=== PATIENT | male | born 1940 | race Caucasian/White ===

== ENCOUNTER 2023-06-29 17:00 | Inpatient (IN) | payer MEDICARE, OTHER, SELFPAY ==
--- NOTE | ~2023-06-29 | XR_ITS ---
EXAMINATION: XR FOOT, RIGHT CLINICAL INFORMATION: Necrotic toe COMPARISON: None available. TECHNIQUE: AP, lateral, and oblique views of the right foot. FINDINGS: Air density seen in the distal aspect of the first digit. On the lateral image I cannot exclude some ill-definition of bone involving the distal tuft. Therefore focus of osteomyelitis cannot be excluded. Probable dystrophic calcification in the region of the MTP joint. Correlation recommended here. Osteomyelitis cannot be completely excluded at the level the MTP joint of the first digit. There is no acute fracture or dislocation. XR/XR foot RT min 3V IMPRESSION: Described air density in the soft tissues about the distal first digit and I cannot exclude some mild ill-definition of bone involving the distal tuft. Osteomyelitis cannot be excluded. Recommend pre and postcontrast MRI is time. As described some dystrophic calcification could be associated with old injury at the MTP joint. Osteomyelitis cannot be completely excluded here. Again consider MRI
--- NOTE | ~2023-06-29 | XR_ITS ---
EXAMINATION: XR SHOULDER, LEFT CLINICAL INFORMATION: Pain COMPARISON: None available. TECHNIQUE: AP external rotation, Grashey, scapular Y, and axillary views of the left shoulder. FINDINGS: Bone alignment is normal. No fracture or dislocation. Arthritis at the acromioclavicular and glenohumeral joints. Periarticular soft tissue calcifications adjacent to the acromioclavicular and glenohumeral joints. XR/XR shoulder LT min 2V IMPRESSION: Severe arthritis.
--- NOTE | ~2023-06-29 | US_ITS ---
EXAMINATION: NONINVASIVE ASSESSMENT OF THE ARTERIES OF THE RIGHT LOWER EXTREMITY Dillon Lovelace MD CLINICAL INFORMATION: Wet gangrene of toe. TECHNIQUE: Right lower extremity duplex ultrasound was performed with velocity measurements and waveform analysis in the common femoral artery, profunda femoris artery, proximal mid and distal superficial femoral artery, popliteal artery and tibial vessels. This study was performed only at rest. COMPARISON: None available. FINDINGS: Velocities in cm/sec and phasicity as well as the presence of plaque are reported below. RIGHT LEG: Diffuse plaque is present throughout. Triphasic flow is present in the common femoral artery with biphasic flow noted throughout the remainder of the lower extremity with the exception of the dorsalis pedis and anterior tibial artery, which have monophasic flow. There is velocity acceleration in the mid SFA, indicative of some element of stenosis. Common Femoral: 82 Profunda Femoris: 110 Proximal SFA: 104 Mid SFA: 213 Distal SFA: 80 Popliteal: 96 Posterior tibial artery: 48 Peroneal: 99 Anterior tibial artery: 60 Dorsalis pedis: 41 US/US arterial duplex LE RT IMPRESSION: There is peripheral vascular disease present with plaque throughout, but there is multiphasic flow present with the exception of the distal tibial vessels, which demonstrate monophasic flow. CT angiography would be useful for further evaluation.
[2023-06-29 17:27] VITALS: BP 157/76; PULSE 82; RESP 18; TEMP 37.2; O2SAT 98; BMI 31.3
--- NOTE | 2023-06-29 17:57 | ED.GENADULT ---
HPI - General Adult General Chief complaint: General Medical Stated complaint: cant walk, black foot? toe? Time Seen by Provider: 06/29/23 17:47 Source: patient and family Mode of arrival: ambulatory Limitations: no limitations History of Present Illness HPI narrative: 83 yo male with PMH of DM, HTN not a smoker who was finally coerced to come in by family and friends for 1+ month of R great toe infection and necrosis. He states he cannot feel it. it is black and has some drainage. He has not sought care for this. he now has swelling and redness up the eyal VALENTINO complaint: R great toe necrosis Onset (ago): month(s) (1+) Location: right and lower extremity Radiation: non-radiation Severity: moderate Relieving factors: none Associated symptoms: other (open wound black toe) Treatments prior to arrival: none Related Data Allergies Allergy/AdvReac Type Severity Reaction Status Date / Time No Known Allergies Allergy Unverified 05/08/20 17:57 Review of Systems Review of Systems: Constitutional : No Fever, No Chills ENT/Mouth : No sore throat, No Rhinorrhea Eyes: No Eye Pain, No Swelling, No Redness Cardiovascular : No Chest Pain, No SOB, pos leg swelling Respiratory : No Cough, No Sputum Gastrointestinal : No Nausea, No Vomiting, No Diarrhea, No abdominal Pain Genitourinary : No Dysuria, No Hematuria Musculoskeletal : No joint pain, No Myalgias, No Joint Swelling Skin : pos Skin Lesions, positive skin rash Neuro : No Weakness, No Numbness, No Headache Psych : No Anxiety, No Depression Heme/Lymph: No Bruising, No Bleeding,No Lymphadenopathy Endocrine : No Polyuria, No Polydipsia All other systems reviewed and are negative [facility] Past Medical History Attestation statement: The following information was validated with the patient. Medical History HTN (hypertension) Diabetes Social History Social History Patient Tobacco Use Status: Never used Tobacco Use of substances other than those prescribed or required for medical reasons: No Advance Directives: No Advance Directives Information Provided: No Physical Exam ED Vital Signs: Vital Signs - 24 hr 06/29/23 17:27 06/29/23 18:13 Temperature 99 F 99.7 F Pulse Rate 82 79 Respiratory Rate 18 20 Blood Pressure 157/76 H 173/74 H Pulse Oximetry 98 99 Oxygen Delivery Method Room Air Room Air BMI result Body Mass Index 31.3 Appearance: Alert. Oriented X3. No acute distress. Eyes: Pupils equal, round and reactive to light. ENT: Pharynx normal. Neck: Normal inspection. Neck supple. CVS: Normal heart rate and rhythm. Pulses normal. Respiratory: No respiratory distress. Breath sounds normal. Abdomen: Soft and nontender. Skin: Skin warm and dry. Normal skin color. R great toe necrotic, sloughed skin with erythema up to proximal calf, warm to touch, odor noted. boggy feeling at the toe - foot is warm to touch can feel a PT pulse Extremities: No lower extremity edema. No calf ttp Neuro: Oriented X 3. No motor deficit. No sensory deficit. Medications Administered Discontinued Medications Generic Name Dose Route Start Last Admin Trade Name Freq PRN Reason Stop Dose Admin Piperacillin Sod/Tazobactam 50 mls @ 100 mls/hr 06/29/23 18:05 06/29/23 18:29 Sod 3.375 gm/ Sodium Chloride IV 06/29/23 18:34 100 mls/hr ONCE ONE Administration Medical Decision Making Medical Decision Making [facility] Narrative: 83 yo male with HTN, DM here with c/o R great toe wound and necrosis now with extending cellulitis it is warm to touch can feel PT pulse at this time will obtain labs, xray and start on vanco and zosyn update surgery and admit for further workup did discuss with him and family he may require surgery. Differential Diagnosis Differential Diagnoses: The differential diagnosis associated with the presentation includes necrosis, cellulitis, gangrene Admission/Observation Consideration of admission/observation: Escalation of care including admission/observation considered admit for further workup Consult Healthcare Provider Management of the patient was discussed with: Hospitalist (will admit) and Fagoter (Dr. Benson aware and notified) Lab Data [facility] Lab Attestation statement: I reviewed the patient's lab results. 06/29/23 18:21 06/29/23 18:21 Labs: Lab Results 06/29/23 Range/Units 18:21 WBC 13.1 H (4.8-10.8) X10*3/uL RBC 4.61 (4.60-5.80) X10*6/uL Hgb 14.0 (14.0-18.0) g/dl Hct 41.0 L (42.0-52.0) % MCV 88.9 (80.0-98.0) fL MCH 30.4 (27.0-33.0) pg MCHC 34.1 (31.0-36.0) g/dl RDW 12.2 (11.0-16.0) % Plt Count 291 (160-400) X10*3/uL MPV 10.1 (9.4-12.4) fL Immature Gran % (Auto) 0.6 H (0.0-0.4) % Neut % (Auto) 81.7 H (45-73) % Lymph % (Auto) 8.6 L (20-40) % [place] % (Auto) 6.8 (2-11) % Eos % (Auto) 2.0 (0-4) % Baso % (Auto) 0.3 (0-2) % Lymph # (Auto) 1.1 L (1.2-4.9) X10*3/uL [place] # (Auto) 0.9 (0.1-1.2) X10*3/uL Eos # (Auto) 0.3 (0.0-0.4) X10*3/uL Baso # (Auto) 0.0 (0.0-0.2) X10*3/uL Abs Immat Gran (auto) 0.08 H (0.00-0.03) X10*3/uL Absolute Neuts (auto) 10.7 H (2.0-8.3) x10*3/uL Absolute Nucleated RBC 0.000 (0.0-0.012) X10*3/uL Nucleated RBC % (auto) 0.0 (0.0-0.2) /100WBC Sodium 134 L (135-145) mmol/L Potassium 4.6 (3.3-5.1) mmol/L Chloride 101 (96-108) mmol/L Carbon Dioxide 26 (22-29) mmol/L Anion Gap 12 (12-20) BUN 10 (9-16) mg/dL Creatinine 1.01 (0.5-1.4) mg/dL Estim Creat Clear Calc 57.4 Estimated GFR > 60 Random Glucose 248 H (60-115) mg/dL Lactic Acid 1.0 (0.5-2.0) mmol/L Calcium 9.7 (8.4-10.2) mg/dL Total Bilirubin 0.7 (0.0-1.0) mg/dL Direct Bilirubin 0.4 (0.0-0.5) mg/dL AST 26 (5-37) U/L ALT 26 (0-40) U/L Alkaline Phosphatase 171 H (39-117) U/L Total Protein 8.1 H (6.5-8.0) g/dL Albumin 3.4 L (3.5-5.0) g/dL Independent Interpretation I performed an independent interpretation of an: Plain X-Ray (?osteo) Radiology Impression Discussion of test interpretation with radiology: I have reviewed the radiologist's reading. Independent Historian Clinical information obtained from an independent historian. History obtained from or confirmed by: Spouse and Friend Discharge Plan Discharge Clinical Impression: Necrosis of toe Cellulitis of leg Qualifiers: Laterality: right Qualified Code(s): L03.115 - Cellulitis of right lower limb Patient Disposition: Admitted As Inpatient
[2023-06-29 18:13] VITALS: BP 173/74; PULSE 79; RESP 20; TEMP 37.6; O2SAT 99
[2023-06-29 18:25] LABS: MANUAL DIFF FLAG NO
[2023-06-29 18:28] LABS: Basophils Percent Auto 0.3 % (0-2); Eosinophils Absolute Auto 0.3 X10*3/uL (0.0-0.4); Imm Gran Abs Auto 0.08 X10*3/uL (0.00-0.03); Imm Gran Pct Auto 0.6 % (0.0-0.4); Lymphocytes Absolute Auto 1.1 X10*3/uL (1.2-4.9); Lymphocytes Percent Auto 8.6 % (20-40); Mean Corpuscular HGB Conc 34.1 g/dl (31.0-36.0); Mean Corpuscular Hemoglobin 30.4 pg (27.0-33.0); Mean Corpuscular Volume 88.9 fL (80.0-98.0); Mean Platelet Volume 10.1 fL (9.4-12.4); Monocytes Absolute Auto 0.9 X10*3/uL (0.1-1.2); Monocytes Percent Auto 6.8 % (2-11); Neutrophils Absolute Auto 10.7 x10*3/uL (2.0-8.3); Neutrophils Percent Auto 81.7 % (45-73); Platelet Count 291 X10*3/uL (160-400); Red Blood Count 4.61 X10*6/uL (4.60-5.80); Red Cell Distribution Width 12.2 % (11.0-16.0); White Blood Count 13.1 X10*3/uL (4.8-10.8)
[2023-06-29] MEDS: Piperacillin Sodium/Tazobactam 3.375 GM in 0.9 % Sodium Chloride 50 ML IV (18:29)
[2023-06-29 18:46] LABS: Alanine Aminotransferase 26 U/L (0-40); Albumin Level 3.4 g/dL (3.5-5.0); Alkaline Phosphatase 171 U/L (39-117); Anion Gap 12 (12-20); Aspartate Amino Transferase 26 U/L (5-37); Bilirubin Direct 0.4 mg/dL (0.0-0.5); Bilirubin Total 0.7 mg/dL (0.0-1.0); Blood Urea Nitrogen 10 mg/dL (9-16); Calcium 9.7 mg/dL (8.4-10.2); Carbon Dioxide 26 mmol/L (22-29); Chloride 101 mmol/L (96-108); Creatinine Clr Calc Pharmacy 57.4; Estimated Glomerular Filt Rate > 60; Glucose Random 248 mg/dL (60-115); Potassium 4.6 mmol/L (3.3-5.1); Sodium 134 mmol/L (135-145); Total Protein 8.1 g/dL (6.5-8.0)
--- NOTE | 2023-06-29 18:49 | P.CONGS_ITS ---
History of Present Illness Consult details Consult date: 06/29/23 Narrative: 83-year-old male with a past history of diabetes mellitus, hypertension, found by family and friend to have a black and infected right great toe for at least 1 month. He reports cleaning the toe with alcohol for reports having difficulty walking due to the pain. He denies fever or chills. He denies any recent injury to the toe. Workup in the emergency department revealed cellulitis extending up the leg as well as the necrotic changes of the great toe. WBC is elevated at 13.1. X-ray of the foot revealed air density in the soft tissue about the distal 1st digit; osteomyelitis cannot be excluded. Patient is being admitted to the hospitalist service. Surgical consultation was requested for management of the necrotic toe. Review of Systems 2 Review of Systems: Yes all other systems are reviewed and are negative PMFSH Past Medical History Medical History HTN (hypertension) Diabetes Social History Social History Patient Tobacco Use Status: Never used Tobacco Use of substances other than those prescribed or required for medical reasons: No Advance Directives: No Advance Directives Information Provided: No Meds Allergies Allergy/AdvReac Type Severity Reaction Status Date / Time No Known Allergies Allergy Unverified 05/08/20 17:57 Active Medications: Current Medications Vancomycin HCl (Vancomycin/Ns) 2,000 mg in 500 mls @ 250 mls/hr IV ONCE ONE Stop: 06/29/23 20:04 Physical Exam 2 Vital Signs: Vital Signs: Last Vital Signs Temp 99.7 F 06/29/23 18:13 Pulse 79 06/29/23 18:13 Resp 20 06/29/23 18:13 BP 173/74 H 06/29/23 18:13 Pulse Ox 99 06/29/23 18:13 O2 Del Method Room Air 06/29/23 18:13 BMI result Body Mass Index 31.3 Const: General: comfortable and no acute distress Nutritional Appearance: w ell nourished Orientation/consciousness: patient oriented x3 HEENT: Other: [place] Head: Yes normocephalic and Yes atraumatic Resp: Effort & Inspection: normal respiratory effort, no audible wheezes, no cough and no respiratory distress GI: Inspection: Yes normal to inspection Skin: Other: Warm, dry, no rash, see extremity below Neuro: General: patient oriented x3 Extrem: Other: Right leg with cellulitis extending up to mid carlos level and 1+ edema. Right great toe necrotic up to the MP joint. Ankle/foot/toe images: 1. Necrotic right great toe 2. Level of cellulitis right leg Results Labs 06/29/23 18:21 06/29/23 18:21 Labs: Abnormal lab results 06/29/23 Range/Units 18:21 WBC 13.1 H (4.8-10.8) X10*3/uL Hct 41.0 L (42.0-52.0) % Immature Gran % (Auto) 0.6 H (0.0-0.4) % Neut % (Auto) 81.7 H (45-73) % Lymph % (Auto) 8.6 L (20-40) % Lymph # (Auto) 1.1 L (1.2-4.9) X10*3/uL Abs Immat Gran (auto) 0.08 H (0.00-0.03) X10*3/uL Absolute Neuts (auto) 10.7 H (2.0-8.3) x10*3/uL Sodium 134 L (135-145) mmol/L Random Glucose 248 H (60-115) mg/dL Alkaline Phosphatase 171 H (39-117) U/L Total Protein 8.1 H (6.5-8.0) g/dL Albumin 3.4 L (3.5-5.0) g/dL Short CBC 06/29/23 Range/Units 18:21 WBC 13.1 H (4.8-10.8) X10*3/uL Hgb 14.0 (14.0-18.0) g/dl Hct 41.0 L (42.0-52.0) % Plt Count 291 (160-400) X10*3/uL BMP 06/29/23 18:21 Sodium 134 L Potassium 4.6 Chloride 101 Carbon Dioxide 26 BUN 10 Creatinine 1.01 Calcium 9.7 Liver Function 06/29/23 Range/Units 18:21 Total Bilirubin 0.7 (0.0-1.0) mg/dL Direct Bilirubin 0.4 (0.0-0.5) mg/dL AST 26 (5-37) U/L ALT 26 (0-40) U/L Alkaline Phosphatase 171 H (39-117) U/L Albumin 3.4 L (3.5-5.0) g/dL All other labs normal. Assessment and Plan (1) Cellulitis of leg: Qualifiers: Laterality: right Qualified Code(s): L03.115 - Cellulitis of right lower limb Status: Acute (2) Necrosis of toe: Status: Acute Plan 83-year-old male patient with history of diabetes and hypertension found to have necrotic great toe with subsequent cellulitis extending up to the mid carlos level. Patient is being admitted for IV antibiotics. Discussed the need for amputation of the right great toe over the next several days the patient and his family/friends. He expressed understanding and agrees with the plan. Would anticipate amputation Tuesday to allow cellulitis to improved. Procedures Date of Service Date of Service: 06/29/23
--- NOTE | 2023-06-29 19:12 | PHA.MEDREC ---
Pharmacy Consult ? Medication Reconciliation Pharmacy has completed the medication reconciliation. Patient seems confused about what he takes, family also not too sure. recongize some names. Reported taking all medication at night. Sakshi Baker, SerafinD
--- NOTE | 2023-06-29 19:20 | PM.IMHP ---
History of Present Illness Date of Service: 06/29/23 Chief Complaint: Foot infection This is a 83-year-old male with pertinent history of ies-ybziavh-prncxtsvz diabetes mellitus, essential hypertension who presents to the emergency department for evaluation of right great toe infection. Patient states he did not want to come into the hospital and was forced by his family members. He presents for foul-smelling and blackening of right great toe associated with purulent drainage. It has been ongoing for the last 1 month. Denies fever or chills. States diabetes is uncontrolled. No chest discomfort, palpitations, shortness of breath, abdominal pain, changes in urinary or bowel habits. In the emergency department, imaging was obtained which was concerning for osteomyelitis. General surgery was consulted and patient will likely undergo amputation on 07/01. Review of Systems Constitutional: Constitutional: Reports fatigue and Reports lethargy Cardiovascular: Cardiovascular: Reports no additional cardiovascular complaints Respiratory: Respiratory: Reports no additional respiratory complaints Gastrointestinal: Gastrointestinal: Reports no additional gastrointestinal complaints Genitourinary: Genitourinary: Reports no additional male genitourinary complaints Musculoskeletal: Musculoskeletal: Reports arthralgias and Reports joint swelling Endocrine: Endocrine: Reports fatigue [facility] Medical History HTN (hypertension) Diabetes Pertinent family history: No family history of early CAD Social History Patient Tobacco Use Status: Never used Tobacco Use of substances other than those prescribed or required for medical reasons: No Advance Directives: No Advance Directives Information Provided: No Meds Allergies Allergy/AdvReac Type Severity Reaction Status Date / Time No Known Allergies Allergy Unverified 05/08/20 17:57 Active Medications: Current Medications Vancomycin HCl (Vancomycin/Ns) 2,000 mg in 500 mls @ 250 mls/hr IV ONCE ONE Stop: 06/29/23 20:04 Home Medications Medication Instructions Recorded Confirmed Last Taken Type furosemide 20 mg tablet 20 mg PO BEDTIME 06/29/23 06/29/23 Unknown History glimepiride 2 mg tablet 2 mg PO BEDTIME 06/29/23 06/29/23 Unknown History lisinopril 40 mg tablet 40 mg PO BEDTIME 06/29/23 06/29/23 Unknown History oxybutynin chloride 5 mg 5 mg PO BEDTIME 06/29/23 06/29/23 Unknown History tablet,extended release 24 hr Physical Exam Vital Signs and Narrative: Vital Signs: Last Vital Signs Temp 99.7 F 06/29/23 18:13 Pulse 79 06/29/23 18:13 Resp 20 06/29/23 18:13 BP 173/74 H 06/29/23 18:13 Pulse Ox 99 06/29/23 18:13 O2 Del Method Room Air 06/29/23 18:13 BMI result Body Mass Index 31.3 Elderly male lying in bed in no distress Neck supple, no JVD Regular rate and rhythm, S1-S2 heard Regular breath sounds bilaterally, no wheezing or crackles appreciated Abdomen soft nontender, no guarding, no rigidity Patient is awake, alert and oriented to self, place, time and person ; no focal motor deficit Right great toe with necrosis, foul smelling drainage, erythema upto calf Psych: Normal mood No pedal edema Results Labs 06/29/23 18:21 06/29/23 18:21 Labs: Laboratory Results - last 24 hr 06/29/23 18:21 MCV 88.9 MCH 30.4 MCHC 34.1 RDW 12.2 Plt Count 291 MPV 10.1 Immature Gran % (Auto) 0.6 H Neut % (Auto) 81.7 H Lymph % (Auto) 8.6 L [place] % (Auto) 6.8 Eos % (Auto) 2.0 Baso % (Auto) 0.3 Lymph # (Auto) 1.1 L [place] # (Auto) 0.9 Eos # (Auto) 0.3 Baso # (Auto) 0.0 Abs Immat Gran (auto) 0.08 H Absolute Neuts (auto) 10.7 H Absolute Nucleated RBC 0.000 Nucleated RBC % (auto) 0.0 Anion Gap 12 Estim Creat Clear Calc 57.4 Estimated GFR > 60 Random Glucose 248 H Lactic Acid 1.0 Calcium 9.7 Total Bilirubin 0.7 Direct Bilirubin 0.4 AST 26 ALT 26 Alkaline Phosphatase 171 H Total Protein 8.1 H Albumin 3.4 L Imaging Radiologist's Impressions: Impressions Foot X-Ray 06/29/23 17:54 IMPRESSION: Described air density in the soft tissues about the distal first digit and I cannot exclude some mild ill-definition of bone involving the distal tuft. Osteomyelitis cannot be excluded. Recommend pre and postcontrast MRI is time. As described some dystrophic calcification could be associated with old injury at the MTP joint. Osteomyelitis cannot be completely excluded here. Again consider MRI Assessment and Plan (1) Necrosis of toe: Status: Acute (2) Cellulitis of leg: Qualifiers: Laterality: right Qualified Code(s): L03.115 - Cellulitis of right lower limb Status: Acute Plan This is a 83-year-old male with pertinent history of hgu-swrvsjm-wdydpyfbf diabetes mellitus, essential hypertension who presents to the emergency department for evaluation of right great toe infection. #. Sepsis due to wet gangrene of right toe and purulent cellulitis of right foot: Resuscitated with IV crystalloids. Initiating empiric IV antibiotics. General surgery was consulted, noted plans for amputation on 07/01. Lactic acid and blood culture obtained. Ordered arterial duplex #. Jth-wdknenm-coopseytj diabetes mellitus with hyperglycemia: Initiating basal plus insulin regimen. #. Essential hypertenion: On lisinopril Med rec pending DVT prophylaxis: Lovenox (hold prior to surgery) Admit as inpatient and will require two night minimum hospital stay for IV antibiotics (as above), which cannot be done in a lesser acute setting Quality Stroke Does the patient have a stroke diagnosis?: No VTE Prior VTE?: No VTE Risk Level:: Medical - moderate - high VTE Device Contraindication: Treatment Not Indicated VTE Drug Contraindication: N/A - Med Ordered
[2023-06-29] MEDS: vancomycin/NS 2,000 MG/500 ML PLAST..BAG 250 MG IV (19:38)
--- NOTE | 2023-06-29 19:38 | MHC.EDTECH ---
This tech took over care at 1900,hourly rounds and vitals completed. Patient urinated 200ML in urinal,bed linen was changed and kassy-care giving. Belonging list completed and copy placed in chart. Call wylie within reach and family at bedside
[2023-06-29 19:41] VITALS: BP 188/76; PULSE 77; RESP 18; TEMP 36.8; O2SAT 98
--- NOTE | 2023-06-29 19:54 | PHA.PROG ---
Admission Date/Time: June 29, 2023 19:19 Indication: Sepsis due to wet gangrene of right toe and purulent cellulitis of right foot Weight in k.718 kg Adjusted body weight in K.947 kg [place] body weight in K.1 kg Obesity Dosing Indication % IBW: 137% Serum Creatinine - Last 168 Hours 06/29/23 18:21 Creatinine 1.01 Estimated CrCl and GFR - Last 168 Hours 06/29/23 18:21 Estim Creat Clear Calc 57.4 Estimated GFR > 60 Vancomycin Loading Dose: 2000 mg Current Vancomycin Dosing Regimen: 1500 mg Q24H Date and Time for next Vancomycin Level to be drawn: 07/02 @ 1800 Pharmacist Comments on Vancomycin Plan: Patient received an adequate load dose in the ER 06/29 @ 1938 Maintenance dose vancomycin 1500 mg Q24H is scheduled to start 06/30 @ 1999. Expected AUC 512 with a trough of 15.2 Patient is consider obese with %IBW > 130%, therefore careful monitor is required due to vancomycin high volume of distrubtion Level will be drawn prior to 4th dose Pharmacy will monitor renal function daily Sakshi Baker, Erma Vancomycin dosing will take advantage of [employer] as a clinical decision support tool that uses Bayesian modeling to calculate individual patient's pharmacokinetic parameters and forecast the patient's drug concentration time course with the target goal AUC 24 range of 400 - 600 mg/L/hr.
[2023-06-29 21:05] LABS: Glucose, Whole Blood 262 mg/dL (60-115)
--- NOTE | 2023-06-29 21:13 | MHC.EDTECH ---
Blood Sugar was taken per order 262 KADEN Arora made aware
[2023-06-29] MEDS: Enoxaparin Sodium 40 MG/0.4 ML SYRINGE SUBCUT (21:15)
[2023-06-29] MEDS: Insulin Glargine,Hum.rec.anlog 100 UNIT/ML 10 ML VIAL 18 UNIT SUBCUT (21:15)
[2023-06-29] MEDS: Insulin Lispro 100 UNIT/ML 3 ML VIAL SUBCUT (21:15)
[2023-06-29] MEDS: 0.9 % Sodium Chloride 1,000 ML 999 ML IV (21:16)
--- NOTE | 2023-06-29 21:21 | PC.NURSE ---
pt medicated per mar with bedtime meds and insulin. pt resting comfortably on stretcher, vital signs updated, call wylie within reach,pt comfortable and needs met. plan of care ongoing
--- NOTE | 2023-06-29 21:35 | PC.NURSE ---
fe friend/roommate phone # [phone]
--- NOTE | 2023-06-29 21:46 | MHC.EDTECH ---
Hourly rounds completed,recliner was brought in to room for patients . Call wylie within reach.
[2023-06-29] MEDS: lisinopriL 40 MG TABLET PO (22:19)
[2023-06-29 23:48] VITALS: RESP 18
--- NOTE | 2023-06-29 23:50 | MHC.EDTECH ---
Hourly rounds completed,patient is sleeping at this time and is at bedside.
[2023-06-30] VITALS: BP 170/80; PULSE 75; RESP 14; TEMP 36.6; O2SAT 99
[2023-06-30] MEDS: 0.9 % Sodium Chloride Flush 3 ML SYRINGE IVFLUSH ×3 (01:43→17:35)
[2023-06-30] MEDS: Piperacillin Sodium/Tazobactam 4.5 GM in 0.9 % Sodium Chloride 100 ML IV ×4 (01:43→18:23)
--- NOTE | 2023-06-30 02:56 | PC.NURSE ---
Patient arrived from ED accompanied by his .Plan for her to stay overnight, recliner,blanket,pillow provided, drinks/ food offered. After admission was completed and meds given both patient and were informed that they can rest now and were oriented to use a call wylie when help is needed. Despite that patients spouse kept coming out to the [address] and asking why her is not getting assisted to get ready to go home. corporate development analyst was called to make sure situation is explained clearly , appeared that both were able to communicate in German quite sufficiently. Patient stated that his has a dementia and he is taking care of her at home. No one is able to pick her up or stay with her at home. Third floor neighbour drove them to the hospital. Nursing fermenting cellars supervisor made aware.
[2023-06-30 03:44] VITALS: BP 171/77; PULSE 55; RESP 14; TEMP 36.4; O2SAT 98
[2023-06-30 05:46] LABS: MANUAL DIFF FLAG NO
[2023-06-30 06:06] LABS: Anion Gap 11 (12-20); Blood Urea Nitrogen 9 mg/dL (9-16); Calcium 8.8 mg/dL (8.4-10.2); Carbon Dioxide 22 mmol/L (22-29); Chloride 104 mmol/L (96-108); Creatinine Clr Calc Pharmacy 68.2; Estimated Glomerular Filt Rate > 60; Glucose Random 169 mg/dL (60-115); Potassium 3.7 mmol/L (3.3-5.1); Sodium 133 mmol/L (135-145)
[2023-06-30 06:12] LABS: Basophils Absolute Auto 0.1 X10*3/uL (0.0-0.2); Basophils Percent Auto 0.4 % (0-2); Eosinophils Absolute Auto 0.4 X10*3/uL (0.0-0.4); Eosinophils Percent Auto 3.6 % (0-4); Hematocrit 36.4 % (42.0-52.0); Hemoglobin 12.9 g/dl (14.0-18.0); Imm Gran Abs Auto 0.08 X10*3/uL (0.00-0.03); Imm Gran Pct Auto 0.7 % (0.0-0.4); Lymphocytes Absolute Auto 1.7 X10*3/uL (1.2-4.9); Lymphocytes Percent Auto 15.1 % (20-40); Mean Corpuscular HGB Conc 35.4 g/dl (31.0-36.0); Mean Corpuscular Volume 87.5 fL (80.0-98.0); Mean Platelet Volume 10.7 fL (9.4-12.4); Monocytes Absolute Auto 0.9 X10*3/uL (0.1-1.2); Monocytes Percent Auto 7.5 % (2-11); Neutrophils Absolute Auto 8.2 x10*3/uL (2.0-8.3); Neutrophils Percent Auto 72.7 % (45-73); Platelet Count 251 X10*3/uL (160-400); Red Blood Count 4.16 X10*6/uL (4.60-5.80); Red Cell Distribution Width 12.2 % (11.0-16.0); White Blood Count 11.3 X10*3/uL (4.8-10.8)
[2023-06-30 07:05] VITALS: BP 168/75; PULSE 61; RESP 18; TEMP 36.4; O2SAT 96
[2023-06-30 07:31] LABS: Glucose, Whole Blood 128 mg/dL (60-115)
--- NOTE | 2023-06-30 08:23 | PC.NURSE ---
Report received from previous RN that who has dementia is in the room with patient. Patient went into the bathroom and when she came out needed to be redirected back into patient room. Patient reports that can not be left home alone due to her dementia and they have no family to take care of her while he is here or to come and pick her up. Florina charge nurse made aware. Mario campbell tele program development manager made aware. Shanel briefcase sewer made aware and said she would reach out to her program development manager.
--- NOTE | 2023-06-30 08:44 | HE.PHANOTE ---
VANCO DOSE ADJUSTMENT BASED ON SCR DOSE CONTINUED. NEXT TROUGH 07/02 @ 1800
--- NOTE | 2023-06-30 09:47 | MHC.CM.PN ---
CM MET WITH PT AND WHO BOTH DECLINED TALENT ACQUISITION ASSISTANT SERVICES CM REQUESTED TALENT ACQUISITION ASSISTANT REMAIN IN CASE CLARIFICATION WAS NEEDED PT REPORTS IT IS JUST HE AND HIS AT HOME AND HE PROVIDES HER CARE HE REPORTS HIS IS FUNCTIONALLY INDEPENDENT, BUT HAS DEMENTIA HE SAYS THEY HAVE NO HOME SERVICES THEY DO NOT QUALIFY FOR ANY ASSISTANCE HE REPORTS HE ONLY USES A CANE FOR DME PT DOES NOT HAVE A HCP, INFORMATION WAS PROVIDED WELL THE BENEFITS TO HAVING ONE PT AND HIS BOTH DECLINED ASSISTANCE IN COMPLETING A HCP OR ACCEPTING THE INFO/DOCUMENT PCP: ROLANDA SELF IMM DELIVERED CM AND CM DIRECTOR MET WITH PT AND TO EXPLAIN WHY STAFF IS UNABLE TO ASSIST IN THE 'S CARE ALSO REMINDED HE WILL BE UNABLE TO PROVIDE HER CARE UNTIL HE COMPLETES HIS MEDICAL TREATMENT PER DISCUSSION, PT AND AGREEABLE TO HER GOING TO THE ED SO THAT SHE CAN RECEIVE NECESSARY CARE WHILE HE IS INPT DCP: PT AND WILL DC HOME TOGETHER? [facility] TRANSPORT TBD
[2023-06-30 11:24] LABS: Glucose, Whole Blood 323 mg/dL (60-115)
[2023-06-30] MEDS: polyethylene glycoL 3350 17 GM POWD.PACK PO (11:43)
[2023-06-30] MEDS: Docusate Sodium 100 MG CAPSULE PO (11:43)
[2023-06-30] MEDS: Insulin Lispro 100 UNIT/ML 3 ML VIAL SUBCUT ×3 (11:47→21:38)
--- NOTE | 2023-06-30 15:00 | HO.WOUND ---
Wound Consult: Initial 83yr old male admitted to [facility] on? No06/29/23 19:19- See progress notes and H&P for detailed history. Per chart review Pt scheduled for Right Great Toe amputation tomorrow 06/30/23. Will defer to Surgery Team for orders post surgery. Right Great Toe Etiology: Necrotic Toe Present on admission Wound Bed: Moist necrotic tissue and dry necrotic tissue - flap of dry lifting thick epidermal layer adherent to tip of toe and base of toe Drainage / Odor: No drainage observed but significant odor noted Edges: ?defined Zehra wound: ?Induration and Erythema noted Pain: Pt reports discomfort Goals of Treatment: ? Betadine for antimicrobial properties and to aid in drying and cover wound Recommendations: 1. Turn and Reposition every 2 hours and as needed for patient comfort. 2. Off Load all bony prominences with use of pillows. 3. Monitor for incontinence and moisture control. 4. Provide adequate and supplemental nutrition. 5. Maintain blood glucose levels per Providers orders. 6. Right Great Toe - [place] with Betadine - allow to dry. cover with dry gauze, wrap and secure with tape. Change daily. Re-consult wound care Nurse for wound deterioration or wound changes.
[2023-06-30 16:00] VITALS: BP 134/63; PULSE 69; RESP 18; TEMP 36.6; O2SAT 100
[2023-06-30 16:32] LABS: Glucose, Whole Blood 223 mg/dL (60-115)
--- NOTE | 2023-06-30 16:54 | P.PNIM_ITS ---
Subjective Subjective Date of Service: 06/30/23 Interval History: seen and examined this morning follow up for cellulitis and gangrene of the right great toe denies pain, fever or chills Review of Systems Review of Systems: Yes all other systems are reviewed and are negative Constitutional Constitutional: Denies chills and Denies fever(s) Cardiovascular Cardiovascular: Denies chest pain, Denies palpitations and Denies dyspnea Respiratory Respiratory: Denies cough and Denies dyspnea Endocrine Endocrine: Denies palpitations Physical Exam 2 Vital Signs: Vital Signs: Last Vital Signs Temp 97.8 F 06/30/23 16:00 Pulse 69 06/30/23 16:00 Resp 18 06/30/23 16:00 BP 134/63 06/30/23 16:00 Pulse Ox 100 06/30/23 16:00 O2 Del Method Room Air 06/30/23 16:00 BMI result Body Mass Index 31.3 Const: General: cooperative, comfortable, no acute distress, alert and awake Nutritional Appearance: average body habitus Orientation/consciousness: p atient oriented x3 Resp: Effort & Inspection: normal respiratory effort, able to speak in complete sentences, no respiratory distress and no use of accessory muscles Cardio: Rate: regular rate GI: Inspection: No distended Palpation (GI): Soft to palpation and nontender Skin: Other: Neuro: General: patient oriented x3, moves all extremities and CN's II-XI intact bilaterally Objective Data Active Medications Acetaminophen (Acetaminophen 325 Mg Tablet) 650 mg PO Q6H PRN PRN Reason: Pain, Mild (Pain Scale 1-3) Dextrose (Dextrose 50 % 25 Gm/50 Ml Syringe) 25 gm IVPUSH Q15M PRN; Protocol PRN Reason: per Hypoglycemia Standing Ord. Docusate Sodium (Docusate Sodium 100 Mg Capsule) 100 mg PO DAILY [facility] Last Admin: 06/30/23 11:43 Dose: 100 mg Documented By: COTEMA Enoxaparin Sodium (Enoxaparin Sodium 40 Mg/0.4 Ml Syringe) 40 mg SUBCUT Q24H [facility] Last Admin: 06/29/23 21:15 Dose: 40 mg Documented By: BANDAR Furosemide (Furosemide 20 Mg Tablet) 20 mg PO BEDTIME [facility]; Protocol Glucose (Glucose Gel 15 Gm Gel..Gram.) 15 gm PO Q15M PRN; Protocol PRN Reason: per Hypoglycemia Standing Ord. Piperacillin Sod/Tazobactam (Sod 4.5 gm/ Sodium Chloride) 100 mls @ 200 mls/hr IV Q6H [facility] Last Infusion: 06/30/23 13:55 Dose: Infused Documented By: WALEEMA Vancomycin HCl 1,500 mg/ (Sodium Chloride) 500 mls @ 333.333 mls/hr IV Q24H [facility] Insulin Glargine (Insulin Glargine,Hum.Rec.Anlog 100 Unit/Ml 10 Ml Vial) 18 unit SUBCUT BEDTIME [facility] Last Admin: 06/29/23 21:15 Dose: 18 unit Documented By: N-LEI Insulin Human Lispro (Insulin Lispro 100 Unit/Ml 3 Ml Vial) 0 unit SUBCUT QIDACHS [facility]; Protocol Last Admin: 06/30/23 11:47 Dose: 8 unit Documented By: OLINDA Lisinopril (Lisinopril 40 Mg Tablet) 40 mg PO BEDTIME [facility]; Protocol Melatonin (Melatonin 3 Mg Tablet) 6 mg PO BEDTIME PRN PRN Reason: Insomnia Ondansetron HCl (Ondansetron Hcl 4 Mg/2 Ml Vial) 4 mg IVPUSH Q8H PRN PRN Reason: Nausea and Vomiting Oxybutynin Chloride (Oxybutynin Chloride Er 5 Mg Tab.Er.24) 5 mg PO BEDTIME [facility] Pharmacy Consult (Consult Rx Vancomycin Dosing) 1 each MISCELLANE DAILY PRN PRN Reason: Consult order Polyethylene Glycol (Polyethylene Glycol 3350 17 Gm Powd.Pack) 17 gm PO DAILY PRN PRN Reason: Constipation Last Admin: 06/30/23 11:43 Dose: 17 gm Documented By: OLINDA Sodium Chloride (0.9 % Sodium Chloride Flush 3 Ml Syringe) 3 ml IVFLUSH QSHIFT [facility] Last Admin: 06/30/23 08:01 Dose: 3 ml Documented By: OLINDA Labs 06/30/23 05:08 06/30/23 05:08 Labs: Laboratory Results - last 24 hr 06/29/23 06/29/23 06/30/23 18:21 21:00 05:08 MCV 88.9 87.5 MCH 30.4 31.0 MCHC 34.1 35.4 RDW 12.2 12.2 Plt Count 291 251 MPV 10.1 10.7 Immature Gran % (Auto) 0.6 H 0.7 H Neut % (Auto) 81.7 H 72.7 Lymph % (Auto) 8.6 L 15.1 L [place] % (Auto) 6.8 7.5 Eos % (Auto) 2.0 3.6 Baso % (Auto) 0.3 0.4 Lymph # (Auto) 1.1 L 1.7 [place] # (Auto) 0.9 0.9 Eos # (Auto) 0.3 0.4 Baso # (Auto) 0.0 0.1 Abs Immat Gran (auto) 0.08 H 0.08 H Absolute Neuts (auto) 10.7 H 8.2 Absolute Nucleated RBC 0.000 0.000 Nucleated RBC % (auto) 0.0 0.0 Anion Gap 12 11 L Estim Creat Clear Calc 57.4 68.2 Estimated GFR > 60 > 60 POC Glucose 262 H Random Glucose 248 H 169 H Lactic Acid 1.0 Calcium 9.7 8.8 D Total Bilirubin 0.7 Direct Bilirubin 0.4 AST 26 ALT 26 Alkaline Phosphatase 171 H Total Protein 8.1 H Albumin 3.4 L 06/30/23 06/30/23 06/30/23 07:08 11:13 16:26 MCV MCH MCHC RDW Plt Count MPV Immature Gran % (Auto) Neut % (Auto) Lymph % (Auto) [place] % (Auto) Eos % (Auto) Baso % (Auto) Lymph # (Auto) [place] # (Auto) Eos # (Auto) Baso # (Auto) Abs Immat Gran (auto) Absolute Neuts (auto) Absolute Nucleated RBC Nucleated RBC % (auto) Anion Gap Estim Creat Clear Calc Estimated GFR POC Glucose 128 H 323 H 223 H Random Glucose Lactic Acid Calcium Total Bilirubin Direct Bilirubin AST ALT Alkaline Phosphatase Total Protein Albumin Assessment and Plan (1) Necrosis of toe: Status: Acute (2) Cellulitis of leg: Status: Acute Plan This is a 83-year-old male with pertinent history of jpj-ejzvbzg-[id number] diabetes mellitus, essential hypertension who presents to the emergency department for evaluation of right great toe infection. Sepsis due to wet gangrene of right toe and cellulitis of right foot: continue IV vancomycina and zosyn seen by General surgery plans for amputation on 07/01 blood cultures pending arterial duplex with PVD present but multiphasic flow present Vvo-fpyxlbg-eiraksbgy diabetes mellitus with hyperglycemia on glimepride at baseline was started on Lantus 18U on admission, received 06/29 - will hold as pt will be NPO at midnight follow SSI Essential hypertenion: continue lisinopril, lasix DVT prophylaxis: Lovenox attending - Dr. Stanley Patient requires ongoing inpatient stay for management including IV antibiotics and surgical intervention in a diabetic with high risk for worsening infection Quality Stroke Does the patient have a stroke diagnosis?: No VTE Prior VTE?: No VTE Risk Level:: Medical - moderate - high VTE Device Contraindication: Treatment Not Indicated VTE Drug Contraindication: N/A - Med Ordered
[2023-06-30 17:03] LABS: Glucose, Whole Blood 211 mg/dL (60-115)
[2023-06-30 20:27] LABS: Glucose, Whole Blood 251 mg/dL (60-115)
[2023-06-30 21:34] VITALS: BP 138/65; PULSE 61; RESP 18; TEMP 37.1; O2SAT 97
[2023-06-30] MEDS: vancomycin HCL 1,500 MG in 0.9 % Sodium Chloride 500 ML 333.33 MG IV (21:36)
[2023-06-30] MEDS: oxyBUTYnin chloride ER 5 MG TAB.ER.24 PO (21:37)
[2023-06-30] MEDS: Furosemide 20 MG TABLET PO (21:37)
[2023-06-30] MEDS: lisinopriL 40 MG TABLET PO (21:38)
--- NOTE | 2023-06-30 21:39 | PC.NURSE ---
Adebayo held per DR Ricardo, surgery tomorrow.
[2023-07-01] VITALS (13 sets, daily range): BP systolic 95–151; BP diastolic 45–68; PULSE 47–72; RESP 16–21; TEMP 36.1–37; O2SAT 95–100
[2023-07-01] MEDS: Piperacillin Sodium/Tazobactam 4.5 GM in 0.9 % Sodium Chloride 100 ML IV ×4 (01:23→18:36)
[2023-07-01] MEDS: 0.9 % Sodium Chloride Flush 3 ML SYRINGE IVFLUSH ×3 (01:23→21:15)
[2023-07-01 06:37] LABS: Estimated Glomerular Filt Rate > 60
[2023-07-01 07:22] LABS: Glucose, Whole Blood 155 mg/dL (60-115)
--- NOTE | 2023-07-01 08:44 | P.PNGS_ITS ---
Subjective Subjective Date of Service: 07/01/23 Interval history: No new complaints. Wants to proceed with amputation. Physical Exam 2 Vital Signs: Vital Signs: Last Vital Signs Temp 97.3 F 07/01/23 07:15 Pulse 53 07/01/23 07:15 Resp 18 07/01/23 07:15 BP 151/68 H 07/01/23 07:15 Pulse Ox 95 07/01/23 07:15 O2 Del Method Room Air 07/01/23 07:15 BMI result Body Mass Index 31.3 Const: General: comfortable, no acute distress and alert O rientation/consciousness: patient oriented x3 Resp: Effort & Inspection: normal respiratory effort Neuro: General: patient oriented x3 Extrem: Other: right first toe necrotic up to the MP joint; erythema improved but edema extending proximally persists Objective Data Active Medications Acetaminophen (Acetaminophen 325 Mg Tablet) 650 mg PO Q6H PRN PRN Reason: Pain, Mild (Pain Scale 1-3) Dextrose (Dextrose 50 % 25 Gm/50 Ml Syringe) 25 gm IVPUSH Q15M PRN; Protocol PRN Reason: per Hypoglycemia Standing Ord. Docusate Sodium (Docusate Sodium 100 Mg Capsule) 100 mg PO DAILY [facility] Last Admin: 07/01/23 08:29 Dose: Not Given Documented By: OLINDA Non-Admin Reason: NPO Enoxaparin Sodium (Enoxaparin Sodium 40 Mg/0.4 Ml Syringe) 40 mg SUBCUT Q24H [facility] Last Admin: 06/30/23 21:37 Dose: Not Given Documented By: ANN MARIE Non-Admin Reason: held per MD, surgery tomorrow Furosemide (Furosemide 20 Mg Tablet) 20 mg PO BEDTIME [facility]; Protocol Last Admin: 06/30/23 21:37 Dose: 20 mg Documented By: ANN MARIE Glucose (Glucose Gel 15 Gm Gel..Gram.) 15 gm PO Q15M PRN; Protocol PRN Reason: per Hypoglycemia Standing Ord. Piperacillin Sod/Tazobactam (Sod 4.5 gm/ Sodium Chloride) 100 mls @ 200 mls/hr IV Q6H [facility] Last Infusion: 07/01/23 07:18 Dose: Infused Documented By: OLINDA Vancomycin HCl 1,500 mg/ (Sodium Chloride) 500 mls @ 333.333 mls/hr IV Q24H [facility] Last Infusion: 06/30/23 23:12 Dose: Infused Documented By: ANN MARIE Insulin Glargine (Insulin Glargine,Hum.Rec.Anlog 100 Unit/Ml 10 Ml Vial) 18 unit SUBCUT BEDTIME [facility] Last Admin: 06/29/23 21:15 Dose: 18 unit Documented By: TROY-ELI Insulin Human Lispro (Insulin Lispro 100 Unit/Ml 3 Ml Vial) 0 unit SUBCUT QIDACHS [facility]; Protocol Last Admin: 07/01/23 07:18 Dose: Not Given Documented By: OLINDA Non-Admin Reason: NPO Lisinopril (Lisinopril 40 Mg Tablet) 40 mg PO BEDTIME [facility]; Protocol Last Admin: 06/30/23 21:38 Dose: 40 mg Documented By: ANN MARIE Melatonin (Melatonin 3 Mg Tablet) 6 mg PO BEDTIME PRN PRN Reason: Insomnia Ondansetron HCl (Ondansetron Hcl 4 Mg/2 Ml Vial) 4 mg IVPUSH Q8H PRN PRN Reason: Nausea and Vomiting Oxybutynin Chloride (Oxybutynin Chloride Er 5 Mg Tab.Er.24) 5 mg PO BEDTIME [facility] Last Admin: 06/30/23 21:37 Dose: 5 mg Documented By: ANN MARIE Pharmacy Consult (Consult Rx Vancomycin Dosing) 1 each MISCELLANE DAILY PRN PRN Reason: Consult order Polyethylene Glycol (Polyethylene Glycol 3350 17 Gm Powd.Pack) 17 gm PO DAILY PRN PRN Reason: Constipation Last Admin: 06/30/23 11:43 Dose: 17 gm Documented By: OLINDA Sodium Chloride (0.9 % Sodium Chloride Flush 3 Ml Syringe) 3 ml IVFLUSH QSHIFT [facility] Last Admin: 07/01/23 07:18 Dose: Not Given Documented By: OLINDA Non-Admin Reason: Previously Administered Labs 06/30/23 05:08 07/01/23 05:40 Labs: Laboratory Results - last 24 hr 06/30/23 06/30/23 06/30/23 11:13 16:26 16:59 Hold Purple Top Estim Creat Clear Calc Estimated GFR POC Glucose 323 H 223 H 211 H 06/30/23 07/01/23 07/01/23 19:59 05:40 07:14 Hold Purple Top SEE NOTE Estim Creat Clear Calc 58.0 Estimated GFR > 60 POC Glucose 251 H 155 H Microbiology Microbiology Results: Microbiology 06/29/23 18:28 Blood Culture - Preliminary Blood - Venous No growth after 24 hours. 06/29/23 18:21 Blood Culture - Preliminary Blood - Venous No growth after 24 hours. Procedures Date of Service Date of Service: 07/01/23 Progress Note: A&P Assessment and plan (1) Necrosis of toe: Status: Acute Plan Plan for amputation of right first toe today. Patient comfortable with plan. Time Spent With Patient Time: Total time managing care of this patient today ____ minutes. Quality Stroke Does the patient have a stroke diagnosis?: No VTE Prior VTE?: No VTE Risk Level:: Medical - moderate - high VTE Device Contraindication: Treatment Not Indicated VTE Drug Contraindication: N/A - Med Ordered
[2023-07-01 10:38] LABS: Glucose, Whole Blood 162 mg/dL (60-115)
--- NOTE | 2023-07-01 10:45 | HO.ANESPROP2 ---
[facility] Active Problems Active Problems: All Active Problems (Updated 06/29/23 @ 18:33 by Janae Hooks DO) Cellulitis of leg (Acute) Necrosis of toe (Acute) Past Medical History Medical History HTN (hypertension) Diabetes Functional capacity: independent ambulation Family History Family history of problems with anesthesia: No Surgical History History of Problems with Anesthesia: No Social History Social History Household Members: Spouse Housing: House Do you presently have visiting nurse or other home services: No Patient Tobacco Use Status: Never used Tobacco service: No Meds Allergies Allergy/AdvReac Type Severity Reaction Status Date / Time No Known Allergies Allergy Unverified 05/08/20 17:57 Active Medications: Current Medications Acetaminophen (Acetaminophen 325 Mg Tablet) 650 mg PO Q6H PRN PRN Reason: Pain, Mild (Pain Scale 1-3) Dextrose (Dextrose 50 % 25 Gm/50 Ml Syringe) 25 gm IVPUSH Q15M PRN; Protocol PRN Reason: per Hypoglycemia Standing Ord. Docusate Sodium (Docusate Sodium 100 Mg Capsule) 100 mg PO DAILY [facility] Last Admin: 07/01/23 08:29 Dose: Not Given Enoxaparin Sodium (Enoxaparin Sodium 40 Mg/0.4 Ml Syringe) 40 mg SUBCUT Q24H [facility] Last Admin: 06/30/23 21:37 Dose: Not Given Furosemide (Furosemide 20 Mg Tablet) 20 mg PO BEDTIME [facility]; Protocol Last Admin: 06/30/23 21:37 Dose: 20 mg Glucose (Glucose Gel 15 Gm Gel..Gram.) 15 gm PO Q15M PRN; Protocol PRN Reason: per Hypoglycemia Standing Ord. Piperacillin Sod/Tazobactam (Sod 4.5 gm/ Sodium Chloride) 100 mls @ 200 mls/hr IV Q6H [facility] Last Infusion: 07/01/23 07:18 Dose: Infused Vancomycin HCl 1,500 mg/ (Sodium Chloride) 500 mls @ 333.333 mls/hr IV Q24H [facility] Last Infusion: 06/30/23 23:12 Dose: Infused Insulin Glargine (Insulin Glargine,Hum.Rec.Anlog 100 Unit/Ml 10 Ml Vial) 18 unit SUBCUT BEDTIME [facility] Last Admin: 06/29/23 21:15 Dose: 18 unit Insulin Human Lispro (Insulin Lispro 100 Unit/Ml 3 Ml Vial) 0 unit SUBCUT QIDACHS [facility]; Protocol Last Admin: 07/01/23 07:18 Dose: Not Given Lisinopril (Lisinopril 40 Mg Tablet) 40 mg PO BEDTIME [facility]; Protocol Last Admin: 06/30/23 21:38 Dose: 40 mg Melatonin (Melatonin 3 Mg Tablet) 6 mg PO BEDTIME PRN PRN Reason: Insomnia Ondansetron HCl (Ondansetron Hcl 4 Mg/2 Ml Vial) 4 mg IVPUSH Q8H PRN PRN Reason: Nausea and Vomiting Oxybutynin Chloride (Oxybutynin Chloride Er 5 Mg Tab.Er.24) 5 mg PO BEDTIME [facility] Last Admin: 06/30/23 21:37 Dose: 5 mg Pharmacy Consult (Consult Rx Vancomycin Dosing) 1 each MISCELLANE DAILY PRN PRN Reason: Consult order Polyethylene Glycol (Polyethylene Glycol 3350 17 Gm Powd.Pack) 17 gm PO DAILY PRN PRN Reason: Constipation Last Admin: 06/30/23 11:43 Dose: 17 gm Sodium Chloride (0.9 % Sodium Chloride Flush 3 Ml Syringe) 3 ml IVFLUSH [facility] Last Admin: 07/01/23 07:18 Dose: Not Given Home Medications Medication Instructions Recorded Confirmed Last Taken Type furosemide 20 mg tablet 20 mg PO BEDTIME 06/29/23 06/29/23 Unknown History glimepiride 2 mg tablet 2 mg PO BEDTIME 06/29/23 06/29/23 Unknown History lisinopril 40 mg tablet 40 mg PO BEDTIME 06/29/23 06/29/23 Unknown History oxybutynin chloride 5 mg 5 mg PO BEDTIME 06/29/23 06/29/23 Unknown History tablet,extended release 24 hr Exam Exam Date and Time: July 01, 2023 1045 Height,Weight and Vital Signs: Height 5 ft 7 in Weight 90.718 kg Last Vital Signs Temp 97.3 F 07/01/23 07:15 Pulse 53 07/01/23 07:15 Resp 18 07/01/23 07:15 BP 151/68 H 07/01/23 07:15 Pulse Ox 95 07/01/23 07:15 O2 Del Method Room Air 07/01/23 07:15 Pertinent Lab Results Pertinent Lab Results: Laboratory Tests 06/29/23 06/29/23 06/30/23 18:21 21:00 05:08 WBC 13.1 H 11.3 H RBC 4.61 4.16 L Hgb 14.0 12.9 L Hct 41.0 L 36.4 L MCV 88.9 87.5 MCH 30.4 31.0 MCHC 34.1 35.4 RDW 12.2 12.2 Plt Count 291 251 MPV 10.1 10.7 Immature Gran % (Auto) 0.6 H 0.7 H Neut % (Auto) 81.7 H 72.7 Lymph % (Auto) 8.6 L 15.1 L [place] % (Auto) 6.8 7.5 Eos % (Auto) 2.0 3.6 Baso % (Auto) 0.3 0.4 Lymph # (Auto) 1.1 L 1.7 [place] # (Auto) 0.9 0.9 Eos # (Auto) 0.3 0.4 Baso # (Auto) 0.0 0.1 Abs Immat Gran (auto) 0.08 H 0.08 H Absolute Neuts (auto) 10.7 H 8.2 Absolute Nucleated RBC 0.000 0.000 Nucleated RBC % (auto) 0.0 0.0 Hold Purple Top Sodium 134 L 133 L Potassium 4.6 3.7 Chloride 101 104 Carbon Dioxide 26 22 Anion Gap 12 11 L BUN 10 9 Creatinine 1.01 0.85 Estim Creat Clear Calc 57.4 68.2 Estimated GFR > 60 > 60 POC Glucose 262 H Random Glucose 248 H 169 H Lactic Acid 1.0 Calcium 9.7 8.8 D Total Bilirubin 0.7 Direct Bilirubin 0.4 AST 26 ALT 26 Alkaline Phosphatase 171 H Total Protein 8.1 H Albumin 3.4 L 06/30/23 06/30/23 06/30/23 07:08 11:13 16:26 WBC RBC Hgb Hct MCV MCH MCHC RDW Plt Count MPV Immature Gran % (Auto) Neut % (Auto) Lymph % (Auto) [place] % (Auto) Eos % (Auto) Baso % (Auto) Lymph # (Auto) [place] # (Auto) Eos # (Auto) Baso # (Auto) Abs Immat Gran (auto) Absolute Neuts (auto) Absolute Nucleated RBC Nucleated RBC % (auto) Hold Purple Top Sodium Potassium Chloride Carbon Dioxide Anion Gap BUN Creatinine Estim Creat Clear Calc Estimated GFR POC Glucose 128 H 323 H 223 H Random Glucose Lactic Acid Calcium Total Bilirubin Direct Bilirubin AST ALT Alkaline Phosphatase Total Protein Albumin 06/30/23 06/30/23 07/01/23 16:59 19:59 05:40 WBC RBC Hgb Hct MCV MCH MCHC RDW Plt Count MPV Immature Gran % (Auto) Neut % (Auto) Lymph % (Auto) [place] % (Auto) Eos % (Auto) Baso % (Auto) Lymph # (Auto) [place] # (Auto) Eos # (Auto) Baso # (Auto) Abs Immat Gran (auto) Absolute Neuts (auto) Absolute Nucleated RBC Nucleated RBC % (auto) Hold Purple Top SEE NOTE Sodium Potassium Chloride Carbon Dioxide Anion Gap BUN Creatinine 1.00 Estim Creat Clear Calc 58.0 Estimated GFR > 60 POC Glucose 211 H 251 H Random Glucose Lactic Acid Calcium Total Bilirubin Direct Bilirubin AST ALT Alkaline Phosphatase Total Protein Albumin 07/01/23 07/01/23 07:14 10:22 WBC RBC Hgb Hct MCV MCH MCHC RDW Plt Count MPV Immature Gran % (Auto) Neut % (Auto) Lymph % (Auto) [place] % (Auto) Eos % (Auto) Baso % (Auto) Lymph # (Auto) [place] # (Auto) Eos # (Auto) Baso # (Auto) Abs Immat Gran (auto) Absolute Neuts (auto) Absolute Nucleated RBC Nucleated RBC % (auto) Hold Purple Top Sodium Potassium Chloride Carbon Dioxide Anion Gap BUN Creatinine Estim Creat Clear Calc Estimated GFR POC Glucose 155 H 162 H Random Glucose Lactic Acid Calcium Total Bilirubin Direct Bilirubin AST ALT Alkaline Phosphatase Total Protein Albumin Airway Mallampati Class: III TM Dist: >3cm Neck ROM: Full Denture: Upper and Lower Heart: RRR Lungs: CTA Assessment and Plan Assessment Anesthesia Assessment: Anesthesia Plan Discussed Final Anesthetic Review Family History of Problems with Anesthesia: No History of Problems with Anesthesia: No NPO: Yes ASA Class: III Final Preanesthetic Review: Meds/Allgs Chart Reviewed, Consent Obtained/Reviewed and Anes Risks/Benef Reviewed Patient Risk: Intermediate Procedure Risk: Low Anesthetic Plan Anesthetic Plan: GA Disposition: Standard PACU
--- NOTE | 2023-07-01 11:35 | MHC.CM.PN ---
PER MD ROUNDS, PT SCHEDULED FOR TOE AMP TODAY DCP REMAINS HOME WITH [facility] ALONG WITH WHO IS IN THE ED THEY WILL NEED ASSISTANCE WITH TRANSPORTATION
--- NOTE | 2023-07-01 11:46 | W.PM.OPN ---
Operative Note Operative Note Date of Service: 07/01/23 Narrative: Preoperative diagnosis: [] gangrene right great toe Postop diagnosis: [] same Procedure [] ray amputation right great toe Surgeon: [] Rajendra Analytic Programmer: [] Godwin Type of Anesthesia: [] general Indication for surgery: [] patient has extensive gangrene involving the right great toe extending down to the metacarpal /pharyngeal junction. Very modest bleeding from skin margins. Findings: [] Patient brought to the operating room, placed on operative table in supine position, after adequate level of general anesthesia was induced, the right foot and lower leg were prepped and draped in usual sterile fashion. Using a by elliptical incision for ray amputation extending down to the proximal 1st metacarpal, this carried down through skin, subcutaneous tissue, and all the way down to the metacarpal head Circumferentially. First metatarsal was amputated at the neck using electric saw. Specimen sent to pathology. Wound was irrigated, secured hemostasis. it was closed in the following manner; interrupted inverted dermal widely spaced 2-0 Vicryl sutures were placed. A Gary Browning drain traversed the incision on either and that was secured using 2-0 nylon. Fluffs followed by Kerlix were placed. Sponge, needle, and instrument counts reported correct. Patient tolerated procedure well and emerged from anesthesia in stable condition. EBL minimal
[2023-07-01 13:17] LABS: Glucose, Whole Blood 179 mg/dL (60-115)
[2023-07-01] MEDS: Insulin Lispro 100 UNIT/ML 3 ML VIAL SUBCUT ×3 (13:22→21:11)
--- NOTE | 2023-07-01 13:27 | PC.NURSE ---
Pt returned from OR . Right foot dressing CDI pt w/o complaints of pain. Routine post op care
--- NOTE | 2023-07-01 14:50 | P.PNIM_ITS ---
Subjective Subjective Date of Service: 07/01/23 Interval History: Patient underwent right toe amputation at this morning, sitting comfortably denies pain, no nausea,no vomiting, no fever, no chills, place on diabetic diet post surgery. Review of Systems All other system reviewed and negative. Physical Exam 2 Vital Signs: Vital Signs: Last Vital Signs Temp 96.9 F 07/01/23 13:00 Pulse 55 07/01/23 13:00 Resp 16 07/01/23 13:00 BP 143/63 H 07/01/23 13:00 Pulse Ox 96 07/01/23 13:00 O2 Del Method Room Air 07/01/23 13:00 O2 Flow Rate 2 07/01/23 12:10 BMI result Body Mass Index 31.3 Const: Other: General alert oriented x3, sitting comfortably in no acute distress. Neck supple no JVD. CVS regular rate rhythm, Respiratory lungs clear to auscultation, no respiratory distress, no wheeze, no rhonchi. Gastrointestinal abdomen soft, non tender, bowel sounds audible, no guarding , no rigidity. Extremities right lower extremity dressing in place right foot Neuro nonfocal Psych appropriate affect Objective Data Active Medications Acetaminophen (Acetaminophen 325 Mg Tablet) 650 mg PO Q6H PRN PRN Reason: Pain, Mild (Pain Scale 1-3) Dextrose (Dextrose 50 % 25 Gm/50 Ml Syringe) 25 gm IVPUSH Q15M PRN; Protocol PRN Reason: per Hypoglycemia Standing Ord. Docusate Sodium (Docusate Sodium 100 Mg Capsule) 100 mg PO DAILY [facility] Last Admin: 07/01/23 08:29 Dose: Not Given Documented By: COTEMA Non-Admin Reason: NPO Enoxaparin Sodium (Enoxaparin Sodium 40 Mg/0.4 Ml Syringe) 40 mg SUBCUT Q24H [facility] Last Admin: 06/30/23 21:37 Dose: Not Given Documented By: ANN MARIE Non-Admin Reason: held per MD, surgery tomorrow Furosemide (Furosemide 20 Mg Tablet) 20 mg PO BEDTIME [facility]; Protocol Last Admin: 06/30/23 21:37 Dose: 20 mg Documented By: ANN MARIE Glucose (Glucose Gel 15 Gm Gel..Gram.) 15 gm PO Q15M PRN; Protocol PRN Reason: per Hypoglycemia Standing Ord. Piperacillin Sod/Tazobactam (Sod 4.5 gm/ Sodium Chloride) 100 mls @ 200 mls/hr IV Q6H [facility] Last Infusion: 07/01/23 14:08 Dose: Infused Documented By: COTEMA Vancomycin HCl 1,500 mg/ (Sodium Chloride) 500 mls @ 333.333 mls/hr IV Q24H [facility] Last Infusion: 06/30/23 23:12 Dose: Infused Documented By: ANN MARIE Insulin Glargine (Insulin Glargine,Hum.Rec.Anlog 100 Unit/Ml 10 Ml Vial) 18 unit SUBCUT BEDTIME [facility] Last Admin: 06/29/23 21:15 Dose: 18 unit Documented By: TROY-LEI Insulin Human Lispro (Insulin Lispro 100 Unit/Ml 3 Ml Vial) 0 unit SUBCUT QIDACHS [facility]; Protocol Last Admin: 07/01/23 13:22 Dose: 2 unit Documented By: MICHEL Lisinopril (Lisinopril 40 Mg Tablet) 40 mg PO BEDTIME [facility]; Protocol Last Admin: 06/30/23 21:38 Dose: 40 mg Documented By: ANN MARIE Melatonin (Melatonin 3 Mg Tablet) 6 mg PO BEDTIME PRN PRN Reason: Insomnia Morphine Sulfate (Morphine Sulfate 4 Mg/Ml Cartridge) 3 mg IVPUSH Q4H PRN; Protocol PRN Reason: Pain, Severe (Pain Scale 7-10) Ondansetron HCl (Ondansetron Hcl 4 Mg/2 Ml Vial) 4 mg IVPUSH Q8H PRN PRN Reason: Nausea and Vomiting Oxybutynin Chloride (Oxybutynin Chloride Er 5 Mg Tab.Er.24) 5 mg PO BEDTIME [facility] Last Admin: 06/30/23 21:37 Dose: 5 mg Documented By: ANN MARIE Oxycodone HCl (Oxycodone Hcl Immed Release 5 Mg Tablet) 5 mg PO Q4H PRN PRN Reason: Pain, Moderate(Pain Scale 4-6) Oxycodone HCl (Oxycodone Hcl Immed Release 5 Mg Tablet) 10 mg PO Q4H PRN PRN Reason: Pain, Severe (Pain Scale 7-10) Pharmacy Consult (Consult Rx Vancomycin Dosing) 1 each MISCELLANE DAILY PRN PRN Reason: Consult order Polyethylene Glycol (Polyethylene Glycol 3350 17 Gm Powd.Pack) 17 gm PO DAILY PRN PRN Reason: Constipation Last Admin: 06/30/23 11:43 Dose: 17 gm Documented By: COTEMA Sodium Chloride (0.9 % Sodium Chloride Flush 3 Ml Syringe) 3 ml IVFLUSH QSHIFT [facility] Last Admin: 07/01/23 07:18 Dose: Not Given Documented By: COTEMA Non-Admin Reason: Previously Administered Labs 06/30/23 05:08 07/01/23 05:40 Labs: Laboratory Results - last 24 hr 06/30/23 06/30/23 06/30/23 16:26 16:59 19:59 Hold Purple Top Estim Creat Clear Calc Estimated GFR POC Glucose 223 H 211 H 251 H 07/01/23 07/01/23 07/01/23 05:40 07:14 10:22 Hold Purple Top SEE NOTE Estim Creat Clear Calc 58.0 Estimated GFR > 60 POC Glucose 155 H 162 H 07/01/23 13:14 Hold Purple Top Estim Creat Clear Calc Estimated GFR POC Glucose 179 H Microbiology Microbiology Results: Microbiology 06/29/23 18:28 Blood Culture - Preliminary Blood - Venous No growth after 24 hours. 06/29/23 18:21 Blood Culture - Preliminary Blood - Venous No growth after 24 hours. Assessment and Plan (1) Necrosis of toe: Status: Acute (2) Cellulitis of leg: Status: Acute Plan 83-year-old male with pertinent history of bgs-byypvye-vkvlkfbxo diabetes mellitus, essential hypertension who presents to the emergency department for evaluation of right great toe infection. Sepsis due to wet gangrene of right toe and cellulitis of right foot: continue IV vancomycina and zosyn started 06/30 Underwent right toe amputation today post procedure doing well good pain control blood cultures negative so far arterial duplex with PVD present but multiphasic flow present Continue IV morphine and as needed oxycodone for pain control Ulx-gsdgrbc-notpmahmv diabetes mellitus with hyperglycemia on glimepride at baseline, currently on hold Resume Lantus 18U started on admission, follow SSI Essential hypertenion: continue lisinopril, lasix, follow BP DVT prophylaxis: Lovenox Patient requires ongoing inpatient stay for management including IV antibiotics and status post surgical intervention today requiring inpatient postoperative care. Quality Stroke Does the patient have a stroke diagnosis?: No VTE Prior VTE?: No VTE Risk Level:: Medical - moderate - high VTE Device Contraindication: Treatment Not Indicated VTE Drug Contraindication: N/A - Med Ordered
--- NOTE | 2023-07-01 15:07 | MHC.CM.PN ---
per rounds pt to have a toe amp today no dc date at this time
[2023-07-01 16:27] LABS: Glucose, Whole Blood 255 mg/dL (60-115)
[2023-07-01] MEDS: Enoxaparin Sodium 40 MG/0.4 ML SYRINGE SUBCUT (19:32)
[2023-07-01] MEDS: vancomycin HCL 1,500 MG in 0.9 % Sodium Chloride 500 ML 333.3 MG IV (19:32)
[2023-07-01 20:57] LABS: Glucose, Whole Blood 218 mg/dL (60-115)
[2023-07-01] MEDS: Furosemide 20 MG TABLET PO (21:09)
[2023-07-01] MEDS: lisinopriL 40 MG TABLET PO (21:10)
[2023-07-01] MEDS: oxyBUTYnin chloride ER 5 MG TAB.ER.24 PO (21:10)
[2023-07-01] MEDS: Insulin Glargine,Hum.rec.anlog 100 UNIT/ML 10 ML VIAL 18 UNIT SUBCUT (21:11)
[2023-07-02] MEDS: Piperacillin Sodium/Tazobactam 4.5 GM in 0.9 % Sodium Chloride 100 ML IV ×4 (02:35→18:14)
[2023-07-02 03:57] VITALS: BP 139/83; PULSE 69; RESP 19; TEMP 36.3; O2SAT 96
[2023-07-02 06:18] LABS: Creatinine Clr Calc Pharmacy 64.4; Estimated Glomerular Filt Rate > 60
[2023-07-02 07:15] VITALS: BP 130/72; PULSE 68; RESP 20; TEMP 36.8; O2SAT 94
[2023-07-02 07:36] LABS: Glucose, Whole Blood 178 mg/dL (60-115)
--- NOTE | 2023-07-02 07:41 | PC.NURSE ---
Pt is non weight bearing right foot, however is non complaints and will ambulate on right foot.
[2023-07-02] MEDS: Insulin Lispro 100 UNIT/ML 3 ML VIAL SUBCUT ×4 (08:02→20:30)
[2023-07-02] MEDS: Docusate Sodium 100 MG CAPSULE PO (08:02)
[2023-07-02] MEDS: 0.9 % Sodium Chloride Flush 3 ML SYRINGE IVFLUSH ×3 (08:02→19:23)
[2023-07-02] MEDS: oxyCODONE HCl Immed Release 5 MG TABLET 10 MG PO (09:26)
--- NOTE | 2023-07-02 10:37 | HO.POSTANES ---
Post Anesthesia Evaluation Post Anesthesia Evaluation Date of Service: 07/01/23 Vital Signs: Vital Signs Temp Pulse Resp BP Pulse Ox O2 Del Method 07/02/23 07:15 98.3 F 68 20 130/72 94 Room Air 07/02/23 03:57 97.4 F 69 19 139/83 96 Room Air Anesthesia: General LMA Mental Status: Awake Pain Control: Satisfactory Nausea/Vomiting: None Hydration: Adequate Anesthesia-Related Issues: No Anes. Related Issues
[2023-07-02 11:32] LABS: Glucose, Whole Blood 294 mg/dL (60-115)
--- NOTE | 2023-07-02 12:43 | HO.PM.IMPN ---
Subjective Subjective Date of Service: 07/02/23 Interval History: Good pain control , offers no acute complaints, no nausea, no vomiting, no abdominal pain, no fevers, no chills, no headache lightheadedness or dizziness, tolerating diet. Review of Systems All other system reviewed and negative Physical Exam Vital Signs: Vital Signs: Last Vital Signs Temp 98.3 F 07/02/23 07:15 Pulse 68 07/02/23 07:15 Resp 20 07/02/23 07:15 BP 130/72 07/02/23 07:15 Pulse Ox 94 07/02/23 07:15 O2 Del Method Room Air 07/02/23 07:15 O2 Flow Rate 2 07/01/23 12:10 BMI result Body Mass Index 31.3 Const: Other: General alert oriented x3, sitting comfortably in no acute distress. Neck supple no JVD. CVS regular rate rhythm, Respiratory lungs clear to auscultation, no respiratory distress, no wheeze, no rhonchi. Gastrointestinal abdomen soft, non tender, bowel sounds audible, no guarding , no rigidity. Extremities right foot dressing in place , right lower extremity edema and redness Neuro non focal Psych appropriate affect Objective Data Active Medications Acetaminophen (Acetaminophen 325 Mg Tablet) 650 mg PO Q6H PRN PRN Reason: Pain, Mild (Pain Scale 1-3) Dextrose (Dextrose 50 % 25 Gm/50 Ml Syringe) 25 gm IVPUSH Q15M PRN; Protocol PRN Reason: per Hypoglycemia Standing Ord. Docusate Sodium (Docusate Sodium 100 Mg Capsule) 100 mg PO DAILY [facility] Last Admin: 07/02/23 08:02 Dose: 100 mg Documented By: WANG Enoxaparin Sodium (Enoxaparin Sodium 40 Mg/0.4 Ml Syringe) 40 mg SUBCUT Q24H [facility] Last Admin: 07/01/23 19:32 Dose: 40 mg Documented By: MARTIN Furosemide (Furosemide 20 Mg Tablet) 20 mg PO BEDTIME [facility]; Protocol Last Admin: 07/01/23 21:09 Dose: 20 mg Documented By: MARTIN Glucose (Glucose Gel 15 Gm Gel..Gram.) 15 gm PO Q15M PRN; Protocol PRN Reason: per Hypoglycemia Standing Ord. Piperacillin Sod/Tazobactam (Sod 4.5 gm/ Sodium Chloride) 100 mls @ 200 mls/hr IV Q6H [facility] Last Infusion: 07/02/23 12:42 Dose: Infused Documented By: MEGAN Vancomycin HCl 1,500 mg/ (Sodium Chloride) 500 mls @ 333.333 mls/hr IV Q24H [facility] Last Infusion: 07/01/23 21:18 Dose: Infused Documented By: MARTIN Insulin Glargine (Insulin Glargine,Hum.Rec.Anlog 100 Unit/Ml 10 Ml Vial) 18 unit SUBCUT BEDTIME [facility] Last Admin: 07/01/23 21:11 Dose: 18 unit Documented By: MARTIN Insulin Human Lispro (Insulin Lispro 100 Unit/Ml 3 Ml Vial) 0 unit SUBCUT QIDACHS [facility]; Protocol Last Admin: 07/02/23 12:08 Dose: 6 unit Documented By: MEGAN Lisinopril (Lisinopril 40 Mg Tablet) 40 mg PO BEDTIME [facility]; Protocol Last Admin: 07/01/23 21:10 Dose: 40 mg Documented By: MARTIN Melatonin (Melatonin 3 Mg Tablet) 6 mg PO BEDTIME PRN PRN Reason: Insomnia Morphine Sulfate (Morphine Sulfate 4 Mg/Ml Cartridge) 3 mg IVPUSH Q4H PRN; Protocol PRN Reason: Pain, Severe (Pain Scale 7-10) Ondansetron HCl (Ondansetron Hcl 4 Mg/2 Ml Vial) 4 mg IVPUSH Q8H PRN PRN Reason: Nausea and Vomiting Oxybutynin Chloride (Oxybutynin Chloride Er 5 Mg Tab.Er.24) 5 mg PO BEDTIME [facility] Last Admin: 07/01/23 21:10 Dose: 5 mg Documented By: MARTIN Oxycodone HCl (Oxycodone Hcl Immed Release 5 Mg Tablet) 5 mg PO Q4H PRN PRN Reason: Pain, Moderate(Pain Scale 4-6) Oxycodone HCl (Oxycodone Hcl Immed Release 5 Mg Tablet) 10 mg PO Q4H PRN PRN Reason: Pain, Severe (Pain Scale 7-10) Last Admin: 07/02/23 09:26 Dose: 10 mg Documented By: MEGAN Pharmacy Consult (Consult Rx Vancomycin Dosing) 1 each MISCELLANE DAILY PRN PRN Reason: Consult order Polyethylene Glycol (Polyethylene Glycol 3350 17 Gm Powd.Pack) 17 gm PO DAILY PRN PRN Reason: Constipation Last Admin: 06/30/23 11:43 Dose: 17 gm Documented By: COTEMA Sodium Chloride (0.9 % Sodium Chloride Flush 3 Ml Syringe) 3 ml IVFLUSH QSHIFT [facility] Last Admin: 07/02/23 08:02 Dose: 3 ml Documented By: TYLER-SCOTJ Labs 06/30/23 05:08 07/02/23 05:02 Labs: Laboratory Results - last 24 hr 07/01/23 07/01/23 07/01/23 13:14 16:16 20:47 Hold Purple Top Estim Creat Clear Calc Estimated GFR POC Glucose 179 H 255 H 218 H 07/02/23 07/02/23 07/02/23 05:02 07:12 11:26 Hold Purple Top SEE NOTE Estim Creat Clear Calc 64.4 Estimated GFR > 60 POC Glucose 178 H 294 H Microbiology Microbiology Results: Microbiology 06/29/23 18:28 Blood Culture - Preliminary Blood - Venous No growth after 48 hours. 06/29/23 18:21 Blood Culture - Preliminary Blood - Venous No growth after 48 hours. Assessment and Plan (1) Necrosis of toe: Status: Acute (2) Cellulitis of leg: Status: Acute Plan 83-year-old male with pertinent history of ixh-axxvaur-addpllxak diabetes mellitus, essential hypertension who presents to the emergency department for evaluation of right great toe infection. Sepsis due to wet gangrene of right toe and cellulitis of right foot: Status post right toe amputation on 07/01 postoperative day 1 on IV vancomycina and zosyn started 06/30 good pain control, no fevers, stable WBC blood cultures negative so far Continue IV morphine and as needed oxycodone for pain control Continue daily dressing as per surgery Nyv-vlqnact-nauyzcxqj diabetes mellitus with hyperglycemia on glimepride at baseline, currently on hold Resume Lantus 18U started on admission, blood sugars elevated will adjust dosage of insulin sliding scale Essential hypertenion: continue lisinopril, lasix, follow BP DVT prophylaxis: Lovenox Patient requires ongoing inpatient stay for management including IV antibiotics and for post surgical care . Quality Stroke Does the patient have a stroke diagnosis?: No VTE Prior VTE?: No VTE Risk Level:: Medical - moderate - high VTE Device Contraindication: Treatment Not Indicated VTE Drug Contraindication: N/A - Med Ordered
[2023-07-02 15:10] VITALS: BP 143/72; PULSE 54; RESP 20; TEMP 36.4; O2SAT 98
[2023-07-02 16:23] LABS: Glucose, Whole Blood 297 mg/dL (60-115)
[2023-07-02 18:43] LABS: Vancomycin Trough 9.4 mcg/mL (10.0-20.0)
[2023-07-02] MEDS: oxyBUTYnin chloride ER 5 MG TAB.ER.24 PO (19:22)
[2023-07-02] MEDS: Furosemide 20 MG TABLET PO (19:22)
[2023-07-02] MEDS: lisinopriL 40 MG TABLET PO (19:23)
[2023-07-02] MEDS: Enoxaparin Sodium 40 MG/0.4 ML SYRINGE SUBCUT (19:23)
[2023-07-02] MEDS: vancomycin HCL 1,000 MG in 0.9 % Sodium Chloride 250 ML 270 MG IV (19:32)
[2023-07-02 19:36] VITALS: BP 132/67; PULSE 70; RESP 17; TEMP 36.3; O2SAT 96
[2023-07-02 20:09] LABS: Glucose, Whole Blood 259 mg/dL (60-115)
[2023-07-02] MEDS: Insulin Glargine,Hum.rec.anlog 100 UNIT/ML 10 ML VIAL 18 UNIT SUBCUT (20:32)
[2023-07-03 00:05] VITALS: BP 130/61; PULSE 65; RESP 17; TEMP 36.4; O2SAT 96
[2023-07-03] MEDS: Piperacillin Sodium/Tazobactam 4.5 GM in 0.9 % Sodium Chloride 100 ML IV ×4 (01:08→18:01)
[2023-07-03] MEDS: oxyCODONE HCl Immed Release 5 MG TABLET 10 MG PO ×2 (01:14→06:26)
[2023-07-03 05:45] LABS: Hematocrit 36.2 % (42.0-52.0); Hemoglobin 12.9 g/dl (14.0-18.0); Mean Corpuscular HGB Conc 35.6 g/dl (31.0-36.0); Mean Corpuscular Hemoglobin 30.5 pg (27.0-33.0); Mean Corpuscular Volume 85.6 fL (80.0-98.0); Mean Platelet Volume 10.4 fL (9.4-12.4); Platelet Count 303 X10*3/uL (160-400); Red Blood Count 4.23 X10*6/uL (4.60-5.80); Red Cell Distribution Width 12.2 % (11.0-16.0); White Blood Count 11.3 X10*3/uL (4.8-10.8)
[2023-07-03 06:10] LABS: Anion Gap 13 (12-20); Blood Urea Nitrogen 14 mg/dL (9-16); Calcium 8.9 mg/dL (8.4-10.2); Carbon Dioxide 24 mmol/L (22-29); Chloride 98 mmol/L (96-108); Estimated Glomerular Filt Rate > 60; Glucose Random 108 mg/dL (60-115); Potassium 3.6 mmol/L (3.3-5.1); Sodium 131 mmol/L (135-145)
[2023-07-03] MEDS: 0.9 % Sodium Chloride Flush 3 ML SYRINGE IVFLUSH ×3 (06:55→19:11)
[2023-07-03] MEDS: vancomycin HCL 1,000 MG in 0.9 % Sodium Chloride 250 ML 270 MG IV ×2 (07:00→19:10)
[2023-07-03 07:34] VITALS: BP 133/60; PULSE 63; RESP 14; TEMP 37.1; O2SAT 96
[2023-07-03 07:44] LABS: Glucose, Whole Blood 116 mg/dL (60-115)
[2023-07-03] MEDS: Docusate Sodium 100 MG CAPSULE PO (07:53)
[2023-07-03] MEDS: oxyCODONE HCl Immed Release 5 MG TABLET PO (07:53)
--- NOTE | 2023-07-03 09:24 | P.PNIM_ITS ---
Subjective Subjective Date of Service: 07/03/23 Interval History: Sitting comfortably offers no acute complaints, good pain control right foot, tolerating diet nausea, no vomiting, no abdominal pain, no diarrhea no other acute issues overnight. Review of Systems All other system reviewed and negative. Physical Exam 2 Vital Signs: Vital Signs: Last Vital Signs Temp 98.7 F 07/03/23 07:34 Pulse 63 07/03/23 07:34 Resp 14 07/03/23 07:34 BP 133/60 07/03/23 07:34 Pulse Ox 96 07/03/23 07:34 O2 Del Method Room Air 07/03/23 07:34 O2 Flow Rate 2 07/01/23 12:10 BMI result Body Mass Index 31.3 Const: Other: General alert oriented x3, sitting comfortably in no acute distress. Neck supple no JVD. CVS regular rate rhythm, Respiratory lungs clear to auscultation, no respiratory distress, no wheeze, no rhonchi. Gastrointestinal abdomen soft, non tender, bowel sounds audible, no guarding , no rigidity. Extremities right foot dressing in place , persistent right lower extremity edema and redness Neuro non focal Psych appropriate affect Objective Data Active Medications Acetaminophen (Acetaminophen 325 Mg Tablet) 650 mg PO Q6H PRN PRN Reason: Pain, Mild (Pain Scale 1-3) Dextrose (Dextrose 50 % 25 Gm/50 Ml Syringe) 25 gm IVPUSH Q15M PRN; Protocol PRN Reason: per Hypoglycemia Standing Ord. Docusate Sodium (Docusate Sodium 100 Mg Capsule) 100 mg PO DAILY [facility] Last Admin: 07/03/23 07:53 Dose: 100 mg Documented By: MEGAN Enoxaparin Sodium (Enoxaparin Sodium 40 Mg/0.4 Ml Syringe) 40 mg SUBCUT Q24H [facility] Last Admin: 07/02/23 19:23 Dose: 40 mg Documented By: MARTIN Furosemide (Furosemide 20 Mg Tablet) 20 mg PO BEDTIME [facility]; Protocol Last Admin: 07/02/23 19:22 Dose: 20 mg Documented By: MARTIN Glucose (Glucose Gel 15 Gm Gel..Gram.) 15 gm PO Q15M PRN; Protocol PRN Reason: per Hypoglycemia Standing Ord. Piperacillin Sod/Tazobactam (Sod 4.5 gm/ Sodium Chloride) 100 mls @ 200 mls/hr IV Q6H [facility] Last Infusion: 07/03/23 07:01 Dose: Infused Documented By: MEGAN Vancomycin HCl 1,000 mg/ (Sodium Chloride) 270 mls @ 270 mls/hr IV Q12H [facility] Last Infusion: 07/03/23 08:06 Dose: Infused Documented By: MEGAN Insulin Glargine (Insulin Glargine,Hum.Rec.Anlog 100 Unit/Ml 10 Ml Vial) 18 unit SUBCUT BEDTIME [facility] Last Admin: 07/02/23 20:32 Dose: 18 unit Documented By: MARTIN Insulin Human Lispro (Insulin Lispro 100 Unit/Ml 3 Ml Vial) 0 unit SUBCUT QIDACHS [facility]; Protocol Last Admin: 07/03/23 07:36 Dose: Not Given Documented By: MEGAN Non-Admin Reason: No Insulin Coverage Lisinopril (Lisinopril 40 Mg Tablet) 40 mg PO BEDTIME [facility]; Protocol Last Admin: 07/02/23 19:23 Dose: 40 mg Documented By: MARTIN Melatonin (Melatonin 3 Mg Tablet) 6 mg PO BEDTIME PRN PRN Reason: Insomnia Morphine Sulfate (Morphine Sulfate 4 Mg/Ml Cartridge) 3 mg IVPUSH Q4H PRN; Protocol PRN Reason: Pain, Severe (Pain Scale 7-10) Ondansetron HCl (Ondansetron Hcl 4 Mg/2 Ml Vial) 4 mg IVPUSH Q8H PRN PRN Reason: Nausea and Vomiting Oxybutynin Chloride (Oxybutynin Chloride Er 5 Mg Tab.Er.24) 5 mg PO BEDTIME [facility] Last Admin: 07/02/23 19:22 Dose: 5 mg Documented By: MARTIN Oxycodone HCl (Oxycodone Hcl Immed Release 5 Mg Tablet) 5 mg PO Q4H PRN PRN Reason: Pain, Moderate(Pain Scale 4-6) Last Admin: 07/03/23 07:53 Dose: 5 mg Documented By: MEGAN Oxycodone HCl (Oxycodone Hcl Immed Release 5 Mg Tablet) 10 mg PO Q4H PRN PRN Reason: Pain, Severe (Pain Scale 7-10) Last Admin: 07/03/23 06:26 Dose: 10 mg Documented By: MARTIN Pharmacy Consult (Consult Rx Vancomycin Dosing) 1 each MISCELLANE DAILY PRN PRN Reason: Consult order Polyethylene Glycol (Polyethylene Glycol 3350 17 Gm Powd.Pack) 17 gm PO DAILY PRN PRN Reason: Constipation Last Admin: 06/30/23 11:43 Dose: 17 gm Documented By: COTEMA Sodium Chloride (0.9 % Sodium Chloride Flush 3 Ml Syringe) 3 ml IVFLUSH QSHIFT [facility] Last Admin: 07/03/23 06:55 Dose: 3 ml Documented By: COUGHLM Labs 07/03/23 05:02 07/03/23 05:02 Labs: Laboratory Results - last 24 hr 07/02/23 07/02/23 07/02/23 11:26 16:20 18:11 MCV MCH MCHC RDW Plt Count MPV Absolute Nucleated RBC Nucleated RBC % (auto) Anion Gap Estim Creat Clear Calc Estimated GFR POC Glucose 294 H 297 H Random Glucose Calcium Vancomycin Trough 9.4 L 07/02/23 07/03/23 07/03/23 20:04 05:02 07:30 MCV 85.6 MCH 30.5 MCHC 35.6 RDW 12.2 Plt Count 303 MPV 10.4 Absolute Nucleated RBC 0.000 Nucleated RBC % (auto) 0.0 Anion Gap 13 Estim Creat Clear Calc 69.0 Estimated GFR > 60 POC Glucose 259 H 116 H Random Glucose 108 Calcium 8.9 Vancomycin Trough Assessment and Plan (1) Necrosis of toe: Status: Acute (2) Cellulitis of leg: Status: Acute Plan 83-year-old male with pertinent history of nsv-hjbxoes-pudwmfcsg diabetes mellitus, essential hypertension who presents to the emergency department for evaluation of right great toe infection. Sepsis due to wet gangrene of right toe and cellulitis of right foot: Status post right toe amputation on 07/01 postoperative day 2 on IV vancomycina and zosyn started 06/30 good pain control, no fevers, stable WBC blood cultures negative so far Continue IV morphine and as needed oxycodone for pain control Continue daily dressing as per surgery Yks-avxzkcp-uweytqend diabetes mellitus with hyperglycemia Lantus 18U started on admission, blood sugars improved continue insulin sliding scale, home dose of glimepiride on hold Essential hypertenion: continue lisinopril, lasix, stable BP DVT prophylaxis: Lovenox Patient requires ongoing inpatient stay for management including IV antibiotics and for post surgical care . Will discuss discharge plan with surgery. Quality Stroke Does the patient have a stroke diagnosis?: No VTE Prior VTE?: No VTE Risk Level:: Medical - moderate - high VTE Device Contraindication: Treatment Not Indicated VTE Drug Contraindication: N/A - Med Ordered
[2023-07-03 11:06] LABS: Glucose, Whole Blood 242 mg/dL (60-115)
[2023-07-03] MEDS: Insulin Lispro 100 UNIT/ML 3 ML VIAL SUBCUT ×3 (11:51→20:35)
[2023-07-03 15:32] VITALS: BP 148/62; PULSE 74; RESP 16; TEMP 36.4; O2SAT 98
[2023-07-03 16:30] LABS: Glucose, Whole Blood 252 mg/dL (60-115)
[2023-07-03] MEDS: polyethylene glycoL 3350 17 GM POWD.PACK PO (18:13)
[2023-07-03] MEDS: Enoxaparin Sodium 40 MG/0.4 ML SYRINGE SUBCUT (19:11)
[2023-07-03 19:19] VITALS: BP 152/48; PULSE 84; RESP 20; TEMP 37.2; O2SAT 97
[2023-07-03 19:36] LABS: Glucose, Whole Blood 279 mg/dL (60-115)
[2023-07-03] MEDS: oxyBUTYnin chloride ER 5 MG TAB.ER.24 PO (20:34)
[2023-07-03] MEDS: Furosemide 20 MG TABLET PO (20:34)
[2023-07-03] MEDS: Melatonin 3 MG TABLET 6 MG PO (20:34)
[2023-07-03] MEDS: lisinopriL 40 MG TABLET PO (20:35)
[2023-07-03] MEDS: Insulin Glargine,Hum.rec.anlog 100 UNIT/ML 10 ML VIAL 18 UNIT SUBCUT (20:35)
[2023-07-04] MEDS: Piperacillin Sodium/Tazobactam 4.5 GM in 0.9 % Sodium Chloride 100 ML IV ×5 (00:01→23:57)
[2023-07-04] MEDS: oxyCODONE HCl Immed Release 5 MG TABLET PO ×2 (00:28→11:25)
[2023-07-04 03:09] VITALS: BP 140/63; PULSE 63; RESP 18; TEMP 36.6; O2SAT 94
[2023-07-04 06:37] LABS: Creatinine Clr Calc Pharmacy 55.7; Estimated Glomerular Filt Rate > 60; Vancomycin Trough 15.2 mcg/mL (10.0-20.0)
[2023-07-04 07:30] VITALS: BP 112/66; PULSE 66; RESP 16; TEMP 36.5; O2SAT 95
[2023-07-04 07:36] LABS: Glucose, Whole Blood 143 mg/dL (60-115)
[2023-07-04] MEDS: Docusate Sodium 100 MG CAPSULE PO (07:43)
[2023-07-04] MEDS: 0.9 % Sodium Chloride Flush 3 ML SYRINGE IVFLUSH ×3 (07:44→23:58)
[2023-07-04] MEDS: vancomycin HCL 1,000 MG in 0.9 % Sodium Chloride 250 ML 270 MG IV ×2 (07:44→20:01)
--- NOTE | 2023-07-04 10:09 | PM.PNGS ---
Subjective Subjective Date of Service: 07/04/23 Interval history: Feels so, so . Denies much pain at amp site. Physical Exam Vital Signs: Vital Signs: Last Vital Signs Temp 97.7 F 07/04/23 07:30 Pulse 66 07/04/23 07:30 Resp 16 07/04/23 07:30 BP 112/66 07/04/23 07:30 Pulse Ox 95 07/04/23 07:30 O2 Del Method Room Air 07/04/23 07:30 O2 Flow Rate 2 07/01/23 12:10 BMI result Body Mass Index 31.3 Const: Orientation/consciousness: patient oriented x3 Resp: Effort & Inspection: normal respiratory effort Skin: General skin exam: no rashes or lesions noted Neuro: General: patient oriented x3 and moves all extremities Extrem: Other: some edema and erythema persist on dorsum of foot extending proximally, amp site remains well approximated, no significant drainage and obey drain removed, ?necrosis of skin edges Objective Data Active Medications Acetaminophen (Acetaminophen 325 Mg Tablet) 650 mg PO Q6H PRN PRN Reason: Pain, Mild (Pain Scale 1-3) Dextrose (Dextrose 50 % 25 Gm/50 Ml Syringe) 25 gm IVPUSH Q15M PRN; Protocol PRN Reason: per Hypoglycemia Standing Ord. Docusate Sodium (Docusate Sodium 100 Mg Capsule) 100 mg PO DAILY [facility] Last Admin: 07/04/23 07:43 Dose: 100 mg Documented By: ASIF Enoxaparin Sodium (Enoxaparin Sodium 40 Mg/0.4 Ml Syringe) 40 mg SUBCUT Q24H [facility] Last Admin: 07/03/23 19:11 Dose: 40 mg Documented By: KIM Furosemide (Furosemide 20 Mg Tablet) 20 mg PO BEDTIME [facility]; Protocol Last Admin: 07/03/23 20:34 Dose: 20 mg Documented By: KIM Glucose (Glucose Gel 15 Gm Gel..Gram.) 15 gm PO Q15M PRN; Protocol PRN Reason: per Hypoglycemia Standing Ord. Piperacillin Sod/Tazobactam (Sod 4.5 gm/ Sodium Chloride) 100 mls @ 200 mls/hr IV Q6H [facility] Last Infusion: 07/04/23 06:45 Dose: Infused Documented By: KIM Vancomycin HCl 1,000 mg/ (Sodium Chloride) 270 mls @ 270 mls/hr IV Q12H [facility] Last Infusion: 07/04/23 09:04 Dose: Infused Documented By: ASIF Insulin Glargine (Insulin Glargine,Hum.Rec.Anlog 100 Unit/Ml 10 Ml Vial) 18 unit SUBCUT BEDTIME [facility] Last Admin: 07/03/23 20:35 Dose: 18 unit Documented By: KIM Insulin Human Lispro (Insulin Lispro 100 Unit/Ml 3 Ml Vial) 0 unit SUBCUT QIDACHS [facility]; Protocol Last Admin: 07/04/23 07:38 Dose: Not Given Documented By: ASIF Non-Admin Reason: No Insulin Coverage Lisinopril (Lisinopril 40 Mg Tablet) 40 mg PO BEDTIME [facility]; Protocol Last Admin: 07/03/23 20:35 Dose: 40 mg Documented By: KIM Melatonin (Melatonin 3 Mg Tablet) 6 mg PO BEDTIME PRN PRN Reason: Insomnia Last Admin: 07/03/23 20:34 Dose: 6 mg Documented By: KIM Morphine Sulfate (Morphine Sulfate 4 Mg/Ml Cartridge) 3 mg IVPUSH Q4H PRN; Protocol PRN Reason: Pain, Severe (Pain Scale 7-10) Ondansetron HCl (Ondansetron Hcl 4 Mg/2 Ml Vial) 4 mg IVPUSH Q8H PRN PRN Reason: Nausea and Vomiting Oxybutynin Chloride (Oxybutynin Chloride Er 5 Mg Tab.Er.24) 5 mg PO BEDTIME [facility] Last Admin: 07/03/23 20:34 Dose: 5 mg Documented By: KIM Oxycodone HCl (Oxycodone Hcl Immed Release 5 Mg Tablet) 5 mg PO Q4H PRN PRN Reason: Pain, Moderate(Pain Scale 4-6) Last Admin: 07/04/23 00:28 Dose: 5 mg Documented By: KIM Oxycodone HCl (Oxycodone Hcl Immed Release 5 Mg Tablet) 10 mg PO Q4H PRN PRN Reason: Pain, Severe (Pain Scale 7-10) Last Admin: 07/03/23 06:26 Dose: 10 mg Documented By: MARTIN Pharmacy Consult (Consult Rx Vancomycin Dosing) 1 each MISCELLANE DAILY PRN PRN Reason: Consult order Polyethylene Glycol (Polyethylene Glycol 3350 17 Gm Powd.Pack) 17 gm PO DAILY PRN PRN Reason: Constipation Last Admin: 07/03/23 18:13 Dose: 17 gm Documented By: MEGAN Sodium Chloride (0.9 % Sodium Chloride Flush 3 Ml Syringe) [facility] Last Admin: 07/04/23 07:44 Dose: 3 ml Documented By: ASIF Labs 07/03/23 05:02 07/04/23 06:14 Labs: Laboratory Results - last 24 hr 07/03/23 07/03/23 07/03/23 10:57 16:22 19:32 Hold Purple Top Estim Creat Clear Calc Estimated GFR POC Glucose 242 H 252 H 279 H Vancomycin Trough 07/04/23 07/04/23 07/04/23 06:14 06:19 07:07 Hold Purple Top SEE NOTE Estim Creat Clear Calc 55.7 Estimated GFR > 60 POC Glucose 143 H Vancomycin Trough 15.2 Procedures Date of Service Date of Service: 07/04/23 Progress Note: A&P Assessment and plan (1) Necrosis of toe: Status: Acute (2) Cellulitis of leg: Status: Acute Plan POD #3 s/p ray amputation of right first toe. Amp site remains intact, drain removed, erythema and edema improving. Cont daily dressing changes, right foot elevation. Time Spent With Patient Time: Total time managing care of this patient today ____ minutes. Quality Stroke Does the patient have a stroke diagnosis?: No VTE Prior VTE?: No VTE Risk Level:: Medical - moderate - high VTE Device Contraindication: Treatment Not Indicated VTE Drug Contraindication: N/A - Med Ordered
--- NOTE | 2023-07-04 10:32 | P.PNIM_ITS ---
Subjective Subjective Date of Service: 07/04/23 Interval History: Offers no acute complaints good pain control right foot, denies fever, no chills, no nausea, no vomiting ,tolerating diet, dressing changed by surgery today drain removed, no other acute issues overnight Review of Systems All other system reviewed and negative Physical Exam 2 Vital Signs: Vital Signs: Last Vital Signs Temp 97.7 F 07/04/23 07:30 Pulse 66 07/04/23 07:30 Resp 16 07/04/23 07:30 BP 112/66 07/04/23 07:30 Pulse Ox 95 07/04/23 07:30 O2 Del Method Room Air 07/04/23 07:30 O2 Flow Rate 2 07/01/23 12:10 BMI result Body Mass Index 31.3 Const: Other: General alert oriented x3, sitting comfortably in no acute distress. Neck supple no JVD. CVS regular rate rhythm, Respiratory lungs clear to auscultation, no respiratory distress, no wheeze, no rhonchi. Gastrointestinal abdomen soft, non tender, bowel sounds audible, no guarding , no rigidity. Extremities right foot dressing in place no drainage , persistent right lower extremity edema and redness See picture of wound in surgical note 07/04 Neuro non focal Psych appropriate affect Objective Data Active Medications Acetaminophen (Acetaminophen 325 Mg Tablet) 650 mg PO Q6H PRN PRN Reason: Pain, Mild (Pain Scale 1-3) Dextrose (Dextrose 50 % 25 Gm/50 Ml Syringe) 25 gm IVPUSH Q15M PRN; Protocol PRN Reason: per Hypoglycemia Standing Ord. Docusate Sodium (Docusate Sodium 100 Mg Capsule) 100 mg PO DAILY [facility] Last Admin: 07/04/23 07:43 Dose: 100 mg Documented By: ASIF Enoxaparin Sodium (Enoxaparin Sodium 40 Mg/0.4 Ml Syringe) 40 mg SUBCUT Q24H [facility] Last Admin: 07/03/23 19:11 Dose: 40 mg Documented By: KIM Furosemide (Furosemide 20 Mg Tablet) 20 mg PO BEDTIME [facility]; Protocol Last Admin: 07/03/23 20:34 Dose: 20 mg Documented By: KIM Glucose (Glucose Gel 15 Gm Gel..Gram.) 15 gm PO Q15M PRN; Protocol PRN Reason: per Hypoglycemia Standing Ord. Piperacillin Sod/Tazobactam (Sod 4.5 gm/ Sodium Chloride) 100 mls @ 200 mls/hr IV Q6H [facility] Last Infusion: 07/04/23 06:45 Dose: Infused Documented By: KIM Vancomycin HCl 1,000 mg/ (Sodium Chloride) 270 mls @ 270 mls/hr IV Q12H [facility] Last Infusion: 07/04/23 09:04 Dose: Infused Documented By: ASIF Insulin Glargine (Insulin Glargine,Hum.Rec.Anlog 100 Unit/Ml 10 Ml Vial) 18 unit SUBCUT BEDTIME [facility] Last Admin: 07/03/23 20:35 Dose: 18 unit Documented By: KIM Insulin Human Lispro (Insulin Lispro 100 Unit/Ml 3 Ml Vial) 0 unit SUBCUT QIDACHS [facility]; Protocol Last Admin: 07/04/23 07:38 Dose: Not Given Documented By: ASIF Non-Admin Reason: No Insulin Coverage Lisinopril (Lisinopril 40 Mg Tablet) 40 mg PO BEDTIME [facility]; Protocol Last Admin: 07/03/23 20:35 Dose: 40 mg Documented By: KIM Melatonin (Melatonin 3 Mg Tablet) 6 mg PO BEDTIME PRN PRN Reason: Insomnia Last Admin: 07/03/23 20:34 Dose: 6 mg Documented By: KIM Morphine Sulfate (Morphine Sulfate 4 Mg/Ml Cartridge) 3 mg IVPUSH Q4H PRN; Protocol PRN Reason: Pain, Severe (Pain Scale 7-10) Ondansetron HCl (Ondansetron Hcl 4 Mg/2 Ml Vial) 4 mg IVPUSH Q8H PRN PRN Reason: Nausea and Vomiting Oxybutynin Chloride (Oxybutynin Chloride Er 5 Mg Tab.Er.24) 5 mg PO BEDTIME [facility] Last Admin: 07/03/23 20:34 Dose: 5 mg Documented By: KIM Oxycodone HCl (Oxycodone Hcl Immed Release 5 Mg Tablet) 5 mg PO Q4H PRN PRN Reason: Pain, Moderate(Pain Scale 4-6) Last Admin: 07/04/23 00:28 Dose: 5 mg Documented By: KIM Oxycodone HCl (Oxycodone Hcl Immed Release 5 Mg Tablet) 10 mg PO Q4H PRN PRN Reason: Pain, Severe (Pain Scale 7-10) Last Admin: 07/03/23 06:26 Dose: 10 mg Documented By: MARTIN Pharmacy Consult (Consult Rx Vancomycin Dosing) 1 each MISCELLANE DAILY PRN PRN Reason: Consult order Polyethylene Glycol (Polyethylene Glycol 3350 17 Gm Powd.Pack) 17 gm PO DAILY PRN PRN Reason: Constipation Last Admin: 07/03/23 18:13 Dose: 17 gm Documented By: MEGAN Sodium Chloride (0.9 % Sodium Chloride Flush 3 Ml Syringe) 3 ml IVFLUSH [facility] Last Admin: 07/04/23 07:44 Dose: 3 ml Documented By: ASIF Labs 07/03/23 05:02 07/04/23 06:14 Labs: Laboratory Results - last 24 hr 07/03/23 07/03/23 07/03/23 10:57 16:22 19:32 Hold Purple Top Estim Creat Clear Calc Estimated GFR POC Glucose 242 H 252 H 279 H Vancomycin Trough 07/04/23 07/04/23 07/04/23 06:14 06:19 07:07 Hold Purple Top SEE NOTE Estim Creat Clear Calc 55.7 Estimated GFR > 60 POC Glucose 143 H Vancomycin Trough 15.2 Assessment and Plan (1) Necrosis of toe: Status: Acute (2) Cellulitis of leg: Status: Acute Plan 83-year-old male with pertinent history of [id number] diabetes mellitus, essential hypertension who presents to the emergency department for evaluation of right great toe infection. Sepsis due to wet. 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 on 07/01 postoperative day 3 Dressing done by General surgery drain removed today on IV vancomycina and zosyn started 06/30 will continue IV antibiotic for now due to persistent redness dorsum of foot /leg good pain control, no fevers, WBC improved to 11.3 blood cultures negative so far Continue IV morphine and as needed oxycodone for pain control Continue daily dressing as per surgery Zho-tejfjle-gxepvivzi diabetes mellitus with hyperglycemia Lantus 18U started on admission, blood sugars improved continue insulin sliding scale, will resume home medication clamp right upon discharge Essential hypertenion: continue lisinopril, lasix, stable BP DVT prophylaxis: Lovenox Patient requires ongoing inpatient stay for management including IV antibiotics for right foot and leg cellulitis is and for post surgical care . Will discuss discharge plan with surgery. Quality Stroke Does the patient have a stroke diagnosis?: No VTE Prior VTE?: No VTE Risk Level:: Medical - moderate - high VTE Device Contraindication: Treatment Not Indicated VTE Drug Contraindication: N/A - Med Ordered
[2023-07-04 11:17] LABS: Glucose, Whole Blood 142 mg/dL (60-115)
--- NOTE | 2023-07-04 13:18 | MHC.CM.PN ---
per rounds pt going back to [facility] home?vna
[2023-07-04] MEDS: oxyCODONE HCl Immed Release 5 MG TABLET 10 MG PO ×3 (14:58→22:46)
[2023-07-04 16:00] VITALS: BP 132/80; PULSE 72; RESP 18; TEMP 36.4; O2SAT 98
[2023-07-04 16:40] LABS: Glucose, Whole Blood 288 mg/dL (60-115)
[2023-07-04] MEDS: Insulin Lispro 100 UNIT/ML 3 ML VIAL SUBCUT ×2 (16:45→20:31)
[2023-07-04] MEDS: Enoxaparin Sodium 40 MG/0.4 ML SYRINGE SUBCUT (18:43)
[2023-07-04 19:26] VITALS: BP 132/63; PULSE 75; RESP 18; TEMP 37.1; O2SAT 98
[2023-07-04] MEDS: oxyBUTYnin chloride ER 5 MG TAB.ER.24 PO (20:00)
[2023-07-04] MEDS: lisinopriL 40 MG TABLET PO (20:01)
[2023-07-04] MEDS: Furosemide 20 MG TABLET PO (20:01)
[2023-07-04] MEDS: Insulin Glargine,Hum.rec.anlog 100 UNIT/ML 10 ML VIAL 18 UNIT SUBCUT (20:31)
[2023-07-05 01:44] LABS: Glucose, Whole Blood 365 mg/dL (60-115)
[2023-07-05 03:09] VITALS: BP 158/73; PULSE 85; RESP 17; TEMP 37; O2SAT 97
[2023-07-05 05:47] LABS: Estimated Glomerular Filt Rate > 60
[2023-07-05] MEDS: oxyCODONE HCl Immed Release 5 MG TABLET PO ×2 (06:39→12:15)
[2023-07-05] MEDS: Piperacillin Sodium/Tazobactam 4.5 GM in 0.9 % Sodium Chloride 100 ML IV ×3 (06:40→18:32)
[2023-07-05 06:59] VITALS: BP 136/62; PULSE 72; RESP 19; TEMP 36.6; O2SAT 97
[2023-07-05 07:05] LABS: Glucose, Whole Blood 234 mg/dL (60-115)
[2023-07-05] MEDS: Insulin Lispro 100 UNIT/ML 3 ML VIAL SUBCUT ×4 (07:51→21:52)
[2023-07-05] MEDS: Acetaminophen 325 MG TABLET 650 MG PO ×2 (07:52→16:21)
[2023-07-05] MEDS: Docusate Sodium 100 MG CAPSULE PO (07:52)
[2023-07-05] MEDS: 0.9 % Sodium Chloride Flush 3 ML SYRINGE IVFLUSH ×3 (07:52→21:53)
[2023-07-05] MEDS: vancomycin HCL 1,000 MG in 0.9 % Sodium Chloride 250 ML 270 MG IV ×2 (07:53→20:17)
[2023-07-05 08:07] LABS: C Reactive Protein 17.63 mg/dL (< or = 0.50)
--- NOTE | 2023-07-05 08:34 | PM.PNGS ---
Subjective Subjective Date of Service: 07/05/23 <Jenny Connelly PA-C - Last Filed: 07/05/23 08:37> 07/05/23 <Alvarado Drew MD - Last Filed: 07/05/23 09:35> Interval history: No complaints. Pain is minimal. <Jenny Connelly PA-C - Last Filed: 07/05/23 08:37> Physical Exam Vital Signs: Vital Signs: Last Vital Signs Temp 98 F 07/05/23 06:59 Pulse 72 07/05/23 06:59 Resp 19 07/05/23 06:59 BP 136/62 07/05/23 06:59 Pulse Ox 97 07/05/23 06:59 O2 Del Method Room Air 07/05/23 06:59 O2 Flow Rate 2 07/01/23 12:10 BMI result Body Mass Index 31.3 <Jenny Connelly PA-C - Last Filed: 07/05/23 08:37> Const: General: comfortable, no acute distress and alert <Jenny Connelly PA-C - Last Filed: 07/05/23 08:37> Orientation/consciousness: patient oriented x3 <Jenny Connelly PA-C - Last Filed: 07/05/23 08:37> Skin: General skin exam: no rashes or lesions noted <Jenny Connelly PA-C - Last Filed: 07/05/23 08:37> Neuro: General: patient oriented x3 <Jenny Connelly PA-C - Last Filed: 07/05/23 08:37> Extrem: Other: right great toe amp site- small amount of necrosis of skin edge, mild persistent edema and erythema of dorsum of foot, no purulent drainage <Jenny Connelly PA-C - Last Filed: 07/05/23 08:37> Objective Data Active Medications Acetaminophen (Acetaminophen 325 Mg Tablet) 650 mg PO Q6H PRN PRN Reason: Pain, Mild (Pain Scale 1-3) Last Admin: 07/05/23 07:52 Dose: 650 mg Documented By: RASHARD Dextrose (Dextrose 50 % 25 Gm/50 Ml Syringe) 25 gm IVPUSH Q15M PRN; Protocol PRN Reason: per Hypoglycemia Standing Ord. Docusate Sodium (Docusate Sodium 100 Mg Capsule) 100 mg PO DAILY [facility] Last Admin: 07/05/23 07:52 Dose: 100 mg Documented By: RASHARD Enoxaparin Sodium (Enoxaparin Sodium 40 Mg/0.4 Ml Syringe) 40 mg SUBCUT Q24H [facility] Last Admin: 07/04/23 18:43 Dose: 40 mg Documented By: SAMMIE Furosemide (Furosemide 20 Mg Tablet) 20 mg PO BEDTIME [facility]; Protocol Last Admin: 07/04/23 20:01 Dose: 20 mg Documented By: SAMMIE Glucose (Glucose Gel 15 Gm Gel..Gram.) 15 gm PO Q15M PRN; Protocol PRN Reason: per Hypoglycemia Standing Ord. Piperacillin Sod/Tazobactam (Sod 4.5 gm/ Sodium Chloride) 100 mls @ 200 mls/hr IV Q6H [facility] Last Infusion: 07/05/23 07:50 Dose: Infused Documented By: RASHARD Vancomycin HCl 1,000 mg/ (Sodium Chloride) 270 mls @ 270 mls/hr IV Q12H [facility] Last Admin: 07/05/23 07:53 Dose: 270 mls/hr Documented By: RASHARD Insulin Glargine (Insulin Glargine,Hum.Rec.Anlog 100 Unit/Ml 10 Ml Vial) 18 unit SUBCUT BEDTIME [facility] Last Admin: 07/04/23 20:31 Dose: 18 unit Documented By: SAMMIE Insulin Human Lispro (Insulin Lispro 100 Unit/Ml 3 Ml Vial) 0 unit SUBCUT QIDACHS [facility]; Protocol Last Admin: 07/05/23 07:51 Dose: 6 unit Documented By: RASHARD Lisinopril (Lisinopril 40 Mg Tablet) 40 mg PO BEDTIME [facility]; Protocol Last Admin: 07/04/23 20:01 Dose: 40 mg Documented By: SAMMIE Melatonin (Melatonin 3 Mg Tablet) 6 mg PO BEDTIME PRN PRN Reason: Insomnia Last Admin: 07/03/23 20:34 Dose: 6 mg Documented By: KIM Morphine Sulfate (Morphine Sulfate 4 Mg/Ml Cartridge) 3 mg IVPUSH Q4H PRN; Protocol PRN Reason: Pain, Severe (Pain Scale 7-10) Ondansetron HCl (Ondansetron Hcl 4 Mg/2 Ml Vial) 4 mg IVPUSH Q8H PRN PRN Reason: Nausea and Vomiting Oxybutynin Chloride (Oxybutynin Chloride Er 5 Mg Tab.Er.24) 5 mg PO BEDTIME [facility] Last Admin: 07/04/23 20:00 Dose: 5 mg Documented By: SAMMIE Oxycodone HCl (Oxycodone Hcl Immed Release 5 Mg Tablet) 5 mg PO Q4H PRN PRN Reason: Pain, Moderate(Pain Scale 4-6) Last Admin: 07/05/23 06:39 Dose: 5 mg Documented By: ANN MARIE Oxycodone HCl (Oxycodone Hcl Immed Release 5 Mg Tablet) 10 mg PO Q4H PRN PRN Reason: Pain, Severe (Pain Scale 7-10) Last Admin: 07/04/23 22:46 Dose: 10 mg Documented By: SAMMIE Pharmacy Consult (Consult Rx Vancomycin Dosing) 1 each MISCELLANE DAILY PRN PRN Reason: Consult order Polyethylene Glycol (Polyethylene Glycol 3350 17 Gm Powd.Pack) 17 gm PO DAILY PRN PRN Reason: Constipation Last Admin: 07/03/23 18:13 Dose: 17 gm Documented By: MEGAN Sodium Chloride (0.9 % Sodium Chloride Flush 3 Ml Syringe) [facility] Last Admin: 07/05/23 07:52 Dose: 3 ml Documented By: RASHARD <Jenny Connelly PA-C - Last Filed: 07/05/23 08:37> Labs CBC & Chem 7: 07/03/23 05:02 07/05/23 05:19 <Jenny Connelly PA-C - Last Filed: 07/05/23 08:37> Labs: Laboratory Results - last 24 hr 07/04/23 07/04/23 07/04/23 11:12 16:35 20:18 Estim Creat Clear Calc Estimated GFR POC Glucose 142 H 288 H 365 H* C-Reactive Protein 07/05/23 07/05/23 05:19 07:01 Estim Creat Clear Calc 58.0 Estimated GFR > 60 POC Glucose 234 H C-Reactive Protein 17.63 H <Jenny Connelly PA-C - Last Filed: 07/05/23 08:37> Microbiology Microbiology Results: Microbiology 06/29/23 18:28 Blood Culture - Final Blood - Venous No growth after 5 days. 06/29/23 18:21 Blood Culture - Final Blood - Venous No growth after 5 days. <Jenny Connelly PA-C - Last Filed: 07/05/23 08:37> Procedures Date of Service Date of Service: 07/05/23 <Jenny Connelly PA-C - Last Filed: 07/05/23 08:37> 07/05/23 <Alvarado Drew MD - Last Filed: 07/05/23 09:35> Progress Note: A&P Assessment and plan (1) Cellulitis of leg: Status: Acute <Jenny Connelly PA-C - Last Filed: 07/05/23 08:37> (2) Necrosis of toe: Status: Acute <Jenny Connelly PA-C - Last Filed: 07/05/23 08:37> Assessment and Plan: POD #4 s/p ray amputation of right first toe. Amp site remains approximated with small amount of necrosis of skin margins, erythema and edema improving. Cont daily dressing changes, right foot elevation. Likely ready for home tomorrow with PO abx. Can f/u with Dr. Drew in office in 1 week. May need further amputation but will allow to declare itself over time. Patient comfortable with plan. <Jenny Connelly PA-C - Last Filed: 07/05/23 08:37> Time Spent With Patient Time: Total time managing care of this patient today ____ minutes. <Jenny Connelly PA-C - Last Filed: 07/05/23 08:37> Quality Stroke Does the patient have a stroke diagnosis?: No <ZOLTAN Seymour Last Filed: 07/05/23 08:37> VTE Prior VTE?: No <ZOLTAN Seymour Last Filed: 07/05/23 08:37> VTE Risk Level:: Medical - moderate - high <ZOLTAN Seymour Last Filed: 07/05/23 08:37> VTE Device Contraindication: Treatment Not Indicated <Jenny Connelly PA-C - Last Filed: 07/05/23 08:37> VTE Drug Contraindication: N/A - Med Ordered <Jenny Connelly PA-C - Last Filed: 07/05/23 08:37>
[2023-07-05 11:07] LABS: Glucose, Whole Blood 322 mg/dL (60-115)
--- NOTE | 2023-07-05 14:17 | P.PNIM_ITS ---
Subjective Subjective Date of Service: 07/05/23 Interval History: This history was taken in Mongolian from the patient. R foot pain controlled No fever Review of Systems Review of Systems: Yes all other systems are reviewed and are negative Physical Exam 2 Vital Signs: Vital Signs: Last Vital Signs Temp 98 F 07/05/23 06:59 Pulse 72 07/05/23 06:59 Resp 19 07/05/23 06:59 BP 136/62 07/05/23 06:59 Pulse Ox 97 07/05/23 06:59 O2 Del Method Room Air 07/05/23 06:59 O2 Flow Rate 2 07/01/23 12:10 BMI result Body Mass Index 31.3 Gen: in no acute distress HEENT: sclera anicteric, moist mucus membranes Neck: supple Lungs: clear to auscultation bilaterally Heart: regular rate and rhythm, no murmurs Abd: soft, non-tender, non-distended Ext: R great toe amputation site with dressing in place, some erythema + edema on dorsum of R foot Skin: warm/well-perfused Neuro: alert and oriented x3, no focal findings Psych: appropriate affect Objective Data Active Medications Acetaminophen (Acetaminophen 325 Mg Tablet) 650 mg PO Q6H PRN PRN Reason: Pain, Mild (Pain Scale 1-3) Last Admin: 07/05/23 07:52 Dose: 650 mg Documented By: RASHARD Dextrose (Dextrose 50 % 25 Gm/50 Ml Syringe) 25 gm IVPUSH Q15M PRN; Protocol PRN Reason: per Hypoglycemia Standing Ord. Docusate Sodium (Docusate Sodium 100 Mg Capsule) 100 mg PO DAILY [facility] Last Admin: 07/05/23 07:52 Dose: 100 mg Documented By: RASHARD Enoxaparin Sodium (Enoxaparin Sodium 40 Mg/0.4 Ml Syringe) 40 mg SUBCUT Q24H [facility] Last Admin: 07/04/23 18:43 Dose: 40 mg Documented By: SAMMIE Furosemide (Furosemide 20 Mg Tablet) 20 mg PO BEDTIME [facility]; Protocol Last Admin: 07/04/23 20:01 Dose: 20 mg Documented By: SAMMIE Glucose (Glucose Gel 15 Gm Gel..Gram.) 15 gm PO Q15M PRN; Protocol PRN Reason: per Hypoglycemia Standing Ord. Piperacillin Sod/Tazobactam (Sod 4.5 gm/ Sodium Chloride) 100 mls @ 200 mls/hr IV Q6H [facility] Last Admin: 07/05/23 13:41 Dose: 200 mls/hr Documented By: RASHARD Vancomycin HCl 1,000 mg/ (Sodium Chloride) 270 mls @ 270 mls/hr IV Q12H [facility] Last Infusion: 07/05/23 09:51 Dose: Infused Documented By: RASHARD Insulin Glargine (Insulin Glargine,Hum.Rec.Anlog 100 Unit/Ml 10 Ml Vial) 18 unit SUBCUT BEDTIME [facility] Last Admin: 07/04/23 20:31 Dose: 18 unit Documented By: SAMMIE Insulin Human Lispro (Insulin Lispro 100 Unit/Ml 3 Ml Vial) 0 unit SUBCUT QIDACHS [facility]; Protocol Last Admin: 07/05/23 12:11 Dose: 10 unit Documented By: RASHARD Lisinopril (Lisinopril 40 Mg Tablet) 40 mg PO BEDTIME [facility]; Protocol Last Admin: 07/04/23 20:01 Dose: 40 mg Documented By: SAMMIE Melatonin (Melatonin 3 Mg Tablet) 6 mg PO BEDTIME PRN PRN Reason: Insomnia Last Admin: 07/03/23 20:34 Dose: 6 mg Documented By: KIM Morphine Sulfate (Morphine Sulfate 4 Mg/Ml Cartridge) 3 mg IVPUSH Q4H PRN; Protocol PRN Reason: Pain, Severe (Pain Scale 7-10) Ondansetron HCl (Ondansetron Hcl 4 Mg/2 Ml Vial) 4 mg IVPUSH Q8H PRN PRN Reason: Nausea and Vomiting Oxybutynin Chloride (Oxybutynin Chloride Er 5 Mg Tab.Er.24) 5 mg PO BEDTIME [facility] Last Admin: 07/04/23 20:00 Dose: 5 mg Documented By: SAMMIE Oxycodone HCl (Oxycodone Hcl Immed Release 5 Mg Tablet) 5 mg PO Q4H PRN PRN Reason: Pain, Moderate(Pain Scale 4-6) Last Admin: 07/05/23 12:15 Dose: 5 mg Documented By: RASHARD Oxycodone HCl (Oxycodone Hcl Immed Release 5 Mg Tablet) 10 mg PO Q4H PRN PRN Reason: Pain, Severe (Pain Scale 7-10) Last Admin: 07/04/23 22:46 Dose: 10 mg Documented By: SAMMIE Pharmacy Consult (Consult Rx Vancomycin Dosing) 1 each MISCELLANE DAILY PRN PRN Reason: Consult order Polyethylene Glycol (Polyethylene Glycol 3350 17 Gm Powd.Pack) 17 gm PO DAILY PRN PRN Reason: Constipation Last Admin: 07/03/23 18:13 Dose: 17 gm Documented By: MEGAN Sodium Chloride (0.9 % Sodium Chloride Flush 3 Ml Syringe) 3 ml IVFLUSH [facility] Last Admin: 07/05/23 07:52 Dose: 3 ml Documented By: RASHARD Labs 07/03/23 05:02 07/05/23 05:19 Labs: Laboratory Results - last 24 hr 07/04/23 07/04/23 07/05/23 16:35 20:18 05:19 Estim Creat Clear Calc 58.0 Estimated GFR > 60 POC Glucose 288 H 365 H* C-Reactive Protein 17.63 H 07/05/23 07/05/23 07:01 11:03 Estim Creat Clear Calc Estimated GFR POC Glucose 234 H 322 H C-Reactive Protein Microbiology Microbiology Results: Microbiology 06/29/23 18:28 Blood Culture - Final Blood - Venous No growth after 5 days. 06/29/23 18:21 Blood Culture - Final Blood - Venous No growth after 5 days. Assessment and Plan (1) Necrosis of toe: Status: Acute (2) Cellulitis of leg: Status: Acute Plan d7 83yo M with DM2, HTN admitted for DM foot infection sepsis due to wet gangrene of R toe + cellulitis of R foot - s/p ray amputation of R 1st toe 07/01, today is POD4 - daily dressing changes: right first toe amp site- change daily and as needed with fluffs, abdominal dressing followed by kerlix wrap - keep R foot elevated - vanc + pip-landen 06/30-, likely change to PO tomorrow - BCx negative - oxycodone + IV morphine for pain control DM2 with hyperglycemia - basal-bolus insulin HTN - continue lisinopril + furosemide VTE ppx - LMWH dispo - anticipate home with VNA In my clinical judgment, the patient requires continued inpatient hospitalization for the following reasons: postop care, IV ABX Total time managing care of this patient today: 35 minutes. Quality Stroke Does the patient have a stroke diagnosis?: No VTE Prior VTE?: No VTE Risk Level:: Medical - moderate - high VTE Device Contraindication: Treatment Not Indicated VTE Drug Contraindication: N/A - Med Ordered
[2023-07-05 15:28] VITALS: BP 136/86; PULSE 72; RESP 18; TEMP 36.3; O2SAT 97
[2023-07-05 16:12] LABS: Glucose, Whole Blood 308 mg/dL (60-115)
[2023-07-05 18:41] LABS: Vancomycin Trough 15.8 mcg/mL (10.0-20.0)
[2023-07-05 19:46] VITALS: BP 123/76; PULSE 73; RESP 18; TEMP 36.1; O2SAT 98
[2023-07-05] MEDS: Enoxaparin Sodium 40 MG/0.4 ML SYRINGE SUBCUT (20:16)
[2023-07-05] MEDS: lisinopriL 40 MG TABLET PO (20:16)
[2023-07-05] MEDS: oxyBUTYnin chloride ER 5 MG TAB.ER.24 PO (20:16)
[2023-07-05] MEDS: Furosemide 20 MG TABLET PO (20:16)
[2023-07-05 21:50] LABS: Glucose, Whole Blood 282 mg/dL (60-115)
[2023-07-05] MEDS: Insulin Glargine,Hum.rec.anlog 100 UNIT/ML 10 ML VIAL 18 UNIT SUBCUT (21:52)
[2023-07-05 22:12] LABS: Glucose, Whole Blood 286 mg/dL (60-115)
[2023-07-06] MEDS: Piperacillin Sodium/Tazobactam 4.5 GM in 0.9 % Sodium Chloride 100 ML IV ×4 (01:29→18:26)
[2023-07-06 03:37] VITALS: BP 159/72; PULSE 66; RESP 16; TEMP 36.7; O2SAT 97
[2023-07-06 06:57] LABS: Creatinine Clr Calc Pharmacy 60.4; Estimated Glomerular Filt Rate > 60
--- NOTE | 2023-07-06 07:16 | HE.PHANOTE ---
RE: CHIARAO On 07/06/23, SCr came back as 0.96, CrCl 60.4, dose is continued as 1000mg q12h with predicted trough 16.6 and AUC 522. Nex trough is on 07/07/23 @0600.
[2023-07-06] MEDS: oxyCODONE HCl Immed Release 5 MG TABLET PO (07:25)
[2023-07-06] MEDS: Docusate Sodium 100 MG CAPSULE PO (07:25)
[2023-07-06] MEDS: vancomycin HCL 1,000 MG in 0.9 % Sodium Chloride 250 ML 270 MG IV ×2 (07:25→20:38)
[2023-07-06] MEDS: 0.9 % Sodium Chloride Flush 3 ML SYRINGE IVFLUSH ×3 (07:26→19:20)
[2023-07-06 08:00] VITALS: BP 140/70; PULSE 76; RESP 18; TEMP 36.7; O2SAT 96
[2023-07-06 08:02] LABS: Glucose, Whole Blood 169 mg/dL (60-115)
[2023-07-06] MEDS: Insulin Lispro 100 UNIT/ML 3 ML VIAL SUBCUT ×4 (08:44→21:23)
[2023-07-06] MEDS: Lidocaine 4 % Patch ADH..PATCH 1 PATCH TRANSDERMA (10:48)
--- NOTE | 2023-07-06 11:19 | PM.PNGS ---
Subjective Subjective Date of Service: 07/06/23 <Jenny Cnonelly PA-C - Last Filed: 07/06/23 11:22> 07/06/23 <Alvarado Drew MD - Last Filed: 07/06/23 17:50> Interval history: Continues to report minimal pain at amp site. Has been OOB with walker. <Jenny Connelly PA-C - Last Filed: 07/06/23 11:22> Physical Exam Vital Signs: Vital Signs: Last Vital Signs Temp 98.0 F 07/06/23 08:00 Pulse 76 07/06/23 08:00 Resp 18 07/06/23 08:00 BP 140/70 H 07/06/23 08:00 Pulse Ox 96 07/06/23 08:00 O2 Del Method Room Air 07/06/23 08:00 O2 Flow Rate 2 07/01/23 12:10 BMI result Body Mass Index 31.3 <Jenny Connelly PA-C - Last Filed: 07/06/23 11:22> Const: General: comfortable, no acute distress and alert <Jenny Connelly PA-C - Last Filed: 07/06/23 11:22> Orientation/consciousness: patient oriented x3 <Jenny Connelly PA-C - Last Filed: 07/06/23 11:22> Skin: General skin exam: no rashes or lesions noted <Jenny Connelly PA-C - Last Filed: 07/06/23 11:22> Neuro: General: patient oriented x3 <Jenny Connelly PA-C - Last Filed: 07/06/23 11:22> Extrem: Other: right first toe amp site- some necrosis of skin edges persists, distal aspect of dorsum of foot remains a little dusky with small amount of residual erythema and edema <ZOLTAN Seymour Last Filed: 07/06/23 11:22> Objective Data Active Medications Acetaminophen (Acetaminophen 325 Mg Tablet) 650 mg PO Q6H PRN PRN Reason: Pain, Mild (Pain Scale 1-3) Last Admin: 07/05/23 16:21 Dose: 650 mg Documented By: RASHARD Dextrose (Dextrose 50 % 25 Gm/50 Ml Syringe) 25 gm IVPUSH Q15M PRN; Protocol PRN Reason: per Hypoglycemia Standing Ord. Docusate Sodium (Docusate Sodium 100 Mg Capsule) 100 mg PO DAILY [facility] [place] Last Admin: 07/06/23 07:25 Dose: 100 mg Documented By: RASHARD Enoxaparin Sodium (Enoxaparin Sodium 40 Mg/0.4 Ml Syringe) 40 mg SUBCUT Q24H [facility] Last Admin: 07/05/23 20:16 Dose: 40 mg Documented By: DOMINICK Furosemide (Furosemide 20 Mg Tablet) 20 mg PO BEDTIME [facility]; Protocol Last Admin: 07/05/23 20:16 Dose: 20 mg Documented By: DOMINICK Glucose (Glucose Gel 15 Gm Gel..Gram.) 15 gm PO Q15M PRN; Protocol PRN Reason: per Hypoglycemia Standing Ord. Piperacillin Sod/Tazobactam (Sod 4.5 gm/ Sodium Chloride) 100 mls @ 200 mls/hr IV Q6H [facility] Last Infusion: 07/06/23 07:27 Dose: Infused Documented By: RASHARD Vancomycin HCl 1,000 mg/ (Sodium Chloride) 270 mls @ 270 mls/hr IV Q12H [facility] Last Infusion: 07/06/23 08:44 Dose: Infused Documented By: RASHARD Insulin Glargine (Insulin Glargine,Hum.Rec.Anlog 100 Unit/Ml 10 Ml Vial) 18 unit SUBCUT BEDTIME [facility] Last Admin: 07/05/23 21:52 Dose: 18 unit Documented By: DOMINICK Insulin Human Lispro (Insulin Lispro 100 Unit/Ml 3 Ml Vial) 0 unit SUBCUT QIDACHS [facility]; Protocol Last Admin: 07/06/23 08:44 Dose: 4 unit Documented By: RASHARD Lidocaine (Lidocaine 4 % Patch Adh..Patch) 1 patch TRANSDERMA DAILY [facility]; Protocol Last Admin: 07/06/23 10:48 Dose: 1 patch Documented By: RASHARD Lisinopril (Lisinopril 40 Mg Tablet) 40 mg PO BEDTIME [facility]; Protocol Last Admin: 07/05/23 20:16 Dose: 40 mg Documented By: DOMINICK Melatonin (Melatonin 3 Mg Tablet) 6 mg PO BEDTIME PRN PRN Reason: Insomnia Last Admin: 07/03/23 20:34 Dose: 6 mg Documented By: KIM Morphine Sulfate (Morphine Sulfate 4 Mg/Ml Cartridge) 3 mg IVPUSH Q4H PRN; Protocol PRN Reason: Pain, Severe (Pain Scale 7-10) Ondansetron HCl (Ondansetron Hcl 4 Mg/2 Ml Vial) 4 mg IVPUSH Q8H PRN PRN Reason: Nausea and Vomiting Oxybutynin Chloride (Oxybutynin Chloride Er 5 Mg Tab.Er.24) 5 mg PO BEDTIME [facility] Last Admin: 07/05/23 20:16 Dose: 5 mg Documented By: DOMINICK Oxycodone HCl (Oxycodone Hcl Immed Release 5 Mg Tablet) 5 mg PO Q4H PRN PRN Reason: Pain, Moderate(Pain Scale 4-6) Last Admin: 07/06/23 07:25 Dose: 5 mg Documented By: RASHARD Oxycodone HCl (Oxycodone Hcl Immed Release 5 Mg Tablet) 10 mg PO Q4H PRN PRN Reason: Pain, Severe (Pain Scale 7-10) Last Admin: 07/04/23 22:46 Dose: 10 mg Documented By: SAMMIE Pharmacy Consult (Consult Rx Vancomycin Dosing) 1 each MISCELLANE DAILY PRN PRN Reason: Consult order Polyethylene Glycol (Polyethylene Glycol 3350 17 Gm Powd.Pack) 17 gm PO DAILY PRN PRN Reason: Constipation Last Admin: 07/03/23 18:13 Dose: 17 gm Documented By: MEGAN Sodium Chloride (0.9 % Sodium Chloride Flush 3 Ml Syringe) [facility] Last Admin: 07/06/23 07:26 Dose: 3 ml Documented By: RASHARD <Jenny Connelly PA-C - Last Filed: 07/06/23 11:22> Labs CBC & Chem 7: 07/03/23 05:02 07/06/23 06:11 <Jenny Connelly PA-C - Last Filed: 07/06/23 11:22> Labs: Laboratory Results - last 24 hr 07/05/23 07/05/23 07/05/23 16:03 18:04 20:02 Hold Purple Top Estim Creat Clear Calc Estimated GFR POC Glucose 308 H 286 H Vancomycin Trough 15.8 07/05/23 07/06/23 07/06/23 21:46 06:11 06:37 Hold Purple Top SEE NOTE Estim Creat Clear Calc 60.4 Estimated GFR > 60 POC Glucose 282 H Vancomycin Trough 07/06/23 07:47 Hold Purple Top Estim Creat Clear Calc Estimated GFR POC Glucose 169 H Vancomycin Trough <Jenny Connelly PA-C - Last Filed: 07/06/23 11:22> Procedures Date of Service Date of Service: 07/06/23 <Jenny Connelly PA-C - Last Filed: 07/06/23 11:22> 07/06/23 <Alvarado Drew MD - Last Filed: 07/06/23 17:50> Progress Note: A&P Assessment and plan (1) Necrosis of toe: Status: Acute <Jenny Connelly PA-C - Last Filed: 07/06/23 11:22> (2) Cellulitis of leg: Status: Acute <Jenny Connelly PA-C - Last Filed: 07/06/23 11:22> Assessment and Plan: POD #5 s/p ray amputation of right first toe. Amp site remains approximated with small amount of necrosis of skin margins and dorsum of foot appears a little dusky, erythema and edema continue to resolve. Cont daily dressing changes, right foot elevation. ?Pt consult prior to dc. Can f/u with Dr. Drew in office in 1 week. May need further amputation but will allow to declare itself over time. Patient comfortable with plan. <Jenny Connelly PA-C - Last Filed: 07/06/23 11:22> Time Spent With Patient Time: Total time managing care of this patient today ____ minutes. <Jenny Connelly PA-C - Last Filed: 07/06/23 11:22> Quality Stroke Does the patient have a stroke diagnosis?: No <ZOLTAN Seymour Last Filed: 07/06/23 11:22> VTE Prior VTE?: No <ZOLTAN Seymour Last Filed: 07/06/23 11:22> VTE Risk Level:: Medical - moderate - high <ZOLTAN Seymour Last Filed: 07/06/23 11:22> VTE Device Contraindication: Treatment Not Indicated <Jenny Connelly PA-C - Last Filed: 07/06/23 11:22> VTE Drug Contraindication: N/A - Med Ordered <Jenny Connelly PA-C - Last Filed: 07/06/23 11:22>
[2023-07-06 11:41] LABS: Glucose, Whole Blood 309 mg/dL (60-115)
--- NOTE | 2023-07-06 14:41 | HO.PM.IMPN ---
Subjective Subjective Date of Service: 07/06/23 Interval History: This history was taken in Portuguese from the patient. C/o ant L shoulder pain Minimal foot pain No fever Review of Systems Review of Systems: Yes all other systems are reviewed and are negative Physical Exam Vital Signs: Vital Signs: Last Vital Signs Temp 98.0 F 07/06/23 08:00 Pulse 76 07/06/23 08:00 Resp 18 07/06/23 08:00 BP 140/70 H 07/06/23 08:00 Pulse Ox 96 07/06/23 08:00 O2 Del Method Room Air 07/06/23 08:00 O2 Flow Rate 2 07/01/23 12:10 BMI result Body Mass Index 31.3 Gen: in no acute distress HEENT: sclera anicteric, moist mucus membranes Neck: supple Lungs: clear to auscultation bilaterally Heart: regular rate and rhythm, no murmurs Abd: soft, non-tender, non-distended Ext: R great toe amputation site with dressing in place, some erythema + edema on dorsum of R foot Skin: warm/well-perfused Neuro: alert and oriented x3, no focal findings Psych: appropriate affect Objective Data Active Medications Acetaminophen (Acetaminophen 325 Mg Tablet) 650 mg PO Q6H PRN PRN Reason: Pain, Mild (Pain Scale 1-3) Last Admin: 07/05/23 16:21 Dose: 650 mg Documented By: RASHARD Dextrose (Dextrose 50 % 25 Gm/50 Ml Syringe) 25 gm IVPUSH Q15M PRN; Protocol PRN Reason: per Hypoglycemia Standing Ord. Docusate Sodium (Docusate Sodium 100 Mg Capsule) 100 mg PO DAILY [facility] Last Admin: 07/06/23 07:25 Dose: 100 mg Documented By: RASHARD Enoxaparin Sodium (Enoxaparin Sodium 40 Mg/0.4 Ml Syringe) 40 mg SUBCUT Q24H [facility] Last Admin: 07/05/23 20:16 Dose: 40 mg Documented By: DOMINICK Furosemide (Furosemide 20 Mg Tablet) 20 mg PO BEDTIME [facility]; Protocol Last Admin: 07/05/23 20:16 Dose: 20 mg Documented By: DOMINICK Glucose (Glucose Gel 15 Gm Gel..Gram.) 15 gm PO Q15M PRN; Protocol PRN Reason: per Hypoglycemia Standing Ord. Piperacillin Sod/Tazobactam (Sod 4.5 gm/ Sodium Chloride) 100 mls @ 200 mls/hr IV Q6H [facility] Last Infusion: 07/06/23 12:51 Dose: Infused Documented By: RASHARD Vancomycin HCl 1,000 mg/ (Sodium Chloride) 270 mls @ 270 mls/hr IV Q12H [facility] Last Infusion: 07/06/23 08:44 Dose: Infused Documented By: RASHARD Insulin Glargine (Insulin Glargine,Hum.Rec.Anlog 100 Unit/Ml 10 Ml Vial) 18 unit SUBCUT BEDTIME [facility] Last Admin: 07/05/23 21:52 Dose: 18 unit Documented By: DOMINICK Insulin Human Lispro (Insulin Lispro 100 Unit/Ml 3 Ml Vial) 0 unit SUBCUT QIDACHS [facility]; Protocol Last Admin: 07/06/23 12:17 Dose: 10 unit Documented By: RASHARD Lidocaine (Lidocaine 4 % Patch Adh..Patch) 1 patch TRANSDERMA DAILY [facility]; Protocol Last Admin: 07/06/23 10:48 Dose: 1 patch Documented By: RASHARD Lisinopril (Lisinopril 40 Mg Tablet) 40 mg PO BEDTIME [facility]; Protocol Last Admin: 07/05/23 20:16 Dose: 40 mg Documented By: DOMINICK Melatonin (Melatonin 3 Mg Tablet) 6 mg PO BEDTIME PRN PRN Reason: Insomnia Last Admin: 07/03/23 20:34 Dose: 6 mg Documented By: KIM Morphine Sulfate (Morphine Sulfate 4 Mg/Ml Cartridge) 3 mg IVPUSH Q4H PRN; Protocol PRN Reason: Pain, Severe (Pain Scale 7-10) Ondansetron HCl (Ondansetron Hcl 4 Mg/2 Ml Vial) 4 mg IVPUSH Q8H PRN PRN Reason: Nausea and Vomiting Oxybutynin Chloride (Oxybutynin Chloride Er 5 Mg Tab.Er.24) 5 mg PO BEDTIME [facility] Last Admin: 07/05/23 20:16 Dose: 5 mg Documented By: DOMINICK Oxycodone HCl (Oxycodone Hcl Immed Release 5 Mg Tablet) 5 mg PO Q4H PRN PRN Reason: Pain, Moderate(Pain Scale 4-6) Last Admin: 07/06/23 07:25 Dose: 5 mg Documented By: RASHARD Oxycodone HCl (Oxycodone Hcl Immed Release 5 Mg Tablet) 10 mg PO Q4H PRN PRN Reason: Pain, Severe (Pain Scale 7-10) Last Admin: 07/04/23 22:46 Dose: 10 mg Documented By: SAMMIE Pharmacy Consult (Consult Rx Vancomycin Dosing) 1 each MISCELLANE DAILY PRN PRN Reason: Consult order Polyethylene Glycol (Polyethylene Glycol 3350 17 Gm Powd.Pack) 17 gm PO DAILY PRN PRN Reason: Constipation Last Admin: 07/03/23 18:13 Dose: 17 gm Documented By: MEGAN Sodium Chloride (0.9 % Sodium Chloride Flush 3 Ml Syringe) 3 ml IVFLUSH QSHIFT [facility] Last Admin: 07/06/23 07:26 Dose: 3 ml Documented By: RASHARD Labs 07/03/23 05:02 07/06/23 06:11 Labs: Laboratory Results - last 24 hr 07/05/23 07/05/23 07/05/23 16:03 18:04 20:02 Hold Purple Top Estim Creat Clear Calc Estimated GFR POC Glucose 308 H 286 H Vancomycin Trough 15.8 07/05/23 07/06/23 07/06/23 21:46 06:11 06:37 Hold Purple Top SEE NOTE Estim Creat Clear Calc 60.4 Estimated GFR > 60 POC Glucose 282 H Vancomycin Trough 07/06/23 07/06/23 07:47 11:36 Hold Purple Top Estim Creat Clear Calc Estimated GFR POC Glucose 169 H 309 H Vancomycin Trough Assessment and Plan (1) Necrosis of toe: Status: Acute (2) Cellulitis of leg: Status: Acute Plan d8 83yo M with DM2, HTN admitted for DM foot infection sepsis due to wet gangrene of R toe + cellulitis of R foot - s/p ray amputation of R 1st toe 07/01, today is POD5 - daily dressing changes: right first toe amp site- change daily and as needed with fluffs, abdominal dressing followed by kerlix wrap - keep R foot elevated - NWB forefoot - vanc + pip-landen 06/30-, likely change to PO upon discharge home - BCx negative - oxycodone + IV morphine for pain control - needs surgery follow up in 1 week; may require further amputation if fails to heal well shoulder pain - Xray, lidocaine patch DM2 with hyperglycemia - basal-bolus insulin HTN - continue lisinopril + furosemide VTE ppx - LMWH dispo - anticipate home with VNA, PT eval pending In my clinical judgment, the patient requires continued inpatient hospitalization for the following reasons: postop care, IV ABX, PT eval Total time managing care of this patient today: 35 minutes. Quality Stroke Does the patient have a stroke diagnosis?: No VTE Prior VTE?: No VTE Risk Level:: Medical - moderate - high VTE Device Contraindication: Treatment Not Indicated VTE Drug Contraindication: N/A - Med Ordered
[2023-07-06 15:48] VITALS: BP 139/74; PULSE 68; RESP 18; TEMP 36.6; O2SAT 97
[2023-07-06 16:18] LABS: Glucose, Whole Blood 305 mg/dL (60-115)
[2023-07-06] MEDS: oxyCODONE HCl Immed Release 5 MG TABLET 10 MG PO (16:57)
[2023-07-06 20:00] VITALS: BP 137/77; PULSE 73; RESP 18; TEMP 36.2; O2SAT 98
[2023-07-06] MEDS: lisinopriL 40 MG TABLET PO (20:33)
[2023-07-06] MEDS: Furosemide 20 MG TABLET PO (20:33)
[2023-07-06] MEDS: Enoxaparin Sodium 40 MG/0.4 ML SYRINGE SUBCUT (20:34)
[2023-07-06] MEDS: oxyBUTYnin chloride ER 5 MG TAB.ER.24 PO (20:34)
[2023-07-06 20:40] LABS: Glucose, Whole Blood 231 mg/dL (60-115)
[2023-07-06] MEDS: Insulin Glargine,Hum.rec.anlog 100 UNIT/ML 10 ML VIAL 18 UNIT SUBCUT (21:24)
[2023-07-07] MEDS: Piperacillin Sodium/Tazobactam 4.5 GM in 0.9 % Sodium Chloride 100 ML IV ×2 (01:36→07:48)
[2023-07-07 03:28] VITALS: BP 170/84; PULSE 82; RESP 16; TEMP 36.4; O2SAT 97
[2023-07-07 06:28] LABS: Creatinine Clr Calc Pharmacy 68.2; Estimated Glomerular Filt Rate > 60
[2023-07-07 06:38] LABS: Vancomycin Trough 19.8 mcg/mL (10.0-20.0)
--- NOTE | 2023-07-07 06:45 | HE.PHANOTE ---
RE:VANCO patients +
--- NOTE | 2023-07-07 06:48 | HE.PHANOTE ---
Addendum entered by Keila Benito [facility] 07/07/23 08:47: Also renal function approved to 0.85 from 0.96 SCR. Predicted AUC 478 Original Note: RE: VANCO Patients level came back this morning at 19.8. Patients indication is sepsis. Higher side of the AUC goal of 400-600 is desired. Will continue with the current dose of 1000 mg Q12H as the dose seems to be getting the patient to goal. However level was 19.8 which is right on cusp, chose to push back doses by 4 hours to allow a little more time to clear. Next level is tomorrow 07/08 @1000
[2023-07-07 07:25] LABS: Glucose, Whole Blood 179 mg/dL (60-115)
[2023-07-07 07:47] VITALS: BP 139/82; PULSE 71; RESP 18; TEMP 36.1; O2SAT 97
[2023-07-07] MEDS: Insulin Lispro 100 UNIT/ML 3 ML VIAL SUBCUT ×4 (07:48→20:50)
[2023-07-07] MEDS: 0.9 % Sodium Chloride Flush 3 ML SYRINGE IVFLUSH (08:00)
[2023-07-07 10:06] VITALS: BP 139/82; PULSE 71; O2SAT 97
--- NOTE | 2023-07-07 10:22 | P.PNIM_ITS ---
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 Review of Systems Review of Systems: Yes all other systems are reviewed and are negative Physical Exam 2 Vital Signs: Vital Signs: Last Vital Signs Temp 97 F 07/07/23 07:47 Pulse 71 07/07/23 10:06 Resp 18 07/07/23 07:47 BP 139/82 07/07/23 10:06 Pulse Ox 97 07/07/23 10:06 O2 Del Method Room Air 07/07/23 07:47 O2 Flow Rate 2 07/01/23 12:10 BMI result Body Mass Index 31.3 Gen: in no acute distress HEENT: sclera anicteric, moist mucus membranes Neck: supple Lungs: clear to auscultation bilaterally Heart: regular rate and rhythm, no murmurs Abd: soft, non-tender, non-distended Ext: R great toe amputation site with dressing in place, some erythema + edema on dorsum of R foot Skin: warm/well-perfused Neuro: alert and oriented x3, no focal findings Psych: appropriate affect Objective Data Active Medications Acetaminophen (Acetaminophen 325 Mg Tablet) 650 mg PO Q6H PRN PRN Reason: Pain, Mild (Pain Scale 1-3) Last Admin: 07/05/23 16:21 Dose: 650 mg Documented By: RASHARD Dextrose (Dextrose 50 % 25 Gm/50 Ml Syringe) 25 gm IVPUSH Q15M PRN; Protocol PRN Reason: per Hypoglycemia Standing Ord. Docusate Sodium (Docusate Sodium 100 Mg Capsule) 100 mg PO DAILY [facility] Last Admin: 07/06/23 07:25 Dose: 100 mg Documented By: RASHARD Enoxaparin Sodium (Enoxaparin Sodium 40 Mg/0.4 Ml Syringe) 40 mg SUBCUT Q24H [facility] Last Admin: 07/06/23 20:34 Dose: 40 mg Documented By: VINH Furosemide (Furosemide 20 Mg Tablet) 20 mg PO BEDTIME [facility]; Protocol Last Admin: 07/06/23 20:33 Dose: 20 mg Documented By: VINH Glucose (Glucose Gel 15 Gm Gel..Gram.) 15 gm PO Q15M PRN; Protocol PRN Reason: per Hypoglycemia Standing Ord. Piperacillin Sod/Tazobactam (Sod 4.5 gm/ Sodium Chloride) 100 mls @ 200 mls/hr IV Q6H [facility] Last Infusion: 07/07/23 08:53 Dose: Infused Documented By: JUAN Vancomycin HCl 1,000 mg/ (Sodium Chloride) 270 mls @ 270 mls/hr IV Q12H [facility] Insulin Glargine (Insulin Glargine,Hum.Rec.Anlog 100 Unit/Ml 10 Ml Vial) 18 unit SUBCUT BEDTIME [facility] Last Admin: 07/06/23 21:24 Dose: 18 unit Documented By: VINH Insulin Human Lispro (Insulin Lispro 100 Unit/Ml 3 Ml Vial) 0 unit SUBCUT QIDACHS [facility]; Protocol Last Admin: 07/07/23 07:48 Dose: 4 unit Documented By: JUAN Lidocaine (Lidocaine 4 % Patch Adh..Patch) 1 patch TRANSDERMA DAILY [facility]; Protocol Last Admin: 07/06/23 10:48 Dose: 1 patch Documented By: RASHARD Lisinopril (Lisinopril 40 Mg Tablet) 40 mg PO BEDTIME [facility]; Protocol Last Admin: 07/06/23 20:33 Dose: 40 mg Documented By: VINH Melatonin (Melatonin 3 Mg Tablet) 6 mg PO BEDTIME PRN PRN Reason: Insomnia Last Admin: 07/03/23 20:34 Dose: 6 mg Documented By: KIM Morphine Sulfate (Morphine Sulfate 4 Mg/Ml Cartridge) 3 mg IVPUSH Q4H PRN; Protocol PRN Reason: Pain, Severe (Pain Scale 7-10) Ondansetron HCl (Ondansetron Hcl 4 Mg/2 Ml Vial) 4 mg IVPUSH Q8H PRN PRN Reason: Nausea and Vomiting Oxybutynin Chloride (Oxybutynin Chloride Er 5 Mg Tab.Er.24) 5 mg PO BEDTIME [facility] Last Admin: 07/06/23 20:34 Dose: 5 mg Documented By: VINH Oxycodone HCl (Oxycodone Hcl Immed Release 5 Mg Tablet) 5 mg PO Q4H PRN PRN Reason: Pain, Moderate(Pain Scale 4-6) Last Admin: 07/06/23 07:25 Dose: 5 mg Documented By: RASHARD Oxycodone HCl (Oxycodone Hcl Immed Release 5 Mg Tablet) 10 mg PO Q4H PRN PRN Reason: Pain, Severe (Pain Scale 7-10) Last Admin: 07/06/23 16:57 Dose: 10 mg Documented By: SAMMIE Pharmacy Consult (Consult Rx Vancomycin Dosing) 1 each MISCELLANE DAILY PRN PRN Reason: Consult order Polyethylene Glycol (Polyethylene Glycol 3350 17 Gm Powd.Pack) 17 gm PO DAILY PRN PRN Reason: Constipation Last Admin: 07/03/23 18:13 Dose: 17 gm Documented By: MEGAN Sodium Chloride (0.9 % Sodium Chloride Flush 3 Ml Syringe) 3 ml IVFLUSH QSHIFT [facility] Last Admin: 07/07/23 08:00 Dose: 3 ml Documented By: JUAN Labs 07/03/23 05:02 07/07/23 05:22 Labs: Laboratory Results - last 24 hr 07/06/23 07/06/23 07/06/23 11:36 16:10 20:23 Estim Creat Clear Calc Estimated GFR POC Glucose 309 H 305 H 231 H Vancomycin Trough 07/07/23 07/07/23 05:22 07:21 Estim Creat Clear Calc 68.2 Estimated GFR > 60 POC Glucose 179 H Vancomycin Trough 19.8 Assessment and Plan (1) Necrosis of toe: Status: Acute (2) Cellulitis of leg: Status: Acute Plan d9 83yo M with DM2, HTN admitted for DM foot infection sepsis due to wet gangrene of R toe + cellulitis of R foot - s/p ray amputation of R 1st toe 07/01, today is POD6 - daily dressing changes: right first toe amp site- change daily and as needed with fluffs, abdominal dressing followed by kerlix wrap - keep R foot elevated - NWB forefoot, PT recommends STR - vanc + pip-landen 06/30-, change to PO doxy + amox-clav 07/07- - BCx negative - oxycodone + IV morphine for pain control - needs surgery follow up in 1 week; may require further amputation if fails to heal well shoulder pain - Xray, lidocaine patch DM2 with hyperglycemia - basal-bolus insulin HTN - continue lisinopril + furosemide VTE ppx - LMWH dispo - STR recommended but cannot go as 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 Quality Stroke Does the patient have a stroke diagnosis?: No VTE Prior VTE?: No VTE Risk Level:: Medical - moderate - high VTE Device Contraindication: Treatment Not Indicated VTE Drug Contraindication: N/A - Med Ordered
[2023-07-07] MEDS: Docusate Sodium 100 MG CAPSULE PO (10:33)
[2023-07-07] MEDS: Lidocaine 4 % Patch ADH..PATCH 1 PATCH TRANSDERMA (10:33)
[2023-07-07] MEDS: Amoxicillin/Potassium Clav 875 MG TABLET PO ×2 (10:50→22:14)
[2023-07-07] MEDS: Doxycycline Monohydrate 100 MG CAPSULE PO ×2 (10:50→22:14)
[2023-07-07 11:35] LABS: Glucose, Whole Blood 320 mg/dL (60-115)
[2023-07-07 12:03] VITALS: BP 139/82; PULSE 71; O2SAT 97
--- NOTE | 2023-07-07 13:51 | MHC.CM.PN ---
PT IS NOW AGREEABLE TO GO TO [facility] FOR 1 WEEK BEFORE GOING HOME. PT HAS NO PREFERENCE TO CENTERS BUT WOULD LIKE TO STAY IN [place]. [facility] HAS OFFERED A BED TO PT AND PT AGREEABLE. MD MADE AWARE. CM WILL CONTINUE TO FOLLOW FOR ANY CHANGE IN DC PLAN/NEEDS.
[2023-07-07 15:10] VITALS: BP 152/79; PULSE 72; RESP 18; TEMP 36.5; O2SAT 98
[2023-07-07 16:19] LABS: Glucose, Whole Blood 352 mg/dL (60-115)
[2023-07-07 18:04] LABS: Glucose, Whole Blood 332 mg/dL (60-115)
[2023-07-07 19:08] VITALS: BP 134/71; PULSE 76; RESP 18; TEMP 36.7; O2SAT 99
--- NOTE | 2023-07-07 19:26 | PC.NURSE ---
Dr. Ricardo notified of elevated POC 332 from 1800. Plan to administer bedtime insulins, no additional coverage ordered. Patient resting comfortably, no signs of distress.
[2023-07-07 20:08] LABS: Glucose, Whole Blood 271 mg/dL (60-115)
[2023-07-07] MEDS: Furosemide 20 MG TABLET PO (20:47)
[2023-07-07] MEDS: lisinopriL 40 MG TABLET PO (20:47)
[2023-07-07] MEDS: oxyBUTYnin chloride ER 5 MG TAB.ER.24 PO (20:47)
[2023-07-07] MEDS: Enoxaparin Sodium 40 MG/0.4 ML SYRINGE SUBCUT (20:49)
[2023-07-07] MEDS: Insulin Glargine,Hum.rec.anlog 100 UNIT/ML 10 ML VIAL 18 UNIT SUBCUT (20:51)
[2023-07-08 04:00] VITALS: BP 145/79; PULSE 72; RESP 18; TEMP 36.9; O2SAT 96
[2023-07-08] MEDS: oxyCODONE HCl Immed Release 5 MG TABLET 10 MG PO (04:27)
[2023-07-08] MEDS: polyethylene glycoL 3350 17 GM POWD.PACK PO (04:28)
[2023-07-08 08:00] VITALS: BP 130/68; PULSE 60; RESP 16; TEMP 36.3; O2SAT 95
[2023-07-08 08:09] LABS: Glucose, Whole Blood 220 mg/dL (60-115)
[2023-07-08] MEDS: Insulin Lispro 100 UNIT/ML 3 ML VIAL SUBCUT ×2 (08:25→12:48)
[2023-07-08] MEDS: Docusate Sodium 100 MG CAPSULE PO (08:26)
[2023-07-08] MEDS: Lidocaine 4 % Patch ADH..PATCH 1 PATCH TRANSDERMA (08:26)
[2023-07-08 09:25] VITALS: BP 130/68; PULSE 60; O2SAT 95
[2023-07-08] MEDS: Amoxicillin/Potassium Clav 875 MG TABLET PO (10:16)
[2023-07-08] MEDS: Doxycycline Monohydrate 100 MG CAPSULE PO (10:16)
[2023-07-08 11:55] LABS: Glucose, Whole Blood 303 mg/dL (60-115)
--- NOTE | 2023-07-08 12:11 | PM.DS ---
DS: Providers Provider Date of Service: 07/08/23 Date of admission: 06/29/23 19:19 Date of discharge: 07/08/23 Primary care physician: Alex Walker Consults: 06/30/23 12:32 Consult to Wound Care Routine Reason for consultation: necrotic right great toe 06/30/23 17:16 Consult to General Surgery Routine Consulting [place] [facility] Reason for consultation: right great toe gangrene Has provider been notified: Yes DS: Diagnosis Discharge Diagnosis (1) Necrosis of toe: Status: Acute (2) Cellulitis of leg: Status: Acute (3) Toe osteomyelitis: Status: Acute (4) Gangrene associated with diabetes mellitus: Status: Acute (5) Type 2 diabetes mellitus: Status: Acute (6) Type 2 diabetes mellitus with hyperglycemia: Status: Acute DS: Summary Hospital Course Hospital Course: From the history and physical by the admitting hospitalist, Aleah Ricardo MD, 06/29/23: This is a 83-year-old male with pertinent history of sda-zvxioxv-lkaasthdl diabetes mellitus, essential hypertension who presents to the emergency department for evaluation of right great toe infection. Patient states he did not want to come into the hospital and was forced by his family members. He presents for foul-smelling and blackening of right great toe associated with purulent drainage. It has been ongoing for the last 1 month. Denies fever or chills. States diabetes is uncontrolled. No chest discomfort, palpitations, shortness of breath, abdominal pain, changes in urinary or bowel habits. In the emergency department, imaging was obtained which was concerning for osteomyelitis. General surgery was consulted and patient will likely undergo amputation on 07/01. 83yo M with uncontrolled DM2 who presented with worsening gangrene of the R great toe with purulent drainage for the past month. He was admitted to the medical-surgical floor with sepsis due to wet gangrene and cellulitis. We gave him IV vancomycin + Zosyn for a week. Dr Alvarado Drew from General Surgery performed a ray amputation of the R 1st toe on 07/01/23. He is to remain nonweightbearing on the forefoot and due to difficulty standing, he was transferred to [facility] for short-trem rehabilitation. Wound care daily and as needed with fluffs, abdominal dressing, followed by Kerlix wrap. We prescribed 1 week of amoxicillin-clavulanate plus doxycycline. He will follow up with Dr Drew in 1 week for wound check; he may require further amputation if he fails to heal well. For diabetic control, we started him on basal-bolus insulin. Status at Discharge Overall status at discharge: patient is not back to baseline Time Attestation Discharge coordination time: Greater than 30 minutes Quality: Safe Use of Opioids Does Pt have an Active Cancer Diagnosis on the Problem List?: No Quality: Stroke Does the patient have a stroke diagnosis?: No Physical Exam Vital Signs: Vital Signs: Last Vital Signs Temp 97.4 F 07/08/23 08:00 Pulse 60 07/08/23 09:25 Resp 16 07/08/23 08:00 BP 130/68 07/08/23 09:25 Pulse Ox 95 07/08/23 09:25 O2 Del Method Room Air 07/08/23 08:00 O2 Flow Rate 2 07/01/23 12:10 BMI result Body Mass Index 31.3 Gen: in no acute distress HEENT: sclera anicteric, moist mucus membranes Neck: supple Lungs: clear to auscultation bilaterally Heart: regular rate and rhythm, no murmurs Abd: soft, non-tender, non-distended Ext: R great toe amputation site with dressing in place, some erythema + edema on dorsum of R foot Skin: warm/well-perfused Neuro: alert and oriented x3, no focal findings Psych: appropriate affect DS: Data Data Completed and Pending Completed studies during hospitalization [Text1]: Laboratory Results WBC 11.3 X10*3/uL (4.8-10.8) H 07/03/23 05:02 RBC 4.23 X10*6/uL (4.60-5.80) L 07/03/23 05:02 Hgb 12.9 g/dl (14.0-18.0) L 07/03/23 05:02 Hct 36.2 % (42.0-52.0) L 07/03/23 05:02 MCV 85.6 fL (80.0-98.0) 07/03/23 05:02 MCH 30.5 pg (27.0-33.0) 07/03/23 05:02 MCHC 35.6 g/dl (31.0-36.0) 07/03/23 05:02 RDW 12.2 % (11.0-16.0) 07/03/23 05:02 Plt Count 303 X10*3/uL (160-400) 07/03/23 05:02 MPV 10.4 fL (9.4-12.4) 07/03/23 05:02 Immature Gran % (Auto) 0.7 % (0.0-0.4) H 06/30/23 05:08 Neut % (Auto) 72.7 % (45-73) 06/30/23 05:08 Lymph % (Auto) 15.1 % (20-40) L 06/30/23 05:08 [place] % (Auto) 7.5 % (2-11) 06/30/23 05:08 Eos % (Auto) 3.6 % (0-4) 06/30/23 05:08 Baso % (Auto) 0.4 % (0-2) 06/30/23 05:08 Lymph # (Auto) 1.7 X10*3/uL (1.2-4.9) 06/30/23 05:08 [place] # (Auto) 0.9 X10*3/uL (0.1-1.2) 06/30/23 05:08 Eos # (Auto) 0.4 X10*3/uL (0.0-0.4) 06/30/23 05:08 Baso # (Auto) 0.1 X10*3/uL (0.0-0.2) 06/30/23 05:08 Abs Immat Gran (auto) 0.08 X10*3/uL (0.00-0.03) H 06/30/23 05:08 Absolute Neuts (auto) 8.2 x10*3/uL (2.0-8.3) 06/30/23 05:08 Absolute Nucleated RBC 0.000 X10*3/uL (0.0-0.012) 07/03/23 05:02 Nucleated RBC % (auto) 0.0 /100WBC (0.0-0.2) 07/03/23 05:02 Hold Purple Top SEE NOTE 07/06/23 06:37 Sodium 131 mmol/L (135-145) L 07/03/23 05:02 Potassium 3.6 mmol/L (3.3-5.1) 07/03/23 05:02 Chloride 98 mmol/L (96-108) 07/03/23 05:02 Carbon Dioxide 24 mmol/L (22-29) 07/03/23 05:02 Anion Gap 13 (12-20) 07/03/23 05:02 BUN 14 mg/dL (9-16) 07/03/23 05:02 Creatinine 0.85 mg/dL (0.5-1.4) 07/07/23 05:22 Estim Creat Clear Calc 68.2 07/07/23 05:22 Estimated GFR > 60 07/07/23 05:22 POC Glucose 303 mg/dL (60-115) H 07/08/23 11:45 Random Glucose 108 mg/dL (60-115) 07/03/23 05:02 Lactic Acid 1.0 mmol/L (0.5-2.0) 06/29/23 18:21 Calcium 8.9 mg/dL (8.4-10.2) 07/03/23 05:02 Total Bilirubin 0.7 mg/dL (0.0-1.0) 06/29/23 18:21 Direct Bilirubin 0.4 mg/dL (0.0-0.5) 06/29/23 18:21 AST 26 U/L (5-37) 06/29/23 18:21 ALT 26 U/L (0-40) 06/29/23 18:21 Alkaline Phosphatase 171 U/L (39-117) H 06/29/23 18:21 C-Reactive Protein 17.63 mg/dL (< or = 0.50) H 07/05/23 05:19 Total Protein 8.1 g/dL (6.5-8.0) H 06/29/23 18:21 Albumin 3.4 g/dL (3.5-5.0) L 06/29/23 18:21 Vancomycin Trough 19.8 mcg/mL (10.0-20.0) 07/07/23 05:22 Impressions Foot X-Ray 06/29/23 17:54 IMPRESSION: Described air density in the soft tissues about the distal first digit and I cannot exclude some mild ill-definition of bone involving the distal tuft. Osteomyelitis cannot be excluded. Recommend pre and postcontrast MRI is time. As described some dystrophic calcification could be associated with old injury at the MTP joint. Osteomyelitis cannot be completely excluded here. Again consider MRI Duplex Scan Lower Extremity Artery 06/29/23 20:11 IMPRESSION: There is peripheral vascular disease present with plaque throughout, but there is multiphasic flow present with the exception of the distal tibial vessels, which demonstrate monophasic flow. CT angiography would be useful for further evaluation. Shoulder X-Ray 07/06/23 10:17 IMPRESSION: Severe arthritis. Pending studies at discharge: Surgical pathology from 07/01/23: Toe, right great, amputation: - Ulcerated and necrotic skin and subcutaneous soft tissue. - Osteonecrosis; extensive Discharge Plan Discharge Anticipated Discharge Date/Time: 07/08/23 12:07 Patient Disposition: [facility] Discharge Diagnosis: sepsis due to wet gangrene of R toe + cellulitis of R foot due to diabetes mellitus Referrals: Alex Walker [Other] - 1 Week Alvarado Drew MD [Physician] - 1 Week Discharge Medications: New insulin glargine [Lantus U-100 Insulin] 100 unit/mL Solution 18 unit subcut BEDTIME Qty: 1 0RF doxycycline monohydrate 100 mg Capsule 100 mg PO Q12H Qty: 14 0RF amoxicillin-pot clavulanate 875-125 mg Tablet 1 tab PO Q12H Qty: 14 0RF oxycodone 5 mg Tablet 5 mg PO Q4H PRN (Reason: Pain, Moderate(Pain Scale 4-6)) Qty: 18 0RF Rx Instructions: Partial Fill upon patient request. insulin lispro [Humalog U-100 Insulin] 100 unit/mL Solution See Protocol subcut QIDACHS Qty: 1 0RF Protocol: Insulin Resistant 1st 24 hours Less than or equal to 110 ---- Give (units): 0 111 to 150 Give (units): 2 151 to 200 Give (units): 4 201 to 250 Give (units): 6 251 to 300 Give (units): 8 301 to 350 Give (units): 10 Greater than 350 Give (units): 12 Call MD if Blood Glucose > : 350 Continued oxybutynin chloride 5 mg tablet extended release 24hr 5 mg PO BEDTIME furosemide 20 mg tablet 20 mg PO BEDTIME lisinopril 40 mg tablet 40 mg PO BEDTIME Discontinued glimepiride 2 mg tablet 2 mg PO BEDTIME Discharge Orders: Discharge Order (Routine); Ordered 07/08/23 Ordered By: Goyo Viramontes Diet: Diabetic diet Activity on Discharge: As tolerated Stand Alone Forms: Patient Portal Discharge page Activity Restrictions/Additional Instructions: Non weight bearing right foot Dry sterile 4x4 to amputation site followed by kerlix wrap, change daily Care Plan Goals: cure of infection Health Concerns: sepsis due to wet gangrene of R toe + cellulitis of R foot due to diabetes mellitus Plan of Treatment: Transfer to SNF [[facility]] for short-term rehabilitation. Non weight bearing right foot Dry sterile 4x4 to amputation site followed by kerlix wrap, change daily take doxycycline monohydrate 100 mg twice daily PLUS amoxicillin-clavulanate 100 mg twice daily for 7 days pain control: Tylenol for mild-moderate pain, oxycodone for severe pain [place] [facility] [place] [Dr Alvarado Drew] in 1 week for re-examination/wound check stop glimepiride; take Lantus and Humalog as prescribed for diabetic sugar control Please follow up with your primary care doctor within 1 week of discharge from SNF. Return to the hospital if you experience recurrent or worsening symptoms. Assessment: See Discharge Summary.
--- NOTE | 2023-07-08 18:17 | P.CDIM_ITS ---
PROVIDER RESPONSE TEXT: To clarify, the appropriate diagnosis supported by the clinical indicators: Sepsis is/was present and is a clinical diagnosis based on QUERY TEXT: PHYSICIAN'S DOCUMENTATION REQUEST Date of Query: 07/06/2023 10:09 AM EST Patient Name: Kavon Live Admit Date: 06/30/2023 Dear Goyo Viramontes, A review of the medical record indicates additional documentation may be needed. Please review below and update the documentation accordingly. The patient's infectious clinical indicators include: Documentation in the H&P 06/29/23 and on progress note dated 07/03/23 included the diagnosis of sepsis . The patient's infectious clinical indicators include: WBC 13.1 LA 1.0 Temperature 99, pulse 82, respiratory rate 18 Recognized standard criteria for this condition and other infectious definitions includes: Bacteremia Abnormal laboratory test - does not indicate a clinically ill patient Sepsis Systemic manifestations of infection, with 2 or more SIRS criteria which include: Fever > 100.4?F or hypothermia < 96.8?F Leukocytosis - WBC > 12,000 or leukopenia, WBC < 4,000, or > 10% bands Tachycardia- > 90 beats/minute Tachypnea- RR > 20 breaths/minute or PaCO2 < 32mmHg Source: Merck Manual 2013 Documentation should include the known or suspected organism, and the underlying infection, such as U TI or pneumonia Severe Sepsis Sepsis with associated acute organ dysfunction, such as renal or respiratory failure Documentation should indicate the association between the sepsis and the organ dysfunction Septic Shock Severe sepsis with associated with circulatory failure, evidenced by hypotension and hypoperfusion Based on the above information and the recognized standard for sepsis, could you please clarify if th is diagnoses is still accurate and reflective of the patient's condition to ensure quality of the medical record. Sepsis is/was present and is a clinical diagnosis based on After study, Sepsis has been ruled out Other (explain) Clinically unable to determine (explain) Thank you, Lesly Chi RN Use of terms such as suspected, likely, concern for, or probable (associated with a specific diagnosi s that is being evaluated, monitored, or treated as if it exists) are acceptable and can be coded in the inpatient se tting, when documented at the time of discharge. Please use your independent medical judgment in providing your response. THIS QUERY IS PART OF THE PERMANENT MEDICAL RECORD
--- NOTE | 2023-07-08 18:17 | P.CDIM_ITS ---
PROVIDER RESPONSE TEXT: To clarify, the appropriate diagnosis supported by the clinical indicators: Yes, Cellulitis right foot is related to / associated with / due to NIDDM QUERY TEXT: PHYSICIAN'S DOCUMENTATION REQUEST Date of Query: 07/06/2023 10:11 AM EST Patient Name: Kavon Live Admit Date: 06/30/2023 Dear Goyo Viramontes, A review of the medical record indicates additional documentation may be needed. Please review below and update the documentation accordingly. Documentation includes the conditions of Cellulitis right foot and NIDDM. Clinical Indicators: Per Hospitalist Progress Note 07/03/23: Status post ray amputation right 1st toe on 07/01 postoperative day 3 Dressing done by General surgery drain removed today on IV Vancomycin and Zosyn started 06/30 will continue IV antibiotic for now due to persistent redness dorsum of foot /leg Please clarify the relationship between these conditions: Yes, Cellulitis right foot is related to / associated with / due to NIDDM No, Cellulitis is not related to / associated with / due to NIDDM Other (explain) Clinically unable to determine (explain) Thank you, Lesly Chi RN Use of terms such as suspected, likely, concern for, or probable (associated with a specific diagnosi s that is being evaluated, monitored, or treated as if it exists) are acceptable and can be coded in the inpatient se tting, when documented at the time of discharge. Please use your independent medical judgment in providing your response. THIS QUERY IS PART OF THE PERMANENT MEDICAL RECORD
== END 2023-07-08 13:44 | disposition skilled nursing facility (03) | DRG 854 ==
LOC: HO.ED 18:56 → HO.EDOVER 19:24 → HO.S3 06-30 00:29
PROVIDERS: Hospitalist; Physician Assistant Medical; Surgery; Admitting Provider Student in an Organized Health Care Education/Training Program; Emergency Provider Emergency Medicine; PCP Internal Medicine; Visit Provider Family Medicine
PROC: 0Y6P0Z0 Detachment at Right 1st Toe, Complete, Open Approach (ICD-10-PCS; principal; 2023-07-01 13:00)
DX: A41.9 Sepsis, unspecified organism (principal); E11.52 Type 2 diabetes mellitus with diabetic peripheral angiopathy with gangrene; L03.115 Cellulitis of right lower limb; M86.9 Osteomyelitis, unspecified; M25.512 Pain in left shoulder; E11.69 Type 2 diabetes mellitus with other specified complication; I10 Essential (primary) hypertension; E11.65 Type 2 diabetes mellitus with hyperglycemia; Z79.4 Long term (current) use of insulin; Z79.899 Other long term (current) drug therapy
CPT/HCPCS: 36415; 73030; 73630; 80048; 80076; 80202; 82565; 82947; 83605; 85025; 85027; 86140; 87040; 88305; 88311; 88312; 93926; 97110; 97162; 97530; 99285; J0665; J1650; J2250; J2543; J2704; J3010; J3370; J3371

== ENCOUNTER → 2023-06-29 18:37 | Outpatient (BNV) | payer MEDICARE, OTHER, SELFPAY | PROVIDERS: Emergency Provider Emergency Medicine; Visit Provider Surgery | DX: L03.115 Cellulitis of right lower limb (principal); I96 Gangrene, not elsewhere classified | CPT/HCPCS: 28810; 99024; 99222; 99232 ==

== ENCOUNTER → 2023-06-29 19:19 | Outpatient (BNV) | payer MEDICARE, OTHER, SELFPAY | PROVIDERS: Admitting Provider Student in an Organized Health Care Education/Training Program; Emergency Provider Emergency Medicine; Visit Provider Student in an Organized Health Care Education/Training Program | DX: E11.52 Type 2 diabetes mellitus with diabetic peripheral angiopathy with gangrene (principal); L03.115 Cellulitis of right lower limb; M86.9 Osteomyelitis, unspecified; E11.65 Type 2 diabetes mellitus with hyperglycemia | CPT/HCPCS: 99222; 99232; 99233; 99239 ==

== ENCOUNTER 2023-07-12 14:14 | Outpatient (AMB) | payer MEDICARE, OTHER, SELFPAY ==
--- NOTE | 2023-07-12 14:23 | A.OFFVIS_ITS ---
Intake Intake Visit Reasons: S/p toe amputation Intake Note: Patient here with EMS today on a stretcher. Unable to obtain vitals. 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 Patient is currently at an [facility]. He has no wound issues or complaints. [facility] Medical History HTN (hypertension) Diabetes Household Members: Spouse Housing: House Do you presently have visiting nurse or other home services: No Patient Tobacco Use Status: Never used Tobacco service: No Physical Exam Extrem Other: Right foot ray amputation dry eschar. No evidence of any infection. 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 Patient will follow-up p.r.n.. 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
== END 2023-07-12 14:33 | disposition home or self-care (01) ==
PROVIDERS: PCP Internal Medicine; Visit Provider Surgery
DX: Z89.411 Acquired absence of right great toe (principal)
CPT/HCPCS: 99024

== ENCOUNTER → 2023-07-12 14:14 | Outpatient (BNVA) | payer MEDICARE, OTHER, SELFPAY | PROVIDERS: PCP Internal Medicine; Visit Provider Surgery ==

== ENCOUNTER 2023-08-04 10:49 | Outpatient (AMB) | payer MEDICARE, OTHER, SELFPAY ==
--- NOTE | 2023-08-04 10:53 | A.OFFVIS_ITS ---
Intake Intake Visit Reasons: [employer]/Gen Sx Ref for non-healing toe amp Intake Note: [employer]/ General surgery referral for non-healing Right Great Toe amp 07/01/2023 by . [facility]. [facility] is currently residing at [facility]. Had arterial US 06/29/23 Accompanied by: OUTDOOR STUDIES PROFESSOR from [facility] Allergies No Known Allergies Allergy (Verified 08/04/23 10:58) HPI [employer]/Gen Sx Ref for non-healing toe amp HPI Details Very pleasant 83-year-old gentleman presents vascular evaluation r egarding nonhealing right great toe amputation site. He had been seen by General surgery and had undergone right great toe amputation on 07/01/[address] Drew. It appeared to be doing fairly well and subsequently the incision line opened up and has been a nonhealing incision line. He reports no overt signs of infection denies any fevers or chills. He denies any significant pain at the amp site or any redness that he is aware of. He now presents to us for vascular evaluation. [facility] Medical History HTN (hypertension) Diabetes Social History Household Members: Spouse Housing: House Do you presently have visiting nurse or other home services: No Patient Tobacco Use Status: Never used Tobacco service: No Review of Systems Const All systems reviewed & are unremarkable except as noted in HPI and below Reports no additional complaints ENT Reports Normal hearing present Card Denies chest pain, Denies chest pain at rest, Denies chest pain with activity and Denies pedal edema Resp Denies cough GI Denies abdominal pain Musc Denies abnormal gait, Denies muscle cramps and Denies radiating pain into limb Skin/Breast Denies skin ulcer and Denies wounds Neuro Reports Normal hearing present and Denies abnormal gait Psych Reports no additional complaints Physical Exam Const General: cooperative, healthy appearing and comfortable Orientation/consciousness: oriented to person, oriented to place and oriented to time HEENT Head: Yes normal to inspection Neck Neck: Yes normal visual inspection Carotids: no bruits Chest Chest palpation & inspection: normal inspection of the chest Resp Effort & Inspection: normal respiratory effort and able to speak in complete sentences Auscultation: clear to auscultation bilaterally, no crackles, no rales, no rhonchi and no wheezes Cardio Rate: regular rate Rhythm: regular rhythm Heart sounds: S1 normal heart sound present and S2 normal heart sound present Bruits: no carotid bruits Peripheral pulses: Peripheral pulses 2+ throughout GI Inspection: Yes normal to inspection Skin Other: Right great toe amputation site open measuring 5.5 x 3 x 0.1 cm it appears dry and desiccated. Wounds: no wounds Hair: normal Neuro General: oriented to person, oriented to place and oriented to time Cranial nerves: Yes CN's II-XII intact bilaterally and Yes Normal hearing present Cognition (Neuro): normal cognition Motor exam (neuro): 5/5 motor strength present throughout Extrem Other: venous exam: No significant superficial varicosities or spider telan giectasias, minimal edema General: No clubbing, No cyanosis and No edema Psych Appearance: grossly normal Mental Status: mental status grossly normal Speech and movement: Normal speech and movement present Results Reviewed Results Reviewed: Noninvasive arterial ultrasound dated 06/29/2023 demonstrates monophasic waveform in the tibial vessels with elevated velocity of 213 in the mid SFA. Concern of plaquing throughout. Written report and images were reviewed. Assessment & Plan Assessment & Plan (1) PAD (peripheral artery disease): Code(s): I73.9 - Peripheral vascular disease, unspecified Plan: Patient notes nonhealing right great toe amputation site. I have discussed the pathophysiology of peripheral vascular disease with the patient. I have also discussed risk factor modification. I have reviewed the patient's arterial testing which reveals right SFA and tibial. the patient would benefit from a right leg endovascular peripheral angiogram with possible angioplasty, stent, and/or atherectomy. This has been discussed in detail with the patient along with risks, benefits, and complications. This includes but is not limited to bleeding, infection, heart attack, need for emergent surgical repair, limb ischemia, blood vessel damage, bleeding, puncture, kidney injury, bruising, allergic reaction, and skin reaction. The patient demonstrates a clear understanding. We will schedule for the next appropriate time. Thank you for allowing us to assist in this patient's care. Coding Level of Care Code New Pt Level 4 (66714) Diagnoses PAD (peripheral artery disease) I73.9
== END 2023-08-04 11:37 | disposition home or self-care (01) ==
PROVIDERS: PCP Internal Medicine; Visit Provider Surgery Vascular Surgery
DX: I73.9 Peripheral vascular disease, unspecified (principal); T87.89 Other complications of amputation stump; Z89.411 Acquired absence of right great toe
CPT/HCPCS: 99204

== ENCOUNTER → 2023-08-04 10:49 | Outpatient (BNVA) | payer MEDICARE, OTHER, SELFPAY | PROVIDERS: PCP Internal Medicine; Visit Provider Surgery Vascular Surgery | DX: T87.89 Other complications of amputation stump (principal); I73.9 Peripheral vascular disease, unspecified; Z89.411 Acquired absence of right great toe | CPT/HCPCS: 99202 ==

== ENCOUNTER 2023-08-05 13:00 | Outpatient (RCR) | payer MEDICARE, OTHER, SELFPAY | END 2024-07-13 14:03 | disposition home or self-care (01) | LOC: HO.WCC 13:00 | PROVIDERS: Visit Provider Physician Assistant | DX: Z09 Encounter for follow-up examination after completed treatment for conditions other than malignant neoplasm (principal); E11.9 Type 2 diabetes mellitus without complications; Z79.2 Long term (current) use of antibiotics; Z86.31 Personal history of diabetic foot ulcer | CPT/HCPCS: 11042; 11043; 11044; 11046; 11047; 87070; 87073; 87076; 87077; 87185; 87186; 87205; 88304; 88305; 88311; 97597; 97605; 99212 ==

== ENCOUNTER 2023-08-10 06:04 | Day surgery (SDC) | payer MEDICARE, OTHER, SELFPAY ==
[2023-08-10] VITALS (9 sets, daily range): BP systolic 118–141; BP diastolic 59–88; PULSE 54–78; RESP 16–18; TEMP 36–36.1; O2SAT 98–100; BMI 27.5
[2023-08-10 06:46] LABS: MANUAL DIFF FLAG NO
[2023-08-10 06:48] LABS: Basophils Absolute Auto 0.1 X10*3/uL (0.0-0.2); Basophils Percent Auto 0.7 % (0-2); Eosinophils Absolute Auto 0.4 X10*3/uL (0.0-0.4); Eosinophils Percent Auto 4.2 % (0-4); Hematocrit 40.2 % (42.0-52.0); Imm Gran Abs Auto 0.07 X10*3/uL (0.00-0.03); Imm Gran Pct Auto 0.8 % (0.0-0.4); Lymphocytes Absolute Auto 2.6 X10*3/uL (1.2-4.9); Lymphocytes Percent Auto 29.8 % (20-40); Mean Corpuscular HGB Conc 34.8 g/dl (31.0-36.0); Mean Corpuscular Hemoglobin 29.8 pg (27.0-33.0); Mean Corpuscular Volume 85.5 fL (80.0-98.0); Mean Platelet Volume 10.9 fL (9.4-12.4); Monocytes Absolute Auto 0.7 X10*3/uL (0.1-1.2); Monocytes Percent Auto 8.2 % (2-11); Neutrophils Absolute Auto 4.9 x10*3/uL (2.0-8.3); Neutrophils Percent Auto 56.3 % (45-73); Platelet Count 223 X10*3/uL (160-400); Red Cell Distribution Width 13.5 % (11.0-16.0); White Blood Count 8.7 X10*3/uL (4.8-10.8)
[2023-08-10 07:05] LABS: Blood Urea Nitrogen 30 mg/dL (9-16); Creatinine Clr Calc Pharmacy 53.5; Estimated Glomerular Filt Rate > 60
[2023-08-10 07:19] LABS: Glucose, Whole Blood 265 mg/dL (60-115)
--- NOTE | 2023-08-10 09:28 | W.PM.OPN ---
Operative Note Operative Note Date of Service: 08/10/23 Narrative: Angiogram report from [facility] Preoperative diagnosis: Atherosclerosis of right lower extremity with nonhealing ulcer Postoperative diagnosis: Same Procedure: 1. Ultrasound-guided left common femoral access 2. Aortogram with right lower extremity runoff 3. right SFA atherectomy and plasty 4. right peroneal plasty Surgeon:Power Gonzales M.D., FACS, RPVI Sulfide Head Operator:None Anesthesia: Local with moderate conscious sedation. Total intraservice moderate sedation time was 55 minutes. I monitored the patient's level of consciousness and physiologic status continuously throughout the procedure. Specimens:none Drains:none Estimated blood loss: Less than 10 ml Implant: [employer] Impact DCB 6 x 60 Indications: very pleasant 83-year-old gentleman presents for endovascular intervention for nonhealing right foot ulcer. On noninvasive testing there was concern of SFA disease and below-knee disease. He now presents for intervention. The patient has signed the informed consent after reviewing risks, complications, benefits, and alternatives previously discussed with the patient. The patient was given the opportunity to ask any additional questions or voice any concerns. All questions were answered to the patient's satisfaction. Procedure in detail: Patient was brought to the angiography suite prior to which a time-out was called for patient identification and site verification. Bilateral groins were prepped and draped in the standard surgical fashion. Under ultrasound guidance Left common femoral was punctured with micro puncture needle and wire. Subsequently a precision 4 Togolese sheath was then placed. Bentson wire was advanced to the level of the aorta. 4 [place]og[place]ese Flush catheter was brought up and parked at the level of the renal arteries. Aortogram was then undertaken. Catheter was brought down to the level of the iliac bifurcation. Iliacs were subsequently imaged. Catheter was then brought in up and over to the right side SFA. Runoff study was then undertaken. there was a moderate stenosis noted at [place]. In addition at the origin of the peroneal artery there was a high-grade stenosis. We then administered 5000 units of systemic heparin. Up and over 6 Togolese sheath was then placed. We advanced a Glidewire Advantage through these lesions very easily. We then placed a Navicross catheter instilled with contrast to confirmed true lumen. We then placed a 6 Togolese spider wire. We used a Hawk 1 atherectomy device at [place] canal with multiple unidirectional passes. there was still some residual stenosis. We then treated this with a 6 x 60 drug coated balloon. We brought this into position in under 3 minutes and insufflated in 3 minutes in duration. once this was accomplished we turned our attention to the area at the origin of the prone ill artery. We were able to traverse this with the Glidewire Advantage as well. We then plasty this with a 3 x 30 regular balloon. Completion angiogram demonstrated good result. Catheter wire sheath was brought back to the ipsilateral side. StarClose closure device was then deployed. Interpretation of films: 1. Ultrasound demonstrates appropriate femoral puncture. Image of which was saved. 2. Aortogram demonstrates appropriate caliber aorta. Minimal disease. Appropriate take-off of the renals. 3. Iliac images demonstrate No significant disease 4. right Leg Common femoral artery: no significant disease Profundus Femoris: No significant disease Superficial femoral artery: moderate to severe stenosis at [place]. Post atherectomy and plasty demonstrated good result. Popliteal artery (p1,p2,p3): No significant disease Anterior tibial artery: occludes Peroneal artery: dominant runoff Posterior tibial artery: occludes in the proximal quarter; reconstitutes at the ankle from the prone ill Dorsalis pedis/plantar arch: incomplete Conclusion: 1. successful atherectomy and plasty of right SFA and successful plasty of right Pro nail artery 2. Anticoagulation status: 6 months of aspirin and Plavix This note is constructed using voice recognition software. While every effort has been made to ensure accuracy, wordpress developer errors may have been included. Thank you for allowing me to participate in the care of your patient. Yours sincerely, Power Gonzales MD, FACS, R.P.V.I.
[2023-08-10] MEDS: Aspirin 325 MG TABLET 650 MG PO (10:16)
[2023-08-10] MEDS: Clopidogrel Bisulfate 300 MG TABLET PO (10:16)
== END 2023-08-10 11:49 | disposition home or self-care (01) ==
PROVIDERS: PCP Internal Medicine; Visit Provider Surgery Vascular Surgery
DX: T81.31XA Disruption of external operation (surgical) wound, not elsewhere classified, initial encounter (principal); E11.51 Type 2 diabetes mellitus with diabetic peripheral angiopathy without gangrene; E11.621 Type 2 diabetes mellitus with foot ulcer; L97.519 Non-pressure chronic ulcer of other part of right foot with unspecified severity; I70.235 Atherosclerosis of native arteries of right leg with ulceration of other part of foot; Z79.4 Long term (current) use of insulin; Z89.411 Acquired absence of right great toe; I10 Essential (primary) hypertension; Z79.899 Other long term (current) drug therapy
CPT/HCPCS: 36415; 37225; 37228; 76937; 82565; 82947; 84520; 85025; 99152; 99153; A4364; C1714; C1725; C1760; C1769; C1884; C1887; C2623; J1644; J2250; J2310; J3010; Q9967

== ENCOUNTER → 2023-08-10 06:04 | Outpatient (BNV) | payer MEDICARE, OTHER, SELFPAY | PROVIDERS: PCP Internal Medicine; Visit Provider Surgery Vascular Surgery | DX: I70.239 Atherosclerosis of native arteries of right leg with ulceration of unspecified site (principal) | CPT/HCPCS: 37225; 37228; 75625; 75710; 76937; 99152 ==

== ENCOUNTER 2023-08-25 08:51 | Outpatient (AMB) | payer MEDICARE, OTHER, SELFPAY ==
[2023-08-25 08:54] VITALS: BP 120/64; PULSE 67; O2SAT 100; BMI 25.8
--- NOTE | 2023-08-25 08:54 | MHC.OFFVIS ---
Intake Vital Signs 08/25/23 08:54 Height 5 ft 7 in Weight 165 lb BMI 25.8 BP 120/64 Blood Pressure Location Lt brachial Position Sitting Pulse 67 Pulse Source Pulse Oximeter Pulse Oximetry (%) 100 Oxygen Delivery Method Room Air Intake Visit Reasons: 2 week follow up right leg angiogram Intake Note: Pt presents to the office today for a 2 week follow up. Pt states he is feeling well and has no concerns at this time. Allergies No Known Allergies Allergy (Verified 08/25/23 08:56) HPI 2 week follow up right leg angiogram HPI Details Very pleasant 83-year-old gentleman presents for routine follow-up he had undergone it ray amputation of the right 1st toe by Dr. Drew. Subsequent to that he has undergone endovascular intervention by us with right SFA atherectomy and plasty along with right peroneal plasty. He reports he has been doing fairly well. The wound appears to be slowly closing. He now presents for routine follow-up. [facility] Medical History HTN (hypertension) Diabetes Social History Household Members: Spouse Housing: House Do you presently have visiting nurse or other home services: No Patient Tobacco Use Status: Never used Tobacco service: No Review of Systems Const All systems reviewed & are unremarkable except as noted in HPI and below Reports no additional complaints ENT Reports Normal hearing present Card Denies chest pain, Denies chest pain at rest, Denies chest pain with activity and Denies pedal edema Resp Denies cough GI Denies abdominal pain Musc Denies abnormal gait, Denies muscle cramps and Denies radiating pain into limb Skin/Breast Denies skin ulcer and Denies wounds Neuro Reports Normal hearing present and Denies abnormal gait Psych Reports no additional complaints Physical Exam Vital Signs: Last Vital Signs Pulse 67 08/25/23 08:54 BP 120/64 08/25/23 08:54 Pulse Ox 100 08/25/23 08:54 Oxygen Delivery Method Room Air 08/25/23 08:54 BMI result Body Mass Index 25.8 Const General: cooperative, healthy appearing and comfortable Orientation/consciousness: oriented to person, oriented to place and oriented to time HEENT Head: Yes normal to inspection Neck Neck: Yes normal visual inspection Carotids: no bruits Chest Chest palpation & inspection: normal inspection of the chest Resp Effort & Inspection: normal respiratory effort and able to speak in complete sentences Auscultation: clear to auscultation bilaterally, no crackles, no rales, no rhonchi and no wheezes Cardio Rate: regular rate Rhythm: regular rhythm Heart sounds: S1 normal heart sound present and S2 normal heart sound present Bruits: no carotid bruits Peripheral pulses: Peripheral pulses 2+ throughout GI Inspection: Yes normal to inspection Skin Other: Opening of amputation site measuring 5 x 2.5 x 1.2 cm. Reasonable granulation base some dry desiccated area Wounds: no wounds Hair: normal Neuro General: oriented to person, oriented to place and oriented to time Cranial nerves: Yes CN's II-XII intact bilaterally and Yes Normal hearing present Cognition (Neuro): normal cognition Motor exam (neuro): 5/5 motor strength present throughout Extrem Other: venous exam: No significant superficial varicosities or spider telangiectasias, minimal edema General: No clubbing, No cyanosis and No edema Psych Appearance: grossly normal Mental Status: mental status grossly normal Speech and movement: Normal speech and movement present Assessment & Plan Assessment & Plan (1) PAD (peripheral artery disease): Comment: 07/01/2023 - right great toe ray amputation by Dr. Drew 08/10/2023 right SFA atherectomy and plasty and right peroneal plasty by Dr. Gonzales Code(s): I73.9 - Peripheral vascular disease, unspecified Plan: In short patient appears to be doing relatively well. Will bring patient back in in approximately 2 weeks to reassess the wound. I have changed the dressing to Silvadene dressings to try to get better healing. We will assess where this is and may be a candidate for artificial skin placement. Patient will follow up with us once again in approximately 2 weeks time. Thank you for allowing us to assist in his care. Coding Level of Care Code Est Pt Level 3 (99972) Diagnoses PAD (peripheral artery disease) I73.9
== END 2023-08-25 09:47 | disposition home or self-care (01) ==
PROVIDERS: PCP Internal Medicine; Visit Provider Surgery Vascular Surgery
DX: I73.9 Peripheral vascular disease, unspecified (principal)
CPT/HCPCS: 99213

== ENCOUNTER → 2023-08-25 08:51 | Outpatient (BNVA) | payer MEDICARE, OTHER, SELFPAY | PROVIDERS: PCP Internal Medicine; Visit Provider Surgery Vascular Surgery | DX: I73.9 Peripheral vascular disease, unspecified (principal) | CPT/HCPCS: 99212 ==

== ENCOUNTER 2023-09-08 08:57 | Outpatient (AMB) | payer MEDICARE, OTHER, SELFPAY ==
[2023-09-08 09:00] VITALS: BMI 25.8
--- NOTE | 2023-09-08 09:00 | A.OFFVIS_ITS ---
Intake Vital Signs 09/08/23 09:00 Height 5 ft 7 in Weight 165 lb BMI 25.8 Intake Visit Reasons: 2 week wound check Intake Note: 2 week wound check Right great toe amp ( done by ) 07/01/23 and Right Angio 08/10/23 (Janet). Pt currently residing at [facility]. Goes to woundcare 1x per week for the past few weeks, had debridement at woundcare yesterday. States nursing /rehab facility changes dressing daily. States he is doing PT and walking more. He is in a wheelchair today Accompanied by: Self / Same As Patient Allergies No Known Allergies Allergy (Verified 09/08/23 09:09) HPI 2 week wound check HPI Details Very pleasant 83-year-old gentleman presents for follow-up regarding peripheral vascular disease. Had undergone right 1st toe ray amputation by Dr. Drew. He had undergone subsequent endovascular intervention with right SFA atherectomy and plasty along with right peroneal plasty. Reports he is doing fairly well. Continues to have dressing changes. In addition he is following up with [facility]. Apparently having wet to dry dressings performed. He now presents to us for vascular follow-up. [facility] Medical History HTN (hypertension) Diabetes Social History Household Members: Spouse Housing: House Do you presently have visiting nurse or other home services: No Patient Tobacco Use Status: Never used Tobacco service: No Review of Systems Const All systems reviewed & are unremarkable except as noted in HPI and below Reports no additional complaints ENT Reports Normal hearing present Card Denies chest pain, Denies chest pain at rest, Denies chest pain with activity and Denies pedal edema Resp Denies cough GI Denies abdominal pain Musc Denies abnormal gait, Denies muscle cramps and Denies radiating pain into limb Skin/Breast Denies skin ulcer and Denies wounds Neuro Reports Normal hearing present and Denies abnormal gait Psych Reports no additional complaints Physical Exam Vital Signs: BMI result Body Mass Index 25.8 Const General: cooperative, healthy appearing and comfortable Orientation/consciousness: oriented to person, oriented to place and oriented to time HEENT Head: Yes normal to inspection Neck Neck: Yes normal visual inspection Carotids: no bruits Chest Chest palpation & inspection: normal inspection of the chest Resp Effort & Inspection: normal respiratory effort and able to speak in complete sentences Auscultation: clear to auscultation bilaterally, no crackles, no rales, no rhonchi and no wheezes Cardio Rate: regular rate Rhythm: regular rhythm Heart sounds: S1 normal heart sound present and S2 normal heart sound present Bruits: no carotid bruits Peripheral pulses: Peripheral pulses 2+ throughout GI Inspection: Yes normal to inspection Skin Other: Open amputation site measuring 5 x 2 x 1.2 cm. It does have some granulation but appears to be a little bit dry and desiccated. No exposed bone noted. Wounds: amputation site Hair: normal Neuro General: oriented to person, oriented to place and oriented to time Cranial nerves: Yes CN's II-XII intact bilaterally and Yes Normal hearing present Cognition (Neuro): normal cognition Motor exam (neuro): 5/5 motor strength present throughout Extrem Other: venous exam: No significant superficial varicosities or spider telangiectasias, minimal edema General: No clubbing, No cyanosis and No edema Psych Appearance: grossly normal Mental Status: mental status grossly normal Speech and movement: Normal speech and movement present Assessment & Plan Assessment & Plan (1) PAD (peripheral artery disease): Comment: 07/01/2023 - right great toe ray amputation by Dr. Drew 08/10/2023 right SFA atherectomy and plasty and right peroneal plasty by Dr. Gonzales Code(s): I73.9 - Peripheral vascular disease, unspecified Plan: In short patient appears to be doing relatively well from a peripheral vascular standpoint. Will schedule for 3 month arterial surveillance for him. Continue wound care per [facility]. Should there be any interval issues happy to assist. Thank you for allowing us to assist in his care. 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
== END 2023-09-08 09:46 | disposition home or self-care (01) ==
PROVIDERS: PCP Internal Medicine; Visit Provider Surgery Vascular Surgery
DX: I73.9 Peripheral vascular disease, unspecified (principal); Z89.411 Acquired absence of right great toe
CPT/HCPCS: 99213

== ENCOUNTER → 2023-09-08 08:57 | Outpatient (BNVA) | payer MEDICARE, OTHER, SELFPAY | PROVIDERS: PCP Internal Medicine; Visit Provider Surgery Vascular Surgery | DX: I73.9 Peripheral vascular disease, unspecified (principal); Z89.411 Acquired absence of right great toe | CPT/HCPCS: 99212 ==

== ENCOUNTER 2023-10-07 11:53 | Inpatient (IN) | payer MEDICARE, OTHER, SELFPAY ==
--- NOTE | ~2023-10-07 | XR_ITS ---
EXAMINATION: XR FOOT, RIGHT CLINICAL INFORMATION: Pain COMPARISON: Right foot x-ray June 2023 TECHNIQUE: AP, lateral, and oblique views of the right foot. FINDINGS: There has been interval transmetatarsal amputation of the first digit. The surgical margin appears lucent and slightly irregular. There is air in the adjacent soft tissues. Findings are suspicious for osteomyelitis of the remaining first metatarsal bone. There is also osteopenia and lytic changes at the second MTP joint. There is soft tissue loss and air in the overlying soft tissues. Appearance is concerning for or osteomyelitis/septic arthritis of the second MTP joint. No fracture or dislocation. Large plantar calcaneal spur. Atherosclerotic disease. XR/XR foot RT 2V IMPRESSION: Osteomyelitis of the remaining first metatarsal bone and osteomyelitis / septic arthritis at the second MTP joint.
--- NOTE | ~2023-10-07 | XR_ITS ---
EXAMINATION: XR CHEST CLINICAL INFORMATION: PICC line placement COMPARISON: None available. TECHNIQUE: Frontal view of the chest was obtained. FINDINGS: Right upper extremity PICC line tip projects over SVC. No significant abnormality is noted involving the heart, lungs, mediastinum, bony thorax or soft tissues. Degenerative changes of the spine and shoulders. XR/XR chest 1V IMPRESSION: Right upper extremity PICC line tip projects over SVC.
[2023-10-07 11:56] VITALS: BP 123/69; PULSE 88; O2SAT 99
--- NOTE | 2023-10-07 12:02 | PC.NURSE ---
Report taken from KADEN Mix at [facility], pt had right toe amputation in June. Facility noticed a strong odor and x-ray is showing osteomylitis. Pt comes here to [facility] Wound clinic, was last here Tuesday. Facility has just been doing a wet to dry dressing. Pt is Covid + day 10. No changes in mental status per facility.
[2023-10-07 12:13] VITALS: BP 130/69; PULSE 77; RESP 16; TEMP 36.5; O2SAT 97; BMI 29.1
[2023-10-07 12:16] VITALS: BP 130/69; PULSE 77; RESP 17; TEMP 36.5; O2SAT 97
--- NOTE | 2023-10-07 12:17 | ECG_ITS ---
Test Reason : PAD Blood Pressure : / mmHG Vent. Rate : 075 BPM Atrial Rate : 000 BPM P-R Int : 000 ms QRS Dur : 088 ms QT Int : 380 ms P-R-T Axes : 000 004 142 degrees QTc Int : 424 ms Atrial fibrillation Inferior infarct , age undetermined T wave abnormality, consider lateral ischemia Abnormal ECG No previous ECGs available Referred By: Brittney Lew Electronically Signed By:Jer Merchant
--- NOTE | 2023-10-07 12:18 | PC.NURSE ---
pt presents to ED via EMS from SNF. pt alert and oriented, breathing even and unlabored, skin warm and dry. facility worried about infection to right foot, x-ray revealed possible osteomylitis. pt reports pain 2/10 pain in right foot, otherwise feels comfortable. right foot dressing unwrapped, moderate amount of serosangious fluid.
[2023-10-07 12:36] LABS: MANUAL DIFF FLAG NO
[2023-10-07 12:37] LABS: Basophils Percent Auto 0.4 % (0-2); Eosinophils Absolute Auto 0.5 X10*3/uL (0.0-0.4); Eosinophils Percent Auto 4.4 % (0-4); Hematocrit 36.3 % (42.0-52.0); Hemoglobin 12.3 g/dl (14.0-18.0); Imm Gran Pct Auto 0.9 % (0.0-0.4); Lymphocytes Absolute Auto 1.5 X10*3/uL (1.2-4.9); Lymphocytes Percent Auto 13.9 % (20-40); Mean Corpuscular HGB Conc 33.9 g/dl (31.0-36.0); Mean Corpuscular Hemoglobin 29.6 pg (27.0-33.0); Mean Corpuscular Volume 87.5 fL (80.0-98.0); Mean Platelet Volume 9.5 fL (9.4-12.4); Monocytes Absolute Auto 1.1 X10*3/uL (0.1-1.2); Monocytes Percent Auto 9.7 % (2-11); Neutrophils Absolute Auto 7.6 x10*3/uL (2.0-8.3); Neutrophils Percent Auto 70.7 % (45-73); Platelet Count 291 X10*3/uL (160-400); Red Blood Count 4.15 X10*6/uL (4.60-5.80); Red Cell Distribution Width 14.7 % (11.0-16.0); White Blood Count 10.8 X10*3/uL (4.8-10.8)
[2023-10-07 12:42] LABS: INTERNATIONAL NORM RATIO 1.1 (0.9-1.1); Prothrombin Time 13.5 SEC (11.1-13.3)
[2023-10-07 12:47] LABS: Lactic Acid 1.8 mmol/L (0.5-2.0)
[2023-10-07 12:51] LABS: Alanine Aminotransferase 24 U/L (0-40); Albumin Level 3.3 g/dL (3.5-5.0); Alkaline Phosphatase 132 U/L (39-117); Anion Gap 12 (12-20); Aspartate Amino Transferase 25 U/L (5-37); Bilirubin Total 0.5 mg/dL (0.0-1.0); Blood Urea Nitrogen 32 mg/dL (9-16); Calcium 9.7 mg/dL (8.4-10.2); Carbon Dioxide 24 mmol/L (22-29); Chloride 104 mmol/L (96-108); Creatinine Clr Calc Pharmacy 62.9; Estimated Glomerular Filt Rate > 60; Glucose Random 197 mg/dL (60-115); Potassium 4.8 mmol/L (3.3-5.1); Sodium 135 mmol/L (135-145); Total Protein 8.4 g/dL (6.5-8.0)
--- NOTE | 2023-10-07 13:31 | ED_ITS ---
HPI - Wound/Laceration General Chief Complaint: Wound/Laceration Stated Complaint: OSTEOMYELITIS Time Seen by Provider: 10/07/23 11:56 Source: patient and per diem interpreter Mode of arrival: EMS History of Present Illness HPI narrative: 83-year-old male with arrival via EMS and states that he was sent in for evaluation of his right foot for possible osteomyelitis, patient denies any fevers but reports chills. Related Data Home Medications Medication Instructions Recorded Confirmed furosemide 20 mg tablet 20 mg PO BEDTIME 06/29/23 08/10/23 lisinopril 40 mg tablet 40 mg PO BEDTIME 06/29/23 08/10/23 oxybutynin chloride 5 mg 5 mg PO BEDTIME 06/29/23 08/10/23 tablet,extended release 24 hr glimepiride 2 mg tablet 2 mg PO DAILY 09/08/23 Previous Rx's Medication Instructions Recorded insulin glargine 100 unit/mL 18 unit (0.18 mL) subcut BEDTIME 07/08/23 subcutaneous solution (Lantus #1 mL U-100 Insulin) insulin lispro 100 unit/mL See Protocol subcut QIDACHS #1 mL 07/08/23 subcutaneous solution (Humalog U-100 Insulin) oxycodone 5 mg tablet 5 mg PO Q4H PRN Pain, 07/08/23 Moderate(Pain Scale 4-6) #18 tabs clopidogrel 75 mg tablet (Plavix) 75 mg PO DAILY #90 tabs 08/10/23 Allergies Allergy/AdvReac Type Severity Reaction Status Date / Time No Known Allergies Allergy Verified 09/08/23 09:09 Review of Systems 2 Review of Systems: Pertinent positives and negatives as stated in HPI [facility] Past Medical History Source: nursing notes reviewed Medical History HTN (hypertension) Diabetes Social History Social History Household Members: Spouse Housing: House Do you presently have visiting nurse or other home services: No Patient Tobacco Use Status: Never used Tobacco Smoked in Last 30 Days: No Use of substances other than those prescribed or required for medical reasons: No Advance Directives: No Advance Directives Information Provided: No service: No Physical Exam 2 Vital Signs: Vital Signs: Last Vital Signs Temp 98.2 F 10/07/23 14:15 Pulse 82 10/07/23 14:15 Resp 16 10/07/23 14:15 BP 132/64 10/07/23 14:15 Pulse Ox 99 10/07/23 14:15 O2 Del Method Room Air 10/07/23 14:15 BMI result Body Mass Index 29.1 VITAL SIGNS: Reviewed. GENERAL: Well developed, well nourished, in no acute distress. HEAD: Normocephalic/atraumatic EYES: PERRLA, EOMI EARS: Ext canals without abnormality NOSE: Nares patent bilateral OROPHARYNX: no oral lesions noted, posterior pharynx clear NECK: Supple, no adenopathy LUNGS: Normal breath sounds. No adventitious sounds or accessory muscle use. SpO2<97> CARDIOVASCULAR: Regular rate and rhythm without noted murmurs ABDOMEN: Soft, non-tender, non-distended with bowel sounds. MUSCULOSKELETAL: No tenderness, deformities, or effusions noted on gross inspection. EXTREMITIES: No cyanosis, clubbing or edema. RLE: SKIN: Inspection of the skin reveals no rashes NEUROLOGIC: Alert and oriented x 3. Strength and sensation to light touch were grossly intact x 4. Medications Administered Discontinued Medications Generic Name Dose Route Start Last Admin Trade Name Freq PRN Reason Stop Dose Admin Piperacillin Sod/Tazobactam 50 mls @ 100 mls/hr 10/07/23 13:20 10/07/23 13:36 Sod 3.375 gm/ Sodium Chloride IV 10/07/23 13:49 100 mls/hr ONCE ONE Administration Medical Decision Making Medical Decision Making [facility] Narrative: 1238: 83-year-old male with history and clinical presentation, DDX: Osteomyelitis, wet gangrene. Patient received antibiotics. I reviewed all investigations and hematologic indices do not demonstrate a leukocytosis or left shift, there is a noted normocytic anemia without clinical or historical evidence of acute bleeding. Coagulation studies are within normal limits. Chemistry indices do not demonstrate an SEVERO there is no electrolyte or liver enzyme derangements. Alkaline phosphatase is chronically elevated, CRP- 8.43 1411: I discussed case with inpatient hospitalist who accepts admission. Foot x-ray is pending Differential Diagnosis Differential Diagnoses: The differential diagnosis associated with the presentation includes Please see the discussion above Admission/Observation Consideration of admission/observation: Escalation of care including admission/observation considered Please see the discussion above Consult Healthcare Provider Management of the patient was discussed with: Hospitalist Please see the discussion above Lab Data MDM Lab Attestation statement: I reviewed the patient's lab results. Please see the discussion above 10/07/23 12:31 10/07/23 12:31 Labs: Lab Results 10/07/23 Range/Units 12:31 WBC 10.8 (4.8-10.8) X10*3/uL RBC 4.15 L (4.60-5.80) X10*6/uL Hgb 12.3 L (14.0-18.0) g/dl Hct 36.3 L (42.0-52.0) % MCV 87.5 (80.0-98.0) fL MCH 29.6 (27.0-33.0) pg MCHC 33.9 (31.0-36.0) g/dl RDW 14.7 (11.0-16.0) % Plt Count 291 D (160-400) X10*3/uL MPV 9.5 (9.4-12.4) fL Immature Gran % (Auto) 0.9 H (0.0-0.4) % Neut % (Auto) 70.7 (45-73) % Lymph % (Auto) 13.9 L (20-40) % Dade % (Auto) 9.7 (2-11) % Eos % (Auto) 4.4 H (0-4) % Baso % (Auto) 0.4 (0-2) % Lymph # (Auto) 1.5 (1.2-4.9) X10*3/uL [place] # (Auto) 1.1 (0.1-1.2) X10*3/uL Eos # (Auto) 0.5 H (0.0-0.4) X10*3/uL Baso # (Auto) 0.0 (0.0-0.2) X10*3/uL Abs Immat Gran (auto) 0.10 H (0.00-0.03) X10*3/uL Absolute Neuts (auto) 7.6 (2.0-8.3) x10*3/uL Absolute Nucleated RBC 0.000 (0.0-0.012) X10*3/uL Nucleated RBC % (auto) 0.0 (0.0-0.2) /100WBC PT 13.5 H (11.1-13.3) SEC INR 1.1 (0.9-1.1) Sodium 135 (135-145) mmol/L Potassium 4.8 (3.3-5.1) mmol/L Chloride 104 (96-108) mmol/L Carbon Dioxide 24 (22-29) mmol/L Anion Gap 12 (12-20) BUN 32 H (9-16) mg/dL Creatinine 0.89 (0.5-1.4) mg/dL Estim Creat Clear Calc 62.9 Estimated GFR > 60 Random Glucose 197 H (60-115) mg/dL Lactic Acid 1.8 (0.5-2.0) mmol/L Calcium 9.7 D (8.4-10.2) mg/dL Total Bilirubin 0.5 (0.0-1.0) mg/dL AST 25 (5-37) U/L ALT 24 (0-40) U/L Alkaline Phosphatase 132 H (39-117) U/L C-Reactive Protein 8.43 H (< or = 0.50) mg/dL Total Protein 8.4 H (6.5-8.0) g/dL Albumin 3.3 L (3.5-5.0) g/dL Independent Interpretation I performed an independent interpretation of an: EKG Interpretation: Atrial fibrillation, HR-75, no STEMI, QRS/QTC is within normal limits. There are no EKGs for comparison. Radiology Impression Discussion of test interpretation with radiology: I have reviewed the radiologist's reading. Radiologist Impression: Please see the discussion above External Record Review External record reviewed: Outpatient record, Prior outpatient labs and Prior outpatient radiology Chronic Conditions Patient?s care impacted by: Diabetes and Hypertension Critical Care Time Critical Care Time Critical Care Time: Yes Total Critical Care Time: 60 Attestation: I personally attest to this time spent taking care of the patient. Discharge Plan Discharge Clinical Impression: Osteomyelitis, Diabetic wet gangrene of the foot Patient Disposition: Admitted As Inpatient
[2023-10-07] MEDS: Piperacillin Sodium/Tazobactam 3.375 GM in 0.9 % Sodium Chloride 50 ML IV ×2 (13:36→21:25)
[2023-10-07 14:15] VITALS: BP 132/64; PULSE 82; RESP 16; TEMP 36.8; O2SAT 99
[2023-10-07 14:30] LABS: C Reactive Protein 8.43 mg/dL (< or = 0.50)
[2023-10-07] MEDS: vancomycin/NS 2,000 MG/500 ML PLAST..BAG 250 MG IV (14:38)
--- NOTE | 2023-10-07 15:38 | P.HPHOSP_ITS ---
History of Present Illness Date of Service: 10/07/23 Chief Complaint: foot wound 83yo M with DM2, HTN, and PAD sent in from [facility] due to concern for infection of R foot. He was admitted here in Jun 2023 for gangrene of the R great toe with sepsis. He underwent ray amputation of the R 1st toe on 07/01/23 and transferred to [facility] for short-term rehabilitation. On 08/10/23 he underwent right SFA atherectomy and plasty along with R peroneal plasty. He is neuropathic and has only mild pain in the R foot. Denies fever or chills. No nausea or vomiting. There is serosanguinous drainage from the R foot. X-ray shows osteomyelitis of the remaining 1st metatarsal bone and septic arthritis of the 2nd MTP joint. He was given vancomycin and Zosyn IV. Review of Systems 2 Review of Systems: Yes all other systems are reviewed and are negative [facility] Medical History HTN (hypertension) Diabetes Social History Household Members: Spouse Housing: House Do you presently have visiting nurse or other home services: No Patient Tobacco Use Status: Never used Tobacco Smoked in Last 30 Days: No Use of substances other than those prescribed or required for medical reasons: No Advance Directives: No Advance Directives Information Provided: No service: No Meds Allergies Allergy/AdvReac Type Severity Reaction Status Date / Time No Known Allergies Allergy Verified 09/08/23 09:09 Active Medications: Current Medications Acetaminophen (Acetaminophen 325 Mg Tablet) 650 mg PO Q6H PRN PRN Reason: Pain, Mild (Pain Scale 1-3) Dextrose (Dextrose 50 % 25 Gm/50 Ml Syringe) 25 gm IVPUSH Q15M PRN; Protocol PRN Reason: per Hypoglycemia Standing Ord. Enoxaparin Sodium (Enoxaparin Sodium 30 Mg/0.3 Ml Syringe) 30 mg SUBCUT Q24H [facility] Glucose (Glucose Gel 15 Gm Gel..Gram.) 15 gm PO Q15M PRN; Protocol PRN Reason: per Hypoglycemia Standing Ord. Vancomycin HCl (Vancomycin/Ns) 2,000 mg in 500 mls @ 250 mls/hr IV ONCE ONE Stop: 10/07/23 15:59 Last Admin: 10/07/23 14:38 Dose: 250 mls/hr Piperacillin Sod/Tazobactam (Sod 3.375 gm/ Sodium Chloride) 50 mls @ 100 mls/hr IV Q6H [facility] Insulin Human Lispro (Insulin Lispro 100 Unit/Ml 3 Ml Vial) 0 unit SUBCUT QIDACHS [facility]; Protocol Ondansetron HCl (Ondansetron Hcl 4 Mg/2 Ml Vial) 4 mg IVPUSH Q8H PRN PRN Reason: Nausea and Vomiting Pharmacy Consult (Consult Rx Vancomycin Dosing) 1 each MISCELLANE DAILY PRN PRN Reason: Consult order Sodium Chloride (0.9 % Sodium Chloride Flush 3 Ml Syringe) 3 ml IVFLUSH QSHIFT [facility] Home Medications Medication Instructions Recorded Confirmed Last Taken Type furosemide 20 mg tablet 20 mg PO BEDTIME 06/29/23 08/10/23 Unknown History lisinopril 40 mg tablet 40 mg PO BEDTIME 06/29/23 08/10/23 Unknown History oxybutynin chloride 5 mg 5 mg PO BEDTIME 06/29/23 08/10/23 Unknown History tablet,extended release 24 hr glimepiride 2 mg tablet 2 mg PO DAILY 09/08/23 Unknown History Physical Exam 2 Vital Signs and Narrative: Vital Signs: Last Vital Signs Temp 98.2 F 10/07/23 14:15 Pulse 82 10/07/23 14:15 Resp 16 10/07/23 14:15 BP 132/64 10/07/23 14:15 Pulse Ox 99 10/07/23 14:15 O2 Del Method Room Air 10/07/23 14:15 BMI result Body Mass Index 29.1 Gen: in no acute distress HEENT: sclera anicteric, moist mucus membranes Neck: supple Lungs: clear to auscultation bilaterally Heart: regular rate and rhythm, no murmurs Abd: soft, non-tender, non-distended Ext: no edema Skin: extensive deep ulceration at site of 1st metatarsal amputation; see photos Neuro: alert and oriented x3, no focal findings Psych: appropriate affect Results Labs 10/07/23 12:31 10/07/23 12:31 Labs: Laboratory Results - last 24 hr 10/07/23 12:31 MCV 87.5 MCH 29.6 MCHC 33.9 RDW 14.7 Plt Count 291 D MPV 9.5 Immature Gran % (Auto) 0.9 H Neut % (Auto) 70.7 Lymph % (Auto) 13.9 L Reeves % (Auto) 9.7 Eos % (Auto) 4.4 H Baso % (Auto) 0.4 Lymph # (Auto) 1.5 Reeves # (Auto) 1.1 Eos # (Auto) 0.5 H Baso # (Auto) 0.0 Abs Immat Gran (auto) 0.10 H Absolute Neuts (auto) 7.6 Absolute Nucleated RBC 0.000 Nucleated RBC % (auto) 0.0 PT 13.5 H INR 1.1 Anion Gap 12 Estim Creat Clear Calc 62.9 Estimated GFR > 60 Random Glucose 197 H Lactic Acid 1.8 Calcium 9.7 D Total Bilirubin 0.5 AST 25 ALT 24 Alkaline Phosphatase 132 H C-Reactive Protein 8.43 H Total Protein 8.4 H Albumin 3.3 L Imaging Radiologist's Impressions: Impressions Foot X-Ray 10/07/23 12:53 IMPRESSION: Osteomyelitis of the remaining first metatarsal bone and osteomyelitis / septic arthritis at the second MTP joint. Assessment and Plan (1) Osteomyelitis: Status: Acute (2) Diabetic wet gangrene of the foot: Status: Acute (3) PAD (peripheral artery disease): Status: Acute Plan 83yo M with DM2, HTN, and PAD s/p R 1st toe amputation for gangrene 07/01/23 and R SFA atherectomy/plasty + R peroneal plasty 08/10/23 presenting with worsening wound of amputation site, found to have osteomyelitis. osteomyelitis due to DM2 + PAD - admit to M/S. not septic. follow BCx. give vanco + pip-landen. check ESR. consult ID + Vascular Surgery DM2 - basal-bolus insulin, hold OHGs HTN - lisinopril PAD - clopidogrel VTE ppx - LMWH dispo - TBD code - full I anticipate that the patient will stay at least 2 midnights as an inpatient in the hospital due to the above reasons. It is neither reasonable nor safe to care for them in a less acute setting. Quality Stroke Does the patient have a stroke diagnosis?: No VTE Prior VTE?: No VTE Risk Level:: Medical - moderate - high VTE Device Contraindication: N/A - Device Ordered VTE Drug Contraindication: N/A - Med Ordered
[2023-10-07 16:01] LABS: Estimated Average Glucose 200 mg/dL; Hemoglobin A1c % 8.6 % (<6.0)
--- NOTE | 2023-10-07 16:12 | PHA.MEDREC ---
Pharmacy Consult ? Medication Reconciliation Pharmacy has completed the medication reconciliation, medication list sent from [facility], glimiperide not on list, excluded from home medications.
[2023-10-07] MEDS: Enoxaparin Sodium 30 MG/0.3 ML SYRINGE SUBCUT (16:39)
[2023-10-07 16:41] VITALS: BP 144/76; PULSE 76; RESP 16; TEMP 37.1; O2SAT 98
--- NOTE | 2023-10-07 16:42 | PC.NURSE ---
pt resting in bed, denies any new complaints, vss. pt medicated per MAR. awaiting bed assignment.
[2023-10-07 18:14] LABS: Glucose, Whole Blood 175 mg/dL (60-115)
[2023-10-07] MEDS: Insulin Lispro 100 UNIT/ML 3 ML VIAL SUBCUT ×2 (18:19→21:25)
[2023-10-07 21:20] LABS: Glucose, Whole Blood 265 mg/dL (60-115)
[2023-10-07] MEDS: Insulin Glargine,Hum.rec.anlog 100 UNIT/ML 10 ML VIAL 38 UNIT SUBCUT (21:25)
[2023-10-07] MEDS: Furosemide 20 MG TABLET PO (21:25)
[2023-10-07] MEDS: Docusate Sodium 100 MG CAPSULE PO (21:25)
[2023-10-07] MEDS: Atorvastatin Calcium 40 MG TABLET PO (21:25)
[2023-10-07] MEDS: oxyBUTYnin chloride ER 5 MG TAB.ER.24 PO (21:26)
--- NOTE | 2023-10-07 22:05 | W.PM.IDCN ---
History of Present Illness Data of Consult Service Date: 10/07/23 Requesting physician: Goyo Viramontes Primary Care Provider: Unknown Physician HPI Reason for consult: OM right foot He presents with nonhealing weeping right foot . He had ray amputation great toe 07/01/2023. Area has not healed over and bone is visible. I am seeing it with Dr Garduno. Review of Systems Review of Systems: Yes all other systems are reviewed and are negative [facility] Past Medical History Medical History HTN (hypertension) Diabetes Social History Social History Household Members: Spouse Housing: House Do you presently have visiting nurse or other home services: No Patient Tobacco Use Status: Never used Tobacco Smoked in Last 30 Days: No Use of substances other than those prescribed or required for medical reasons: No Advance Directives: No Advance Directives Information Provided: No service: No Meds Allergies Allergy/AdvReac Type Severity Reaction Status Date / Time No Known Allergies Allergy Verified 09/08/23 09:09 Active Medications: Current Medications Acetaminophen (Acetaminophen 325 Mg Tablet) 650 mg PO Q6H PRN PRN Reason: Pain, Mild (Pain Scale 1-3) Aspirin (Aspirin Enteric Coated 81 Mg Tablet.) 81 mg PO DAILY [facility] Atorvastatin Calcium (Atorvastatin Calcium 40 Mg Tablet) 40 mg PO BEDTIME [facility] Last Admin: 10/07/23 21:25 Dose: 40 mg Bisacodyl (Bisacodyl 10 Mg Supp.Rect) 10 mg UT DAILY PRN PRN Reason: Constipation Clopidogrel Bisulfate (Clopidogrel Bisulfate 75 Mg Tablet) 75 mg PO DAILY [facility] Dextrose (Dextrose 50 % 25 Gm/50 Ml Syringe) 25 gm IVPUSH Q15M PRN; Protocol PRN Reason: per Hypoglycemia Standing Ord. Docusate Sodium (Docusate Sodium 100 Mg Capsule) 100 mg PO BID [facility] Last Admin: 10/07/23 21:25 Dose: 100 mg Enoxaparin Sodium (Enoxaparin Sodium 30 Mg/0.3 Ml Syringe) 30 mg SUBCUT Q24H [facility] Last Admin: 10/07/23 16:39 Dose: 30 mg Furosemide (Furosemide 20 Mg Tablet) 20 mg PO BEDTIME [facility]; Protocol Last Admin: 02/16/24 21:25 Dose: 20 mg Glucose (Glucose Gel 15 Gm Gel..Gram.) 15 gm PO Q15M PRN; Protocol PRN Reason: per Hypoglycemia Standing Ord. Piperacillin Sod/Tazobactam (Sod 3.375 gm/ Sodium Chloride) 50 mls @ 100 mls/hr IV Q6H [facility] Last Admin: 10/07/23 21:25 Dose: 100 mls/hr Vancomycin HCl 750 mg/ Sodium (Chloride) 265 mls @ 265 mls/hr IV Q12H [facility] Insulin Glargine (Insulin Glargine,Hum.Rec.Anlog 100 Unit/Ml 10 Ml Vial) 38 unit SUBCUT BEDTIME [facility] Last Admin: 10/07/23 21:25 Dose: 38 unit Insulin Human Lispro (Insulin Lispro 100 Unit/Ml 3 Ml Vial) 0 unit SUBCUT QIDACHS [facility]; Protocol Last Admin: 10/07/23 21:25 Dose: 6 unit Lisinopril (Lisinopril 40 Mg Tablet) 40 mg PO DAILY [facility]; Protocol Magnesium Hydroxide (Milk Of Magnesia 30 Ml Oral.Susp) 30 ml PO DAILY PRN PRN Reason: Constipation Multivitamins/Vitamin C (Multivitamin Tablet) 1 tab PO DAILY [facility] Ondansetron HCl (Ondansetron Hcl 4 Mg/2 Ml Vial) 4 mg IVPUSH Q8H PRN PRN Reason: Nausea and Vomiting Oxybutynin Chloride (Oxybutynin Chloride Er 5 Mg Tab.Er.24) 5 mg PO BEDTIME [facility] Last Admin: 10/07/23 21:26 Dose: 5 mg Oxycodone HCl (Oxycodone Hcl Immed Release 5 Mg Tablet) 5 mg PO Q4H PRN PRN Reason: moderate to severe pain Pharmacy Consult (Consult Rx Vancomycin Dosing) 1 each MISCELLANE DAILY PRN PRN Reason: Consult order Polyethylene Glycol (Polyethylene Glycol 3350 17 Gm Powd.Pack) 17 gm PO DAILY [facility] Sodium Biphosphate/Sodium Phosphate (Sodium Phosphate,[place]-Dibasic 133 Ml Enema) 118 ml UT DAILY PRN PRN Reason: Constipation Sodium Chloride (0.9 % Sodium Chloride Flush 3 Ml Syringe) 3 ml IVFLUSH QSHIFT [facility] Last Admin: 10/07/23 16:31 Dose: Not Given Home Medications Medication Instructions Recorded Confirmed Last Taken Type furosemide 20 mg tablet 20 mg PO BEDTIME 06/29/23 10/07/23 Unknown History lisinopril 40 mg tablet 40 mg PO DAILY 06/29/23 10/07/23 Unknown History oxybutynin chloride 5 mg 5 mg PO BEDTIME 06/29/23 10/07/23 Unknown History tablet,extended release 24 hr acetaminophen 325 mg tablet 975 mg PO TID PRN Fever Or Pain 10/07/23 10/07/23 Unknown History aspirin 81 mg tablet,delayed 81 mg PO DAILY 10/07/23 10/07/23 Unknown History release atorvastatin 40 mg tablet 40 mg PO BEDTIME 10/07/23 10/07/23 Unknown History bisacodyl 10 mg rectal suppository 10 mg UT DAILY PRN Constipation 10/07/23 10/07/23 Unknown History dextrose 40 % oral gel (Glucose 30 g PO Q15M PRN Hypoglycemia 10/07/23 10/07/23 Unknown History Gel) docusate sodium 100 mg capsule 100 mg PO BID 10/07/23 10/07/23 Unknown History glucagon 1 mg solution for 1 mg subcut Q15M PRN Hypoglycemia 10/07/23 10/07/23 Unknown History injection insulin glargine 100 unit/mL 38 unit subcut BEDTIME 10/07/23 10/07/23 Unknown History subcutaneous solution (Lantus U-100 Insulin) lidocaine 4 % topical patch 1 patch topical DAILY@0800 PRN Pain 10/07/23 10/07/23 Unknown History magnesium hydroxide 400 mg/5 mL 30 ml PO DAILY PRN Constipation 10/07/23 10/07/23 Unknown History oral suspension (Milk of Magnesia) multivitamin 1 tab PO DAILY 10/07/23 10/07/23 Unknown History oxycodone 5 mg tablet 5 mg PO Q4H PRN moderate to severe 10/07/23 10/07/23 Unknown History pain polyethylene glycol 3350 17 gram 17 g PO DAILY Constipation 10/07/23 10/07/23 Unknown History oral powder packet sodium phosphates 19 gram-7 118 ml UT DAILY PRN Constipation 10/07/23 10/07/23 Unknown History gram/118 mL enema (Fleet Enema) Physical Exam Vital Signs: Vital Signs: Last Vital Signs Temp 98.7 F 10/07/23 16:41 Pulse 76 10/07/23 16:41 Resp 16 10/07/23 16:41 BP 144/76 H 10/07/23 16:41 Pulse Ox 98 10/07/23 16:41 O2 Del Method Room Air 10/07/23 16:41 BMI result Body Mass Index 29.1 Extrem: Other: bone visible metatarsal first weeping,reddened area Results Labs 10/07/23 12:31 10/07/23 12:31 Labs: Short CBC 10/07/23 Range/Units 12:31 WBC 10.8 (4.8-10.8) X10*3/uL Hgb 12.3 L (14.0-18.0) g/dl Hct 36.3 L (42.0-52.0) % Plt Count 291 D (160-400) X10*3/uL BMP 10/07/23 12:31 Sodium 135 Potassium 4.8 Chloride 104 Carbon Dioxide 24 BUN 32 H Creatinine 0.89 Calcium 9.7 D Liver Function 10/07/23 Range/Units 12:31 Total Bilirubin 0.5 (0.0-1.0) mg/dL AST 25 (5-37) U/L ALT 24 (0-40) U/L Alkaline Phosphatase 132 H (39-117) U/L Albumin 3.3 L (3.5-5.0) g/dL Assessment and Plan (1) Diabetic wet gangrene of the foot: Status: Acute Nonhealing area Bone visible Vascular disease (2) Osteomyelitis: Status: Acute (3) PAD (peripheral artery disease): Status: Acute Plan No terminologist antibiotics, could be harmful and not likely to heal over uriel necrotic prominence OM MTP bone first and second toes right Antibiotics pending definitive surgical treatment, Vancomycin and Zosyn
[2023-10-07 22:58] VITALS: BP 146/70; PULSE 79; RESP 20; TEMP 37.2; O2SAT 98
[2023-10-07] MEDS: vancomycin HCL 750 MG in 0.9 % Sodium Chloride 250 ML 265 MG IV (23:35)
[2023-10-07] MEDS: 0.9 % Sodium Chloride Flush 3 ML SYRINGE IVFLUSH (23:40)
[2023-10-08] MEDS: Piperacillin Sodium/Tazobactam 3.375 GM in 0.9 % Sodium Chloride 50 ML IV ×4 (02:41→20:01)
[2023-10-08 02:54] VITALS: BP 120/61; PULSE 90; RESP 16; TEMP 36.4; O2SAT 97
[2023-10-08 06:33] LABS: Hematocrit 34.4 % (42.0-52.0); Hemoglobin 11.9 g/dl (14.0-18.0); Mean Corpuscular HGB Conc 34.6 g/dl (31.0-36.0); Mean Corpuscular Hemoglobin 30.1 pg (27.0-33.0); Mean Corpuscular Volume 87.1 fL (80.0-98.0); Mean Platelet Volume 10.1 fL (9.4-12.4); Platelet Count 304 X10*3/uL (160-400); Red Blood Count 3.95 X10*6/uL (4.60-5.80); Red Cell Distribution Width 14.4 % (11.0-16.0); White Blood Count 11.1 X10*3/uL (4.8-10.8)
[2023-10-08 07:09] LABS: Anion Gap 10 (12-20); Blood Urea Nitrogen 22 mg/dL (9-16); Calcium 9.2 mg/dL (8.4-10.2); Carbon Dioxide 24 mmol/L (22-29); Chloride 103 mmol/L (96-108); Creatinine Clr Calc Pharmacy 67.4; Estimated Glomerular Filt Rate > 60; Glucose Random 161 mg/dL (60-115); Sodium 133 mmol/L (135-145)
[2023-10-08 07:12] LABS: Erythrocyte Sedimentation Rate 91 MM/HR (0-15)
--- NOTE | 2023-10-08 07:54 | PM.CNGS ---
History of Present Illness Consult details Consult date: 10/08/23 Reason for consult: wound care Narrative: Complex 83-year-old gentleman well known to me for history of peripheral vascular disease and nonhealing toe amputation site. He actually on August 10 underwent right SFA atherectomy and plasty along with right peroneal plasty. Appear to be doing relatively well from that point. He originally had a right great toe amputation by Dr. Drew on July 01. It appeared to be improving but there was a question about the 2nd toe. Emergency room provider last night believed it was wet gangrene and was subsequently admitted. Started on antibiotics. Reports that he is doing fairly well. Denies any pain. Denies any fevers chills or other systemic signs of sepsis. Now presents for vascular evaluation. Review of Systems Review of Systems: Yes all other systems are reviewed and are negative Constitutional: Constitutional: Reports no additional constitutional complaints ENT: Reports Normal hearing present Cardiovascular: Cardiovascular: Denies chest pain, Denies chest pain at rest, Denies chest pain with activity and Denies pedal edema Respiratory: Respiratory: Denies cough Gastrointestinal: Gastrointestinal: Denies abdominal pain Musculoskeletal: Musculoskeletal: Denies abnormal gait, Denies muscle cramps and Denies radiating pain into limb Integumentary/Breasts: Skin/Breast: Denies skin ulcer and Denies wounds Neurologic: Reports Normal hearing present and Denies abnormal gait Psychiatric: Psychiatric: Reports no additional psychiatric complaints PMFSH Past Medical History Medical History HTN (hypertension) Diabetes Social History Social History Household Members: None Housing: Retirement Do you presently have visiting nurse or other home services: No Patient Tobacco Use Status: Never used Tobacco Second Hand Smoke Exposure: No service: No Meds Allergies Allergy/AdvReac Type Severity Reaction Status Date / Time No Known Allergies Allergy Verified 09/08/23 09:09 Active Medications: Current Medications Acetaminophen (Acetaminophen 325 Mg Tablet) 650 mg PO Q6H PRN PRN Reason: Pain, Mild (Pain Scale 1-3) Aspirin (Aspirin Enteric Coated 81 Mg Tablet.) 81 mg PO DAILY [facility] Atorvastatin Calcium (Atorvastatin Calcium 40 Mg Tablet) 40 mg PO BEDTIME [facility] Last Admin: 10/07/23 21:25 Dose: 40 mg Bisacodyl (Bisacodyl 10 Mg Supp.Rect) 10 mg MI DAILY PRN PRN Reason: Constipation Clopidogrel Bisulfate (Clopidogrel Bisulfate 75 Mg Tablet) 75 mg PO DAILY [facility] Dextrose (Dextrose 50 % 25 Gm/50 Ml Syringe) 25 gm IVPUSH Q15M PRN; Protocol PRN Reason: per Hypoglycemia Standing Ord. Docusate Sodium (Docusate Sodium 100 Mg Capsule) 100 mg PO BID [facility] Last Admin: 10/07/23 21:25 Dose: 100 mg Enoxaparin Sodium (Enoxaparin Sodium 30 Mg/0.3 Ml Syringe) 30 mg SUBCUT Q24H [facility] Last Admin: 10/07/23 16:39 Dose: 30 mg Furosemide (Furosemide 20 Mg Tablet) 20 mg PO BEDTIME [facility]; Protocol Last Admin: 10/07/23 21:25 Dose: 20 mg Glucose (Glucose Gel 15 Gm Gel..Gram.) 15 gm PO Q15M PRN; Protocol PRN Reason: per Hypoglycemia Standing Ord. Piperacillin Sod/Tazobactam (Sod 3.375 gm/ Sodium Chloride) 50 mls @ 100 mls/hr IV Q6H [facility] Last Infusion: 10/08/23 03:11 Dose: Infused Vancomycin HCl 750 mg/ Sodium (Chloride) 265 mls @ 265 mls/hr IV Q12H [facility] Last Infusion: 10/08/23 01:00 Dose: Infused Insulin Glargine (Insulin Glargine,Hum.Rec.Anlog 100 Unit/Ml 10 Ml Vial) 38 unit SUBCUT BEDTIME [facility] Last Admin: 10/07/23 21:25 Dose: 38 unit Insulin Human Lispro (Insulin Lispro 100 Unit/Ml 3 Ml Vial) 0 unit SUBCUT QIDACHS [facility]; Protocol Last Admin: 10/07/23 21:25 Dose: 6 unit Lisinopril (Lisinopril 40 Mg Tablet) 40 mg PO DAILY [facility]; Protocol Magnesium Hydroxide (Milk Of Magnesia 30 Ml Oral.Susp) 30 ml PO DAILY PRN PRN Reason: Constipation Multivitamins/Vitamin C (Multivitamin Tablet) 1 tab PO DAILY [facility] Ondansetron HCl (Ondansetron Hcl 4 Mg/2 Ml Vial) 4 mg IVPUSH Q8H PRN PRN Reason: Nausea and Vomiting Oxybutynin Chloride (Oxybutynin Chloride Er 5 Mg Tab.Er.24) 5 mg PO BEDTIME [facility] Last Admin: 10/07/23 21:26 Dose: 5 mg Oxycodone HCl (Oxycodone Hcl Immed Release 5 Mg Tablet) 5 mg PO Q4H PRN PRN Reason: moderate to severe pain Pharmacy Consult (Consult Rx Vancomycin Dosing) 1 each MISCELLANE DAILY PRN PRN Reason: Consult order Polyethylene Glycol (Polyethylene Glycol 3350 17 Gm Powd.Pack) 17 gm PO DAILY [facility] Sodium Biphosphate/Sodium Phosphate (Sodium Phosphate,[place]-Dibasic 133 Ml Enema) 118 ml MI DAILY PRN PRN Reason: Constipation Sodium Chloride (0.9 % Sodium Chloride Flush 3 Ml Syringe) 3 ml IVFLUSH QSHIFT [facility] Last Admin: 10/07/23 23:40 Dose: 3 ml Home Medications Medication Instructions Recorded Confirmed Last Taken Type furosemide 20 mg tablet 20 mg PO BEDTIME 06/29/23 10/07/23 Unknown History lisinopril 40 mg tablet 40 mg PO DAILY 06/29/23 10/07/23 Unknown History oxybutynin chloride 5 mg 5 mg PO BEDTIME 06/29/23 10/07/23 Unknown History tablet,extended release 24 hr acetaminophen 325 mg tablet 975 mg PO TID PRN Fever Or Pain 10/07/23 10/07/23 Unknown History aspirin 81 mg tablet,delayed 81 mg PO DAILY 10/07/23 10/07/23 Unknown History release atorvastatin 40 mg tablet 40 mg PO BEDTIME 10/07/23 10/07/23 Unknown History bisacodyl 10 mg rectal suppository 10 mg MI DAILY PRN Constipation 10/07/23 10/07/23 Unknown History dextrose 40 % oral gel (Glucose 30 g PO Q15M PRN Hypoglycemia 10/07/23 10/07/23 Unknown History Gel) docusate sodium 100 mg capsule 100 mg PO BID 10/07/23 10/07/23 Unknown History glucagon 1 mg solution for 1 mg subcut Q15M PRN Hypoglycemia 10/07/23 10/07/23 Unknown History injection insulin glargine 100 unit/mL 38 unit subcut BEDTIME 10/07/23 10/07/23 Unknown History subcutaneous solution (Lantus U-100 Insulin) lidocaine 4 % topical patch 1 patch topical DAILY@0800 PRN Pain 10/07/23 10/07/23 Unknown History magnesium hydroxide 400 mg/5 mL 30 ml PO DAILY PRN Constipation 10/07/23 10/07/23 Unknown History oral suspension (Milk of Magnesia) multivitamin 1 tab PO DAILY 10/07/23 10/07/23 Unknown History oxycodone 5 mg tablet 5 mg PO Q4H PRN moderate to severe 10/07/23 10/07/23 Unknown History pain polyethylene glycol 3350 17 gram 17 g PO DAILY Constipation 10/07/23 10/07/23 Unknown History oral powder packet sodium phosphates 19 gram-7 118 ml MI DAILY PRN Constipation 10/07/23 10/07/23 Unknown History gram/118 mL enema (Fleet Enema) Physical Exam Vital Signs: Vital Signs: Last Vital Signs Temp 97.5 F 10/08/23 02:54 Pulse 90 10/08/23 02:54 Resp 16 10/08/23 02:54 BP 120/61 10/08/23 02:54 Pulse Ox 97 10/08/23 02:54 O2 Del Method Room Air 10/08/23 02:54 BMI result Body Mass Index 29.1 Const: General: cooperative, healthy appearing and comfortable Orientation/consciousness: oriented to person, oriented to place and oriented to time HEENT: Head: Yes normal to inspection Neck: Neck: Yes normal visual inspection Carotids: no bruits Chest: Chest palpation & inspection: normal inspection of the chest Resp: Effort & Inspection: normal respiratory effort and able to speak in complete sentences Auscultation: clear to auscultation bilaterally, no crackles, no rales, no rhonchi and no wheezes Cardio: Rate: regular rate Rhythm: regular rhythm Heart sounds: S1 normal heart sound present and S2 normal heart sound present Bruits: no carotid bruits Peripheral pulses: Peripheral pulses 2+ throughout GI: Inspection: Yes normal to inspection Skin: Other: Right 2nd toe nonhealing, open amputation site Wounds: no wounds Hair: normal Neuro: General: oriented to person, oriented to place and oriented to time Cranial nerves: Yes CN's II-XII intact bilaterally and Yes Normal hearing present Cognition (Neuro): normal cognition Motor exam (neuro): 5/5 motor strength present throughout Extrem: Other: venous exam: No significant superficial varicosities or spider telangiectasias, minimal edema General: No clubbing, No cyanosis and No edema Psych: Appearance: grossly normal Mental Status: mental status grossly normal Speech and movement: Normal speech and movement present Results Labs 10/08/23 05:53 10/08/23 05:53 Labs: Abnormal lab results 10/07/23 10/07/23 10/07/23 Range/Units 12:31 18:08 21:16 WBC (4.8-10.8) X10*3/uL RBC 4.15 L (4.60-5.80) X10*6/uL Hgb 12.3 L (14.0-18.0) g/dl Hct 36.3 L (42.0-52.0) % Immature Gran % (Auto) 0.9 H (0.0-0.4) % Lymph % (Auto) 13.9 L (20-40) % Eos % (Auto) 4.4 H (0-4) % Eos # (Auto) 0.5 H (0.0-0.4) X10*3/uL Abs Immat Gran (auto) 0.10 H (0.00-0.03) X10*3/uL ESR (0-15) MM/HR PT 13.5 H (11.1-13.3) SEC Sodium (135-145) mmol/L Anion Gap (12-20) BUN 32 H (9-16) mg/dL POC Glucose 175 H 265 H (60-115) mg/dL Random Glucose 197 H (60-115) mg/dL Hemoglobin A1c % 8.6 H (<6.0) % Alkaline Phosphatase 132 H (39-117) U/L C-Reactive Protein 8.43 H (< or = 0.50) mg/dL Total Protein 8.4 H (6.5-8.0) g/dL Albumin 3.3 L (3.5-5.0) g/dL 10/08/23 Range/Units 05:53 WBC 11.1 H (4.8-10.8) X10*3/uL RBC 3.95 L (4.60-5.80) X10*6/uL Hgb 11.9 L (14.0-18.0) g/dl Hct 34.4 L (42.0-52.0) % Immature Gran % (Auto) (0.0-0.4) % Lymph % (Auto) (20-40) % Eos % (Auto) (0-4) % Eos # (Auto) (0.0-0.4) X10*3/uL Abs Immat Gran (auto) (0.00-0.03) X10*3/uL ESR 91 H (0-15) MM/HR PT (11.1-13.3) SEC Sodium 133 L (135-145) mmol/L Anion Gap 10 L (12-20) BUN 22 H (9-16) mg/dL POC Glucose (60-115) mg/dL Random Glucose 161 H (60-115) mg/dL Hemoglobin A1c % (<6.0) % Alkaline Phosphatase (39-117) U/L C-Reactive Protein (< or = 0.50) mg/dL Total Protein (6.5-8.0) g/dL Albumin (3.5-5.0) g/dL Short CBC 10/07/23 10/08/23 Range/Units 12:31 05:53 WBC 10.8 11.1 H (4.8-10.8) X10*3/uL Hgb 12.3 L 11.9 L (14.0-18.0) g/dl Hct 36.3 L 34.4 L (42.0-52.0) % Plt Count 291 D 304 (160-400) X10*3/uL BMP 10/07/23 10/08/23 12:31 05:53 Sodium 135 133 L Potassium 4.8 4.0 Chloride 104 103 Carbon Dioxide 24 24 BUN 32 H 22 H Creatinine 0.89 0.83 Calcium 9.7 D 9.2 Liver Function 10/07/23 Range/Units 12:31 Total Bilirubin 0.5 (0.0-1.0) mg/dL AST 25 (5-37) U/L ALT 24 (0-40) U/L Alkaline Phosphatase 132 H (39-117) U/L Albumin 3.3 L (3.5-5.0) g/dL All other labs normal. Assessment and Plan (1) PAD (peripheral artery disease): Status: Acute Plan In short patient has nonhealing right 2nd toe. He will require amputation of that as it does not appear viable. He will require right 2nd toe amputation along with wound VAC placement. Risks benefits complications of the operation were discussed in detail with the patient he understood and consented. We will schedule for Tuesday. Thank you for allowing us to assist in his care. If there are any questions or concerns please do not hesitate to contact us. Procedures Date of Service Date of Service: 10/08/23
[2023-10-08 08:00] VITALS: BP 125/56; PULSE 85; RESP 16; TEMP 36.2; O2SAT 97
[2023-10-08 08:11] LABS: Glucose, Whole Blood 176 mg/dL (60-115)
[2023-10-08] MEDS: Aspirin Enteric Coated 81 MG TABLET.DR PO (08:27)
[2023-10-08] MEDS: Insulin Lispro 100 UNIT/ML 3 ML VIAL SUBCUT ×4 (08:27→20:30)
[2023-10-08] MEDS: Clopidogrel Bisulfate 75 MG TABLET PO (08:27)
[2023-10-08] MEDS: Docusate Sodium 100 MG CAPSULE PO ×2 (08:27→20:00)
[2023-10-08] MEDS: polyethylene glycoL 3350 17 GM POWD.PACK PO (08:27)
[2023-10-08] MEDS: Multivitamin TABLET 1 TAB PO (08:28)
[2023-10-08] MEDS: 0.9 % Sodium Chloride Flush 3 ML SYRINGE IVFLUSH ×3 (08:28→20:08)
[2023-10-08] MEDS: lisinopriL 40 MG TABLET PO (08:28)
--- NOTE | 2023-10-08 10:50 | P.PNIM_ITS ---
Subjective Subjective Date of Service: 10/08/23 Interval History: This history was taken in French from the patient. No fever/chills No pain Review of Systems Review of Systems: Yes all other systems are reviewed and are negative Physical Exam 2 Vital Signs: Vital Signs: Last Vital Signs Temp 97.1 F 10/08/23 08:00 Pulse 85 10/08/23 08:00 Resp 16 10/08/23 08:00 BP 125/56 L 10/08/23 08:00 Pulse Ox 97 10/08/23 08:00 O2 Del Method Room Air 10/08/23 08:00 BMI result Body Mass Index 29.1 Gen: in no acute distress HEENT: sclera anicteric, moist mucus membranes Neck: supple Lungs: clear to auscultation bilaterally Heart: regular rate and rhythm, no murmurs Abd: soft, non-tender, non-distended Ext: no edema Skin: extensive deep ulceration at site of 1st metatarsal amputation; see photos Neuro: alert and oriented x3, no focal findings Psych: appropriate affect Objective Data Active Medications Acetaminophen (Acetaminophen 325 Mg Tablet) 650 mg PO Q6H PRN PRN Reason: Pain, Mild (Pain Scale 1-3) Aspirin (Aspirin Enteric Coated 81 Mg Tablet.Dr) 81 mg PO DAILY [facility] Last Admin: 10/08/23 08:27 Dose: 81 mg Documented By: PAT Atorvastatin Calcium (Atorvastatin Calcium 40 Mg Tablet) 40 mg PO BEDTIME [facility] Last Admin: 10/07/23 21:25 Dose: 40 mg Documented By: JULIET Bisacodyl (Bisacodyl 10 Mg Supp.Rect) 10 mg GA DAILY PRN PRN Reason: Constipation Clopidogrel Bisulfate (Clopidogrel Bisulfate 75 Mg Tablet) 75 mg PO DAILY [facility] Last Admin: 10/08/23 08:27 Dose: 75 mg Documented By: PAT Dextrose (Dextrose 50 % 25 Gm/50 Ml Syringe) 25 gm IVPUSH Q15M PRN; Protocol PRN Reason: per Hypoglycemia Standing Ord. Docusate Sodium (Docusate Sodium 100 Mg Capsule) 100 mg PO BID [facility] Last Admin: 10/08/23 08:27 Dose: 100 mg Documented By: PAT Enoxaparin Sodium (Enoxaparin Sodium 30 Mg/0.3 Ml Syringe) 30 mg SUBCUT Q24H [facility] Last Admin: 10/07/23 16:39 Dose: 30 mg Documented By: MARY Furosemide (Furosemide 20 Mg Tablet) 20 mg PO BEDTIME [facility]; Protocol Last Admin: 10/07/23 21:25 Dose: 20 mg Documented By: JULIET Glucose (Glucose Gel 15 Gm Gel..Gram.) 15 gm PO Q15M PRN; Protocol PRN Reason: per Hypoglycemia Standing Ord. Piperacillin Sod/Tazobactam (Sod 3.375 gm/ Sodium Chloride) 50 mls @ 100 mls/hr IV Q6H [facility] Last Infusion: 10/08/23 08:56 Dose: Infused Documented By: PAT Vancomycin HCl 750 mg/ Sodium (Chloride) 265 mls @ 265 mls/hr IV Q12H [facility] Last Infusion: 10/08/23 01:00 Dose: Infused Documented By: MARTIN Insulin Glargine (Insulin Glargine,Hum.Rec.Anlog 100 Unit/Ml 10 Ml Vial) 38 unit SUBCUT BEDTIME [facility] Last Admin: 10/07/23 21:25 Dose: 38 unit Documented By: JULIET Insulin Human Lispro (Insulin Lispro 100 Unit/Ml 3 Ml Vial) 0 unit SUBCUT QIDACHS [facility]; Protocol Last Admin: 10/08/23 08:27 Dose: 2 unit Documented By: PAT Lisinopril (Lisinopril 40 Mg Tablet) 40 mg PO DAILY [facility]; Protocol Last Admin: 10/08/23 08:28 Dose: 40 mg Documented By: PAT Magnesium Hydroxide (Milk Of Magnesia 30 Ml Oral.Susp) 30 ml PO DAILY PRN PRN Reason: Constipation Multivitamins/Vitamin C (Multivitamin Tablet) 1 tab PO DAILY [facility] Last Admin: 10/08/23 08:28 Dose: 1 tab Documented By: PAT Ondansetron HCl (Ondansetron Hcl 4 Mg/2 Ml Vial) 4 mg IVPUSH Q8H PRN PRN Reason: Nausea and Vomiting Oxybutynin Chloride (Oxybutynin Chloride Er 5 Mg Tab.Er.24) 5 mg PO BEDTIME [facility] Last Admin: 10/07/23 21:26 Dose: 5 mg Documented By: JULIET Oxycodone HCl (Oxycodone Hcl Immed Release 5 Mg Tablet) 5 mg PO Q4H PRN PRN Reason: moderate to severe pain Pharmacy Consult (Consult Rx Vancomycin Dosing) 1 each MISCELLANE DAILY PRN PRN Reason: Consult order Polyethylene Glycol (Polyethylene Glycol 3350 17 Gm Powd.Pack) 17 gm PO DAILY [facility] Last Admin: 10/08/23 08:27 Dose: 17 gm Documented By: PAT Sodium Biphosphate/Sodium Phosphate (Sodium Phosphate,[place]-Dibasic 133 Ml Enema) 118 ml GA DAILY PRN PRN Reason: Constipation Sodium Chloride (0.9 % Sodium Chloride Flush 3 Ml Syringe) 3 ml IVFLUSH QSHIFT [facility] Last Admin: 10/08/23 08:28 Dose: 3 ml Documented By: PAT Labs 10/08/23 05:53 10/08/23 05:53 Labs: Laboratory Results - last 24 hr 10/07/23 10/07/23 10/07/23 12:31 18:08 21:16 MCV 87.5 MCH 29.6 MCHC 33.9 RDW 14.7 Plt Count 291 D MPV 9.5 Immature Gran % (Auto) 0.9 H Neut % (Auto) 70.7 Lymph % (Auto) 13.9 L [place] % (Auto) 9.7 Eos % (Auto) 4.4 H Baso % (Auto) 0.4 Lymph # (Auto) 1.5 [place] # (Auto) 1.1 Eos # (Auto) 0.5 H Baso # (Auto) 0.0 Abs Immat Gran (auto) 0.10 H Absolute Neuts (auto) 7.6 Absolute Nucleated RBC 0.000 Nucleated RBC % (auto) 0.0 ESR PT 13.5 H INR 1.1 Anion Gap 12 Estim Creat Clear Calc 62.9 Estimated GFR > 60 POC Glucose 175 H 265 H Random Glucose 197 H Estimat Average Glucose 200 Hemoglobin A1c % 8.6 H Lactic Acid 1.8 Calcium 9.7 D Total Bilirubin 0.5 AST 25 ALT 24 Alkaline Phosphatase 132 H C-Reactive Protein 8.43 H Total Protein 8.4 H Albumin 3.3 L 10/08/23 10/08/23 05:53 08:05 MCV 87.1 MCH 30.1 MCHC 34.6 RDW 14.4 Plt Count 304 MPV 10.1 Immature Gran % (Auto) Neut % (Auto) Lymph % (Auto) [place] % (Auto) Eos % (Auto) Baso % (Auto) Lymph # (Auto) [place] # (Auto) Eos # (Auto) Baso # (Auto) Abs Immat Gran (auto) Absolute Neuts (auto) Absolute Nucleated RBC 0.000 Nucleated RBC % (auto) 0.0 ESR 91 H PT INR Anion Gap 10 L Estim Creat Clear Calc 67.4 Estimated GFR > 60 POC Glucose 176 H Random Glucose 161 H Estimat Average Glucose Hemoglobin A1c % Lactic Acid Calcium 9.2 Total Bilirubin AST ALT Alkaline Phosphatase C-Reactive Protein Total Protein Albumin Assessment and Plan (1) Osteomyelitis: Status: Acute Plan d2 83yo M with DM2, HTN, and PAD s/p R 1st toe amputation for gangrene 07/01/23 and R SFA atherectomy/plasty + R peroneal plasty 08/10/23 presenting with worsening wound of amputation site, found to have osteomyelitis. osteomyelitis due to DM2 + PAD - not septic. follow BCx. vanco + pip-landen 10/08-. ID following. Vasc Surg consulted, plan R 2nd toe amputation along with wound VAC placement 10/11 DM2 - basal-bolus insulin, hold OHGs HTN - lisinopril PAD - clopidogrel VTE ppx - LMWH dispo - return to SNF In my clinical judgment, the patient requires continued inpatient hospitalization for the following reasons: IV ABX, operative intervention Total time managing care of this patient today: 35 minutes. Quality Stroke Does the patient have a stroke diagnosis?: No VTE Prior VTE?: No VTE Risk Level:: Medical - moderate - high VTE Device Contraindication: N/A - Device Ordered VTE Drug Contraindication: N/A - Med Ordered
[2023-10-08] MEDS: oxyCODONE HCl Immed Release 5 MG TABLET PO (11:08)
[2023-10-08] MEDS: Acetaminophen 325 MG TABLET 650 MG PO ×2 (11:08→23:00)
[2023-10-08 11:31] LABS: Glucose, Whole Blood 209 mg/dL (60-115)
[2023-10-08] MEDS: vancomycin HCL 750 MG in 0.9 % Sodium Chloride 250 ML 265 MG IV ×2 (11:51→22:53)
[2023-10-08] MEDS: Enoxaparin Sodium 30 MG/0.3 ML SYRINGE SUBCUT (14:52)
[2023-10-08 16:00] VITALS: BP 124/71; PULSE 79; RESP 17; TEMP 36.3; O2SAT 98
--- NOTE | 2023-10-08 16:02 | MHC.CM.PN ---
PT REPORTS HE LIVES AT HOME WITH HIS AND IS USUALLY INDEPENDENT WITH CARE HE SAYS HE CAME IN FROM HOME, HOWEVER CM CALLED [facility] AND THEY CONFIRMED PT WAS WITH THEM FOR STR AND SENT FROM THERE AWAITING RESPONSE TO DETERMINE HOW LONG PT HAS BEEN AT [facility] PT REPORTS HE WOULD LIKE TO GO HOME AT DC HCP ON FILE PCP: ROLANDA SELF IMM DELIVERED DCP: TBD PENDING PT EVAL RETURN TO STR AT [facility] VS HOME WITH SERVICES TRANSPORT TBD BY DISPO
[2023-10-08 16:39] LABS: Glucose, Whole Blood 230 mg/dL (60-115)
[2023-10-08 19:35] VITALS: BP 138/70; PULSE 88; RESP 18; TEMP 36.4; O2SAT 99
[2023-10-08] MEDS: Atorvastatin Calcium 40 MG TABLET PO (20:00)
[2023-10-08] MEDS: oxyBUTYnin chloride ER 5 MG TAB.ER.24 PO (20:00)
[2023-10-08] MEDS: Furosemide 20 MG TABLET PO (20:01)
[2023-10-08 20:26] LABS: Glucose, Whole Blood 215 mg/dL (60-115)
[2023-10-08] MEDS: Insulin Glargine,Hum.rec.anlog 100 UNIT/ML 10 ML VIAL 38 UNIT SUBCUT (20:30)
[2023-10-08 21:34] LABS: Vancomycin Trough 13.5 mcg/mL (10.0-20.0)
--- NOTE | 2023-10-08 21:40 | HE.PHANOTE ---
vancomycin addendum: Level came back at 13.5 after load and 1 additional dose. Predicted AUC of 409, Will continue same dose and recheck level after 2 more doses.
[2023-10-09 02:14] VITALS: BP 119/63; PULSE 89; RESP 18; TEMP 36.1; O2SAT 98
[2023-10-09] MEDS: Piperacillin Sodium/Tazobactam 3.375 GM in 0.9 % Sodium Chloride 50 ML IV ×4 (02:26→20:51)
[2023-10-09 06:21] LABS: Creatinine Clr Calc Pharmacy 54.9; Estimated Glomerular Filt Rate > 60
[2023-10-09 06:46] VITALS: BP 138/66; PULSE 87; RESP 17; TEMP 36.6; O2SAT 97
[2023-10-09 07:08] LABS: Glucose, Whole Blood 147 mg/dL (60-115)
[2023-10-09] MEDS: lisinopriL 40 MG TABLET PO (07:46)
[2023-10-09] MEDS: Acetaminophen 325 MG TABLET 650 MG PO ×2 (07:47→16:49)
[2023-10-09] MEDS: Clopidogrel Bisulfate 75 MG TABLET PO (07:47)
[2023-10-09] MEDS: Multivitamin TABLET 1 TAB PO (07:47)
[2023-10-09] MEDS: oxyCODONE HCl Immed Release 5 MG TABLET PO ×2 (07:47→11:40)
[2023-10-09] MEDS: Aspirin Enteric Coated 81 MG TABLET.DR PO (07:47)
[2023-10-09] MEDS: Docusate Sodium 100 MG CAPSULE PO ×2 (07:47→20:45)
[2023-10-09] MEDS: 0.9 % Sodium Chloride Flush 3 ML SYRINGE IVFLUSH ×3 (07:48→20:52)
--- NOTE | 2023-10-09 07:50 | HO.PM.IMPN ---
Subjective Subjective Date of Service: 10/09/23 Interval History: Seen in follow up for diabetic foot infection, osteomyelitis Interval history: Reports pain R foot. Afebrile, BC negative. No other complaints Review of Systems Review of Systems: Yes all other systems are reviewed and are negative Physical Exam Vital Signs: Vital Signs: Last Vital Signs Temp 98 F 10/09/23 06:46 Pulse 87 10/09/23 06:46 Resp 17 10/09/23 06:46 BP 138/66 10/09/23 06:46 Pulse Ox 97 10/09/23 06:46 O2 Del Method Room Air 10/09/23 06:46 BMI result Body Mass Index 29.1 Constitutional - Awake and Alert, No apparent distress Eyes - PERRLA, EOMI Cardiovascular - S1S2, RRR, No edema Respiratory - Normal lung expansion, Normal respiratory effort, No respiratory distress, CTA bilaterally Gastrointestinal - NT / ND; +BS; No rebound or guarding Extremities - no calf tenderness bilaterally, no swelling Skin - Warm/Dry. Malodorous extensive deep ulceration at the site of 1st metatarsal amputation Neurological - Alert & oriented x3 Psychological - Appropriate affect Objective Data Active Medications Acetaminophen (Acetaminophen 325 Mg Tablet) 650 mg PO Q6H PRN PRN Reason: Pain, Mild (Pain Scale 1-3) Last Admin: 10/09/23 07:47 Dose: 650 mg Documented By: PAT Aspirin (Aspirin Enteric Coated 81 Mg Tablet.Dr) 81 mg PO DAILY [facility] Last Admin: 10/09/23 07:47 Dose: 81 mg Documented By: PAT Atorvastatin Calcium (Atorvastatin Calcium 40 Mg Tablet) 40 mg PO BEDTIME [facility] Last Admin: 10/08/23 20:00 Dose: 40 mg Documented By: MARTIN Bisacodyl (Bisacodyl 10 Mg Supp.Rect) 10 mg MA DAILY PRN PRN Reason: Constipation Clopidogrel Bisulfate (Clopidogrel Bisulfate 75 Mg Tablet) 75 mg PO DAILY [facility] Last Admin: 10/09/23 07:47 Dose: 75 mg Documented By: PAT Dextrose (Dextrose 50 % 25 Gm/50 Ml Syringe) 25 gm IVPUSH Q15M PRN; Protocol PRN Reason: per Hypoglycemia Standing Ord. Docusate Sodium (Docusate Sodium 100 Mg Capsule) 100 mg PO BID [facility] Last Admin: 10/09/23 07:47 Dose: 100 mg Documented By: PAT Enoxaparin Sodium (Enoxaparin Sodium 30 Mg/0.3 Ml Syringe) 30 mg SUBCUT Q24H [facility] Last Admin: 10/08/23 14:52 Dose: 30 mg Documented By: PAT Furosemide (Furosemide 20 Mg Tablet) 20 mg PO BEDTIME [facility]; Protocol Last Admin: 10/08/23 20:01 Dose: 20 mg Documented By: MARTIN Glucose (Glucose Gel 15 Gm Gel..Gram.) 15 gm PO Q15M PRN; Protocol PRN Reason: per Hypoglycemia Standing Ord. Piperacillin Sod/Tazobactam (Sod 3.375 gm/ Sodium Chloride) 50 mls @ 100 mls/hr IV Q6H [facility] Last Admin: 10/09/23 07:45 Dose: 100 mls/hr Documented By: PAT Vancomycin HCl 750 mg/ Sodium (Chloride) 265 mls @ 265 mls/hr IV Q12H [facility] Last Infusion: 10/09/23 00:05 Dose: Infused Documented By: MARTIN Insulin Glargine (Insulin Glargine,Hum.Rec.Anlog 100 Unit/Ml 10 Ml Vial) 38 unit SUBCUT BEDTIME [facility] Last Admin: 10/08/23 20:30 Dose: 38 unit Documented By: MARTIN Insulin Human Lispro (Insulin Lispro 100 Unit/Ml 3 Ml Vial) 0 unit SUBCUT QIDACHS [facility]; Protocol Last Admin: 10/09/23 07:13 Dose: Not Given Documented By: PAT Non-Admin Reason: No Insulin Coverage Lisinopril (Lisinopril 40 Mg Tablet) 40 mg PO DAILY [facility]; Protocol Last Admin: 10/09/23 07:46 Dose: 40 mg Documented By: PAT Magnesium Hydroxide (Milk Of Magnesia 30 Ml Oral.Susp) 30 ml PO DAILY PRN PRN Reason: Constipation Multivitamins/Vitamin C (Multivitamin Tablet) 1 tab PO DAILY [facility] Last Admin: 10/09/23 07:47 Dose: 1 tab Documented By: PAT Ondansetron HCl (Ondansetron Hcl 4 Mg/2 Ml Vial) 4 mg IVPUSH Q8H PRN PRN Reason: Nausea and Vomiting Oxybutynin Chloride (Oxybutynin Chloride Er 5 Mg Tab.Er.24) 5 mg PO BEDTIME [facility] Last Admin: 10/08/23 20:00 Dose: 5 mg Documented By: MARTIN Oxycodone HCl (Oxycodone Hcl Immed Release 5 Mg Tablet) 5 mg PO Q4H PRN PRN Reason: moderate to severe pain Last Admin: 10/09/23 07:47 Dose: 5 mg Documented By: PAT Pharmacy Consult (Consult Rx Vancomycin Dosing) 1 each MISCELLANE DAILY PRN PRN Reason: Consult order Polyethylene Glycol (Polyethylene Glycol 3350 17 Gm Powd.Pack) 17 gm PO DAILY [facility] Last Admin: 10/08/23 08:27 Dose: 17 gm Documented By: PAT Sodium Biphosphate/Sodium Phosphate (Sodium Phosphate,[place]-Dibasic 133 Ml Enema) 118 ml MA DAILY PRN PRN Reason: Constipation Sodium Chloride (0.9 % Sodium Chloride Flush 3 Ml Syringe) 3 ml IVFLUSH QSHIFT [facility] Last Admin: 10/09/23 07:48 Dose: 3 ml Documented By: PAT Labs 10/08/23 05:53 10/09/23 05:58 Labs: Laboratory Results - last 24 hr 10/08/23 10/08/23 10/08/23 08:05 11:19 16:35 Estim Creat Clear Calc Estimated GFR POC Glucose 176 H 209 H 230 H Vancomycin Trough 10/08/23 10/08/23 10/09/23 20:13 21:01 05:58 Estim Creat Clear Calc 54.9 Estimated GFR > 60 POC Glucose 215 H Vancomycin Trough 13.5 10/09/23 06:46 Estim Creat Clear Calc Estimated GFR POC Glucose 147 H Vancomycin Trough Microbiology Microbiology Results: Microbiology 10/07/23 12:38 Blood Culture - Preliminary Blood - Venous No growth after 24 hours. 10/07/23 12:31 Blood Culture - Preliminary Blood - Venous No growth after 24 hours. 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 osteomyelitis due to DM2 + PAD - not septic. follow BCx. vanco + pip-landen 2/17-. ID following. Vasc Surg consulted, plan R 2nd toe amputation along with wound VAC placement 10/11 DM2 - basal-bolus insulin, hold OHGs HTN - lisinopril PAD - clopidogrel VTE ppx - LMWH dispo - return to SNF In my clinical judgment, the patient requires continued inpatient hospitalization for the following reasons: IV ABX, operative intervention Total time managing care of this patient today: 35 minutes. Quality Stroke Does the patient have a stroke diagnosis?: No VTE Prior VTE?: No VTE Risk Level:: Medical - moderate - high VTE Device Contraindication: N/A - Device Ordered VTE Drug Contraindication: N/A - Med Ordered
[2023-10-09 11:13] LABS: Glucose, Whole Blood 195 mg/dL (60-115)
[2023-10-09] MEDS: vancomycin HCL 750 MG in 0.9 % Sodium Chloride 250 ML 265 MG IV ×2 (11:31→22:13)
[2023-10-09] MEDS: Insulin Lispro 100 UNIT/ML 3 ML VIAL SUBCUT ×3 (11:32→20:44)
[2023-10-09] MEDS: Enoxaparin Sodium 30 MG/0.3 ML SYRINGE SUBCUT (14:44)
[2023-10-09 15:56] VITALS: BP 116/56; PULSE 79; RESP 18; TEMP 36.1; O2SAT 98
[2023-10-09 16:32] LABS: Glucose, Whole Blood 249 mg/dL (60-115)
[2023-10-09 19:36] VITALS: BP 120/58; PULSE 87; RESP 18; TEMP 35.9; O2SAT 98
[2023-10-09 20:41] LABS: Glucose, Whole Blood 231 mg/dL (60-115)
[2023-10-09] MEDS: Insulin Glargine,Hum.rec.anlog 100 UNIT/ML 10 ML VIAL 38 UNIT SUBCUT (20:44)
[2023-10-09] MEDS: Atorvastatin Calcium 40 MG TABLET PO (20:45)
[2023-10-09] MEDS: oxyBUTYnin chloride ER 5 MG TAB.ER.24 PO (20:45)
[2023-10-09] MEDS: Furosemide 20 MG TABLET PO (20:45)
--- NOTE | 2023-10-10 00:36 | P.PNID_ITS ---
Subjective Subjective Date of Service: 10/09/23 Critical Care Time (minutes): 15 Comment: area necrosis/gangrene right foot no change Objective Data Labs 10/08/23 05:53 10/09/23 05:58 Labs: Laboratory Results - last 24 hr 10/09/23 10/09/23 10/09/23 05:58 06:46 11:10 Creatinine 1.02 Estim Creat Clear Calc 54.9 Estimated GFR > 60 POC Glucose 147 H 195 H Vancomycin Trough 10/09/23 10/09/23 10/09/23 16:25 20:20 21:04 Creatinine Estim Creat Clear Calc Estimated GFR POC Glucose 249 H 231 H Vancomycin Trough 14.0 Microbiology Microbiology Results: Microbiology 10/07/23 12:38 Blood - Venous Blood Culture - Preliminary No growth after 48 hours. 10/07/23 12:31 Blood - Venous Blood Culture - Preliminary No growth after 48 hours. 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 There is no role for retirement IV antibiotics due to nature of wound and exposed bone. Status: Acute (2) Osteomyelitis: Status: Acute Time Spent With Patient Time: Total time managing care of this patient today ____ minutes.
[2023-10-10] MEDS: Piperacillin Sodium/Tazobactam 3.375 GM in 0.9 % Sodium Chloride 50 ML IV ×4 (03:09→19:02)
[2023-10-10 03:10] VITALS: BP 130/64; PULSE 81; RESP 16; TEMP 36.3; O2SAT 97
[2023-10-10 06:17] LABS: MANUAL DIFF FLAG NO
[2023-10-10 06:24] LABS: Basophils Absolute Auto 0.1 X10*3/uL (0.0-0.2); Basophils Percent Auto 0.4 % (0-2); Eosinophils Absolute Auto 0.6 X10*3/uL (0.0-0.4); Eosinophils Percent Auto 4.9 % (0-4); Hematocrit 33.5 % (42.0-52.0); Hemoglobin 11.4 g/dl (14.0-18.0); Imm Gran Pct Auto 0.9 % (0.0-0.4); Lymphocytes Percent Auto 17.2 % (20-40); Mean Corpuscular Hemoglobin 29.6 pg (27.0-33.0); Mean Platelet Volume 9.9 fL (9.4-12.4); Monocytes Absolute Auto 1.3 X10*3/uL (0.1-1.2); Monocytes Percent Auto 10.9 % (2-11); Neutrophils Absolute Auto 7.7 x10*3/uL (2.0-8.3); Neutrophils Percent Auto 65.7 % (45-73); Platelet Count 300 X10*3/uL (160-400); Red Blood Count 3.85 X10*6/uL (4.60-5.80); Red Cell Distribution Width 14.5 % (11.0-16.0); White Blood Count 11.7 X10*3/uL (4.8-10.8)
[2023-10-10 06:41] LABS: Anion Gap 9 (12-20); Blood Urea Nitrogen 15 mg/dL (9-16); Carbon Dioxide 25 mmol/L (22-29); Chloride 103 mmol/L (96-108); Creatinine Clr Calc Pharmacy 55.4; Estimated Glomerular Filt Rate > 60; Glucose Random 111 mg/dL (60-115); Potassium 4.1 mmol/L (3.3-5.1); Sodium 133 mmol/L (135-145)
--- NOTE | 2023-10-10 07:35 | HO.PM.IMPN ---
Subjective Subjective Date of Service: 10/10/23 Interval History: Seen in follow up for diabetic foot infection, osteomyelitis Interval history: Reports pain R foot. Afebrile, BC negative. No other complaints Review of Systems Review of Systems: Yes all other systems are reviewed and are negative Physical Exam Vital Signs: Vital Signs: Last Vital Signs Temp 97.4 F 10/10/23 03:10 Pulse 81 10/10/23 03:10 Resp 16 10/10/23 03:10 BP 130/64 10/10/23 03:10 Pulse Ox 97 10/10/23 03:10 O2 Del Method Room Air 10/10/23 03:10 BMI result Body Mass Index 29.1 Constitutional - Awake and Alert, No apparent distress Eyes - PERRLA, EOMI Cardiovascular - S1S2, RRR, No edema Respiratory - Normal lung expansion, Normal respiratory effort, No respiratory distress, CTA bilaterally Gastrointestinal - NT / ND; +BS; No rebound or guarding Extremities - no calf tenderness bilaterally, no swelling Skin - Warm/Dry. Malodorous extensive deep ulceration at the site of 1st metatarsal amputation with bone exposure Neurological - Alert & oriented x3 Psychological - Appropriate affect Objective Data Active Medications Acetaminophen (Acetaminophen 325 Mg Tablet) 650 mg PO Q6H PRN PRN Reason: Pain, Mild (Pain Scale 1-3) Last Admin: 10/09/23 16:49 Dose: 650 mg Documented By: PAT Aspirin (Aspirin Enteric Coated 81 Mg Tablet.) 81 mg PO DAILY [facility] Last Admin: 10/09/23 07:47 Dose: 81 mg Documented By: PAT Atorvastatin Calcium (Atorvastatin Calcium 40 Mg Tablet) 40 mg PO BEDTIME [facility] Last Admin: 10/09/23 20:45 Dose: 40 mg Documented By: LUIS ENRIQUE Bisacodyl (Bisacodyl 10 Mg Supp.Rect) 10 mg SC DAILY PRN PRN Reason: Constipation Clopidogrel Bisulfate (Clopidogrel Bisulfate 75 Mg Tablet) 75 mg PO DAILY [facility] Last Admin: 10/09/23 07:47 Dose: 75 mg Documented By: PAT Dextrose (Dextrose 50 % 25 Gm/50 Ml Syringe) 25 gm IVPUSH Q15M PRN; Protocol PRN Reason: per Hypoglycemia Standing Ord. Docusate Sodium (Docusate Sodium 100 Mg Capsule) 100 mg PO BID [facility] Last Admin: 10/09/23 20:45 Dose: 100 mg Documented By: LUIS ENRIQUE Enoxaparin Sodium (Enoxaparin Sodium 30 Mg/0.3 Ml Syringe) 30 mg SUBCUT Q24H [facility] Last Admin: 10/09/23 14:44 Dose: 30 mg Documented By: PAT Furosemide (Furosemide 20 Mg Tablet) 20 mg PO BEDTIME [facility]; Protocol Last Admin: 10/09/23 20:45 Dose: 20 mg Documented By: LUIS ENRIQUE Glucose (Glucose Gel 15 Gm Gel..Gram.) 15 gm PO Q15M PRN; Protocol PRN Reason: per Hypoglycemia Standing Ord. Piperacillin Sod/Tazobactam (Sod 3.375 gm/ Sodium Chloride) 50 mls @ 100 mls/hr IV Q6H [facility] Last Infusion: 10/10/23 03:43 Dose: Infused Documented By: LUIS ENRIQUE Vancomycin HCl 750 mg/ Sodium (Chloride) 265 mls @ 265 mls/hr IV Q12H [facility] Last Infusion: 10/09/23 23:16 Dose: Infused Documented By: LUIS ENRIQUE Insulin Glargine (Insulin Glargine,Hum.Rec.Anlog 100 Unit/Ml 10 Ml Vial) 38 unit SUBCUT BEDTIME [facility] Last Admin: 10/09/23 20:44 Dose: 38 unit Documented By: LUIS ENRIQUE Insulin Human Lispro (Insulin Lispro 100 Unit/Ml 3 Ml Vial) 0 unit SUBCUT QIDACHS [facility]; Protocol Last Admin: 10/09/23 20:44 Dose: 4 unit Documented By: LUIS ENRIQUE Lisinopril (Lisinopril 40 Mg Tablet) 40 mg PO DAILY [facility]; Protocol Last Admin: 10/09/23 07:46 Dose: 40 mg Documented By: PAT Magnesium Hydroxide (Milk Of Magnesia 30 Ml Oral.Susp) 30 ml PO DAILY PRN PRN Reason: Constipation Multivitamins/Vitamin C (Multivitamin Tablet) 1 tab PO DAILY [facility] Last Admin: 10/09/23 07:47 Dose: 1 tab Documented By: PAT Ondansetron HCl (Ondansetron Hcl 4 Mg/2 Ml Vial) 4 mg IVPUSH Q8H PRN PRN Reason: Nausea and Vomiting Oxybutynin Chloride (Oxybutynin Chloride Er 5 Mg Tab.Er.24) 5 mg PO BEDTIME [facility] Last Admin: 10/09/23 20:45 Dose: 5 mg Documented By: LUIS ENRIQUE Oxycodone HCl (Oxycodone Hcl Immed Release 5 Mg Tablet) 5 mg PO Q4H PRN PRN Reason: moderate to severe pain Last Admin: 10/09/23 11:40 Dose: 5 mg Documented By: PAT Pharmacy Consult (Consult Rx Vancomycin Dosing) 1 each MISCELLANE DAILY PRN PRN Reason: Consult order Polyethylene Glycol (Polyethylene Glycol 3350 17 Gm Powd.Pack) 17 gm PO DAILY [facility] Last Admin: 10/09/23 07:55 Dose: Not Given Documented By: PAT Non-Admin Reason: Patient Refused Sodium Biphosphate/Sodium Phosphate (Sodium Phosphate,[place]-Dibasic 133 Ml Enema) 118 ml SC DAILY PRN PRN Reason: Constipation Sodium Chloride (0.9 % Sodium Chloride Flush 3 Ml Syringe) 3 ml IVFLUSH QSHIFT [facility] Last Admin: 10/09/23 20:52 Dose: 3 ml Documented By: LUIS ENRIQUE Labs 10/10/23 05:46 10/10/23 05:46 Labs: Laboratory Results - last 24 hr 10/09/23 10/09/23 10/09/23 11:10 16:25 20:20 MCV MCH MCHC RDW Plt Count MPV Immature Gran % (Auto) Neut % (Auto) Lymph % (Auto) [place] % (Auto) Eos % (Auto) Baso % (Auto) Lymph # (Auto) [place] # (Auto) Eos # (Auto) Baso # (Auto) Abs Immat Gran (auto) Absolute Neuts (auto) Absolute Nucleated RBC Nucleated RBC % (auto) Anion Gap Estim Creat Clear Calc Estimated GFR POC Glucose 195 H 249 H 231 H Random Glucose Calcium Vancomycin Trough 10/09/23 10/10/23 21:04 05:46 MCV 87.0 MCH 29.6 MCHC 34.0 RDW 14.5 Plt Count 300 MPV 9.9 Immature Gran % (Auto) 0.9 H Neut % (Auto) 65.7 Lymph % (Auto) 17.2 L [place] % (Auto) 10.9 Eos % (Auto) 4.9 H Baso % (Auto) 0.4 Lymph # (Auto) 2.0 [place] # (Auto) 1.3 H Eos # (Auto) 0.6 H Baso # (Auto) 0.1 Abs Immat Gran (auto) 0.10 H Absolute Neuts (auto) 7.7 Absolute Nucleated RBC 0.000 Nucleated RBC % (auto) 0.0 Anion Gap 9 L Estim Creat Clear Calc 55.4 Estimated GFR > 60 POC Glucose Random Glucose 111 Calcium 9.0 Vancomycin Trough 14.0 Microbiology Microbiology Results: Microbiology 10/07/23 12:38 Blood Culture - Preliminary Blood - Venous No growth after 48 hours. 10/07/23 12:31 Blood Culture - Preliminary Blood - Venous No growth after 48 hours. 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 osteomyelitis due to DM2 + PAD - No sepsis, blood cultures negative thus far - Plan for amp and wound vac 10/11 per vascular surgery - Continue vanco/zosyn (initiated 10/07), continue until post op and then augmentin + doxy on dc x2 weeks -ID/vascular surgery input appreciated DM2 - basal-bolus insulin, hold OHGs HTN - lisinopril PAD - clopidogrel VTE ppx - LMWH- on hold due to procedure, SCPs dispo - return to SNF In my clinical judgment, the patient requires continued inpatient hospitalization for the following reasons: IV ABX, operative intervention Total time managing care of this patient today: 35 minutes. Quality Stroke Does the patient have a stroke diagnosis?: No VTE Prior VTE?: No VTE Risk Level:: Medical - moderate - high VTE Device Contraindication: N/A - Device Ordered VTE Drug Contraindication: N/A - Med Ordered
[2023-10-10 07:52] VITALS: BP 130/75; PULSE 78; RESP 16; TEMP 36.2; O2SAT 98
[2023-10-10 07:54] LABS: Glucose, Whole Blood 110 mg/dL (60-115)
[2023-10-10] MEDS: Acetaminophen 325 MG TABLET 650 MG PO ×2 (07:55→14:06)
[2023-10-10] MEDS: lisinopriL 40 MG TABLET PO (07:56)
[2023-10-10] MEDS: Aspirin Enteric Coated 81 MG TABLET.DR PO (07:56)
[2023-10-10] MEDS: Multivitamin TABLET 1 TAB PO (07:56)
[2023-10-10] MEDS: Docusate Sodium 100 MG CAPSULE PO ×2 (07:56→19:02)
[2023-10-10] MEDS: 0.9 % Sodium Chloride Flush 3 ML SYRINGE IVFLUSH ×2 (07:56→16:56)
[2023-10-10] MEDS: Clopidogrel Bisulfate 75 MG TABLET PO (07:56)
[2023-10-10] MEDS: polyethylene glycoL 3350 17 GM POWD.PACK PO (07:56)
[2023-10-10 11:18] LABS: Glucose, Whole Blood 151 mg/dL (60-115)
[2023-10-10] MEDS: Insulin Lispro 100 UNIT/ML 3 ML VIAL SUBCUT ×3 (11:30→21:24)
[2023-10-10] MEDS: vancomycin HCL 750 MG in 0.9 % Sodium Chloride 250 ML 265 MG IV (11:30)
--- NOTE | 2023-10-10 14:46 | HO.WOUND ---
Wound Consult: Initial 83yr old?M admitted to [facility] on 10/07/23 15:33 - See progress notes and H&P for detailed history.? Wound consult placed for Right nonhealing amputation site.? Patient agreeable to assessment and photo documentation.? Of note Dr. Gonzales has seen patient and plans to perform further amputation and wound vac placement on Tuesday / tomorrow - see his note for details. My consultation was requested by direct care team and topical dressing applied with Alginate - I will not place order for topical care as pt is set for OR tomorrow and at that point will defer to Dr Gonzales for continued care orders. Right Foot Etiology: ?Nonhealing amputation site ?Present on Admission Measurements: see charting for detailed measurements Wound Bed: adherent moist yelllow fibrinous slough - with moist red viable wound bed noted Drainage / Odor: Soriano thick creamy drainage noted on dressing Edges: ? irregular and nonadherent [place] wound: mild edema noted foot is warm to touch, +DP, ? No Induration, Fluctuance noted Pain: pt reports pain when wound bed assessed Goals of Treatment: ? Defer to Dr. Gonzales for Operative treatment - today Durafiber AG was applied Recommendations: 1. Turn and Reposition every 2 hours and as needed for patient comfort.? Use pillows or wedges to support off loading positions. 2. Off Load all bony prominences with use of pillows and heel boots if needed.? Apply Preventative foams where needed. ? 3. Monitor for incontinence and moisture control, use barrier creams when needed for prevention and treatment. 4. Provide adequate and supplemental nutrition.? 5. Order or Continue low air loss mattress. 6. When applicable maintain blood glucose levels per Providers order. 7. Right Foot - Elevate off of surface of bed and or recliner chair - Cleanse and irrigate with NS, Pat dry.? Apply skin prep to periwound, lightly pack with Durafiber AG. Cover with Gauze, ABD pad and gauze wrap? Change Daily. Re-consult wound care Nurse for wound deterioration or wound changes.
[2023-10-10 15:06] VITALS: BP 117/57; PULSE 88; RESP 17; TEMP 36.1; O2SAT 100
[2023-10-10 16:09] LABS: Glucose, Whole Blood 195 mg/dL (60-115)
[2023-10-10] MEDS: oxyCODONE HCl Immed Release 5 MG TABLET PO ×2 (19:01→22:37)
[2023-10-10] MEDS: Furosemide 20 MG TABLET PO (19:02)
[2023-10-10] MEDS: oxyBUTYnin chloride ER 5 MG TAB.ER.24 PO (19:02)
[2023-10-10] MEDS: Atorvastatin Calcium 40 MG TABLET PO (19:02)
[2023-10-10 19:23] VITALS: BP 119/59; PULSE 83; RESP 16; TEMP 36.7; O2SAT 98
[2023-10-10 19:57] LABS: Glucose, Whole Blood 211 mg/dL (60-115)
[2023-10-10] MEDS: Insulin Glargine,Hum.rec.anlog 100 UNIT/ML 10 ML VIAL 38 UNIT SUBCUT (21:24)
[2023-10-10 21:43] LABS: Vancomycin Random 14.4 mcg/mL (15-20)
--- NOTE | 2023-10-10 21:50 | HE.PHANOTE ---
RE ARTEM patients level came back this evening at 14.4. Patient has indication of osteo, will increase dose to 1000 mg Q12H x 2 and get a level to assess for efficacy vs safety. Worried patient will fall below AUC goal if left at current dose of 750 mg Q12h. Predicted AUC 561. Renal function unstable. Pharmacy to assess renal function daily.
[2023-10-10] MEDS: vancomycin HCL 1,000 MG in 0.9 % Sodium Chloride 250 ML 270 MG IV (22:38)
[2023-10-11] VITALS (8 sets, daily range): BP systolic 117–151; BP diastolic 63–76; PULSE 69–86; RESP 14–18; TEMP 36.1–36.9; O2SAT 95–100
[2023-10-11] MEDS: 0.9 % Sodium Chloride Flush 3 ML SYRINGE IVFLUSH ×4 (00:34→22:56)
[2023-10-11] MEDS: Piperacillin Sodium/Tazobactam 3.375 GM in 0.9 % Sodium Chloride 50 ML IV ×4 (02:46→22:29)
[2023-10-11] MEDS: oxyCODONE HCl Immed Release 5 MG TABLET PO ×2 (03:45→19:40)
[2023-10-11 05:46] LABS: MANUAL DIFF FLAG NO
[2023-10-11 05:53] LABS: Basophils Absolute Auto 0.1 X10*3/uL (0.0-0.2); Basophils Percent Auto 0.6 % (0-2); Eosinophils Absolute Auto 0.6 X10*3/uL (0.0-0.4); Eosinophils Percent Auto 4.9 % (0-4); Hematocrit 31.3 % (42.0-52.0); Hemoglobin 10.8 g/dl (14.0-18.0); Imm Gran Abs Auto 0.08 X10*3/uL (0.00-0.03); Imm Gran Pct Auto 0.7 % (0.0-0.4); Lymphocytes Absolute Auto 1.9 X10*3/uL (1.2-4.9); Lymphocytes Percent Auto 16.7 % (20-40); Mean Corpuscular HGB Conc 34.5 g/dl (31.0-36.0); Mean Corpuscular Hemoglobin 29.8 pg (27.0-33.0); Mean Corpuscular Volume 86.5 fL (80.0-98.0); Mean Platelet Volume 9.6 fL (9.4-12.4); Monocytes Absolute Auto 1.2 X10*3/uL (0.1-1.2); Monocytes Percent Auto 10.5 % (2-11); Neutrophils Absolute Auto 7.8 x10*3/uL (2.0-8.3); Neutrophils Percent Auto 66.6 % (45-73); Platelet Count 281 X10*3/uL (160-400); Red Blood Count 3.62 X10*6/uL (4.60-5.80); Red Cell Distribution Width 14.4 % (11.0-16.0); White Blood Count 11.7 X10*3/uL (4.8-10.8)
[2023-10-11 06:08] LABS: Anion Gap 12 (12-20); Blood Urea Nitrogen 16 mg/dL (9-16); Calcium 8.9 mg/dL (8.4-10.2); Carbon Dioxide 22 mmol/L (22-29); Chloride 104 mmol/L (96-108); Creatinine Clr Calc Pharmacy 64.3; Estimated Glomerular Filt Rate > 60; Glucose Random 120 mg/dL (60-115); Potassium 3.7 mmol/L (3.3-5.1); Sodium 134 mmol/L (135-145)
[2023-10-11 07:45] LABS: Glucose, Whole Blood 112 mg/dL (60-115)
[2023-10-11 11:51] LABS: Glucose, Whole Blood 100 mg/dL (60-115)
[2023-10-11] MEDS: vancomycin HCL 1,000 MG in 0.9 % Sodium Chloride 250 ML 270 MG IV ×2 (12:04→22:56)
--- NOTE | 2023-10-11 12:16 | P.PNIM_ITS ---
Subjective Subjective Date of Service: 10/11/23 Interval History: pain R foot. Review of Systems Afebrile, BC negative. No other complaints Physical Exam 2 Vital Signs: Vital Signs: Last Vital Signs Temp 97.0 F 10/11/23 07:36 Pulse 73 10/11/23 07:36 Resp 16 10/11/23 07:36 BP 118/66 10/11/23 07:36 Pulse Ox 100 10/11/23 07:36 O2 Del Method Room Air 10/11/23 07:36 BMI result Body Mass Index 29.1 Appearance: Alert.? Oriented. cvs: rrr, [id number]. res: clear to auscultation ,no rhonchii or wheezing abd: no rebound or guarding ,nt, bs present. ext : 1st metatarsal amputation with bone exposure-similar . neuro: axo3 , nonfocal. Objective Data Active Medications Acetaminophen (Acetaminophen 325 Mg Tablet) 650 mg PO Q6H PRN PRN Reason: Pain, Mild (Pain Scale 1-3) Last Admin: 10/10/23 14:06 Dose: 650 mg Documented By: NIDIA Aspirin (Aspirin Enteric Coated 81 Mg Tablet.Dr) 81 mg PO DAILY [facility] Last Admin: 10/11/23 09:47 Dose: Not Given Documented By: NIDIA Non-Admin Reason: NPO Atorvastatin Calcium (Atorvastatin Calcium 40 Mg Tablet) 40 mg PO BEDTIME [facility] Last Admin: 10/10/23 19:02 Dose: 40 mg Documented By: SAMMIE Bisacodyl (Bisacodyl 10 Mg Supp.Rect) 10 mg [place] DAILY PRN PRN Reason: Constipation Clopidogrel Bisulfate (Clopidogrel Bisulfate 75 Mg Tablet) 75 mg PO DAILY [facility] Last Admin: 10/11/23 09:47 Dose: Not Given Documented By: NIDIA Non-Admin Reason: Patient Refused Dextrose (Dextrose 50 % 25 Gm/50 Ml Syringe) 25 gm IVPUSH Q15M PRN; Protocol PRN Reason: per Hypoglycemia Standing Ord. Docusate Sodium (Docusate Sodium 100 Mg Capsule) 100 mg PO BID [facility] Last Admin: 10/11/23 09:47 Dose: Not Given Documented By: NIDIA Non-Admin Reason: Patient Refused Enoxaparin Sodium (Enoxaparin Sodium 30 Mg/0.3 Ml Syringe) 30 mg SUBCUT Q24H [facility] Last Admin: 10/09/23 14:44 Dose: 30 mg Documented By: PAT Fentanyl (Fentanyl Citrate/Pf 100 Mcg/2 Ml Vial) 25 mcg IVPUSH Q5M PRN; Protocol PRN Reason: Pain, Moderate(Pain Scale 4-6) Furosemide (Furosemide 20 Mg Tablet) 20 mg PO BEDTIME [facility]; Protocol Last Admin: 10/10/23 19:02 Dose: 20 mg Documented By: SAMMIE Glucose (Glucose Gel 15 Gm Gel..Gram.) 15 gm PO Q15M PRN; Protocol PRN Reason: per Hypoglycemia Standing Ord. Piperacillin Sod/Tazobactam (Sod 3.375 gm/ Sodium Chloride) 50 mls @ 100 mls/hr IV Q6H [facility] Last Infusion: 10/11/23 09:48 Dose: Infused Documented By: NIDIA Vancomycin HCl 1,000 mg/ (Sodium Chloride) 270 mls @ 270 mls/hr IV Q12H [facility] Last Admin: 10/11/23 12:04 Dose: 270 mls/hr Documented By: NIDIA Insulin Glargine (Insulin Glargine,Hum.Rec.Anlog 100 Unit/Ml 10 Ml Vial) 38 unit SUBCUT BEDTIME [facility] Last Admin: 10/10/23 21:24 Dose: 38 unit Documented By: SAMMIE Insulin Human Lispro (Insulin Lispro 100 Unit/Ml 3 Ml Vial) 0 unit SUBCUT QIDACHS [facility]; Protocol Last Admin: 10/11/23 12:12 Dose: Not Given Documented By: NIDIA Non-Admin Reason: No Insulin Coverage Lisinopril (Lisinopril 40 Mg Tablet) 40 mg PO DAILY [facility]; Protocol Last Admin: 10/11/23 09:48 Dose: Not Given Documented By: NIDIA Non-Admin Reason: Patient Refused Magnesium Hydroxide (Milk Of Magnesia 30 Ml Oral.Susp) 30 ml PO DAILY PRN PRN Reason: Constipation Multivitamins/Vitamin C (Multivitamin Tablet) 1 tab PO DAILY [facility] Last Admin: 10/11/23 09:48 Dose: Not Given Documented By: NIDIA Non-Admin Reason: Patient Refused Ondansetron HCl (Ondansetron Hcl 4 Mg/2 Ml Vial) 4 mg IVPUSH Q8H PRN PRN Reason: Nausea and Vomiting Ondansetron HCl (Ondansetron Hcl 4 Mg/2 Ml Vial) 4 mg IVPUSH ONCE PRN PRN Reason: Nausea and Vomiting Oxybutynin Chloride (Oxybutynin Chloride Er 5 Mg Tab.Er.24) 5 mg PO BEDTIME [facility] Last Admin: 10/10/23 19:02 Dose: 5 mg Documented By: SAMMIE Oxycodone HCl (Oxycodone Hcl Immed Release 5 Mg Tablet) 5 mg PO Q4H PRN PRN Reason: Pain, Severe (Pain Scale 7-10) Last Admin: 10/11/23 03:45 Dose: 5 mg Documented By: ADRI Pharmacy Consult (Consult Rx Vancomycin Dosing) 1 each MISCELLANE DAILY PRN PRN Reason: Consult order Polyethylene Glycol (Polyethylene Glycol 3350 17 Gm Powd.Pack) 17 gm PO DAILY [facility] Last Admin: 10/11/23 09:48 Dose: Not Given Documented By: NIDIA Non-Admin Reason: NPO Sodium Biphosphate/Sodium Phosphate (Sodium Phosphate,[place]-Dibasic 133 Ml Enema) 118 ml [place] DAILY PRN PRN Reason: Constipation Sodium Chloride (0.9 % Sodium Chloride Flush 3 Ml Syringe) 3 ml IVFLUSH QSHIFT [facility] Last Admin: 10/11/23 08:43 Dose: 3 ml Documented By: NIDIA Labs 10/11/23 05:33 10/11/23 05:33 Labs: Laboratory Results - last 24 hr 10/10/23 10/10/23 10/10/23 15:56 19:25 21:21 MCV MCH MCHC RDW Plt Count MPV Immature Gran % (Auto) Neut % (Auto) Lymph % (Auto) [place] % (Auto) Eos % (Auto) Baso % (Auto) Lymph # (Auto) [place] # (Auto) Eos # (Auto) Baso # (Auto) Abs Immat Gran (auto) Absolute Neuts (auto) Absolute Nucleated RBC Nucleated RBC % (auto) Anion Gap Estim Creat Clear Calc Estimated GFR POC Glucose 195 H 211 H Random Glucose Calcium Random Vancomycin 14.4 L 10/11/23 10/11/23 10/11/23 05:33 07:15 11:21 MCV 86.5 MCH 29.8 MCHC 34.5 RDW 14.4 Plt Count 281 MPV 9.6 Immature Gran % (Auto) 0.7 H Neut % (Auto) 66.6 Lymph % (Auto) 16.[address] [place] % (Auto) 10.5 Eos % (Auto) 4.9 H Baso % (Auto) 0.6 Lymph # (Auto) 1.9 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 osteomyelitis due to DM2 + PAD - No sepsis, blood cultures negative thus far - Plan for amp and wound vac 10/11 per vascular surgery - Continue vanco/zosyn (initiated 10/07), continue until post op and then augmentin + doxy on dc x2 weeks -ID/vascular surgery input appreciated-possible surgery today DM2- basal-bolus insulin, hold OHGs HTN- lisinopril PAD- clopidogrel VTE ppx- LMWH- on hold due to procedure, SCPs dispo- return to SNF In my clinical judgment, the patient requires continued inpatient hospitalization for the following reasons: IV ABX, operative intervention today. Quality Stroke Does the patient have a stroke diagnosis?: No VTE Prior VTE?: No VTE Risk Level:: Medical - moderate - high VTE Device Contraindication: N/A - Device Ordered VTE Drug Contraindication: N/A - Med Ordered
[2023-10-11 12:48] LABS: Glucose, Whole Blood 106 mg/dL (60-115)
--- NOTE | 2023-10-11 13:39 | P.CONAN_ITS ---
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 (Acute) Type 2 diabetes mellitus with hyperglycemia (Acute) Type 2 diabetes mellitus (Acute) Gangrene associated with diabetes mellitus (Acute) Toe osteomyelitis (Acute) Cellulitis of leg (Acute) Necrosis of toe (Acute) Past Medical History Medical History HTN (hypertension) Diabetes Family History Family history of problems with anesthesia: No Surgical History History of Problems with Anesthesia: No Social History Social History Household Members: None Housing: [facility] Do you presently have visiting nurse or other home services: No Patient Tobacco Use Status: Never used Tobacco Second Hand Smoke Exposure: No service: No Meds Allergies Allergy/AdvReac Type Severity Reaction Status Date / Time No Known Allergies Allergy Verified 09/08/23 09:09 Active Medications: Current Medications Acetaminophen (Acetaminophen 325 Mg Tablet) 650 mg PO Q6H PRN PRN Reason: Pain, Mild (Pain Scale 1-3) Last Admin: 10/10/23 14:06 Dose: 650 mg Aspirin (Aspirin Enteric Coated 81 Mg Tablet.Dr) 81 mg PO DAILY [facility] Last Admin: 10/11/23 09:47 Dose: Not Given Atorvastatin Calcium (Atorvastatin Calcium 40 Mg Tablet) 40 mg PO BEDTIME [facility] Last Admin: 10/10/23 19:02 Dose: 40 mg Bisacodyl (Bisacodyl 10 Mg Supp.Rect) 10 mg [place] DAILY PRN PRN Reason: Constipation Clopidogrel Bisulfate (Clopidogrel Bisulfate 75 Mg Tablet) 75 mg PO DAILY [facility] Last Admin: 10/11/23 09:47 Dose: Not Given Dextrose (Dextrose 50 % 25 Gm/50 Ml Syringe) 25 gm IVPUSH Q15M PRN; Protocol PRN Reason: per Hypoglycemia Standing Ord. Docusate Sodium (Docusate Sodium 100 Mg Capsule) 100 mg PO BID [facility] Last Admin: 10/11/23 09:47 Dose: Not Given Enoxaparin Sodium (Enoxaparin Sodium 30 Mg/0.3 Ml Syringe) 30 mg SUBCUT Q24H [facility] Last Admin: 10/09/23 14:44 Dose: 30 mg Fentanyl (Fentanyl Citrate/Pf 100 Mcg/2 Ml Vial) 25 mcg IVPUSH Q5M PRN; Protocol PRN Reason: Pain, Moderate(Pain Scale 4-6) Furosemide (Furosemide 20 Mg Tablet) 20 mg PO BEDTIME [facility]; Protocol Last Admin: 10/10/23 19:02 Dose: 20 mg Glucose (Glucose Gel 15 Gm Gel..Gram.) 15 gm PO Q15M PRN; Protocol PRN Reason: per Hypoglycemia Standing Ord. Piperacillin Sod/Tazobactam (Sod 3.375 gm/ Sodium Chloride) 50 mls @ 100 mls/hr IV Q6H [facility] Last Infusion: 10/11/23 09:48 Dose: Infused Vancomycin HCl 1,000 mg/ (Sodium Chloride) 270 mls @ 270 mls/hr IV Q12H [facility] Last Infusion: 10/11/23 13:18 Dose: Infused Insulin Glargine (Insulin Glargine,Hum.Rec.Anlog 100 Unit/Ml 10 Ml Vial) 38 unit SUBCUT BEDTIME [facility] Last Admin: 10/10/23 21:24 Dose: 38 unit Insulin Human Lispro (Insulin Lispro 100 Unit/Ml 3 Ml Vial) 0 unit SUBCUT QIDACHS [facility]; Protocol Last Admin: 10/11/23 12:12 Dose: Not Given Lisinopril (Lisinopril 40 Mg Tablet) 40 mg PO DAILY [facility]; Protocol Last Admin: 10/11/23 09:48 Dose: Not Given Magnesium Hydroxide (Milk Of Magnesia 30 Ml Oral.Susp) 30 ml PO DAILY PRN PRN Reason: Constipation Multivitamins/Vitamin C (Multivitamin Tablet) 1 tab PO DAILY [facility] Last Admin: 10/11/23 09:48 Dose: Not Given Ondansetron HCl (Ondansetron Hcl 4 Mg/2 Ml Vial) 4 mg IVPUSH Q8H PRN PRN Reason: Nausea and Vomiting Ondansetron HCl (Ondansetron Hcl 4 Mg/2 Ml Vial) 4 mg IVPUSH ONCE PRN PRN Reason: Nausea and Vomiting Oxybutynin Chloride (Oxybutynin Chloride Er 5 Mg Tab.Er.24) 5 mg PO BEDTIME [facility] Last Admin: 10/10/23 19:02 Dose: 5 mg Oxycodone HCl (Oxycodone Hcl Immed Release 5 Mg Tablet) 5 mg PO Q4H PRN PRN Reason: Pain, Severe (Pain Scale 7-10) Last Admin: 10/11/23 03:45 Dose: 5 mg Pharmacy Consult (Consult Rx Vancomycin Dosing) 1 each MISCELLANE DAILY PRN PRN Reason: Consult order Polyethylene Glycol (Polyethylene Glycol 3350 17 Gm Powd.Pack) 17 gm PO DAILY [facility] Last Admin: 10/11/23 09:48 Dose: Not Given Sodium Biphosphate/Sodium Phosphate (Sodium Phosphate,[place]-Dibasic 133 Ml Enema) 118 ml [place] DAILY PRN PRN Reason: Constipation Sodium Chloride (0.9 % Sodium Chloride Flush 3 Ml Syringe) 3 ml IVFLUSH QSHIFT [facility] Last Admin: 10/11/23 08:43 Dose: 3 ml Home Medications Medication Instructions Recorded Confirmed Last Taken Type furosemide 20 mg tablet 20 mg PO BEDTIME 06/29/23 10/07/23 Unknown History lisinopril 40 mg tablet 40 mg PO DAILY 06/29/23 10/07/23 Unknown History oxybutynin chloride 5 mg 5 mg PO BEDTIME 06/29/23 10/07/23 Unknown History tablet,extended release 24 hr acetaminophen 325 mg tablet 975 mg PO TID PRN Fever Or Pain 10/07/23 10/07/23 Unknown History aspirin 81 mg tablet,delayed 81 mg PO DAILY 10/07/23 10/07/23 Unknown History release atorvastatin 40 mg tablet 40 mg PO BEDTIME 10/07/23 10/07/23 Unknown History bisacodyl 10 mg rectal suppository 10 mg [place] DAILY PRN Constipation 10/07/23 10/07/23 Unknown History dextrose 40 % oral gel (Glucose 30 g PO Q15M PRN Hypoglycemia 10/07/23 10/07/23 Unknown History Gel) docusate sodium 100 mg capsule 100 mg PO BID 10/07/23 10/07/23 Unknown History glucagon 1 mg solution for 1 mg subcut Q15M PRN Hypoglycemia 10/07/23 10/07/23 Unknown History injection insulin glargine 100 unit/mL 38 unit subcut BEDTIME 10/07/23 10/07/23 Unknown History subcutaneous solution (Lantus U-100 Insulin) lidocaine 4 % topical patch 1 patch topical DAILY@0800 PRN Pain 10/07/23 Unknown History magnesium hydroxide 400 mg/5 mL 30 ml PO DAILY PRN Constipation 10/07/23 10/07/23 Unknown History oral suspension (Milk of Magnesia) multivitamin 1 tab PO DAILY 10/07/23 10/07/23 Unknown History oxycodone 5 mg tablet 5 mg PO Q4H PRN moderate to severe 10/07/23 10/07/23 Unknown History pain polyethylene glycol 3350 17 gram 17 g PO DAILY Constipation 10/07/23 10/07/23 Unknown History oral powder packet sodium phosphates 19 gram-7 118 ml [place] DAILY PRN Constipation 10/07/23 10/07/23 Unknown History gram/118 mL enema (Fleet Enema) Exam Height,Weight and Vital Signs: Height 5 ft 7 in Weight 84.2 kg Last Vital Signs Temp 98.5 F 10/11/23 12:50 Pulse 86 10/11/23 12:50 Resp 18 10/11/23 12:50 BP 117/67 10/11/23 12:50 Pulse Ox 100 10/11/23 12:50 O2 Del Method Room Air 10/11/23 12:50 Pertinent Lab Results Pertinent Lab Results: Laboratory Tests 10/07/23 10/07/23 10/07/23 12:31 18:08 21:16 WBC 10.8 RBC 4.15 L Hgb 12.3 L Hct 36.3 L MCV 87.5 MCH 29.6 MCHC 33.9 RDW 14.7 Plt Count 291 D MPV 9.5 Immature Gran % (Auto) 0.9 H Neut % (Auto) 70.7 Lymph % (Auto) 13.9 L [place] % (Auto) 9.7 Eos % (Auto) 4.4 H Baso % (Auto) 0.4 Lymph # (Auto) 1.5 [place] # (Auto) 1.1 Eos # (Auto) 0.5 H Baso # (Auto) 0.0 Abs Immat Gran (auto) 0.10 H Absolute Neuts (auto) 7.6 Absolute Nucleated RBC 0.000 Nucleated RBC % (auto) 0.0 ESR PT 13.5 H INR 1.1 Sodium 135 Potassium 4.8 Chloride 104 Carbon Dioxide 24 Anion Gap 12 BUN 32 H Creatinine 0.89 Estim Creat Clear Calc 62.9 Estimated GFR > 60 POC Glucose 175 H 265 H Random Glucose 197 H Estimat Average Glucose 200 Hemoglobin A1c % 8.6 H Lactic Acid 1.8 Calcium 9.7 D Total Bilirubin 0.5 AST 25 ALT 24 Alkaline Phosphatase 132 H C-Reactive Protein 8.43 H Total Protein 8.4 H Albumin 3.3 L Vancomycin Trough Random Vancomycin 10/08/23 10/08/23 10/08/23 05:53 08:05 11:19 WBC 11.1 H RBC 3.95 L Hgb 11.9 L Hct 34.4 L MCV 87.1 MCH 30.1 MCHC 34.6 RDW 14.4 Plt Count 304 MPV 10.1 Immature Gran % (Auto) Neut % (Auto) Lymph % (Auto) [place] % (Auto) Eos % (Auto) Baso % (Auto) Lymph # (Auto) [place] # (Auto) Eos # (Auto) Baso # (Auto) Abs Immat Gran (auto) Absolute Neuts (auto) Absolute Nucleated RBC 0.000 Nucleated RBC % (auto) 0.0 ESR 91 H PT INR Sodium 133 L Potassium 4.0 Chloride 103 Carbon Dioxide 24 Anion Gap 10 L BUN 22 H Creatinine 0.83 Estim Creat Clear Calc 67.4 Estimated GFR > 60 POC Glucose 176 H 209 H Random Glucose 161 H Estimat Average Glucose Hemoglobin A1c % Lactic Acid Calcium 9.2 Total Bilirubin AST ALT Alkaline Phosphatase C-Reactive Protein Total Protein Albumin Vancomycin Trough Random Vancomycin 10/08/23 10/08/23 10/08/23 16:35 20:13 21:01 WBC RBC Hgb Hct MCV MCH MCHC RDW Plt Count MPV Immature Gran % (Auto) Neut % (Auto) Lymph % (Auto) [place] % (Auto) Eos % (Auto) Baso % (Auto) Lymph # (Auto) [place] # (Auto) Eos # (Auto) Baso # (Auto) Abs Immat Gran (auto) Absolute Neuts (auto) Absolute Nucleated RBC Nucleated RBC % (auto) ESR PT INR Sodium Potassium Chloride Carbon Dioxide Anion Gap BUN Creatinine Estim Creat Clear Calc Estimated GFR POC Glucose 230 H 215 H Random Glucose Estimat Average Glucose Hemoglobin A1c % Lactic Acid Calcium Total Bilirubin AST ALT Alkaline Phosphatase C-Reactive Protein Total Protein Albumin Vancomycin Trough 13.5 Random Vancomycin 10/09/23 10/09/23 10/09/23 05:58 06:46 11:10 WBC RBC Hgb Hct MCV MCH MCHC RDW Plt Count MPV Immature Gran % (Auto) Neut % (Auto) Lymph % (Auto) [place] % (Auto) Eos % (Auto) Baso % (Auto) Lymph # (Auto) [place] # (Auto) Eos # (Auto) Baso # (Auto) Abs Immat Gran (auto) Absolute Neuts (auto) Absolute Nucleated RBC Nucleated RBC % (auto) ESR PT INR Sodium Potassium Chloride Carbon Dioxide Anion Gap BUN Creatinine 1.02 Estim Creat Clear Calc 54.9 Estimated GFR > 60 POC Glucose 147 H 195 H Random Glucose Estimat Average Glucose Hemoglobin A1c % Lactic Acid Calcium Total Bilirubin AST ALT Alkaline Phosphatase C-Reactive Protein Total Protein Albumin Vancomycin Trough Random Vancomycin 10/09/23 10/09/23 10/09/23 16:25 20:20 21:04 WBC RBC Hgb Hct MCV MCH MCHC RDW Plt Count MPV Immature Gran % (Auto) Neut % (Auto) Lymph % (Auto) [place] % (Auto) Eos % (Auto) Baso % (Auto) Lymph # (Auto) [place] # (Auto) Eos # (Auto) Baso # (Auto) Abs Immat Gran (auto) Absolute Neuts (auto) Absolute Nucleated RBC Nucleated RBC % (auto) ESR PT INR Sodium Potassium Chloride Carbon Dioxide Anion Gap BUN Creatinine Estim Creat Clear Calc Estimated GFR POC Glucose 249 H 231 H Random Glucose Estimat Average Glucose Hemoglobin A1c % Lactic Acid Calcium Total Bilirubin AST ALT Alkaline Phosphatase C-Reactive Protein Total Protein Albumin Vancomycin Trough 14.0 Random Vancomycin 10/10/23 10/10/23 10/10/23 05:46 07:43 11:10 WBC 11.7 H RBC 3.85 L Hgb 11.4 L Hct 33.5 L MCV 87.0 MCH 29.6 MCHC 34.0 RDW 14.5 Plt Count 300 MPV 9.9 Immature Gran % (Auto) 0.9 H Neut % (Auto) 65.7 Lymph % (Auto) 17.2 L [place] % (Auto) 10.9 Eos % (Auto) 4.9 H Baso % (Auto) 0.4 Lymph # (Auto) 2.0 [place] # (Auto) 1.3 H Eos # (Auto) 0.6 H Baso # (Auto) 0.1 Abs Immat Gran (auto) 0.10 H Absolute Neuts (auto) 7.7 Absolute Nucleated RBC 0.000 Nucleated RBC % (auto) 0.0 ESR PT INR Sodium 133 L Potassium 4.1 Chloride 103 Carbon Dioxide 25 Anion Gap 9 L BUN 15 Creatinine 1.01 Estim Creat Clear Calc 55.4 Estimated GFR > 60 POC Glucose 110 151 H Random Glucose 111 Estimat Average Glucose Hemoglobin A1c % Lactic Acid Calcium 9.0 Total Bilirubin AST ALT Alkaline Phosphatase C-Reactive Protein Total Protein Albumin Vancomycin Trough Random Vancomycin 10/10/23 10/10/23 10/10/23 15:56 19:25 21:21 WBC RBC Hgb Hct MCV MCH MCHC RDW Plt Count MPV Immature Gran % (Auto) Neut % (Auto) Lymph % (Auto) [place] % (Auto) Eos % (Auto) Baso % (Auto) Lymph # (Auto) [place] # (Auto) Eos # (Auto) Baso # (Auto) Abs Immat Gran (auto) Absolute Neuts (auto) Absolute Nucleated RBC Nucleated RBC % (auto) ESR PT INR Sodium Potassium Chloride Carbon Dioxide Anion Gap BUN Creatinine Estim Creat Clear Calc Estimated GFR POC Glucose 195 H 211 H Random Glucose Estimat Average Glucose Hemoglobin A1c % Lactic Acid Calcium Total Bilirubin AST ALT Alkaline Phosphatase C-Reactive Protein Total Protein Albumin Vancomycin Trough Random Vancomycin 14.4 L 10/11/23 10/11/23 10/11/23 05:33 07:15 11:21 WBC 11.7 H RBC 3.62 L Hgb 10.8 L Hct 31.3 L MCV 86.5 MCH 29.8 MCHC 34.5 RDW 14.4 Plt Count 281 MPV 9.6 Immature Gran % (Auto) 0.7 H Neut % (Auto) 66.6 Lymph % (Auto) 16.7 L [place] % (Auto) 10.5 Eos % (Auto) 4.9 H Baso % (Auto) 0.6 Lymph # (Auto) 1.9 [place] # (Auto) 1.2 Eos # (Auto) 0.6 H Baso # (Auto) 0.1 Abs Immat Gran (auto) 0.08 H Absolute Neuts (auto) 7.8 Absolute Nucleated RBC 0.000 Nucleated RBC % (auto) 0.0 ESR PT INR Sodium 134 L Potassium 3.7 Chloride 104 Carbon Dioxide 22 Anion Gap 12 BUN 16 Creatinine 0.87 Estim Creat Clear Calc 64.3 Estimated GFR > 60 POC Glucose 112 100 Random Glucose 120 H Estimat Average Glucose Hemoglobin A1c % Lactic Acid Calcium 8.9 Total Bilirubin AST ALT Alkaline Phosphatase C-Reactive Protein Total Protein Albumin Vancomycin Trough Random Vancomycin 10/11/23 12:43 WBC RBC Hgb Hct MCV MCH MCHC RDW Plt Count MPV Immature Gran % (Auto) Neut % (Auto) Lymph % (Auto) [place] % (Auto) Eos % (Auto) Baso % (Auto) Lymph # (Auto) [place] # (Auto) Eos # (Auto) Baso # (Auto) Abs Immat Gran (auto) Absolute Neuts (auto) Absolute Nucleated RBC Nucleated RBC % (auto) ESR PT INR Sodium Potassium Chloride Carbon Dioxide Anion Gap BUN Creatinine Estim Creat Clear Calc Estimated GFR POC Glucose 106 Random Glucose Estimat Average Glucose Hemoglobin A1c % Lactic Acid Calcium Total Bilirubin AST ALT Alkaline Phosphatase C-Reactive Protein Total Protein Albumin Vancomycin Trough Random Vancomycin Airway Mallampati Class: II TM Dist: >3cm Neck ROM: Full Denture: Upper Heart: rrr Lungs: clear Assessment and Plan Final Anesthetic Review Family History of Problems with Anesthesia: No History of Problems with Anesthesia: No NPO: Yes ASA Class: III Final Preanesthetic Review: No Changes in Pt Med Stat, Meds/Allgs Chart Reviewed and Consent Obtained/Reviewed Patient Risk: High Procedure Risk: Low Anesthetic Plan Anesthetic Plan: MAC: Disposition: Standard PACU
--- NOTE | 2023-10-11 13:50 | MHC.SHP ---
Pre-Procedural Eval Section A - 24 Hr Update-Section A only Date of Service: 10/11/23 The patient is an INPATIENT: Yes Changes since office visit: Yes Patient answered all questions The patient has been examined within 24 hours of the surgical procedure. The History & Physical has been completed within 30 days and I have reviewed it.: Yes Section B - Complete if H&P > 30 days Chief Complaint: Osteomyelitis Allergies: Allergies Allergy/AdvReac Type Severity Reaction Status Date / Time No Known Allergies Allergy Verified 09/08/23 09:09 Plan I have reviewed the history and physical and performed a pertinent physical examination on my patient. No changes have occurred unless specified. Time Spent With Patient Time: Total time managing care of this patient today ____ minutes.
[2023-10-11 16:24] LABS: Glucose, Whole Blood 86 mg/dL (60-115)
--- NOTE | 2023-10-11 16:29 | P.OP_ITS ---
Operative Note Operative Note Date of Service: 10/11/23 Narrative: Operative note by [facility] Preoperative diagnosis: Right 2nd toe wet gangrene Postoperative diagnosis: Same Procedure: Right 2nd toe ray amputation Surgeon:Power Gonzales M.D. Senior Architect: Horacio Anesthesia: Local with sedation performed by anesthesia Specimens: 1 Drains: None Estimated blood loss: Minimal Indications: 83-year-old gentleman who previously had right great toe amputation presents with nonhealing right 2nd toe. Was noted to have wet gangrene and purulent material draining from that foot. He now presents for follow-up. The patient has signed the informed consent after reviewing risks, complications, benefits, and alternatives previously discussed with the patient. The patient was given the opportunity to ask any additional questions or voice any concerns. All questions were answered to the patient's satisfaction. Procedure in detail: Patient was brought to the operating room prior to which time-out was called for patient identification site verification. Right foot was prepped and draped in the standard surgical fashion. Curvilinear incision was carried out over the 2nd toe. We brought this back down to the metatarsal head. Clearly the metatarsal head was exposed and it was fractured. We then removed the toe and then resected back on to the metatarsal head we cleared the surrounding tissue. Purulent material was encountered. We took deep cultures of that area. In addition we sent a piece of bone for specimen. Once this was accomplished we then used a power saw to transect across the metatarsal. Once this was brought down to a reasonable level we filed this down with a rasp. We removed all the devitalized tissue. Thoroughly irrigated out the wound. Deep layer was reapproximated using 2 0 Polysorb in superficial layer with a 2-0 ny misha in a mattress fashion. Telfa and a sterile dressing were applied. At the end the case sponge instrument counts were correct. Patient tolerated the procedure well. Returned to recovery with stable vitals. This note is constructed using voice recognition software. While every effort has been made to ensure accuracy, mailroom messenger errors may have been included. Thank you for allowing me to participate in the care of your patient. Yours sincerely, Power Gonzales MD, FACS, R.P.V.I.
--- NOTE | 2023-10-11 16:35 | PC.NURSE ---
Pt returned to floor from PACU at approximately 1600. At this time Pt A&Ox4 and able to make needs known. Pt denies pain at this time. Right foot has surgical dressing in place CDI.
[2023-10-11] MEDS: Docusate Sodium 100 MG CAPSULE PO (20:02)
[2023-10-11] MEDS: Atorvastatin Calcium 40 MG TABLET PO (20:02)
[2023-10-11] MEDS: Furosemide 20 MG TABLET PO (20:02)
[2023-10-11] MEDS: Insulin Glargine,Hum.rec.anlog 100 UNIT/ML 10 ML VIAL 38 UNIT SUBCUT (20:03)
[2023-10-11] MEDS: oxyBUTYnin chloride ER 5 MG TAB.ER.24 PO (20:03)
[2023-10-11 20:06] LABS: Glucose, Whole Blood 149 mg/dL (60-115)
[2023-10-11 21:29] LABS: Vancomycin Random 16.9 mcg/mL (15-20)
[2023-10-12 03:28] VITALS: BP 149/73; PULSE 89; RESP 18; TEMP 37.1; O2SAT 98
[2023-10-12] MEDS: oxyCODONE HCl Immed Release 5 MG TABLET PO ×2 (04:19→16:52)
[2023-10-12] MEDS: Piperacillin Sodium/Tazobactam 3.375 GM in 0.9 % Sodium Chloride 50 ML IV ×4 (04:27→22:00)
[2023-10-12 05:39] LABS: Creatinine Clr Calc Pharmacy 69.1; Estimated Glomerular Filt Rate > 60
--- NOTE | 2023-10-12 07:01 | HE.PHANOTE ---
Re: Vanco Continue dose at 1,000 q12h. Renal function is fluctuating but has slightly improved. Predicted AUC 477.
[2023-10-12 07:27] VITALS: BP 120/67; PULSE 87; RESP 17; TEMP 36.7; O2SAT 96
[2023-10-12 07:47] LABS: Glucose, Whole Blood 102 mg/dL (60-115)
[2023-10-12 08:49] VITALS: O2SAT 96
[2023-10-12] MEDS: Multivitamin TABLET 1 TAB PO (09:27)
[2023-10-12] MEDS: lisinopriL 40 MG TABLET PO (09:27)
[2023-10-12] MEDS: Docusate Sodium 100 MG CAPSULE PO ×2 (09:27→21:54)
[2023-10-12] MEDS: Aspirin Enteric Coated 81 MG TABLET.DR PO (09:27)
[2023-10-12] MEDS: Clopidogrel Bisulfate 75 MG TABLET PO (09:27)
[2023-10-12 10:28] VITALS: O2SAT 96
[2023-10-12 11:22] LABS: Glucose, Whole Blood 177 mg/dL (60-115)
[2023-10-12] MEDS: Insulin Lispro 100 UNIT/ML 3 ML VIAL SUBCUT ×3 (11:54→21:54)
[2023-10-12] MEDS: vancomycin HCL 1,000 MG in 0.9 % Sodium Chloride 250 ML 270 MG IV ×2 (11:54→22:38)
--- NOTE | 2023-10-12 12:04 | HO.VASCPN ---
Subjective Subjective Date of Service: 10/12/23 Patient reports: no new complaints and feels better Interval history: Patient is postop day 1 status post 2nd toe amp. Appears to be doing relatively well. Pain well controlled. Now for postop follow-up. Physical Exam Vital Signs: Vital Signs: Last Vital Signs Temp 98.0 F 10/12/23 07:27 Pulse 87 10/12/23 07:27 Resp 17 10/12/23 07:27 BP 120/67 10/12/23 07:27 Pulse Ox 96 10/12/23 07:27 O2 Del Method Room Air 10/12/23 07:27 BMI result Body Mass Index 29.1 Const: General: cooperative, healthy appearing and comfortable Orientation/consciousness: oriented to person, oriented to place and oriented to time HEENT: Head: Yes normal to inspection Neck: Neck: Yes normal visual inspection Carotids: no bruits Chest: Chest palpation & inspection: normal inspection of the chest Resp: Effort & Inspection: normal respiratory effort and able to speak in complete sentences Auscultation: clear to auscultation bilaterally, no crackles, no rales, no rhonchi and no wheezes Cardio: Rate: regular rate Rhythm: regular rhythm Heart sounds: S1 normal heart sound present and S2 normal heart sound present Bruits: no carotid bruits Peripheral pulses: Peripheral pulses 2+ throughout GI: Inspection: Yes normal to inspection Skin: Other: Right foot dressing mild drainage but intact Wounds: no wounds Hair: normal Neuro: General: oriented to person, oriented to place and oriented to time Cranial nerves: Yes CN's II-XII intact bilaterally and Yes Normal hearing present Cognition (Neuro): normal cognition Motor exam (neuro): 5/5 motor strength present throughout Extrem: Other: venous exam: No significant superficial varicosities or spider telangiectasias, minimal edema General: No clubbing, No cyanosis and No edema Psych: Appearance: grossly normal Mental Status: mental status grossly normal Speech and movement: Normal speech and movement present Progress Note: A&P Assessment and plan (1) PAD (peripheral artery disease): Status: Acute Assessment and Plan: In short patient is status post 2nd toe amp. Will plan for dressing change for tomorrow. Would follow up on deep cultures and bony cultures. Would continue antibiotics for now. Of note staff is both in the bone and cultures Time Spent With Patient Time: Total time managing care of this patient today ____ minutes. Procedures Date of Service Date of Service: 10/12/23 Quality Stroke Does the patient have a stroke diagnosis?: No VTE Prior VTE?: No VTE Risk Level:: Medical - moderate - high VTE Device Contraindication: N/A - Device Ordered VTE Drug Contraindication: N/A - Med Ordered
--- NOTE | 2023-10-12 14:09 | P.PNIM_ITS ---
Subjective Subjective Date of Service: 10/12/23 Interval History: pain R foot. Review of Systems no new c/o has right foot mild soarness Physical Exam 2 Vital Signs: Vital Signs: Last Vital Signs Temp 98.0 F 10/12/23 07:27 Pulse 87 10/12/23 07:27 Resp 17 10/12/23 07:27 BP 120/67 10/12/23 07:27 Pulse Ox 96 10/12/23 07:27 O2 Del Method Room Air 10/12/23 07:27 BMI result Body Mass Index 29.1 Appearance: Alert.? Oriented . cvs: rrr, [id number] , no murmur res: clear to auscultation ,no rhonchii or wheezing abd: no rebound or guarding ,nt, bs present. ext pulses present , no cyanosis . right foot surgery,wrapped ,mild drainage. neuro: axo3 , nonfocal. Objective Data Active Medications Acetaminophen (Acetaminophen 325 Mg Tablet) 650 mg PO Q6H PRN PRN Reason: Pain, Mild (Pain Scale 1-3) Last Admin: 10/10/23 14:06 Dose: 650 mg Documented By: NIDIA Aspirin (Aspirin Enteric Coated 81 Mg Tablet.) 81 mg PO DAILY [facility] Last Admin: 10/12/23 09:27 Dose: 81 mg Documented By: JUAN Atorvastatin Calcium (Atorvastatin Calcium 40 Mg Tablet) 40 mg PO BEDTIME [facility] Last Admin: 10/11/23 20:02 Dose: 40 mg Documented By: ELGINRISHipolito Bisacodyl (Bisacodyl 10 Mg Supp.Rect) 10 mg [place] DAILY PRN PRN Reason: Constipation Clopidogrel Bisulfate (Clopidogrel Bisulfate 75 Mg Tablet) 75 mg PO DAILY [facility] Last Admin: 10/12/23 09:27 Dose: 75 mg Documented By: JUAN Dextrose (Dextrose 50 % 25 Gm/50 Ml Syringe) 25 gm IVPUSH Q15M PRN; Protocol PRN Reason: per Hypoglycemia Standing Ord. Docusate Sodium (Docusate Sodium 100 Mg Capsule) 100 mg PO BID [facility] Last Admin: 10/12/23 09:27 Dose: 100 mg Documented By: JUAN Enoxaparin Sodium (Enoxaparin Sodium 30 Mg/0.3 Ml Syringe) 30 mg SUBCUT Q24H [facility] Last Admin: 10/09/23 14:44 Dose: 30 mg Documented By: PAT Fentanyl (Fentanyl Citrate/Pf 100 Mcg/2 Ml Vial) 25 mcg IVPUSH Q5M PRN; Protocol PRN Reason: Pain, Moderate(Pain Scale 4-6) Furosemide (Furosemide 20 Mg Tablet) 20 mg PO BEDTIME [facility]; Protocol Last Admin: 10/11/23 20:02 Dose: 20 mg Documented By: DEBBIE Glucose (Glucose Gel 15 Gm Gel..Gram.) 15 gm PO Q15M PRN; Protocol PRN Reason: per Hypoglycemia Standing Ord. Vancomycin HCl 1,000 mg/ (Sodium Chloride) 270 mls @ 270 mls/hr IV Q12H [facility] Last Infusion: 10/12/23 13:24 Dose: Infused Documented By: JUAN Piperacillin Sod/Tazobactam (Sod 3.375 gm/ Sodium Chloride) 50 mls @ 100 mls/hr IV Q6H [facility] Last Infusion: 10/12/23 11:46 Dose: Infused Documented By: JUAN Insulin Glargine (Insulin Glargine,Hum.Rec.Anlog 100 Unit/Ml 10 Ml Vial) 38 unit SUBCUT BEDTIME [facility] Last Admin: 10/11/23 20:03 Dose: 38 unit Documented By: DEBBIE Insulin Human Lispro (Insulin Lispro 100 Unit/Ml 3 Ml Vial) 0 unit SUBCUT QIDACHS [facility]; Protocol Last Admin: 10/12/23 11:54 Dose: 2 unit Documented By: JUAN Lisinopril (Lisinopril 40 Mg Tablet) 40 mg PO DAILY [facility]; Protocol Last Admin: 10/12/23 09:27 Dose: 40 mg Documented By: JUAN Magnesium Hydroxide (Milk Of Magnesia 30 Ml Oral.Susp) 30 ml PO DAILY PRN PRN Reason: Constipation Multivitamins/Vitamin C (Multivitamin Tablet) 1 tab PO DAILY [facility] Last Admin: 10/12/23 09:27 Dose: 1 tab Documented By: JUAN Ondansetron HCl (Ondansetron Hcl 4 Mg/2 Ml Vial) 4 mg IVPUSH Q8H PRN PRN Reason: Nausea and Vomiting Ondansetron HCl (Ondansetron Hcl 4 Mg/2 Ml Vial) 4 mg IVPUSH ONCE PRN PRN Reason: Nausea and Vomiting Oxybutynin Chloride (Oxybutynin Chloride Er 5 Mg Tab.Er.24) 5 mg PO BEDTIME [facility] Last Admin: 10/11/23 20:03 Dose: 5 mg Documented By: DEBBIE Oxycodone HCl (Oxycodone Hcl Immed Release 5 Mg Tablet) 5 mg PO Q4H PRN PRN Reason: Pain, Severe (Pain Scale 7-10) Last Admin: 10/12/23 04:19 Dose: 5 mg Documented By: DEBBIE Pharmacy Consult (Consult Rx Vancomycin Dosing) 1 each MISCELLANE DAILY PRN PRN Reason: Consult order Polyethylene Glycol (Polyethylene Glycol 3350 17 Gm Powd.Pack) 17 gm PO DAILY [facility] Last Admin: 10/12/23 09:33 Dose: Not Given Documented By: JUAN Non-Admin Reason: Patient Refused Sodium Biphosphate/Sodium Phosphate (Sodium Phosphate,Davie-Dibasic 133 Ml Enema) 118 ml [place] DAILY PRN PRN Reason: Constipation Sodium Chloride (0.9 % Sodium Chloride Flush 3 Ml Syringe) 3 ml IVFLUSH QSHIFT [facility] Last Admin: 10/12/23 09:16 Dose: Not Given Documented By: JUAN Non-Admin Reason: Previously Administered Labs 10/11/23 05:33 10/12/23 05:08 Labs: Laboratory Results - last 24 hr 10/11/23 10/11/23 10/11/23 16:17 19:53 21:09 Hold Purple Top Estim Creat Clear Calc Estimated GFR POC Glucose 86 149 H Random Vancomycin 16.9 10/12/23 10/12/23 10/12/23 05:08 05:23 07:33 Hold Purple Top SEE NOTE Estim Creat Clear Calc 69.1 Estimated GFR > 60 POC Glucose 102 Random Vancomycin 10/12/23 11:18 Hold Purple Top Estim Creat Clear Calc Estimated GFR POC Glucose 177 H Random Vancomycin Microbiology Microbiology Results: Microbiology 10/11/23 Unknown Gram Stain - Final Toe Right Second Routine Culture - Preliminary Staphylococcus aureus 10/11/23 Unknown Gram Stain - Final Bone Routine Culture - Preliminary Staphylococcus aureus Anaerobic Culture - Preliminary Culture in progress. 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 osteomyelitis due to DM2 + PAD No sepsis, blood cultures negative thus far Plan for amp and wound vac 10/11 per vascular surgery vanco trough 16.9 on 10/11 wound cultures pending d/w vascular -Continue vanco/zosyn (initiated 10/07)until deep wound cultures comes back. ID/vascular surgery following DM2- basal-bolus insulin, hold OHGs HTN- lisinopril PAD- clopidogrel VTE ppx- LMWH- on hold due to procedure, SCPs dispo- return to SNF. In my clinical judgment, the patient requires continued inpatient hospitalization for the following reasons: IV ABX,vanco trough ,renal function/electrolytes monitering,awaiting wound culture for antibiotics management. Quality Stroke Does the patient have a stroke diagnosis?: No VTE Prior VTE?: No VTE Risk Level:: Medical - moderate - high VTE Device Contraindication: N/A - Device Ordered VTE Drug Contraindication: N/A - Med Ordered
[2023-10-12 16:00] VITALS: BP 122/60; PULSE 87; RESP 18; TEMP 36.8; O2SAT 96
[2023-10-12 16:39] LABS: Glucose, Whole Blood 192 mg/dL (60-115)
[2023-10-12] MEDS: 0.9 % Sodium Chloride Flush 3 ML SYRINGE IVFLUSH (16:53)
--- NOTE | 2023-10-12 17:49 | HO.POSTANES ---
Post Anesthesia Evaluation Post Anesthesia Evaluation Date of Service: 10/12/23 Vital Signs: Vital Signs Temp Pulse Resp BP Pulse Ox O2 Del Method 10/12/23 16:00 98.2 F 87 18 122/60 96 Room Air 10/12/23 10:28 96 Room Air 10/12/23 08:49 96 Room Air 10/12/23 07:27 98.0 F 87 17 120/67 96 Room Air Anesthesia: Monitored Mental Status: Awake Pain Control: Satisfactory Nausea/Vomiting: None Hydration: Adequate Anesthesia-Related Issues: No Anes. Related Issues
[2023-10-12 19:47] VITALS: BP 130/63; PULSE 88; RESP 16; TEMP 36.6; O2SAT 98
[2023-10-12 20:23] LABS: Glucose, Whole Blood 226 mg/dL (60-115)
[2023-10-12] MEDS: Atorvastatin Calcium 40 MG TABLET PO (21:54)
[2023-10-12] MEDS: Furosemide 20 MG TABLET PO (21:54)
[2023-10-12] MEDS: Insulin Glargine,Hum.rec.anlog 100 UNIT/ML 10 ML VIAL 38 UNIT SUBCUT (21:54)
[2023-10-12] MEDS: oxyBUTYnin chloride ER 5 MG TAB.ER.24 PO (21:54)
[2023-10-12] MEDS: Acetaminophen 325 MG TABLET 650 MG PO (23:49)
[2023-10-13] MEDS: traMADoL HCL 50 MG TABLET 25 MG PO ×2 (03:14→09:41)
[2023-10-13 03:59] VITALS: BP 115/62; PULSE 84; RESP 16; TEMP 36.6; O2SAT 98
[2023-10-13] MEDS: Piperacillin Sodium/Tazobactam 3.375 GM in 0.9 % Sodium Chloride 50 ML IV ×4 (05:38→22:22)
[2023-10-13 07:23] LABS: Glucose, Whole Blood 100 mg/dL (60-115)
[2023-10-13 07:36] LABS: Creatinine Clr Calc Pharmacy 60.8; Estimated Glomerular Filt Rate > 60
[2023-10-13 07:43] VITALS: BP 148/76; PULSE 76; RESP 20; TEMP 36.9; O2SAT 98
[2023-10-13 09:17] LABS: Vancomycin Trough 21.6 mcg/mL (10.0-20.0)
[2023-10-13] MEDS: lisinopriL 40 MG TABLET PO (09:18)
[2023-10-13] MEDS: Aspirin Enteric Coated 81 MG TABLET.DR PO (09:18)
[2023-10-13] MEDS: Multivitamin TABLET 1 TAB PO (09:18)
[2023-10-13] MEDS: Clopidogrel Bisulfate 75 MG TABLET PO (09:19)
[2023-10-13] MEDS: 0.9 % Sodium Chloride Flush 3 ML SYRINGE IVFLUSH ×3 (09:19→20:42)
[2023-10-13] MEDS: Docusate Sodium 100 MG CAPSULE PO ×2 (09:19→20:41)
--- NOTE | 2023-10-13 09:28 | HE.PHANOTE ---
RE: VANCO DOSING Trough came back as 21.6 mg/L (predicted to be 17.6 mg/L). Dose is decreased to 750 mg q12h starting @1100 10/13/23 and next random is scheduled for 10/14/23 @0900.
[2023-10-13 11:04] LABS: Glucose, Whole Blood 132 mg/dL (60-115)
[2023-10-13] MEDS: vancomycin HCL 750 MG in 0.9 % Sodium Chloride 250 ML 265 MG IV ×2 (11:52→22:56)
--- NOTE | 2023-10-13 12:26 | HO.PM.IMPN ---
Subjective Subjective Date of Service: 10/13/23 Interval History: pain R foot. Review of Systems no new c/o has right foot mild soarness , someblood soaking on foot dressing Physical Exam Vital Signs: Vital Signs: Last Vital Signs Temp 98.4 F 10/13/23 07:43 Pulse 76 10/13/23 07:43 Resp 20 10/13/23 07:43 BP 148/76 H 10/13/23 07:43 Pulse Ox 98 10/13/23 07:43 O2 Del Method Room Air 10/13/23 07:43 BMI result Body Mass Index 29.1 Appearance: Alert.? Oriented . cvs: rrr, [id number] , no murmur res: clear to auscultation ,no rhonchii or wheezing abd: no rebound or guarding ,nt, bs present. ext pulses present , no cyanosis . right foot surgery,wrapped ,mild drainage. neuro: axo3 , nonfocal. Objective Data Active Medications Acetaminophen (Acetaminophen 325 Mg Tablet) 650 mg PO Q6H PRN PRN Reason: Pain, Mild (Pain Scale 1-3) Last Admin: 10/12/23 23:49 Dose: 650 mg Documented By: MARTIN Aspirin (Aspirin Enteric Coated 81 Mg Tablet.) 81 mg PO DAILY [facility] Last Admin: 10/13/23 09:18 Dose: 81 mg Documented By: GENA Atorvastatin Calcium (Atorvastatin Calcium 40 Mg Tablet) 40 mg PO BEDTIME [facility] Last Admin: 10/12/23 21:54 Dose: 40 mg Documented By: MARTIN Bisacodyl (Bisacodyl 10 Mg Supp.Rect) 10 mg [place] DAILY PRN PRN Reason: Constipation Clopidogrel Bisulfate (Clopidogrel Bisulfate 75 Mg Tablet) 75 mg PO DAILY [facility] Last Admin: 10/13/23 09:19 Dose: 75 mg Documented By: GENA Dextrose (Dextrose 50 % 25 Gm/50 Ml Syringe) 25 gm IVPUSH Q15M PRN; Protocol PRN Reason: per Hypoglycemia Standing Ord. Docusate Sodium (Docusate Sodium 100 Mg Capsule) 100 mg PO BID [facility] Last Admin: 10/13/23 09:19 Dose: 100 mg Documented By: GENA Enoxaparin Sodium (Enoxaparin Sodium 30 Mg/0.3 Ml Syringe) 30 mg SUBCUT Q24H [facility] Last Admin: 10/09/23 14:44 Dose: 30 mg Documented By: PAT Fentanyl (Fentanyl Citrate/Pf 100 Mcg/2 Ml Vial) 25 mcg IVPUSH Q5M PRN; Protocol PRN Reason: Pain, Moderate(Pain Scale 4-6) Furosemide (Furosemide 20 Mg Tablet) 20 mg PO BEDTIME [facility]; Protocol Last Admin: 10/12/23 21:54 Dose: 20 mg Documented By: MARTIN Glucose (Glucose Gel 15 Gm Gel..Gram.) 15 gm PO Q15M PRN; Protocol PRN Reason: per Hypoglycemia Standing Ord. Piperacillin Sod/Tazobactam (Sod 3.375 gm/ Sodium Chloride) 50 mls @ 100 mls/hr IV Q6H [facility] Last Infusion: 10/13/23 11:58 Dose: Infused Documented By: NIA Vancomycin HCl 750 mg/ Sodium (Chloride) 265 mls @ 265 mls/hr IV Q12H [facility] Last Admin: 10/13/23 11:52 Dose: 265 mls/hr Documented By: NIA Insulin Glargine (Insulin Glargine,Hum.Rec.Anlog 100 Unit/Ml 10 Ml Vial) 38 unit SUBCUT BEDTIME [facility] Last Admin: 10/12/23 21:54 Dose: 38 unit Documented By: MARTIN Insulin Human Lispro (Insulin Lispro 100 Unit/Ml 3 Ml Vial) 0 unit SUBCUT QIDACHS [facility]; Protocol Last Admin: 10/13/23 11:22 Dose: Not Given Documented By: NIA Non-Admin Reason: No Insulin Coverage Lisinopril (Lisinopril 40 Mg Tablet) 40 mg PO DAILY [facility]; Protocol Last Admin: 10/13/23 09:18 Dose: 40 mg Documented By: GENA Magnesium Hydroxide (Milk Of Magnesia 30 Ml Oral.Susp) 30 ml PO DAILY PRN PRN Reason: Constipation Multivitamins/Vitamin C (Multivitamin Tablet) 1 tab PO DAILY [facility] Last Admin: 10/13/23 09:18 Dose: 1 tab Documented By: GENA Ondansetron HCl (Ondansetron Hcl 4 Mg/2 Ml Vial) 4 mg IVPUSH Q8H PRN PRN Reason: Nausea and Vomiting Ondansetron HCl (Ondansetron Hcl 4 Mg/2 Ml Vial) 4 mg IVPUSH ONCE PRN PRN Reason: Nausea and Vomiting Oxybutynin Chloride (Oxybutynin Chloride Er 5 Mg Tab.Er.24) 5 mg PO BEDTIME [facility] Last Admin: 10/12/23 21:54 Dose: 5 mg Documented By: MARTIN Pharmacy Consult (Consult Rx Vancomycin Dosing) 1 each MISCELLANE DAILY PRN PRN Reason: Consult order Polyethylene Glycol (Polyethylene Glycol 3350 17 Gm Powd.Pack) 17 gm PO DAILY [facility] Last Admin: 10/13/23 09:20 Dose: Not Given Documented By: GENA Non-Admin Reason: Patient Refused Sodium Biphosphate/Sodium Phosphate (Sodium Phosphate,Bennett-Dibasic 133 Ml Enema) 118 ml [place] DAILY PRN PRN Reason: Constipation Sodium Chloride (0.9 % Sodium Chloride Flush 3 Ml Syringe) 3 ml IVFLUSH QSHIFT [facility] Last Admin: 10/13/23 09:19 Dose: 3 ml Documented By: GENA Tramadol HCl (Tramadol Hcl 50 Mg Tablet) 25 mg PO Q4H PRN PRN Reason: Pain, Moderate(Pain Scale 4-6) Last Admin: 10/13/23 09:41 Dose: 25 mg Documented By: GENA Labs 10/11/23 05:33 10/13/23 05:31 Labs: Laboratory Results - last 24 hr 10/12/23 10/12/23 10/13/23 16:34 20:16 05:31 Estim Creat Clear Calc 60.8 Estimated GFR > 60 POC Glucose 192 H 226 H Vancomycin Trough 10/13/23 10/13/23 10/13/23 07:16 08:53 11:00 Estim Creat Clear Calc Estimated GFR POC Glucose 100 132 H Vancomycin Trough 21.6 H Microbiology Microbiology Results: Microbiology 10/11/23 Unknown Gram Stain - Final Bone Routine Culture - Preliminary Staphylococcus aureus Anaerobic Culture - Preliminary Culture in progress. 10/11/23 Unknown Gram Stain - Final Toe Right Second Routine Culture - Preliminary Staphylococcus aureus 10/07/23 12:38 Blood Culture - Final Blood - Venous No growth after 5 days. 10/07/23 12:31 Blood Culture - Final Blood - Venous No growth after 5 days. 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 osteomyelitis due to DM2 + PAD No sepsis, blood cultures negative thus far Plan for amp and wound vac 10/11 per vascular surgery vanco trough 16.9 on 10/11 wound cultures pending d/w vascular - s/p Right 2nd toe ray amputation(10/11)-Continue vanco/zosyn (initiated 10/07)until deep wound cultures comes back. ID/vascular surgery following DM2- basal-bolus insulin, hold OHGs HTN- lisinopril PAD- clopidogrel VTE ppx- LMWH- on hold due to procedure, SCPs dispo- return to SNF. In my clinical judgment, the patient requires continued inpatient hospitalization for the following reasons: IV ABX,vanco trough ,renal function/electrolytes monitering,awaiting wound culture for antibiotics management. Quality Stroke Does the patient have a stroke diagnosis?: No VTE Prior VTE?: No VTE Risk Level:: Medical - moderate - high VTE Device Contraindication: N/A - Device Ordered VTE Drug Contraindication: N/A - Med Ordered
--- NOTE | 2023-10-13 13:06 | P.CDIM_ITS ---
PROVIDER RESPONSE TEXT: To clarify, the appropriate diagnosis supported by the clinical indicators: Acute QUERY TEXT: PHYSICIAN'S DOCUMENTATION REQUEST Date of Query: 10/13/2023 07:35 AM EST Patient Name: Kavon Live Admit Date: 10/07/2023 Dear Pat Naidu, A review of the medical record indicates additional documentation may be needed. Please review below and update the documentation accordingly. Clinical Indicators: Per Hospitalist progress note 10/12/23: osteomyelitis due to DM2 + PAD IV Vancomycin and IV Piperacillin underwent R second toe amputation on 10/12/23 Clarify which of the following accurately represents the acuity of the Osteomyelitis. Possible options might include: Acute Acute on chronic Compensated Chronic stable condition Remission Other (explain) Clinically unable to determine (explain) Thank you, Lesly Chi RN Use of terms such as suspected, likely, concern for, or probable (associated with a specific diagnosi s that is being evaluated, monitored, or treated as if it exists) are acceptable and can be coded in the inpatient se tting, when documented at the time of discharge. Please use your independent medical judgment in providing your response. THIS QUERY IS PART OF THE PERMANENT MEDICAL RECORD
--- NOTE | 2023-10-13 13:24 | HO.VASCPN ---
Subjective Subjective Date of Service: 10/13/23 Patient reports: no new complaints and feels better Interval history: Patient seen and examined. Status post toe amputation. Appears to be doing extremely well postoperatively. Now for dressing change. Physical Exam Vital Signs: Vital Signs: Last Vital Signs Temp 98.4 F 10/13/23 07:43 Pulse 76 10/13/23 07:43 Resp 20 10/13/23 07:43 BP 148/76 H 10/13/23 07:43 Pulse Ox 98 10/13/23 07:43 O2 Del Method Room Air 10/13/23 07:43 BMI result Body Mass Index 29.1 Const: General: cooperative, healthy appearing and comfortable Orientation/consciousness: oriented to person, oriented to place and oriented to time HEENT: Head: Yes normal to inspection Neck: Neck: Yes normal visual inspection Carotids: no bruits Chest: Chest palpation & inspection: normal inspection of the chest Resp: Effort & Inspection: normal respiratory effort and able to speak in complete sentences Auscultation: clear to auscultation bilaterally, no crackles, no rales, no rhonchi and no wheezes Cardio: Rate: regular rate Rhythm: regular rhythm Heart sounds: S1 normal heart sound present and S2 normal heart sound present Bruits: no carotid bruits Peripheral pulses: Peripheral pulses 2+ throughout GI: Inspection: Yes normal to inspection Skin: Other: Incision line healing well there is an open area which was purposely left as we could not reapproximate skin Wounds: no wounds Hair: normal Neuro: General: oriented to person, oriented to place and oriented to time Cranial nerves: Yes CN's II-XII intact bilaterally and Yes Normal hearing present Cognition (Neuro): normal cognition Motor exam (neuro): 5/5 motor strength present throughout Extrem: Other: venous exam: No significant superficial varicosities or spider telangiectasias, minimal edema General: No clubbing, No cyanosis and No edema Psych: Appearance: grossly normal Mental Status: mental status grossly normal Speech and movement: Normal speech and movement present Progress Note: A&P Assessment and plan (1) PAD (peripheral artery disease): Status: Acute Assessment and Plan: In short patient is status post toe amputation. Appears to be doing extremely well. Will need additional antibiotics and I did take deep cultures for that. Stable from my perspective the otherwise for discharge. Wound care instructions were written. Time Spent With Patient Time: Total time managing care of this patient today ____ minutes. Procedures Date of Service Date of Service: 10/13/23 Quality Stroke Does the patient have a stroke diagnosis?: No VTE Prior VTE?: No VTE Risk Level:: Medical - moderate - high VTE Device Contraindication: N/A - Device Ordered VTE Drug Contraindication: N/A - Med Ordered
[2023-10-13 15:23] VITALS: BP 129/60; PULSE 74; RESP 16; TEMP 36.4; O2SAT 98
[2023-10-13 16:14] LABS: Glucose, Whole Blood 153 mg/dL (60-115)
[2023-10-13] MEDS: Enoxaparin Sodium 30 MG/0.3 ML SYRINGE SUBCUT (16:59)
[2023-10-13] MEDS: Insulin Lispro 100 UNIT/ML 3 ML VIAL SUBCUT ×2 (17:08→20:42)
[2023-10-13 19:23] VITALS: BP 118/60; PULSE 86; RESP 18; TEMP 36.8; O2SAT 98
[2023-10-13 20:35] LABS: Glucose, Whole Blood 214 mg/dL (60-115)
[2023-10-13] MEDS: Atorvastatin Calcium 40 MG TABLET PO (20:41)
[2023-10-13] MEDS: Furosemide 20 MG TABLET PO (20:41)
[2023-10-13] MEDS: oxyBUTYnin chloride ER 5 MG TAB.ER.24 PO (20:41)
[2023-10-13] MEDS: Insulin Glargine,Hum.rec.anlog 100 UNIT/ML 10 ML VIAL 38 UNIT SUBCUT (20:42)
[2023-10-14 03:54] VITALS: BP 138/64; PULSE 88; RESP 16; TEMP 36.9; O2SAT 97
[2023-10-14] MEDS: traMADoL HCL 50 MG TABLET 25 MG PO (04:00)
[2023-10-14] MEDS: Acetaminophen 325 MG TABLET 650 MG PO (04:00)
[2023-10-14] MEDS: Piperacillin Sodium/Tazobactam 3.375 GM in 0.9 % Sodium Chloride 50 ML IV ×2 (05:08→10:43)
[2023-10-14 05:54] LABS: Creatinine Clr Calc Pharmacy 60.8; Estimated Glomerular Filt Rate > 60
[2023-10-14 07:20] VITALS: BP 108/53; PULSE 66; RESP 20; TEMP 36.2; O2SAT 96
[2023-10-14 07:32] LABS: Glucose, Whole Blood 69 mg/dL (60-115)
[2023-10-14 07:54] LABS: Glucose, Whole Blood 91 mg/dL (60-115)
[2023-10-14] MEDS: 0.9 % Sodium Chloride Flush 3 ML SYRINGE IVFLUSH (08:49)
[2023-10-14] MEDS: Famotidine 20 MG TABLET PO (08:50)
[2023-10-14] MEDS: Docusate Sodium 100 MG CAPSULE PO ×2 (08:50→20:54)
[2023-10-14] MEDS: Multivitamin TABLET 1 TAB PO (08:50)
[2023-10-14] MEDS: Aspirin Enteric Coated 81 MG TABLET.DR PO (08:50)
[2023-10-14] MEDS: Clopidogrel Bisulfate 75 MG TABLET PO (08:50)
[2023-10-14 09:16] LABS: Hematocrit 30.2 % (42.0-52.0); Hemoglobin 10.3 g/dl (14.0-18.0)
[2023-10-14 09:23] LABS: Vancomycin Random 18.2 mcg/mL (15-20)
[2023-10-14 10:18] VITALS: BP 108/53; PULSE 66; O2SAT 96
[2023-10-14] MEDS: vancomycin HCL 750 MG in 0.9 % Sodium Chloride 250 ML 265 MG IV ×2 (11:21→22:26)
[2023-10-14 11:25] LABS: Glucose, Whole Blood 104 mg/dL (60-115)
--- NOTE | 2023-10-14 13:24 | HO.PICC ---
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 Following completion of [place] Protocol the skin and soft tissues were anesthetized with 1% Lidocaine plain. Using ultrasound guidance, the right basilic vein access was obtained in a single attempt by this RN. Over an 0.018 wire through peel-away sheath, a single lumen 4 stateless PASV PICC line was positioned. Catheter length is 43 internal length, external lenghth is at the 0 cm external juwan, for a total trimmed length of 43 cm. The procedure was performed in S272. Tip verification was performed by Michelle Greer with Sherlock 3CG. Tip located in SVC. Ultrasound was used to document vein patency and for needle entry. A formal ultrasound picture and cardiac rhythm strip was recorded. Vascular Area Representative has released the line for use and it is currently dressed with a StatLock, Tegaderm, and CHG disc. Verification has been performed for blood return and line patency. Arm Circumference: 32 cm Equipment: Diversion Solo Catheter with Sherlock 3 CG Tip Type: Single lumen 4 stateless PASV PICC Lot #: [id number]
--- NOTE | 2023-10-14 13:59 | MHC.CM.PN ---
per rounds pt is not ready for dc planremains to return to [facility]
--- NOTE | 2023-10-14 14:43 | P.PNIM_ITS ---
Subjective Subjective Date of Service: 10/15/23 Interval History: pain R foot. Review of Systems no new c/o has right foot mild soarness Physical Exam 2 Vital Signs: Vital Signs: Last Vital Signs Temp 97.2 F 10/14/23 07:20 Pulse 66 10/14/23 10:18 Resp 20 10/14/23 07:20 BP 108/53 L 10/14/23 10:18 Pulse Ox 96 10/14/23 10:18 O2 Del Method Room Air 10/14/23 03:54 BMI result Body Mass Index 29.1 Appearance: Alert.? Oriented . cvs: rrr, [id number] , no murmur res: clear to auscultation ,no rhonchii or wheezing abd: no rebound or guarding ,nt, bs present. ext pulses present , no cyanosis . right foot surgery,wrapped . neuro: axo3 , nonfocal. Objective Data Active Medications Acetaminophen (Acetaminophen 325 Mg Tablet) 650 mg PO Q6H PRN PRN Reason: Pain, Mild (Pain Scale 1-3) Last Admin: 10/14/23 04:00 Dose: 650 mg Documented By: DOMINICK Aspirin (Aspirin Enteric Coated 81 Mg Tablet.) 81 mg PO DAILY [facility] Last Admin: 10/14/23 08:50 Dose: 81 mg Documented By: NIA Atorvastatin Calcium (Atorvastatin Calcium 40 Mg Tablet) 40 mg PO BEDTIME [facility] Last Admin: 10/13/23 20:41 Dose: 40 mg Documented By: DOMINICK Bisacodyl (Bisacodyl 10 Mg Supp.Rect) 10 mg [place] DAILY PRN PRN Reason: Constipation Clopidogrel Bisulfate (Clopidogrel Bisulfate 75 Mg Tablet) 75 mg PO DAILY [facility] Last Admin: 10/14/23 08:50 Dose: 75 mg Documented By: NIA Dextrose (Dextrose 50 % 25 Gm/50 Ml Syringe) 25 gm IVPUSH Q15M PRN; Protocol PRN Reason: per Hypoglycemia Standing Ord. Docusate Sodium (Docusate Sodium 100 Mg Capsule) 100 mg PO BID [facility] Last Admin: 10/14/23 08:50 Dose: 100 mg Documented By: NIA Enoxaparin Sodium (Enoxaparin Sodium 30 Mg/0.3 Ml Syringe) 30 mg SUBCUT Q24H [facility] Last Admin: 10/13/23 16:59 Dose: 30 mg Documented By: TAZ Famotidine (Famotidine 20 Mg Tablet) 20 mg PO DAILY [facility] Last Admin: 10/14/23 08:50 Dose: 20 mg Documented By: NIA Glucose (Glucose Gel 15 Gm Gel..Gram.) 15 gm PO Q15M PRN; Protocol PRN Reason: per Hypoglycemia Standing Ord. Vancomycin HCl 750 mg/ Sodium (Chloride) 265 mls @ 265 mls/hr IV Q12H [facility] Last Infusion: 10/14/23 14:09 Dose: 265 mls/hr Documented By: NIA Insulin Glargine (Insulin Glargine,Hum.Rec.Anlog 100 Unit/Ml 10 Ml Vial) 38 unit SUBCUT BEDTIME [facility] Last Admin: 10/13/23 20:42 Dose: 38 unit Documented By: DOMINICK Insulin Human Lispro (Insulin Lispro 100 Unit/Ml 3 Ml Vial) 0 unit SUBCUT QIDACHS [facility]; Protocol Last Admin: 10/14/23 11:26 Dose: Not Given Documented By: NIA Non-Admin Reason: No Insulin Coverage Magnesium Hydroxide (Milk Of Magnesia 30 Ml Oral.Susp) 30 ml PO DAILY PRN PRN Reason: Constipation Multivitamins/Vitamin C (Multivitamin Tablet) 1 tab PO DAILY [facility] Last Admin: 10/14/23 08:50 Dose: 1 tab Documented By: NIA Ondansetron HCl (Ondansetron Hcl 4 Mg/2 Ml Vial) 4 mg IVPUSH Q8H PRN PRN Reason: Nausea and Vomiting Ondansetron HCl (Ondansetron Hcl 4 Mg/2 Ml Vial) 4 mg IVPUSH ONCE PRN PRN Reason: Nausea and Vomiting Oxybutynin Chloride (Oxybutynin Chloride Er 5 Mg Tab.Er.24) 5 mg PO BEDTIME [facility] Last Admin: 10/13/23 20:41 Dose: 5 mg Documented By: DOMINICK Pharmacy Consult (Consult Rx Vancomycin Dosing) 1 each MISCELLANE DAILY PRN PRN Reason: Consult order Polyethylene Glycol (Polyethylene Glycol 3350 17 Gm Powd.Pack) 17 gm PO DAILY [facility] Last Admin: 10/14/23 08:57 Dose: Not Given Documented By: NIA Non-Admin Reason: Patient Refused Sodium Biphosphate/Sodium Phosphate (Sodium Phosphate,[place]-Dibasic 133 Ml Enema) 118 ml [place] DAILY PRN PRN Reason: Constipation Sodium Chloride (0.9 % Sodium Chloride Flush 3 Ml Syringe) 3 ml IVFLUSH QSHIFT [facility] Last Admin: 10/14/23 08:49 Dose: 3 ml Documented By: NIA Tramadol HCl (Tramadol Hcl 50 Mg Tablet) 25 mg PO Q4H PRN PRN Reason: Pain, Moderate(Pain Scale 4-6) Last Admin: 10/14/23 04:00 Dose: 25 mg Documented By: DOMINICK Labs 10/14/23 08:55 10/15/23 05:58 Labs: Laboratory Results - last 24 hr 10/13/23 10/13/23 10/14/23 16:06 20:31 05:17 Hold Purple Top SEE NOTE Estim Creat Clear Calc 60.8 Estimated GFR > 60 POC Glucose 153 H 214 H Random Vancomycin 10/14/23 10/14/23 10/14/23 07:22 07:50 08:55 Hold Purple Top Estim Creat Clear Calc Estimated GFR POC Glucose 69 91 Random Vancomycin 18.2 10/14/23 11:19 Hold Purple Top Estim Creat Clear Calc Estimated GFR POC Glucose 104 Random Vancomycin Microbiology Microbiology Results: Microbiology 10/11/23 Unknown Gram Stain - Final Bone Routine Culture - Final Methicillin Res Staph Aureus Anaerobic Culture - Preliminary Culture in progress. 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 osteomyelitis due to DM2 + PAD No sepsis, blood cultures negative thus far Plan for amp and wound vac 10/11 per vascular surgery vanco trough 16.9 on 10/11 wound cultures was sent [place] when removed the toe and then resected back on to the metatarsal head we cleared the surrounding tissue.also Purulent material was encountered. 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 vanco trough is around 18.2 DM2- basal-bolus insulin, hold OHGs HTN- lisinopril PAD- clopidogrel VTE ppx- LMWH- on hold due to procedure, SCPs dispo- return to SNF. In my clinical judgment, the patient requires continued inpatient hospitalization for the following reasons: IV ABX,vanco trough ,renal function/electrolytes monitering,awaiting wound culture for antibiotics management. Quality Stroke Does the patient have a stroke diagnosis?: No VTE Prior VTE?: No VTE Risk Level:: Medical - moderate - high VTE Device Contraindication: N/A - Device Ordered VTE Drug Contraindication: N/A - Med Ordered
[2023-10-14 15:38] VITALS: BP 152/69; PULSE 67; RESP 18; TEMP 36.2; O2SAT 97
[2023-10-14 16:09] LABS: Glucose, Whole Blood 79 mg/dL (60-115)
[2023-10-14] MEDS: Enoxaparin Sodium 30 MG/0.3 ML SYRINGE SUBCUT (16:32)
--- NOTE | 2023-10-14 16:56 | P.PNID_ITS ---
Subjective Subjective Date of Service: 10/14/23 Critical Care Time (minutes): 15 Comment: purulence foot Objective Data Labs 10/14/23 08:55 10/14/23 05:17 Labs: Laboratory Results - last 24 hr 10/13/23 10/14/23 10/14/23 20:31 05:17 07:22 Hgb Hct Hold Purple Top SEE NOTE Creatinine 0.92 Estim Creat Clear Calc 60.8 Estimated GFR > 60 POC Glucose 214 H 69 Random Vancomycin 10/14/23 10/14/23 10/14/23 07:50 08:55 11:19 Hgb 10.3 L Hct 30.2 L Hold Purple Top Creatinine Estim Creat Clear Calc Estimated GFR POC Glucose 91 104 Random Vancomycin 18.2 10/14/23 16:05 Hgb Hct Hold Purple Top Creatinine Estim Creat Clear Calc Estimated GFR POC Glucose 79 Random Vancomycin Microbiology Microbiology Results: Microbiology 10/11/23 Unknown Bone Gram Stain - Final 10/11/23 Unknown Bone Routine Culture - Final Methicillin Res Staph Aureus 10/11/23 Unknown Bone Anaerobic Culture - Preliminary Culture in progress. 10/11/23 Unknown Toe Right Second Gram Stain - Final 10/11/23 Unknown Toe Right Second Routine Culture - Final Methicillin Res Staph Aureus 10/07/23 12:38 Blood - Venous Blood Culture - Final No growth after 5 days. 10/07/23 12:31 Blood - Venous Blood Culture - Final No growth after 5 days. Physical Exam 2 Vital Signs: Vital Signs: Last Vital Signs Temp 97.2 F 10/14/23 15:38 Pulse 67 10/14/23 15:38 Resp 18 10/14/23 15:38 BP 152/69 H 10/14/23 15:38 Pulse Ox 97 10/14/23 15:38 O2 Del Method Room Air 10/14/23 15:38 BMI result Body Mass Index 29.1 Const: General: cooperative Orientation/consciousness: patient oriented x3 HEENT: Head: Yes normal to inspection Mouth: Normal oral and palatal mucosa present Eyes: General: appearance normal, both eyes and all related structures P upils: Equal, round and reactive pupils present Resp: Effort & Inspection: normal respiratory effort Cardio: Rate: regular rate Rhythm: regular rhythm GI: Palpation (GI): Soft to palpation and nontender : General: Yes no CVA tenderness Back/Spine/Pelvis: Back: no CVA tenderness Skin: General skin exam: no rashes or lesions noted Neuro: General: patient oriented x3 Cranial nerves: Yes CN's II-XII intact bilaterally and Yes Equal, round and reactive pupils present Extrem: Other: wrapped postop Psych: Appearance: grossly normal Assessment and Plan Assessment and plan (1) Osteomyelitis: Problem details: There is concern over OM in remaining bone foot with MRSA. Status: Acute Assessment and Plan: Six weeks IV Daptomycin. Weekly CK,creatinine, CBC See us within two weeks. Time Spent With Patient Time: Total time managing care of this patient today ____ minutes.
[2023-10-14 19:09] VITALS: BP 148/72; PULSE 84; RESP 20; TEMP 36.6; O2SAT 98
[2023-10-14] MEDS: 0.9 % Sodium Chloride Flush 10 ML SYRINGE 5 ML IVFLUSH (19:57)
[2023-10-14 20:04] LABS: Glucose, Whole Blood 203 mg/dL (60-115)
[2023-10-14] MEDS: Atorvastatin Calcium 40 MG TABLET PO (20:54)
[2023-10-14] MEDS: oxyBUTYnin chloride ER 5 MG TAB.ER.24 PO (20:54)
[2023-10-14] MEDS: Insulin Lispro 100 UNIT/ML 3 ML VIAL SUBCUT (20:56)
[2023-10-14] MEDS: Insulin Glargine,Hum.rec.anlog 100 UNIT/ML 10 ML VIAL 38 UNIT SUBCUT (20:56)
[2023-10-15 04:00] VITALS: BP 135/66; PULSE 81; RESP 16; TEMP 37.1; O2SAT 96
[2023-10-15 06:47] LABS: Creatinine Clr Calc Pharmacy 64.3; Estimated Glomerular Filt Rate > 60
[2023-10-15 07:16] VITALS: BP 154/77; PULSE 85; RESP 16; TEMP 36.6; O2SAT 96
[2023-10-15 07:29] LABS: Glucose, Whole Blood 115 mg/dL (60-115)
[2023-10-15] MEDS: Docusate Sodium 100 MG CAPSULE PO (07:37)
[2023-10-15] MEDS: Aspirin Enteric Coated 81 MG TABLET.DR PO (07:37)
[2023-10-15] MEDS: Famotidine 20 MG TABLET PO (07:37)
[2023-10-15] MEDS: polyethylene glycoL 3350 17 GM POWD.PACK PO (07:37)
[2023-10-15] MEDS: Multivitamin TABLET 1 TAB PO (07:37)
[2023-10-15] MEDS: Clopidogrel Bisulfate 75 MG TABLET PO (07:37)
[2023-10-15] MEDS: 0.9 % Sodium Chloride Flush 10 ML SYRINGE 5 ML IVFLUSH (07:38)
[2023-10-15 09:54] LABS: Vancomycin Random 17.8 mcg/mL (15-20)
[2023-10-15] MEDS: DAPTOmycin 500 MG in 0.9 % Sodium Chloride 50 ML 99.82 MG IV (09:57)
--- NOTE | 2023-10-15 10:51 | MHC.CM.PN ---
PATIENT UPDATES SENT TO [facility] VIA [employer]. PATIENT CAN DC THIS WEEKEND IF THEY ARE STILL ABLE TO OFFER CM AWAITING RESPONSE.
[2023-10-15 11:04] LABS: Glucose, Whole Blood 146 mg/dL (60-115)
--- NOTE | 2023-10-15 12:06 | MHC.CM.PN ---
[facility] OFFERING BED TODAY. PATIENT MADE AWARE OF PLAN CALL TO SPOUSE AT [phone] AND MESSAGE LEFT FOR CALL BACK. CALL TO HCP, FRANK @ [phone] AND VOICE MAIL LEFT STATING DC PLAN AND THIS DIGITAL HARDWARE DESIGN ENGINEER'S CONTACT INFO CALL TO HCP AGENT #2 (YOVANI) AT [phone] AND MESSAGE LEFT, ALONG WITH CONTACT INFO FOR THIS DIGITAL HARDWARE DESIGN ENGINEER PER DISCUSSION WITH MD AND RN, P[PARDEEP WILL NOW BE TO SEND TO [facility] ON TUESDAY, PATIENT IS LETHARGIC AND NOT ABLE TO STAY AWAKE ENOUGH AT THIS TIME TO GIVE CONSENT AND HAVE DISCUSSION ABOUT DC STATUS [facility] MADE AWARE
--- NOTE | 2023-10-15 13:39 | P.PNIM_ITS ---
Subjective Subjective Date of Service: 10/15/23 Interval History: toe amp Review of Systems no fevers no new c/o Physical Exam 2 Vital Signs: Vital Signs: Last Vital Signs Temp 97.8 F 10/15/23 07:16 Pulse 85 10/15/23 07:16 Resp 16 10/15/23 07:16 BP 154/77 H 10/15/23 07:16 Pulse Ox 96 10/15/23 07:16 O2 Del Method Room Air 10/15/23 07:16 BMI result Body Mass Index 29.1 Appearance: Alert.? Oriented . cvs: rrr, [id number] . res: clear to auscultation ,no rhonchii or wheezing abd: no rebound or guarding ,nt, bs present. ext pulses present , no cyanosis . right foot surgery,wrapped . neuro: axo3 , nonfocal. Objective Data Active Medications Acetaminophen (Acetaminophen 325 Mg Tablet) 650 mg PO Q6H PRN PRN Reason: Pain, Mild (Pain Scale 1-3) Last Admin: 10/14/23 04:00 Dose: 650 mg Documented By: DOMINICK Aspirin (Aspirin Enteric Coated 81 Mg Tablet.Dr) 81 mg PO DAILY [facility] Last Admin: 10/15/23 07:37 Dose: 81 mg Documented By: ASIF Atorvastatin Calcium (Atorvastatin Calcium 40 Mg Tablet) 40 mg PO BEDTIME [facility] Last Admin: 10/14/23 20:54 Dose: 40 mg Documented By: JORGE LUIS Bisacodyl (Bisacodyl 10 Mg Supp.Rect) 10 mg [place] DAILY PRN PRN Reason: Constipation Clopidogrel Bisulfate (Clopidogrel Bisulfate 75 Mg Tablet) 75 mg PO DAILY [facility] Last Admin: 10/15/23 07:37 Dose: 75 mg Documented By: ASIF Dextrose (Dextrose 50 % 25 Gm/50 Ml Syringe) 25 gm IVPUSH Q15M PRN; Protocol PRN Reason: per Hypoglycemia Standing Ord. Docusate Sodium (Docusate Sodium 100 Mg Capsule) 100 mg PO BID [facility] Last Admin: 10/15/23 07:37 Dose: 100 mg Documented By: ASIF Enoxaparin Sodium (Enoxaparin Sodium 30 Mg/0.3 Ml Syringe) 30 mg SUBCUT Q24H [facility] Last Admin: 10/14/23 16:32 Dose: 30 mg Documented By: NIA Famotidine (Famotidine 20 Mg Tablet) 20 mg PO DAILY [facility] Last Admin: 10/15/23 07:37 Dose: 20 mg Documented By: ASIF Glucose (Glucose Gel 15 Gm Gel..Gram.) 15 gm PO Q15M PRN; Protocol PRN Reason: per Hypoglycemia Standing Ord. Daptomycin 500 mg/ Sodium (Chloride) 60 mls @ 99.815 mls/hr IV Q24H [facility] Last Infusion: 10/15/23 11:13 Dose: Infused Documented By: ASIF Insulin Glargine (Insulin Glargine,Hum.Rec.Anlog 100 Unit/Ml 10 Ml Vial) 38 unit SUBCUT BEDTIME [facility] Last Admin: 10/14/23 20:56 Dose: 38 unit Documented By: JORGE LUIS Insulin Human Lispro (Insulin Lispro 100 Unit/Ml 3 Ml Vial) 0 unit SUBCUT QIDACHS [facility]; Protocol Last Admin: 10/15/23 11:12 Dose: Not Given Documented By: ASIF Non-Admin Reason: No Insulin Coverage Magnesium Hydroxide (Milk Of Magnesia 30 Ml Oral.Susp) 30 ml PO DAILY PRN PRN Reason: Constipation Multivitamins/Vitamin C (Multivitamin Tablet) 1 tab PO DAILY [facility] Last Admin: 10/15/23 07:37 Dose: 1 tab Documented By: ASIF Ondansetron HCl (Ondansetron Hcl 4 Mg/2 Ml Vial) 4 mg IVPUSH Q8H PRN PRN Reason: Nausea and Vomiting Ondansetron HCl (Ondansetron Hcl 4 Mg/2 Ml Vial) 4 mg IVPUSH ONCE PRN PRN Reason: Nausea and Vomiting Oxybutynin Chloride (Oxybutynin Chloride Er 5 Mg Tab.Er.24) 5 mg PO BEDTIME [facility] Last Admin: 10/14/23 20:54 Dose: 5 mg Documented By: JORGE LUIS Polyethylene Glycol (Polyethylene Glycol 3350 17 Gm Powd.Pack) 17 gm PO DAILY [facility] Last Admin: 10/15/23 07:37 Dose: 17 gm Documented By: ASIF Sodium Biphosphate/Sodium Phosphate (Sodium Phosphate,[place]-Dibasic 133 Ml Enema) 118 ml [place] DAILY PRN PRN Reason: Constipation Sodium Chloride (0.9 % Sodium Chloride Flush 10 Ml Syringe) 5 ml IVFLUSH TID [facility] Last Admin: 10/15/23 07:38 Dose: 5 ml Documented By: ASIF Tramadol HCl (Tramadol Hcl 50 Mg Tablet) 25 mg PO Q4H PRN PRN Reason: Pain, Moderate(Pain Scale 4-6) Last Admin: 10/14/23 04:00 Dose: 25 mg Documented By: DOMINICK Labs 10/14/23 08:55 10/15/23 05:58 Labs: Laboratory Results - last 24 hr 10/14/23 10/14/23 10/15/23 16:05 19:59 05:58 Estim Creat Clear Calc 64.3 Estimated GFR > 60 POC Glucose 79 203 H Total Creatine Kinase Random Vancomycin 10/15/23 10/15/23 10/15/23 07:26 09:27 09:35 Estim Creat Clear Calc Estimated GFR POC Glucose 115 Total Creatine Kinase 42 Random Vancomycin 17.8 10/15/23 11:00 Estim Creat Clear Calc Estimated GFR POC Glucose 146 H Total Creatine Kinase Random Vancomycin Microbiology Microbiology Results: Microbiology 10/11/23 Unknown Gram Stain - Final Bone Routine Culture - Final Methicillin Res Staph Aureus Anaerobic Culture - Preliminary Culture in progress. 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 osteomyelitis due to DM2 + PAD No sepsis, blood cultures negative thus far Plan for amp and wound vac 10/11 per vascular surgery vanco trough 16.9 on 10/11 wound cultures was sent [place] when removed the2 nd toe and then resected back on to the metatarsal head we cleared the surrounding tissue.also Purulent material was encountered. 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 DM2- basal-bolus insulin, hold OHGs HTN- lisinopril PAD- clopidogrel VTE ppx- LMWH- on hold due to procedure, SCPs dispo- return to SNF. In my clinical judgment, the patient requires continued inpatient hospitalization for the following reasons: IV ABX,vanco trough ,renal function/electrolytes monitering,awaiting wound culture for antibiotics management. Quality Stroke Does the patient have a stroke diagnosis?: No VTE Prior VTE?: No VTE Risk Level:: Medical - moderate - high VTE Device Contraindication: N/A - Device Ordered VTE Drug Contraindication: N/A - Med Ordered
--- NOTE | 2023-10-15 14:13 | MHC.CM.PN ---
PATIENT IS DC TO [facility] TODAY [facility] TO TRANSPORT FOR 16:00. RN AND UNIT AWARE OF PLAN. PATIENT STATES I WANT TO LEAVE SOON POSSIBLE AND AGREEABLE TO RETURN TO [facility], MY STUFF IS THERE . IMM 10/15/23 IN CHART.
[2023-10-15 15:24] VITALS: BP 128/69; PULSE 84; RESP 18; TEMP 36.5; O2SAT 98
--- NOTE | 2023-10-15 15:33 | P.DS_ITS ---
DS: Providers Provider Date of Service: 10/15/23 Date of admission: 10/07/23 15:33 Date of discharge: 10/15/23 Primary care physician: PHOENIX DUBOIS Consults: 10/07/23 15:30 Consult to Infectious Diseases [place]ine [place] [facility] [place] Reason for consultation: Osteomyelitis Consult to Vascular Surgery Routine Consulting [place] [facility] [place] Reason for consultation: Osteomyelitis 10/10/23 11:29 Consult to Wound Care Routine Reason for consultation: non-healing wound right great toe amp Attending physician on discharge: Pat Naidu Discharging clinician: Pat Naidu DS: Diagnosis Discharge Diagnosis (1) Toe osteomyelitis: Status: Acute DS: Summary Hospital Course Hospital Course: 83yo M with DM2, HTN, and PAD sent in from [facility] due to concern for infection of R foot. He was admitted here in Jun 2023 for gangrene of the R great toe with sepsis. He underwent ray amputation of the R 1st toe on 07/01/23 and transferred to [facility] for short-term rehabilitation. On 08/10/23 he underwent right SFA atherectomy and plasty along with R peroneal plasty. He is neuropathic and has only mild pain in the R foot. Denies fever or chills. No nausea or vomiting. There is serosanguinous drainage from the R foot. X-ray shows osteomyelitis of the remaining 1st metatarsal bone and septic arthritis of the 2nd MTP joint. He was given vancomycin and Zosyn IV. Hospital course: Patient was admitted for osteomyelitis of 2nd toe right-sided foot,also has dm, pad : Started on IV antibiotics, blood cultures sent, vascular surgery and ID consulted: Subsequently patient had toe amputation for 2nd toe, during surgery also encountered purulent material and deep wound cultures are sent: Blood culture negative but wound culture came back positive for MRSA: Subsequently discussed with the ID and vascular: Concern for deep infection versus remaining over OM bone : Recommended long-term antibiotics -vancomycin is switched to daptomycin due to fluctuating vanco trough on the higher side. PICC line was placed, patient will complete antibiotic course on 11/16( already received iv antibiotics for 8 days). Consider monitoring CBC, BMP, LFTs, CPK for Q weekly while antibiotics. Patient is to follow up outpatient with Dr. Gonzales's office as above. plan: Continue daptomycin as prescribed -end date 11/16. Consider monitoring CBC, BMP, LFTs, CPK for Q weekly while antibiotics. Please see dressing instructions in the discharge instructions section. Patient is to follow up outpatient with Dr. Gonzales's office as above. Amend above management discussed with the patient in detail length he understand and in agreement with the plan, time spent 50 minute. Time Attestation Discharge coordination time: Greater than 30 minutes Quality: Safe Use of Opioids Does Pt have an Active Cancer Diagnosis on the Problem List?: No Quality: Stroke Does the patient have a stroke diagnosis?: No Physical Exam Vital Signs: Vital Signs: Last Vital Signs Temp 97.7 F 10/15/23 15:24 Pulse 84 10/15/23 15:24 Resp 18 10/15/23 15:24 BP 128/69 10/15/23 15:24 Pulse Ox 98 10/15/23 15:24 O2 Del Method Room Air 10/15/23 15:24 BMI result Body Mass Index 29.1 Appearance: Alert.? Oriented . cvs: rrr, [id number] . res: clear to auscultation ,no rhonchii or wheezing abd: no rebound or guarding ,nt, bs present. ext pulses present , no cyanosis . right foot surgery,wrapped-no visible drainage or swellin as per vascular note-Incision line healing well there is an open area which was purposely left as we could not re approximate skin. neuro: axo3 , nonfocal. DS: Data Data Completed and Pending Completed studies during hospitalization [Text1]: Pending at discharge 10/11/23 15:04 Surgical [PTH] Routine Procedures Detachment at Right 1st Toe, Complete, Open Approach (06/29/23) Labs on day of discharge: Laboratory Results - last 24 hr 10/14/23 10/14/23 10/15/23 16:05 19:59 05:58 Creatinine 0.87 Estim Creat Clear Calc 64.3 Estimated GFR > 60 POC Glucose 79 203 H Total Creatine Kinase Random Vancomycin 10/15/23 10/15/23 10/15/23 07:26 09:27 09:35 Creatinine Estim Creat Clear Calc Estimated GFR POC Glucose 115 Total Creatine Kinase 42 Random Vancomycin 17.8 10/15/23 11:00 Creatinine Estim Creat Clear Calc Estimated GFR POC Glucose 146 H Total Creatine Kinase Random Vancomycin Preliminary micro results at discharge 10/11/23 Unknown Anaerobic Culture - Preliminary Bone Culture in progress. Imaging Chest x-ray: Radiologist's impression: ITS Impressions Foot X-Ray 10/07/23 12:53 IMPRESSION: Osteomyelitis of the remaining first metatarsal bone and osteomyelitis / septic arthritis at the second MTP joint. Chest X-Ray 10/14/23 13:20 IMPRESSION: Right upper extremity PICC line tip projects over SVC. Discharge Plan Discharge Anticipated Discharge Date/Time: 10/15/23 15:20 Patient Disposition: Xfer SNF Discharge Diagnosis: Toe osteomyelitis, possible deep wound infection with MRSA Referrals: Chantale Gaviria [Outside] - 1 Week PHOENIX DUBOIS [Primary Care Provider] - 1 Week Discharge Medications: New daptomycin 500 mg Recon Soln 500 mg IV Q24H Qty: 34 0RF Rx Instructions: daptomycin end date 11/16. Continued multivitamin Tablet 1 tab PO DAILY atorvastatin 40 mg Tablet 40 mg PO BEDTIME acetaminophen 325 mg Tablet 975 mg PO TID PRN (Reason: Fever Or Pain) lidocaine 4 % Adhesive Patch,Medicated 1 patch TOPICAL DAILY@0800 PRN (Reason: Pain) Rx Instructions: to left knee polyethylene glycol 3350 17 gram Powder In Packet 17 g PO DAILY Rx Instructions: hold for loose stools dextrose [Glucose Gel] 40 % Gel 30 g PO Q15M PRN (Reason: Hypoglycemia) Rx Instructions: until symptoms of low blood sugar are controlled, for blood glucose less than 51 conscious treat and administer oral for hypoglycemia aspirin 81 mg Tablet,Delayed Release (Dr/Ec) 81 mg PO DAILY magnesium hydroxide [Milk of Magnesia] 400 mg/5 mL Suspension 30 ml PO DAILY PRN (Reason: Constipation) Rx Instructions: for no BM in 3 days bisacodyl 10 mg Suppository 10 mg VA DAILY PRN (Reason: Constipation) Rx Instructions: if milk of magnesia not effective Fleet Enema 19-7 gram/118 mL Enema 118 ml VA DAILY PRN (Reason: Constipation) Rx Instructions: for when Dulcolax not effective docusate sodium 100 mg Capsule 100 mg PO BID Rx Instructions: hold for loose stools glucagon 1 mg Recon Soln 1 mg SUBCUT Q15M PRN (Reason: Hypoglycemia) Rx Instructions: until target blood sugar attained oxycodone 5 mg Tablet 5 mg PO Q4H PRN (Reason: moderate to severe pain) insulin glargine [Lantus U-100 Insulin] 100 unit/mL solution 38 unit subcut BEDTIME oxybutynin chloride 5 mg tablet extended release 24hr 5 mg PO BEDTIME furosemide 20 mg tablet 20 mg PO BEDTIME lisinopril 40 mg tablet 40 mg PO DAILY insulin lispro [Humalog U-100 Insulin] 100 unit/mL Solution See Protocol subcut QIDACHS Qty: 1 0RF Protocol: Insulin Resistant 1st 24 hours Less than or equal to 110 ---- Give (units): 0 111 to 150 Give (units): 2 151 to 200 Give (units): 4 201 to 250 Give (units): 6 251 to 300 Give (units): 8 301 to 350 Give (units): 10 Greater than 350 Give (units): 12 Call MD if Blood Glucose > : 350 Rx Instructions: 111-150 = 2 units, 151-200 = 4 units, 201-250 = 6 units, 251-300 = 8 units, 301-350 = 10 units, greater than 350 units give 12 units and notify MD clopidogrel [Plavix] 75 mg tablet 75 mg PO DAILY Qty: 90 1RF Discharge Orders: Discharge Order (Routine); Ordered 10/15/23 Ordered By: Pat Naidu Diet: Advance to usual diet Activity on Discharge: As tolerated Stand Alone Forms: Patient Portal Discharge page Activity Restrictions/Additional Instructions: Wound care upon discharge: xeroform, 4x4 and Kerlix wrap to be changed daily. Please call Dr. Gonzales at [phone] for 2 week follow up for suture and staple removal Care Plan Goals: Patient was admitted for osteomyelitis of 2nd toe right-sided foot,also has dm, pad : Started on IV antibiotics, blood cultures sent, vascular surgery and ID consulted: Subsequently patient had toe amputation for 2nd toe, during surgery also encountered purulent material and deep wound cultures are sent: Blood culture negative but wound culture came back positive for MRSA: Subsequently discussed with the ID and vascular: Concern for deep infection versus remaining over OM bone : Recommended long-term antibiotics -vancomycin is switched to daptomycin due to fluctuating vanco trough on the higher side. PICC line was placed, patient will complete antibiotic course on 11/16( already received iv antibiotics for 8 days). Consider monitoring CBC, BMP, LFTs, CPK for Q weekly while antibiotics. Patient is to follow up outpatient with Dr. Gonzales's office as above. Health Concerns: As above. Plan of Treatment: As above. Assessment: As above.
== END 2023-10-15 16:59 | disposition skilled nursing facility (03) | DRG 504 ==
LOC: HO.ED 14:28 → HO.EDOVER 15:38 → HO.S3 21:16
PROVIDERS: Internal Medicine; Physician Assistant; Surgery Vascular Surgery; Admitting Provider Family Medicine; Emergency Provider Student in an Organized Health Care Education/Training Program; PCP Emergency Medicine; Visit Provider Internal Medicine
PROC: 0Y6R0Z0 Detachment at Right 2nd Toe, Complete, Open Approach (ICD-10-PCS; principal; 2023-10-11 14:00)
DX: T87.53 Necrosis of amputation stump, right lower extremity (principal); E11.52 Type 2 diabetes mellitus with diabetic peripheral angiopathy with gangrene; M86.171 Other acute osteomyelitis, right ankle and foot; I70.261 Atherosclerosis of native arteries of extremities with gangrene, right leg; Y83.5 Amputation of limb(s) as the cause of abnormal reaction of the patient, or of later complication, without mention of misadventure at the time of the procedure; I10 Essential (primary) hypertension; E11.40 Type 2 diabetes mellitus with diabetic neuropathy, unspecified; B95.62 Methicillin resistant Staphylococcus aureus infection as the cause of diseases classified elsewhere; E11.69 Type 2 diabetes mellitus with other specified complication; Z79.02 Long term (current) use of antithrombotics/antiplatelets; Z79.82 Long term (current) use of aspirin; Z79.899 Other long term (current) drug therapy
CPT/HCPCS: 36415; 36573; 71045; 73620; 80048; 80053; 80202; 82550; 82565; 82947; 83036; 83605; 85014; 85018; 85025; 85027; 85610; 85652; 86140; 87040; 87070; 87073; 87076; 87077; 87185; 87186; 87205; 88305; 88311; 93005; 97110; 97162; 97530; 99285; C1751; J0878; J1650; J2543; J2795; J3010; J3370

== ENCOUNTER → 2023-10-07 12:17 | Outpatient (BNV) | payer MEDICARE, OTHER, SELFPAY | PROVIDERS: Admitting Provider Family Medicine; Emergency Provider Student in an Organized Health Care Education/Training Program; Visit Provider Internal Medicine Cardiovascular Disease | DX: R94.31 Abnormal electrocardiogram [ECG] [EKG] (principal) | CPT/HCPCS: 93010 ==

== ENCOUNTER → 2023-10-07 15:33 | Outpatient (BNV) | payer MEDICARE, OTHER, SELFPAY | PROVIDERS: Admitting Provider Family Medicine; Emergency Provider Student in an Organized Health Care Education/Training Program; Visit Provider Internal Medicine | DX: M86.9 Osteomyelitis, unspecified (principal) | CPT/HCPCS: 99222; 99232 ==

== ENCOUNTER → 2023-10-07 15:33 | Outpatient (BNV) | payer MEDICARE, OTHER, SELFPAY | PROVIDERS: Admitting Provider Family Medicine; Emergency Provider Student in an Organized Health Care Education/Training Program; Visit Provider Surgery Vascular Surgery | DX: I73.9 Peripheral vascular disease, unspecified (principal) | CPT/HCPCS: 28810; 99024; 99222 ==

== ENCOUNTER → 2023-10-07 15:33 | Outpatient (BNV) | payer MEDICARE, OTHER, SELFPAY | PROVIDERS: Admitting Provider Family Medicine; Emergency Provider Student in an Organized Health Care Education/Training Program; Visit Provider Family Medicine | DX: M86.9 Osteomyelitis, unspecified (principal); E11.52 Type 2 diabetes mellitus with diabetic peripheral angiopathy with gangrene; Z89.411 Acquired absence of right great toe | CPT/HCPCS: 99223; 99231; 99232; 99238 ==

== ENCOUNTER 2023-10-26 10:13 | Outpatient (AMB) | payer MEDICARE, OTHER, SELFPAY ==
--- NOTE | 2023-10-26 10:34 | MHC.OFFVIS ---
Intake Intake Visit Reasons: F/U Hospital Discharge Toe Amp Intake Note: hospital follow up s/p 2nd toe amp 10/11/23, pt is currently at [facility]. Dressing changed daily Accompanied by: Edith HIDALGO Allergies No Known Allergies Allergy (Verified 10/26/23 10:39) HPI F/U Hospital Discharge Toe Amp HPI Details Very pleasant 83-year-old gentleman well known to me presents for follow-up status post revision of toe amputation. He had actually undergone great toe amputation by General surgery a while back. He had wet gangrene of the right 2nd toe and underwent ray amputation of that. Appears to be doing relatively well. Overall tissue appears to be healing and closing nicely. He now presents for routine follow-up. He is currently being cared for in a facility. [facility], [facility] Medical History HTN (hypertension) Diabetes Social History Household Members: None Housing: Assisted Do you presently have visiting nurse or other home services: No Patient Tobacco Use Status: Never used Tobacco Second Hand Smoke Exposure: No service: No Review of Systems Const All systems reviewed & are unremarkable except as noted in HPI and below Reports no additional complaints ENT Reports Normal hearing present Card Denies chest pain, Denies chest pain at rest, Denies chest pain with activity and Denies pedal edema Resp Denies cough GI Denies abdominal pain Musc Denies abnormal gait, Denies muscle cramps and Denies radiating pain into limb Skin/Breast Denies skin ulcer and Denies wounds Neuro Reports Normal hearing present and Denies abnormal gait Psych Reports no additional complaints Physical Exam Const General: cooperative, healthy appearing and comfortable Orientation/consciousness: oriented to person, oriented to place and oriented to time HEENT Head: Yes normal to inspection Neck Neck: Yes normal visual inspection Carotids: no bruits Chest Chest palpation & inspection: normal inspection of the chest Resp Effort & Inspection: normal respiratory effort and able to speak in complete sentences Auscultation: clear to auscultation bilaterally, no crackles, no rales, no rhonchi and no wheezes Cardio Rate: regular rate Rhythm: regular rhythm Heart sounds: S1 normal heart sound present and S2 normal heart sound present Bruits: no carotid bruits Peripheral pulses: Peripheral pulses 2+ throughout GI Inspection: Yes normal to inspection Skin Other: Wound measures 7 x 2 x 0.2 cm. Serous drainage Wounds: no wounds Hair: normal Neuro General: oriented to person, oriented to place and oriented to time Cranial nerves: Yes CN's II-XII intact bilaterally and Yes Normal hearing present Cognition (Neuro): normal cognition Motor exam (neuro): 5/5 motor strength present throughout Extrem Other: venous exam: No significant superficial varicosities or spider telangiectasias, minimal edema General: No clubbing, No cyanosis and No edema Psych Appearance: grossly normal Mental Status: mental status grossly normal Speech and movement: Normal speech and movement present Assessment & Plan Assessment & Plan (1) PAD (peripheral artery disease): Comment: 07/01/2023 - right great toe ray amputation by Dr. Drew 08/10/2023 right SFA atherectomy and plasty and right peroneal plasty by Dr. Gonzales 10/11/2023 - right 2nd toe amputation Code(s): I73.9 - Peripheral vascular disease, unspecified Plan: In short patient appears to be doing relatively well status post revision of amputation. Sutures were removed. Would continue with local wound care. He does not require wound VAC anymore. [facility]. He can see us in about 1 month to ensure that it is progressing well. Thank you for allowing us to assist in his care. If there are any questions or concerns please do not hesitate to contact us Coding Level of Care Code Est Pt Level 3 (86029) Diagnoses PAD (peripheral artery disease) I73.9
== END 2023-10-26 10:55 | disposition home or self-care (01) ==
PROVIDERS: PCP Emergency Medicine; Visit Provider Surgery Vascular Surgery
DX: I73.9 Peripheral vascular disease, unspecified (principal)
CPT/HCPCS: 99024

== ENCOUNTER → 2023-10-26 10:13 | Outpatient (BNVA) | payer MEDICARE, OTHER, SELFPAY | PROVIDERS: PCP Emergency Medicine; Visit Provider Surgery Vascular Surgery | DX: Z47.81 Encounter for orthopedic aftercare following surgical amputation (principal); I73.9 Peripheral vascular disease, unspecified; Z89.421 Acquired absence of other right toe(s) | CPT/HCPCS: 99212 ==

== ENCOUNTER 2023-12-01 10:01 | Outpatient (AMB) | payer MEDICARE, OTHER, SELFPAY ==
--- NOTE | 2023-12-01 10:29 | A.OFFVIS_ITS ---
Intake Intake Visit Reasons: 1 month wound check Intake Note: Patient presents for wound check/follow up. S/p 2nd toe amp 10/11/23. Patient is at [facility] , currently having dressing changed daily at facility. Upon removing bandages there is drainage and blood. Accompanied by: Other Relationship Allergies No Known Allergies Allergy (Verified 12/01/23 10:32) HPI 1 month wound check HPI Details Very pleasant 83-year-old gentleman presents for routine follow-up status post toe amp revision. We had undergone right 2nd toe amp and it appears to be doing relatively well. He has had a wound VAC and the wound continues to slowly progress. He is getting local wound care at his facility. He now presents for routine follow-up. [facility] Medical History HTN (hypertension) Diabetes Social History Household Members: None Housing: Long-Term Do you presently have visiting nurse or other home services: No Patient Tobacco Use Status: Never used Tobacco Second Hand Smoke Exposure: No service: No Review of Systems Const All systems reviewed & are unremarkable except as noted in HPI and below Reports no additional complaints ENT Reports Normal hearing present Card Denies chest pain, Denies chest pain at rest, Denies chest pain with activity and Denies pedal edema Resp Denies cough GI Denies abdominal pain Musc Denies abnormal gait, Denies muscle cramps and Denies radiating pain into limb Skin/Breast Denies skin ulcer and Denies wounds Neuro Reports Normal hearing present and Denies abnormal gait Psych Reports no additional complaints Physical Exam Const General: cooperative, healthy appearing and comfortable Orientation/consciousness: oriented to person, oriented to place and oriented to time HEENT Head: Yes normal to inspection Neck Neck: Yes normal visual inspection Carotids: no bruits Chest Chest palpation & inspection: normal inspection of the chest Resp Effort & Inspection: normal respiratory effort and able to speak in complete sentences Auscultation: clear to auscultation bilaterally, no crackles, no rales, no rhonc hi and no wheezes Cardio Rate: regular rate Rhythm: regular rhythm Heart sounds: S1 normal heart sound present and S2 normal heart sound present Bruits: no carotid bruits Peripheral pulses: Peripheral pulses 2+ throughout GI Inspection: Yes normal to inspection Skin Other: Right foot wound measures 6 x 2.5 x 0.7 cm. Clean granulation base Wounds: no wounds Hair: normal Neuro General: oriented to person, oriented to place and oriented to time Cranial nerves: Yes CN's II-XII intact bilaterally and Yes Normal hearing present Cognition (Neuro): normal cognition Motor exam (neuro): 5/5 motor strength present throughout Extrem Other: venous exam: No significant superficial varicosities or spider t elangiectasias, minimal edema General: No clubbing, No cyanosis and No edema Psych Appearance: grossly normal Mental Status: mental status grossly normal Speech and movement: Normal speech and movement present Assessment & Plan Assessment & Plan (1) PAD (peripheral artery disease): Comment: 07/01/2023 - right great toe ray amputation by Dr. Drew 08/10/2023 right SFA atherectomy and plasty and right peroneal plasty by Dr. Gonzales 10/11/2023 - right 2nd toe amputation Code(s): I73.9 - Peripheral vascular disease, unspecified Plan: In short amputation sites seems to be healing slowly. It appears to be good granulation base. He will require surgery. Will plan for right foot debridement and skin substitute placement. Risks benefits complications were discussed in detail with the patient patient understood and consented. We will schedule as soon as possible. Coding Level of Care Code Est Pt Level 4 (20275) Diagnoses PAD (peripheral artery disease) I73.9
== END 2023-12-01 10:59 | disposition home or self-care (01) ==
PROVIDERS: PCP Emergency Medicine; Visit Provider Surgery Vascular Surgery
DX: I73.9 Peripheral vascular disease, unspecified (principal)
CPT/HCPCS: 99024

== ENCOUNTER → 2023-12-01 10:01 | Outpatient (BNVA) | payer MEDICARE, OTHER, SELFPAY | PROVIDERS: PCP Emergency Medicine; Visit Provider Surgery Vascular Surgery | DX: I73.9 Peripheral vascular disease, unspecified (principal) | CPT/HCPCS: 99212 ==

== ENCOUNTER 2023-12-12 08:20 | Outpatient (REF) | payer MEDICARE, OTHER, SELFPAY ==
--- NOTE | ~2023-12-12 | US_ITS ---
EXAMINATION: US arterial duplex BI w/ SAMRA CLINICAL INFORMATION: Peripheral vascular disease, unspecified COMPARISON: Right lower extremity arterial duplex 06/29/2023 TECHNIQUE: Ankle pulse volume recordings, ankle pressure measurements and ankle brachial indices were obtained of the lower extremity arterial system bilaterally in addition to duplex Doppler techniques with wave form analysis and measurement of velocities in the common femoral, profunda femoral, superficial femoral, popliteal, tibial and peroneal arteries. The study was performed only at rest. FINDINGS: RIGHT LE. THE RIGHT ANKLE-BRACHIAL INDEX IS: 0.7 2. SEGMENTAL PRESSURES (mmHg): Ankle: PT 103 3. PVR WAVEFORMS: Ankle: Abnormal 4. DIRECT DUPLEX: Common femoral artery: 70.5 cm/s, Multiphasic Profunda femoris artery: 56 cm/s, biphasic Superficial femoral artery (proximal): 77.6 cm/s, biphasic Superficial femoral artery (mid): 118.3 cm/s, monophasic Superficial femoral artery (distal): 94.5 cm/s, monophasic Distal Popliteal artery: 150.8 cm/s, monophasic Mid posterior tibial artery: 62 cm/s, monophasic Peroneal artery: 149.5 cm/s, monophasic Dorsalis pedis artery: 70.3 cm/sec, monophasic Anterior tibial artery: 69.1 cm/sec, monophasic LEFT LE. THE LEFT ANKLE-BRACHIAL INDEX IS: 0.68 2. SEGMENTAL PRESSURES: Ankle: PT 100, DP 100 3. PVR WAVEFORMS: Ankle: Abnormal 4. DIRECT DUPLEX: Common femoral artery: 101.7 cm/s, biphasic Profunda femoris artery: 70.3 cm/s, biphasic Superficial femoral artery (proximal): 63.3 cm/s, biphasic Superficial femoral artery (mid): 72.1 cm/s, biphasic Superficial femoral artery (distal): 71.4 cm/s, biphasic Proximal Popliteal artery: 47 cm/s, biphasic Proximal posterior tibial artery: 19.4 cm/s, monophasic Peroneal artery: 22.4 cm/s, monophasic Dorsalis pedis artery: 39.4 cm/sec, monophasic Anterior tibial artery: 22.1 cm/sec, monophasic US/US arterial duplex BI w/ SAMRA IMPRESSION: RIGHT LEG: Moderate peripheral arterial disease by SAMRA criteria. There is monophasic flow from the mid superficial femoral artery to the foot. Elevated velocity in the distal popliteal artery suggests at least mild stenosis. LEFT LEG: Moderate peripheral arterial disease by SAMRA criteria. There is monophasic flow below the level of the distal popliteal artery and below the knee.
== END 2023-12-12 08:21 | disposition home or self-care (01) ==
LOC: HO.US 08:20
PROVIDERS: Visit Provider Surgery Vascular Surgery
DX: I73.9 Peripheral vascular disease, unspecified (principal)
CPT/HCPCS: 93922; 93925

== ENCOUNTER 2023-12-19 08:53 | Day surgery (SDC) | payer MEDICARE, OTHER, SELFPAY ==
--- NOTE | 2023-12-15 14:36 | P.CONAN_ITS ---
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 (Acute) Type 2 diabetes mellitus with hyperglycemia (Acute) Type 2 diabetes mellitus (Acute) Gangrene associated with diabetes mellitus (Acute) Toe osteomyelitis (Acute) Cellulitis of leg (Acute) Necrosis of toe (Acute) Past Medical History Medical History HTN (hypertension) Diabetes Family History Family history of problems with anesthesia: No Surgical History History of Problems with Anesthesia: No Social History Social History Household Members: None Housing: Residential Do you presently have visiting nurse or other home services: No Patient Tobacco Use Status: Never used Tobacco Second Hand Smoke Exposure: No Use of substances other than those prescribed or required for medical reasons: No Are you DNR?: No Advance Directives: No Advance Directives Information Provided: Yes service: No Meds Allergies Allergy/AdvReac Type Severity Reaction Status Date / Time No Known Allergies Allergy Verified 12/01/23 10:32 Home Medications ?Medication ?Instructions ?Recorded ?Confirmed ?Last Taken ?Type furosemide 20 mg tablet 20 mg PO BEDTIME 06/29/23 10/07/23 Unknown History lisinopril 40 mg tablet 40 mg PO DAILY 06/29/23 10/07/23 Unknown History oxybutynin chloride 5 mg 5 mg PO BEDTIME 06/29/23 10/07/23 Unknown History tablet,extended release 24 hr acetaminophen 325 mg tablet 975 mg PO TID PRN Fever Or Pain 10/07/23 10/07/23 Unknown History aspirin 81 mg tablet,delayed 81 mg PO DAILY 10/07/23 10/07/23 Unknown History release atorvastatin 40 mg tablet 40 mg PO BEDTIME 10/07/23 10/07/23 Unknown History bisacodyl 10 mg rectal suppository 10 mg ME DAILY PRN Constipation 10/07/23 10/07/23 Unknown History dextrose 40 % oral gel (Glucose 30 g PO Q15M PRN Hypoglycemia 10/07/23 10/07/23 Unknown History Gel) docusate sodium 100 mg capsule 100 mg PO BID 10/07/23 10/07/23 Unknown History glucagon 1 mg solution for 1 mg subcut Q15M PRN Hypoglycemia 10/07/23 10/07/23 Unknown History injection insulin glargine 100 unit/mL 38 unit subcut BEDTIME 10/07/23 10/07/23 Unknown History subcutaneous solution (Lantus U-100 Insulin) lidocaine 4 % topical patch 1 patch topical DAILY@0800 PRN Pain 10/07/23 10/07/23 Unknown History magnesium hydroxide 400 mg/5 mL 30 ml PO DAILY PRN Constipation 10/07/23 10/07/23 Unknown History oral suspension (Milk of Magnesia) multivitamin 1 tab PO DAILY 10/07/23 10/07/23 Unknown History oxycodone 5 mg tablet 5 mg PO Q4H PRN moderate to severe 10/07/23 10/07/23 Unknown History pain polyethylene glycol 3350 17 gram 17 g PO DAILY Constipation 10/07/23 10/07/23 Unknown History oral powder packet sodium phosphates 19 gram-7 118 ml ME DAILY PRN Constipation 10/07/23 10/07/23 Unknown History gram/118 mL enema (Fleet Enema) Exam Pertinent Lab Results Pertinent Lab Results: Laboratory Tests 10/11/23 10/14/23 10/15/23 05:33 08:55 05:58 WBC 11.7 H Hgb 10.3 L Hct 30.2 L Plt Count 281 Sodium 134 L Potassium 3.7 Chloride 104 Carbon Dioxide 22 BUN 16 Creatinine 0.87 Narrative Narrative: EKG 09/2023 Vent. Rate : 075 BPM Atrial Rate : 000 BPM P-R Int : 000 ms QRS Dur : 088 ms QT Int : 380 ms P-R-T Axes : 000 004 142 degrees QTc Int : 424 ms Atrial fibrillation Inferior infarct , age undetermined T wave abnormality, consider lateral ischemia Abnormal ECG No previous ECGs available Assessment and Plan Assessment Anesthesia Assessment: Chart Reviewed Final Anesthetic Review Family History of Problems with Anesthesia: No History of Problems with Anesthesia: No Documented by User: Melba Edwards MD 12/19/23 10:03 [facility] Past Medical History Medical History HTN (hypertension) Diabetes Social History Social History Household Members: None Housing: Residential Do you presently have visiting nurse or other home services: No Patient Tobacco Use Status: Never used Tobacco Second Hand Smoke Exposure: No Use of substances other than those prescribed or required for medical reasons: No Are you DNR?: No Advance Directives: No Advance Directives Information Provided: Yes service: No Meds Allergies Allergy/AdvReac Type Severity Reaction Status Date / Time No Known Allergies Allergy Verified 12/01/23 10:32 Home Medications ?Medication ?Instructions ?Recorded ?Confirmed ?Last Taken ?Type furosemide 20 mg tablet 20 mg PO BEDTIME 06/29/23 10/07/23 Unknown History lisinopril 40 mg tablet 40 mg PO DAILY 06/29/23 10/07/23 Unknown History oxybutynin chloride 5 mg 5 mg PO BEDTIME 06/29/23 10/07/23 Unknown History tablet,extended release 24 hr acetaminophen 325 mg tablet 975 mg PO TID PRN Fever Or Pain 10/07/23 10/07/23 Unknown History aspirin 81 mg tablet,delayed 81 mg PO DAILY 10/07/23 10/07/23 Unknown History release atorvastatin 40 mg tablet 40 mg PO BEDTIME 10/07/23 10/07/23 Unknown History bisacodyl 10 mg rectal suppository 10 mg ME DAILY PRN Constipation 10/07/23 Unknown History dextrose 40 % oral gel (Glucose 30 g PO Q15M PRN Hypoglycemia 10/07/23 10/07/23 Unknown History Gel) docusate sodium 100 mg capsule 100 mg PO BID 10/07/23 10/07/23 Unknown History glucagon 1 mg solution for 1 mg subcut Q15M PRN Hypoglycemia 10/07/23 10/07/23 Unknown History injection insulin glargine 100 unit/mL 38 unit subcut BEDTIME 10/07/23 10/07/23 Unknown History subcutaneous solution (Lantus U-100 Insulin) lidocaine 4 % topical patch 1 patch topical DAILY@0800 PRN Pain 10/07/23 10/07/23 Unknown History magnesium hydroxide 400 mg/5 mL 30 ml PO DAILY PRN Constipation 10/07/23 10/07/23 Unknown History oral suspension (Milk of Magnesia) multivitamin 1 tab PO DAILY 10/07/23 10/07/23 Unknown History oxycodone 5 mg tablet 5 mg PO Q4H PRN moderate to severe 10/07/23 10/07/23 Unknown History pain polyethylene glycol 3350 17 gram 17 g PO DAILY Constipation 10/07/23 10/07/23 Unknown History oral powder packet sodium phosphates 19 gram-7 118 ml ME DAILY PRN Constipation 10/07/23 10/07/23 Unknown History gram/118 mL enema (Fleet Enema) Exam Airway Mallampati Class: II TM Dist: >3cm Neck ROM: Limited Heart: rrr Lungs: cta Assessment and Plan Assessment Anesthesia Assessment: Anesthesia Plan Discussed Final Anesthetic Review NPO: Yes ASA Class: III and Emergency Final Preanesthetic Review: No Changes in Pt Med Stat, Meds/Allgs Chart Reviewed, Consent Obtained/Reviewed and Anes Risks/Benef Reviewed Patient Risk: Intermediate Procedure Risk: Low Anesthetic Plan Anesthetic Plan: GA Disposition: Standard PACU
[2023-12-19] VITALS (7 sets, daily range): BP systolic 112–138; BP diastolic 52–64; PULSE 50–71; RESP 16–18; TEMP 36.1–36.4; O2SAT 97–100; BMI 26.2; BMI 29.3
[2023-12-19] MEDS: Lactated Ringers 1,000 ML 100 ML IVCONT (09:31)
[2023-12-19 09:34] LABS: Glucose, Whole Blood 101 mg/dL (60-115)
--- NOTE | 2023-12-19 09:54 | PC.NURSE ---
spoke to [place] [phone] [phone] rn, pt took no meds 12/19/23. plavix and aspirin yesterday. notified dr. dhillon via [place].
--- NOTE | 2023-12-19 10:44 | MHC.SHP ---
Pre-Procedural Eval Section A - 24 Hr Update-Section A only Date of Service: 12/19/23 The patient is an INPATIENT: No Changes since office visit: Yes Patient answered all questions The patient has been examined within 24 hours of the surgical procedure. The History & Physical has been completed within 30 days and I have reviewed it.: Yes Section B - Complete if H&P > 30 days Chief Complaint: Non-pressure chronic ulcer of other part of right Allergies: Allergies Allergy/AdvReac Type Severity Reaction Status Date / Time No Known Allergies Allergy Verified 12/01/23 10:32 Plan I have reviewed the history and physical and performed a pertinent physical examination on my patient. No changes have occurred unless specified. Time Spent With Patient Time: Total time managing care of this patient today ____ minutes.
--- NOTE | 2023-12-19 11:50 | P.OP_ITS ---
Operative Note Operative Note Date of Service: 12/19/23 Narrative: Operative note by [facility] Preoperative diagnosis: Nonhealing right foot amputation site Postoperative diagnosis: Same Procedure:1. Excisional debridement into muscle 2. Application of skin substitute (Keresis) Surgeon:Power Gonzales M.D. Preparatory Technician: None Anesthesia: Local with sedation by Dr. Lal Specimens: None Drains: None Estimated blood loss: Mid Indications: Pleasant 83-year-old gentleman who had a previous history right foot gangrene. He underwent right great toe and 2nd toe amputation. There has been a nonhealing amputation site. He now presents for debridement and skin substitute placement. The patient has signed the informed consent after reviewing risks, complications, benefits, and alternatives previously discussed with the patient. The patient was given the opportunity to ask any additional questions or voice any concerns. All questions were answered to the patient's satisfaction. Procedure in detail: Patient was brought to the operating room prior to which a time-out was called for patient identification and site verification. Right foot was prepped and draped in standard surgical fashion. Excisional debridement was undertaken into muscle. We used pickups and 15 blade to get down into muscle we then used scratch pad to create a clean surface. This was thoroughly irrigated out. The preprocedure measurement was 4 x 3 x 0.5 cm the post debridement measurement was 4.2 x 3.2 x 0.7 cm. We then placed the Kerecis skin substitute in its powder form. It was initially Rehydrated. The slurry was then placed more proximally into the tunneled area and then we covered the entire open portion. We then placed an Adaptic and subsequently sutured in a bolster. Sterile dressing was applied. At the end the case sponge instrument counts were correct. Patient tolerated the procedure well. Returned to recovery with stable vitals This note is constructed using voice recognition software. While every effort has been made to ensure accuracy, concrete bucket hooker errors may have been included. Thank you for allowing me to participate in the care of your patient. Yours sincerely, Power Gonzales MD, FACS, R.P.V.I.
== END 2023-12-19 13:30 | disposition home or self-care (01) ==
PROVIDERS: PCP Emergency Medicine; Visit Provider Surgery Vascular Surgery
PROC: (CPT 15271; principal; 2023-12-19 10:50)
DX: T81.89XA Other complications of procedures, not elsewhere classified, initial encounter (principal); L97.819 Non-pressure chronic ulcer of other part of right lower leg with unspecified severity; E11.51 Type 2 diabetes mellitus with diabetic peripheral angiopathy without gangrene; M86.171 Other acute osteomyelitis, right ankle and foot; Z89.421 Acquired absence of other right toe(s); Z87.898 Personal history of other specified conditions; I10 Essential (primary) hypertension; Z79.4 Long term (current) use of insulin; Z79.02 Long term (current) use of antithrombotics/antiplatelets; Z79.82 Long term (current) use of aspirin; Z79.899 Other long term (current) drug therapy
CPT/HCPCS: 15271; 11043; 82947; J0131; J0690; J2704; J2795; Q4158

== ENCOUNTER → 2023-12-19 08:53 | Outpatient (BNV) | payer MEDICARE, OTHER, SELFPAY | PROVIDERS: PCP Emergency Medicine; Visit Provider Surgery Vascular Surgery | DX: L97.819 Non-pressure chronic ulcer of other part of right lower leg with unspecified severity (principal) | CPT/HCPCS: 11043; 15271 ==

== ENCOUNTER 2023-12-27 13:53 | Outpatient (AMB) | payer MEDICARE, OTHER, SELFPAY ==
--- NOTE | 2023-12-27 14:04 | MHC.OFFVIS ---
Intake Visit Reasons: 1 week follow up skin substitute Intake Note: Patient presents for 1 week follow up following a right foot debridement with skin substitute. Patient states he is getting his wound dressed daily at [facility]. Upon removing bandages I noticed draining and an odor. Accompanied by: Other Relationship Allergies No Known Allergies Allergy (Verified 12/27/23 14:08) HPI HPI 1 week follow up skin substitute: Details: Very pleasant 83-year-old gentleman presents for follow-up status post right lower extremity debridement and application of skin substitute. He reports no significant postoperative issues. He does have some pain and discomfort in general but overall reports that his foot appears to be doing relatively well. Now presents for postoperative dressing change. [facility] Medical History HTN (hypertension) Diabetes Social History Household Members: None Housing: Alf Do you presently have visiting nurse or other home services: No Patient Tobacco Use Status: Never used Tobacco Second Hand Smoke Exposure: No service: No Review of Systems Const All systems reviewed & are unremarkable except as noted in HPI and below Reports no additional complaints ENT Reports Normal hearing present Card Denies chest pain, Denies chest pain at rest, Denies chest pain with activity and Denies pedal edema Resp Denies cough GI Denies abdominal pain Musc Denies abnormal gait, Denies muscle cramps and Denies radiating pain into limb Skin/Breast Denies skin ulcer and Denies wounds Neuro Reports Normal hearing present and Denies abnormal gait Psych Reports no additional complaints Physical Exam Const General: cooperative, healthy appearing and comfortable Orientation/consciousness: oriented to person, oriented to place and oriented to time HEENT Head: Yes normal to inspection Neck Neck: Yes normal visual inspection Carotids: no bruits Chest Chest palpation & inspection: normal inspection of the chest Resp Effort & Inspection: normal respiratory effort and able to speak in complete sentences Auscultation: clear to auscultation bilaterally, no crackles, no rales, no rhonchi and no wheezes Cardio Rate: regular rate Rhythm: regular rhythm Heart sounds: S1 normal heart sound present and S2 normal heart sound present Bruits: no carotid bruits Peripheral pulses: Peripheral pulses 2+ throughout GI Inspection: Yes normal to inspection Skin Other: Right foot dorsum ulcer measures 0.5 cm in diameter Right foot great toe amp site measures 3 x 3 x 0.2 cm overall clean and significantly improved from prior. Wounds: wounds noted Hair: normal Neuro General: oriented to person, oriented to place and oriented to time Cranial nerves: Yes CN's II-XII intact bilaterally and Yes Normal hearing present Cognition (Neuro): normal cognition Motor exam (neuro): 5/5 motor strength present throughout Extrem Other: venous exam: No significant superficial varicosities or spider telangiectasias, minimal edema General: No clubbing, No cyanosis and No edema Psych Appearance: grossly normal Mental Status: mental status grossly normal Speech and movement: Normal speech and movement present Assessment & Plan Assessment & Plan (1) PAD (peripheral artery disease): Comment: 07/01/2023 - right great toe ray amputation by Dr. Drew 08/10/2023 right SFA atherectomy and plasty and right peroneal plasty by Dr. Gonzales 10/11/2023 - right 2nd toe amputation Code(s): I73.9 - Peripheral vascular disease, unspecified Category: Medical Plan: In short patient has right foot ray amputation. Overall foot appears to be doing relatively well. Will switch to alginate dressings. Will have him follow-up in approximately 3 weeks time. Thank you for allowing us to assist in his care. If there are any questions or concerns please do not hesitate to contact us Coding Level of Care Code Est Pt Level 3 (54489) Diagnoses PAD (peripheral artery disease) I73.9
== END 2023-12-27 14:48 | disposition home or self-care (01) ==
PROVIDERS: PCP Emergency Medicine; Visit Provider Surgery Vascular Surgery
DX: I73.9 Peripheral vascular disease, unspecified (principal)
CPT/HCPCS: 99024

== ENCOUNTER → 2023-12-27 13:53 | Outpatient (BNVA) | payer MEDICARE, OTHER, SELFPAY | PROVIDERS: PCP Emergency Medicine; Visit Provider Surgery Vascular Surgery | DX: Z48.01 Encounter for change or removal of surgical wound dressing (principal) | CPT/HCPCS: 99212 ==

== ENCOUNTER 2024-01-04 16:08 | Outpatient (REF) | payer MEDICARE, OTHER, SELFPAY | END 2024-01-04 16:09 | disposition home or self-care (01) | LOC: HO.LNP 16:08 | PROVIDERS: Visit Provider Surgery | DX: Z13.89 Encounter for screening for other disorder (principal) ==

== ENCOUNTER 2024-01-17 14:17 | Outpatient (AMB) | payer MEDICARE, OTHER, SELFPAY ==
--- NOTE | 2024-01-17 14:29 | MHC.OFFVIS ---
Intake Visit Reasons: Follow Up wound check Intake Note: 3 week follow up Right foot debridement w/ skin substitute. Pt states dressing changed daily at [facility] Accompanied by: [facility] employee Allergies No Known Allergies Allergy (Verified 01/17/24 14:32) [facility] HPI Follow Up wound check: Details: Pleasant 83-year-old gentleman presents for follow-up status post right lower extremity debridement and skin substitute placement. He reports that he is doing fairly well overall. He had no issues postoperatively. And reports that the wound appears to be doing relatively well. No issues with pain. Does have some dry gangrene on his 2nd toe. [facility] Medical History HTN (hypertension) Diabetes Social History Household Members: None Housing: [facility] Do you presently have visiting nurse or other home services: No Patient Tobacco Use Status: Never used Tobacco Second Hand Smoke Exposure: No service: No Review of Systems Const All systems reviewed & are unremarkable except as noted in HPI and below Reports no additional complaints ENT Reports Normal hearing present Card Denies chest pain, Denies chest pain at rest, Denies chest pain with activity and Denies pedal edema Resp Denies cough GI Denies abdominal pain Musc Denies abnormal gait, Denies muscle cramps and Denies radiating pain into limb Skin/Breast Denies skin ulcer and Denies wounds Neuro Reports Normal hearing present and Denies abnormal gait Psych Reports no additional complaints Physical Exam Const General: cooperative, healthy appearing and comfortable Orientation/consciousness: oriented to person, oriented to place and oriented to time HEENT Head: Yes normal to inspection Neck Neck: Yes normal visual inspection Carotids: no bruits Chest Chest palpation & inspection: normal inspection of the chest Resp Effort & Inspection: normal respiratory effort and able to speak in complete sentences Auscultation: clear to auscultation bilaterally, no crackles, no rales, no rhonchi and no wheezes Cardio Rate: regular rate Rhythm: regular rhythm Heart sounds: S1 normal heart sound present and S2 normal heart sound present Bruits: no carotid bruits Peripheral pulses: Peripheral pulses 2+ throughout GI Inspection: Yes normal to inspection Skin Other: Right 2nd toe dry gangrene. Right amputation site measures 2 x 2 x 1.5 cm. Overall good granulation base. Wounds: no wounds Hair: normal Neuro General: oriented to person, oriented to place and oriented to time Cranial nerves: Yes CN's II-XII intact bilaterally and Yes Normal hearing present Cognition (Neuro): normal cognition Motor exam (neuro): 5/5 motor strength present throughout Extrem Other: venous exam: No significant superficial varicosities or spider telangiectasias, minimal edema General: No clubbing, No cyanosis and No edema Psych Appearance: grossly normal Mental Status: mental status grossly normal Speech and movement: Normal speech and movement present Assessment & Plan Assessment & Plan (1) PAD (peripheral artery disease): Comment: 07/01/2023 - right great toe ray amputation by Dr. Drew 08/10/2023 right SFA atherectomy and plasty and right peroneal plasty by Dr. Gonzales 10/11/2023 - right 2nd toe amputation 12/19/2023 - right wound debridement with placement of skin substitute Code(s): I73.9 - Peripheral vascular disease, unspecified Category: Medical Plan: In short wound appears to be improving nicely. Right 2nd toe does have dry gangrene but it appears to be stable. The fear here is is if we amputate further he may end up with a BKA. We will manage this as conservatively as possible. At the current time continue with local wound care. Will follow up with us in approximately 4 weeks' time. Should there be any interval issues happy to see him back sooner. Thank you for allowing us to assist in his care. Coding Level of Care Code Est Pt Level 3 (88242) Diagnoses PAD (peripheral artery disease) I73.9
== END 2024-01-17 15:25 | disposition home or self-care (01) ==
PROVIDERS: PCP Emergency Medicine; Visit Provider Surgery Vascular Surgery
DX: I73.9 Peripheral vascular disease, unspecified (principal)
CPT/HCPCS: 99213

== ENCOUNTER → 2024-01-17 14:17 | Outpatient (BNVA) | payer MEDICARE, OTHER, SELFPAY | PROVIDERS: PCP Emergency Medicine; Visit Provider Surgery Vascular Surgery | DX: I73.9 Peripheral vascular disease, unspecified (principal) | CPT/HCPCS: 99212 ==

== ENCOUNTER 2024-02-14 14:32 | Outpatient (AMB) | payer MEDICARE, OTHER, SELFPAY ==
--- NOTE | 2024-02-14 14:40 | MHC.OFFVIS ---
Intake Visit Reasons: 4 week wound check Intake Note: 4 week wound check Right foot debridement w/ skin substitute. [facility] changes dressing daily. Great Toe amp debridement is almost healed, however, second toe has severe tunnling on the tip of the toe and at the base of the toe. Accompanied by: Aide Allergies No Known Allergies Allergy (Verified 02/14/24 14:48) HPI HPI 4 week wound check: Details: Very pleasant 83-year-old gentleman presents for follow-up regarding nonhealing right great toe amputation site and 2nd toe amputation. It appears to be doing relatively well. The concern here is now his 3rd toe which is nonhealing. There appears to be openings at the most distal aspect of the toe. In addition there is tunneling as well. He now presents for routine follow-up. [facility] Medical History HTN (hypertension) Diabetes Social History Household Members: None Housing: Retirement Do you presently have visiting nurse or other home services: No Patient Tobacco Use Status: Never used Tobacco Second Hand Smoke Exposure: No service: No Review of Systems Const All systems reviewed & are unremarkable except as noted in HPI and below Reports no additional complaints ENT Reports Normal hearing present Card Denies chest pain, Denies chest pain at rest, Denies chest pain with activity and Denies pedal edema Resp Denies cough GI Denies abdominal pain Musc Denies abnormal gait, Denies muscle cramps and Denies radiating pain into limb Skin/Breast Denies skin ulcer and Denies wounds Neuro Reports Normal hearing present and Denies abnormal gait Psych Reports no additional complaints Physical Exam Const General: cooperative, healthy appearing and comfortable Orientation/consciousness: oriented to person, oriented to place and oriented to time HEENT Head: Yes normal to inspection Neck Neck: Yes normal visual inspection Carotids: no bruits Chest Chest palpation & inspection: normal inspection of the chest Resp Effort & Inspection: normal respiratory effort and able to speak in complete sentences Auscultation: clear to auscultation bilaterally, no crackles, no rales, no rhonchi and no wheezes Cardio Rate: regular rate Rhythm: regular rhythm Heart sounds: S1 normal heart sound present and S2 normal heart sound present Bruits: no carotid bruits Peripheral pulses: Peripheral pulses 2+ throughout GI Inspection: Yes normal to inspection Skin Other: Nonhealing right 3rd toe which is penetrating to bone Wounds: no wounds Hair: normal Neuro General: oriented to person, oriented to place and oriented to time Cranial nerves: Yes CN's II-XII intact bilaterally and Yes Normal hearing present Cognition (Neuro): normal cognition Motor exam (neuro): 5/5 motor strength present throughout Extrem Other: venous exam: No significant superficial varicosities or spider telangiectasias, minimal edema General: No clubbing, No cyanosis and No edema Psych Appearance: grossly normal Mental Status: mental status grossly normal Speech and movement: Normal speech and movement present Assessment & Plan Assessment & Plan (1) PAD (peripheral artery disease): Comment: 07/01/2023 - right great toe ray amputation by Dr. Drew 08/10/2023 right SFA atherectomy and plasty and right peroneal plasty by Dr. Gonzales 10/11/2023 - right 2nd toe amputation 12/19/2023 - right wound debridement with placement of skin substitute Code(s): I73.9 - Peripheral vascular disease, unspecified Category: Medical Plan: In short patient has nonhealing right 3rd toe ulcer. He will require right 3rd toe amputation. Risks benefits complications of the procedure were discussed in detail with the patient he understood and consented. We will plan to schedule as soon as possible. Coding Level of Care Code Est Pt Level 4 (64624) Diagnoses PAD (peripheral artery disease) I73.9
== END 2024-02-14 14:56 | disposition home or self-care (01) ==
PROVIDERS: PCP Emergency Medicine; Visit Provider Surgery Vascular Surgery
DX: I73.9 Peripheral vascular disease, unspecified (principal)
CPT/HCPCS: 99214

== ENCOUNTER → 2024-02-14 14:32 | Outpatient (BNVA) | payer MEDICARE, OTHER, SELFPAY | PROVIDERS: PCP Emergency Medicine; Visit Provider Surgery Vascular Surgery | DX: I73.9 Peripheral vascular disease, unspecified (principal) | CPT/HCPCS: 99212 ==

== ENCOUNTER 2024-05-08 10:05 | Outpatient (AMB) | payer MEDICARE, OTHER, SELFPAY ==
--- NOTE | 2024-05-08 10:07 | MHC.OFFVIS ---
Intake Visit Reasons: Follow Up Intake Note: follow up Right foot great toe amp and 2nd toe tunnling on the tip of the toe. Pt states he does go to woundcare and has wound care doctor at Facility ( [facility]). Pt was scheduled for surgery and then canceled due to wound healing. Payable Processor Required: No Accompanied by: staff Allergies No Known Allergies Allergy (Verified 05/08/24 10:13) HPI HPI Follow Up: Details: Very pleasant 84-year-old gentleman presents for follow-up regarding nonhealing right 3rd toe ulcer. He also has an ulceration on the dorsum of the foot. This has been present for some time. Patient presents for routine vascular follow-up. [facility] Medical History HTN (hypertension) Diabetes Social History Household Members: None Housing: Skilled Nursing Do you presently have visiting nurse or other home services: No Patient Tobacco Use Status: Never used Tobacco Second Hand Smoke Exposure: No service: No Review of Systems Const All systems reviewed & are unremarkable except as noted in HPI and below Reports no additional complaints ENT Reports Normal hearing present Card Denies chest pain, Denies chest pain at rest, Denies chest pain with activity and Denies pedal edema Resp Denies cough GI Denies abdominal pain Musc Denies abnormal gait, Denies muscle cramps and Denies radiating pain into limb Skin/Breast Denies skin ulcer and Denies wounds Neuro Reports Normal hearing present and Denies abnormal gait Psych Reports no additional complaints Physical Exam Const General: cooperative, healthy appearing and comfortable Orientation/consciousness: oriented to person, oriented to place and oriented to time HEENT Head: Yes normal to inspection Neck Neck: Yes normal visual inspection Carotids: no bruits Chest Chest palpation & inspection: normal inspection of the chest Resp Effort & Inspection: normal respiratory effort and able to speak in complete sentences Auscultation: clear to auscultation bilaterally, no crackles, no rales, no rhonchi and no wheezes Cardio Rate: regular rate Rhythm: regular rhythm Heart sounds: S1 normal heart sound present and S2 normal heart sound present Bruits: no carotid bruits Peripheral pulses: Peripheral pulses 2+ throughout GI Inspection: Yes normal to inspection Skin Other: Right 3rd toe tip ulcer 0.5 cm penetrating to bone. Dorsum of foot ulceration measuring 1.5 cm. General basis clean. Wounds: no wounds Hair: normal Neuro General: oriented to person, oriented to place and oriented to time Cranial nerves: Yes CN's II-XII intact bilaterally and Yes Normal hearing present Cognition (Neuro): normal cognition Motor exam (neuro): 5/5 motor strength present throughout Extrem Other: venous exam: No significant superficial varicosities or spider telangiectasias, minimal edema General: No clubbing, No cyanosis and No edema Psych Appearance: grossly normal Mental Status: mental status grossly normal Speech and movement: Normal speech and movement present Results Reviewed Results Reviewed: Noninvasive arterial testing dated 12/12/2023 demonstrates SAMRA on the right of 0.7. Assessment & Plan Assessment & Plan (1) PAD (peripheral artery disease): Comment: 07/01/2023 - right great toe ray amputation by Dr. Drew 08/10/2023 right SFA atherectomy and plasty and right peroneal plasty by Dr. Gonzales 10/11/2023 - right 2nd toe amputation 12/19/2023 - right wound debridement with placement of skin substitute Code(s): I73.9 - Peripheral vascular disease, unspecified Category: Medical Plan: In short patient has nonhealing right 3rd toe ulceration. I have taken the liberty of ordering repeat noninvasive arterial testing as it has been nearly 6 months since we have seen it. We will continue to monitor the status of this right 3rd toe. Should it remain nonhealing may be beneficial to amputate this. Will follow up with us after testing. We will continue to follow his status. Thank you for allowing us to assist in his care. If there any questions or concerns please do not hesitate to contact us. Please note a longitudinal relationship has been created with the patient and we have been following and surveillance this chronic condition. Orders: Orders US arterial duplex LE BI 1 Week I73.9 - Peripheral vascular disease, unspecified Coding Level of Care Code Est Pt Level 4 (56283) Complex EM visit Add On G2211 Diagnoses PAD (peripheral artery disease) I73.9
== END 2024-05-08 10:44 | disposition home or self-care (01) ==
PROVIDERS: PCP Emergency Medicine; Visit Provider Surgery Vascular Surgery
DX: I73.9 Peripheral vascular disease, unspecified (principal)
CPT/HCPCS: 99214; G2211

== ENCOUNTER → 2024-05-08 10:05 | Outpatient (BNVA) | payer MEDICARE, OTHER, SELFPAY | PROVIDERS: PCP Emergency Medicine; Visit Provider Surgery Vascular Surgery | DX: I73.9 Peripheral vascular disease, unspecified (principal); Z89.411 Acquired absence of right great toe | CPT/HCPCS: 99212 ==

== ENCOUNTER 2024-05-14 13:25 | Outpatient (REF) | payer MEDICARE, OTHER, SELFPAY ==
--- NOTE | ~2024-05-14 | US_ITS ---
EXAMINATION: Noninvasive assessment of the bilateral lower extremities with ARTERIAL DUPLEX and ANKLE BRACHIAL INDICES (ABIs). CLINICAL INFORMATION: Peripheral vascular disease, history of right foot ulceration/toe amputation TECHNIQUE: Duplex Doppler techniques with waveform analysis and measurement of velocities in the bilateral common femoral, profunda femoris, superficial femoral, popliteal and tibial arteries were performed. Additionally, ankle pulse volume recordings, ankle pressure measurements and ankle brachial indices were obtained of the lower extremity arterial system bilaterally. The study was performed only at rest. COMPARISON: 12/12/2023 FINDINGS: DIRECT DUPLEX DOPPLER FINDINGS: RIGHT LEG: Common femoral artery: 71.6 cm/s, phasicity: Triphasic Profunda femoris artery: 102 cm/s, phasicity: Triphasic Superficial femoral artery (proximal): 152 cm/s, phasicity: Triphasic Superficial femoral artery (mid): 102 cm/s, phasicity: Triphasic Superficial femoral artery (distal): 52.9 cm/s, phasicity: Monophasic Popliteal artery: 59.5 cm/s, phasicity: Monophasic Posterior tibial artery: 16.2 cm/s, phasicity: Monophasic flow in the mid segment. Occlusive changes in the proximal and distal segment Peroneal artery: Not visualized Anterior tibial artery: 39.9 cm/s, phasicity: Monophasic LEFT LEG: Common femoral artery: 144 cm/s, phasicity: Triphasic Profunda femoris artery: 128 cm/s, phasicity: Triphasic Superficial femoral artery (proximal): 132 cm/s, phasicity: Triphasic Superficial femoral artery (mid): 95.4 cm/s, phasicity: Biphasic Superficial femoral artery (distal): Not visualized Popliteal artery: 81.0 cm/s, phasicity: Biphasic Posterior tibial artery: 21.7 cm/s, phasicity: Monophasic flow distally. Proximal segment is occluded Peroneal artery: 35.3 cm/s, phasicity: Monophasic flow distally. Proximal to mid segment is not well-visualized Anterior tibial artery: 7.3 cm/s, phasicity: Monophasic Dorsalis pedis artery: 30.3 cm/s, phasicity: Monophasic ANKLE-BRACHIAL INDEX: Right: 1.03 Left: Nondetectable ANKLE PRESSURES: Right: PT 161, DP overlying bandage Left: PT inaudible, DP inaudible ANKLE PVR WAVEFORMS: Right: Abnormal Left: Abnormal US/US arterial duplex BI w/ SAMRA IMPRESSION: RIGHT LEG: Patent arterial flow to the level of the femoral and popliteal arteries. Occlusive changes in the proximal and distal posterior tibial artery with monophasic flow in the mid segment. Peroneal artery is not visualized. LEFT LEG: Distal superficial femoral artery is not well visualized and cannot exclude underlying occlusions or stenosis. Occlusive changes in the proximal posterior tibial artery with monophasic flow in the distal segment. Proximal to mid peroneal artery is not well-visualized. Monophasic flow in the anterior tibial artery and dorsalis pedis artery. Electronically signed by: Vipin Sandhu MD 05/18/2024 10:11 AM EDT
== END 2024-05-14 13:26 | disposition home or self-care (01) ==
LOC: HO.US 13:25
PROVIDERS: PCP Emergency Medicine; Visit Provider Surgery Vascular Surgery
DX: I73.9 Peripheral vascular disease, unspecified (principal)
CPT/HCPCS: 93922; 93925

== ENCOUNTER 2024-07-26 09:59 | Outpatient (AMB) | payer MEDICARE, OTHER, SELFPAY ==
--- NOTE | 2024-07-26 10:24 | MHC.OFFVIS ---
Intake Visit Reasons: follow up s/p Arterial US 05/14/24 Intake Note: follow up ARterial US 05/14/24, had Right toe ulcer that is now healed. PT states no issues and no pain. He is currently at [facility] Jewel Sawyer Required: No Accompanied by: SHAKE CUTTER from facility Allergies No Known Allergies Allergy (Verified 07/26/24 10:26) HPI HPI follow up s/p Arterial US 05/14/24: Details: Very pleasant 84-year-old gentleman presents for routine arterial surveillance follow-up. He had undergone right foot amputation and had subsequently gone on to heal the wound. He now presents for routine arterial surveillance follow-up. He has had no other interval issues. He has been in a facility and the aide with him does report he occasionally does ambulate but is more sedentary as time has gone on. He now presents for routine vascular follow-up with noninvasive testing. [facility] Medical History HTN (hypertension) Diabetes Social History Household Members: None Housing: [facility] Do you presently have visiting nurse or other home services: No Patient Tobacco Use Status: Never used Tobacco Second Hand Smoke Exposure: No service: No Review of Systems Const All systems reviewed & are unremarkable except as noted in HPI and below Reports no additional complaints ENT Reports Normal hearing present Card Denies chest pain, Denies chest pain at rest, Denies chest pain with activity and Denies pedal edema Resp Denies cough GI Denies abdominal pain Musc Denies abnormal gait, Denies muscle cramps and Denies radiating pain into limb Skin/Breast Denies skin ulcer and Denies wounds Neuro Reports Normal hearing present and Denies abnormal gait Psych Reports no additional complaints Physical Exam Const General: cooperative, healthy appearing and comfortable Orientation/consciousness: oriented to person, oriented to place and oriented to time HEENT Head: Yes normal to inspection Neck Neck: Yes normal visual inspection Carotids: no bruits Chest Chest palpation & inspection: normal inspection of the chest Resp Effort & Inspection: normal respiratory effort and able to speak in complete sentences Auscultation: clear to auscultation bilaterally, no crackles, no rales, no rhonchi and no wheezes Cardio Rate: regular rate Rhythm: regular rhythm Heart sounds: S1 normal heart sound present and S2 normal heart sound present Bruits: no carotid bruits Peripheral pulses: Peripheral pulses 2+ throughout GI Inspection: Yes normal to inspection Skin Other: Right foot amputation site well healed Wounds: no wounds Hair: normal Neuro General: oriented to person, oriented to place and oriented to time Cranial nerves: Yes CN's II-XII intact bilaterally and Yes Normal hearing present Cognition (Neuro): normal cognition Motor exam (neuro): 5/5 motor strength present throughout Extrem Other: venous exam: No significant superficial varicosities or spider telangiectasias, minimal edema General: No clubbing, No cyanosis and No edema Psych Appearance: grossly normal Mental Status: mental status grossly normal Speech and movement: Normal speech and movement present Results Reviewed Results Reviewed: Noninvasive arterial testing dated 05/14/2024 demonstrates SAMRA on the right of 1.03 and on the left is nondetectable. Waveforms do appear fairly reasonable with monophasic tibial flow. No large vessel disease appreciated. Written report and images were reviewed. Assessment & Plan Assessment & Plan (1) PAD (peripheral artery disease): Comment: 07/01/2023 - right great toe ray amputation by Dr. Drew 08/10/2023 right SFA atherectomy and plasty and right peroneal plasty by Dr. Gonzales 10/11/2023 - right 2nd toe amputation 12/19/2023 - right wound debridement with placement of skin substitute Code(s): I73.9 - Peripheral vascular disease, unspecified Category: Medical Plan: In short patient has healed amputation site. I did review the pathophysiology of peripheral vascular disease with the patient. In addition we did discuss routine conservative measures including a healthy diet and the importance of exercise and trying to ambulation. We did discuss risk factor modification. The patient will continue to to follow-up with surveillance follow-up in approximately 1 year. Thank you for allowing us to participate in this patient's care. If there are any questions or concerns please do not hesitate to contact us. Orders: Orders US arterial duplex LE BI 1 Year I73.9 - Peripheral vascular disease, unspecified Coding Level of Care Code Est Pt Level 4 (60633) Complex EM visit Add On G2211 Diagnoses PAD (peripheral artery disease) I73.9
== END 2024-07-26 10:52 | disposition home or self-care (01) ==
PROVIDERS: PCP Emergency Medicine; Visit Provider Surgery Vascular Surgery
DX: I73.9 Peripheral vascular disease, unspecified (principal)
CPT/HCPCS: 99214; G2211

== ENCOUNTER → 2024-07-26 09:59 | Outpatient (BNVA) | payer MEDICARE, OTHER, SELFPAY | PROVIDERS: PCP Emergency Medicine; Visit Provider Surgery Vascular Surgery | DX: I73.9 Peripheral vascular disease, unspecified (principal); Z89.411 Acquired absence of right great toe; Z89.421 Acquired absence of other right toe(s) | CPT/HCPCS: 99212 ==

== ENCOUNTER 2025-01-17 19:59 | Emergency (ER) | payer MEDICARE, OTHER, SELFPAY ==
--- NOTE | 2025-01-17 | ECG_ITS ---
Test Reason : TIM Blood Pressure : */* mmHG Vent. Rate : 48 BPM Atrial Rate : * BPM P-R Int : * ms QRS Dur : 94 ms QT Int : 444 ms P-R-T Axes : * 9 130 degrees QTcB Int : 396 ms Atrial fibrillation with slow ventricular response Inferior infarct (cited on or before 07-Oct-2023) Abnormal ECG When compared with ECG of 07-Oct-2023 13:02, Vent. rate has decreased by 27 bpm Referred By: Enedina Wells Electronically Signed By: MERYL MINOR MD
[2025-01-17 20:08] VITALS: BP 140/92; PULSE 60; RESP 19; TEMP 36.6; O2SAT 98; BMI 31.7
[2025-01-17 20:09] VITALS: BP 118/58; PULSE 78; O2SAT 92
[2025-01-17 21:13] LABS: Appearance Urine Clear; Color Urine Yellow; Glucose Urine UA 250 mg/dL (Negative); Leukocyte Esterase Urine Negative (Negative); Nitrite Urine Negative (Negative); UMIC TRIGGER UACC YES; Urine Blood Negative (Negative); Urine Ketones Negative (Negative); Urine Protein 30 (1+) mg/dL (Neg-Trace)
[2025-01-17 21:16] LABS: Bacteria Urine None Seen (None Seen); Hyaline Casts Urine 0-2 /LPF (0-2); RBC Urine 0-2 /HPF (0-2); Squamous Epithelial Cell Urine 0-2 /HPF (0-2); WBC Urine 0-5 /HPF (0-5)
--- NOTE | 2025-01-17 21:48 | PC.NURSE ---
pt continues to rest comfortably on stretcher, smiling, waving, in no apparent distress. pt used urinal at bedside, sample collected and sent to lab. waiting to be seen by ED provider. plan of care ongoing at this time.
[2025-01-17 22:35] VITALS: BP 129/57; PULSE 49; RESP 16; O2SAT 100
--- NOTE | 2025-01-17 22:37 | PC.NURSE ---
MD warren informed of low HR down to 48. ordering ekg
[2025-01-17 22:40] LABS: MANUAL DIFF FLAG NO
[2025-01-17 22:41] VITALS: BP 110/58; PULSE 96; RESP 17; O2SAT 97
[2025-01-17 22:45] LABS: Basophils Absolute Auto 0.1 X10*3/uL (0.0-0.2); Basophils Percent Auto 0.8 % (0-2); Eosinophils Absolute Auto 0.7 X10*3/uL (0.0-0.4); Eosinophils Percent Auto 6.5 % (0-4); Hematocrit 41.8 % (42.0-52.0); Hemoglobin 14.9 g/dl (14.0-18.0); Imm Gran Abs Auto 0.06 X10*3/uL (0.00-0.03); Imm Gran Pct Auto 0.6 % (0.0-0.4); Lymphocytes Absolute Auto 3.2 X10*3/uL (1.2-4.9); Lymphocytes Percent Auto 30.8 % (20-40); Mean Corpuscular HGB Conc 35.6 g/dl (31.0-36.0); Mean Corpuscular Hemoglobin 31.6 pg (27.0-33.0); Mean Corpuscular Volume 88.6 fL (80.0-98.0); Mean Platelet Volume 10.4 fL (9.4-12.4); Monocytes Percent Auto 9.4 % (2-11); Neutrophils Absolute Auto 5.4 x10*3/uL (2.0-8.3); Neutrophils Percent Auto 51.9 % (45-73); Platelet Count 242 X10*3/uL (160-400); Red Blood Count 4.72 X10*6/uL (4.60-5.80); Red Cell Distribution Width 13.2 % (11.0-16.0); White Blood Count 10.3 X10*3/uL (4.8-10.8)
[2025-01-17 23:00] LABS: Alanine Aminotransferase 22 U/L (0-40); Albumin Level 3.8 g/dL (3.5-5.0); Alkaline Phosphatase 184 U/L (39-117); Anion Gap 14 (12-20); Aspartate Amino Transferase 24 U/L (5-37); Bilirubin Direct 0.2 mg/dL (0.0-0.5); Bilirubin Total 0.6 mg/dL (0.0-1.0); Blood Urea Nitrogen 22 mg/dL (9-16); Calcium 9.8 mg/dL (8.4-10.2); Carbon Dioxide 22 mmol/L (22-29); Chloride 105 mmol/L (96-108); Creatinine Clr Calc Pharmacy 64.3; Estimated Glomerular Filt Rate > 60; Glucose Random 196 mg/dL (60-115); Sodium 137 mmol/L (135-145); Total Protein 7.3 g/dL (6.5-8.0)
--- NOTE | 2025-01-17 23:30 | PC.NURSE ---
This RN called [facility] and spoke with KADEN Zhu @ Report given to Marko and patient will return via ems Per Marko pt has a hx of afib. Pt denies pain at this time Plan of care ongoing.
--- NOTE | 2025-01-17 23:32 | ED_ITS ---
HPI - General Adult General Chief complaint: Behavioral Concerns Stated complaint: staff says pt is agitated, eloping Time Seen by Provider: 01/17/25 21:06 Source: EMS Mode of arrival: EMS Limitations: other (Dementia) History of Present Illness ED Provider: Dr. Enedina Wells HPI narrative: Patient comes to the emergency room via ambulance from [facility]. According to the staff, patient had increased aggressive behavior at the facility. When patient arrived, he is calm, cooperative, states that he feels well and has no complaints. Related Data Home Medications ?Medication ?Instructions ?Recorded ?Confirmed furosemide 20 mg tablet 20 mg PO BEDTIME 06/29/23 10/07/23 lisinopril 40 mg tablet 40 mg PO DAILY 06/29/23 10/07/23 oxybutynin chloride 5 mg 5 mg PO BEDTIME 06/29/23 10/07/23 tablet,extended release 24 hr acetaminophen 325 mg tablet 975 mg PO TID PRN Fever Or Pain 10/07/23 10/07/23 aspirin 81 mg tablet,delayed 81 mg PO DAILY 10/07/23 10/07/23 release atorvastatin 40 mg tablet 40 mg PO BEDTIME 10/07/23 10/07/23 bisacodyl 10 mg rectal suppository 10 mg WV DAILY PRN Constipation 10/07/23 10/07/23 dextrose 40 % oral gel (Glucose 30 g PO Q15M PRN Hypoglycemia 10/07/23 10/07/23 Gel) docusate sodium 100 mg capsule 100 mg PO BID 10/07/23 10/07/23 glucagon 1 mg solution for 1 mg subcut Q15M PRN Hypoglycemia 10/07/23 10/07/23 injection insulin glargine 100 unit/mL 38 unit subcut BEDTIME 10/07/23 10/07/23 subcutaneous solution (Lantus U-100 Insulin) lidocaine 4 % topical patch 1 patch topical DAILY@0800 PRN Pain 10/07/23 10/07/23 magnesium hydroxide 400 mg/5 mL 30 ml PO DAILY PRN Constipation 10/07/23 10/07/23 oral suspension (Milk of Magnesia) multivitamin 1 tab PO DAILY 10/07/23 10/07/23 oxycodone 5 mg tablet 5 mg PO Q4H PRN moderate to severe 10/07/23 10/07/23 pain polyethylene glycol 3350 17 gram 17 g PO DAILY Constipation 10/07/23 10/07/23 oral powder packet sodium phosphates 19 gram-7 118 ml WV DAILY PRN Constipation 10/07/23 10/07/23 gram/118 mL enema (Fleet Enema) Previous Rx's ?Medication ?Instructions ?Recorded insulin lispro 100 unit/mL See Protocol subcut QIDACHS #1 mL 07/08/23 subcutaneous solution (Humalog U-100 Insulin) clopidogrel 75 mg tablet (Plavix) 75 mg PO DAILY #90 tabs 08/10/23 daptomycin 500 mg intravenous 500 mg IV Q24H #34 ea 10/15/23 solution Allergies Allergy/AdvReac Type Severity Reaction Status Date / Time No Known Allergies Allergy Verified 01/17/25 20:10 Review of Systems 2 Review of Systems: Patient has history of dementia, not a good historian but patient has no complaints PMFSH Past Medical History Medical History HTN (hypertension) Diabetes Social History Social History Household Members: None Housing: Shelter Do you presently have visiting nurse or other home services: No Patient Tobacco Use Status: Never used Tobacco Second Hand Smoke Exposure: No Use of substances other than those prescribed or required for medical reasons: No Advance Directives: Yes Advance Directives on File: Yes Advance Directives Date on File: 10/17/23 Do you have a plan to hurt others: No Plan service: No Physical Exam ED Vital Signs: Vital Signs - 24 hr 01/17/25 20:08 01/17/25 22:35 01/17/25 22:41 Temperature 97.9 F Pulse Rate 60 49 L 96 Respiratory Rate 19 16 17 Blood Pressure 140/92 H 129/57 L 110/58 L Pulse Oximetry 98 100 97 Oxygen Delivery Method Room Air Room Air Room Air BMI result Body Mass Index 31.7 Const Other: Appearance: Alert. Oriented x1 No acute distress. Seems contempt, talkative and happy Eyes: Pupils equal, round and reactive to light. ENT: Pharynx normal. Neck: Normal inspection. Neck supple. No lymph nodes noted. No crepitus CVS: Normal heart rate and rhythm. Pulses normal. Normal S1 and S2 Respiratory: No respiratory distress. Breath sounds normal. No Wheezing. No rales Abdomen: Soft and nontender. No rigidity. No distention. Skin: Skin warm and dry. Normal skin color. Normal skin turgor. Extremities: No lower extremity edema. No Lacerations. No Rash Neuro:No slurred speech. CN 2 through 12 grossly intact Psych: calm, cooperative, normal affect Course Course Course Narrative: Patient was sent to the emergency room with a complaint of aggressive behavior. Patient known to have dementia. Here in the emergency room, patient calm, cooperative, very talkative and seems happy Medical Decision Making Medical Decision Making [facility] Narrative: My interpretation of labs: No significant abnormality in patient's hematology and chemistry, urinalysis negative for UTI Here in the emergency room, patient's vitals are stable, patient has not displayed any aggressive behavior Patient ready for discharge Differential Diagnosis Differential Diagnoses: The differential diagnosis associated with the presentation includes (UTI, dementia, sundowning) Lab Data [facility] Lab Attestation statement: I reviewed the patient's lab results. 01/17/25 22:31 01/17/25 22:31 Labs: Lab Results 01/17/25 01/17/25 Range/Units 21:06 22:31 WBC 10.3 (4.8-10.8) X10*3/uL RBC 4.72 D (4.60-5.80) X10*6/uL Hgb 14.9 D (14.0-18.0) g/dl Hct 41.8 L D (42.0-52.0) % MCV 88.6 (80.0-98.0) fL MCH 31.6 (27.0-33.0) pg MCHC 35.6 (31.0-36.0) g/dl RDW 13.2 (11.0-16.0) % Plt Count 242 (160-400) X10*3/uL MPV 10.4 (9.4-12.4) fL Immature Gran % (Auto) 0.6 H (0.0-0.4) % Neut % (Auto) 51.9 (45-73) % Lymph % (Auto) 30.8 (20-40) % [place] % (Auto) 9.4 (2-11) % Eos % (Auto) 6.5 H (0-4) % Baso % (Auto) 0.8 (0-2) % Lymph # (Auto) 3.2 (1.2-4.9) X10*3/uL [place] # (Auto) 1.0 (0.1-1.2) X10*3/uL Eos # (Auto) 0.7 H (0.0-0.4) X10*3/uL Baso # (Auto) 0.1 (0.0-0.2) X10*3/uL Abs Immat Gran (auto) 0.06 H (0.00-0.03) X10*3/uL Absolute Neuts (auto) 5.4 (2.0-8.3) x10*3/uL Absolute Nucleated RBC 0.000 (0.0-0.012) X10*3/uL Nucleated RBC % (auto) 0.0 (0.0-0.2) /100WBC Sodium 137 (135-145) mmol/L Potassium 4.0 (3.3-5.1) mmol/L Chloride 105 (96-108) mmol/L Carbon Dioxide 22 (22-29) mmol/L Anion Gap 14 (12-20) BUN 22 H (9-16) mg/dL Creatinine 0.89 (0.5-1.4) mg/dL Estim Creat Clear Calc 64.3 Estimated GFR > 60 Random Glucose 196 H (60-115) mg/dL Calcium 9.8 D (8.4-10.2) mg/dL Total Bilirubin 0.6 (0.0-1.0) mg/dL Direct Bilirubin 0.2 (0.0-0.5) mg/dL AST 24 (5-37) U/L ALT 22 (0-40) U/L Alkaline Phosphatase 184 H (39-117) U/L Total Protein 7.3 (6.5-8.0) g/dL Albumin 3.8 (3.5-5.0) g/dL Urine Color Yellow Urine Appearance Clear Urine pH 6.0 (5.0-9.0) Ur Specific [place] 1.020 (1.005-1.025) Urine Protein 30 (1+) H (Neg-Trace) mg/dL Urine Glucose (UA) 250 H (Negative) mg/dL Urine Ketones Negative (Negative) mg/dL Urine Blood Negative (Negative) Urine Nitrite Negative (Negative) Ur Leukocyte Esterase Negative (Negative) Urine RBC 0-2 (0-2) /HPF Urine WBC 0-5 (0-5) /HPF Ur Squamous Epith Cells 0-2 (0-2) /HPF Urine Bacteria None Seen (None Seen) Hyaline Casts 0-2 (0-2) /LPF Discharge Plan Discharge Clinical Impression: Chronic dementia Patient Disposition: Home, Self-Care Instructions: Dementia (ED) Additional Instructions: Please follow-up with your primary care physician tomorrow. If you have any worsening or new symptoms, please return to the emergency room or call 911 Prescriptions: No Action multivitamin Tablet 1 tab PO DAILY atorvastatin 40 mg Tablet 40 mg PO BEDTIME acetaminophen 325 mg Tablet 975 mg PO TID PRN (Reason: Fever Or Pain) lidocaine 4 % Adhesive Patch,Medicated 1 patch TOPICAL DAILY@0800 PRN (Reason: Pain) Rx Instructions: to left knee polyethylene glycol 3350 17 gram Powder In Packet 17 g PO DAILY Rx Instructions: hold for loose stools dextrose [Glucose Gel] 40 % Gel 30 g PO Q15M PRN (Reason: Hypoglycemia) Rx Instructions: until symptoms of low blood sugar are controlled, for blood glucose less than 51 conscious treat and administer oral for hypoglycemia aspirin 81 mg Tablet,Delayed Release (Dr/Ec) 81 mg PO DAILY magnesium hydroxide [Milk of Magnesia] 400 mg/5 mL Suspension 30 ml PO DAILY PRN (Reason: Constipation) Rx Instructions: for no BM in 3 days bisacodyl 10 mg Suppository 10 mg WV DAILY PRN (Reason: Constipation) Rx Instructions: if milk of magnesia not effective Fleet Enema 19-7 gram/118 mL Enema 118 ml WV DAILY PRN (Reason: Constipation) Rx Instructions: for when Dulcolax not effective docusate sodium 100 mg Capsule 100 mg PO BID Rx Instructions: hold for loose stools glucagon 1 mg Recon Soln 1 mg SUBCUT Q15M PRN (Reason: Hypoglycemia) Rx Instructions: until target blood sugar attained oxycodone 5 mg Tablet 5 mg PO Q4H PRN (Reason: moderate to severe pain) insulin glargine [Lantus U-100 Insulin] 100 unit/mL solution 38 unit subcut BEDTIME daptomycin 500 mg Recon Soln 500 mg IV Q24H Qty: 34 0RF Rx Instructions: daptomycin end date 3/28. oxybutynin chloride 5 mg tablet extended release 24hr 5 mg PO BEDTIME furosemide 20 mg tablet 20 mg PO BEDTIME lisinopril 40 mg tablet 40 mg PO DAILY insulin lispro [Humalog U-100 Insulin] 100 unit/mL Solution See Protocol subcut QIDACHS Qty: 1 0RF Protocol: Insulin Resistant 1st 24 hours Less than or equal to 110 ---- Give (units): 0 111 to 150 Give (units): 2 151 to 200 Give (units): 4 201 to 250 Give (units): 6 251 to 300 Give (units): 8 301 to 350 Give (units): 10 Greater than 350 Give (units): 12 Call MD if Blood Glucose > : 350 Rx Instructions: 111-150 = 2 units, 151-200 = 4 units, 201-250 = 6 units, 251-300 = 8 units, 301-350 = 10 units, greater than 350 units give 12 units and notify MD clopidogrel [Plavix] 75 mg tablet 75 mg PO DAILY Qty: 90 1RF Print Language: [place]
--- NOTE | 2025-01-17 23:37 | PC.NURSE ---
Pt given applesauce Plan of care ongoing.
[2025-01-18] VITALS: BP 120/58; PULSE 59; RESP 12; O2SAT 98
[2025-01-18 00:49] VITALS: BP 120/58; PULSE 59; RESP 12; TEMP 37; O2SAT 98
--- NOTE | 2025-01-18 00:49 | PC.NURSE ---
Pt calm and cooperative Plan of care ongoing.
== END 2025-01-18 00:51 | disposition home or self-care (01) ==
PROVIDERS: Emergency Provider Emergency Medicine; PCP Family Medicine Geriatric Medicine
DX: R00.1 Bradycardia, unspecified (principal); I48.91 Unspecified atrial fibrillation; F03.911 Unspecified dementia, unspecified severity, with agitation; Z79.899 Other long term (current) drug therapy
CPT/HCPCS: 36415; 80048; 80076; 81001; 85025; 93005; 99283; 99284

== ENCOUNTER → 2025-01-17 22:40 | Outpatient (BNV) | payer MEDICARE, OTHER, SELFPAY | PROVIDERS: Emergency Provider Emergency Medicine; PCP Family Medicine Geriatric Medicine; Visit Provider Internal Medicine Cardiovascular Disease | DX: I48.91 Unspecified atrial fibrillation (principal); I25.2 Old myocardial infarction | CPT/HCPCS: 93010 ==

== ENCOUNTER 2025-02-04 09:33 | Outpatient (AMB) | payer MEDICARE, OTHER, SELFPAY ==
--- NOTE | 2025-02-04 09:36 | A.OFFVIS_ITS ---
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[place]/new onset bradycardia Allergies No Known Allergies Allergy (Verified 01/17/25 20:10) Medication List - Last Reviewed 02/04/25 by Kristi Vasquez acetaminophen 975 mg PO TID PRN apixaban (Eliquis) 2.5 mg PO BID aspirin 81 mg PO DAILY atorvastatin 40 mg PO BEDTIME bisacodyl 10 mg [place] DAILY PRN daptomycin 500 mg IV Q24H dextrose 40% (Glucose Gel) 30 grams PO Q15M PRN docusate sodium 100 mg PO BID furosemide 20 mg PO BEDTIME glucagon 1 mg subcut Q15M PRN insulin glargine (Lantus U-100 Insulin) 38 units subcut BEDTIME insulin lispro (Humalog U-100 Insulin) See Protocol units subcut QIDACHS lidocaine 4% 1 patch topical DAILY@0800 PRN lisinopril 40 mg PO DAILY magnesium hydroxide (Milk of Magnesia) 30 mL PO DAILY PRN multivitamin 1 tab PO DAILY oxybutynin chloride ER 5 mg PO BEDTIME oxycodone 5 mg PO Q4H PRN polyethylene glycol 3350 17 grams PO DAILY sodium phosphates 19-7 gram/118 mL (Fleet Enema) 118 mL [place] DAILY PRN HPI Comments Details: Kavon has been referred for evaluation bradycardia. Patient himself does not have any clear-cut symptoms. He denies any symptoms like chest pains or shortness of breath or palpitations or in fact any other concerns. Available documentation reviewed from [facility]. It seems that in September of this year he was diagnosed with atrial fibrillation slow ventricular response. Then put on Eliquis. It seems there was subsequent admission due to complaints of chest pain. It seems high sensitivity troponins were checked but they are flat. Then thought to represent demand ischemia in setting of slow ventricular response and influenza A. Cardiology had been consulted and there were no signs of acute ischemia and recommendation was to follow up as an outpatient with a teletypesetter monitor to evaluate slow atrial fibrillation. Patient himself states that he feels well and he does not have any cardiac symptoms. Per longterm notes, he ambulates unlimited basis. Mostly wheelchair-bound. Requires assistance for transfer. No recent falls. 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 Mother No problems noted. Social History (Updated 02/04/25 @ 09:43 by Kristi Vasquez) Household Members: None Housing: Prison Do you presently have visiting nurse or other home services: No Alcohol intake: former Patient Tobacco Use Status: Never used Tobacco Second Hand Smoke Exposure: No Advance Directives Date on File: 10/17/23 service: No Review of Systems Const Denies weakness ENT Denies dizziness Card Denies chest pain, Denies chest pain with activity, Denies syncope, Denies rapid heart rate, Denies pedal edema, Denies edema, Denies leg edema, Denies lightheadedness, Denies palpitations, Denies dyspnea, Denies dyspnea on exertion and Denies orthopnea Resp Denies cough, Denies dyspnea and Denies dyspnea on exertion GI Denies hematochezia and Denies change in stool character Musc Denies abnormal gait, Denies muscle cramps, Denies muscle weakness, Denies numbness, Denies radiating pain into limb and Denies tingling Neuro Denies abnormal gait, Denies dizziness, Denies syncope, Denies numbness, Denies tingling and Denies weakness Endo Denies palpitations Physical Exam Vital Signs: Last Vital Signs Pulse 60 02/04/25 09:38 BP 118/60 02/04/25 09:38 Const General: comfortable and no acute distress Orientation/consciousness: patient oriented x3 HEENT Other: Unremarkable Head: Yes normal to inspection Neck Neck: Yes normal visual inspection Chest Chest palpation & inspection: normal inspection of the chest Resp Auscultation: clear to auscultation bilaterally Cardio Palpation: normal PMI Heart sounds: S1 normal heart sound present, S2 normal heart sound present, no gallops, no murmurs and no rubs GI Palpation (GI): Soft to palpation Back/Spine/Pelvis Other: unremarkable Skin General skin exam: no rashes or lesions noted Neuro General: patient oriented x3 Extrem General: Yes normal to inspection Psych Mental Status: mental status grossly normal Assessment & Plan Assessment & Plan (1) Atrial fibrillation with slow ventricular response: Code(s): I48.91 - Unspecified atrial fibrillation Category: Medical Plan EKG from December 2024 with atrial fibrillation at a rate of 48/Min. Old inferior infarct. Echocardiogram from [facility] with LVEF of 55-60%. No obvious wall motion abnormalities. Left atrium is normal in size. Moderately thickened aortic valve but no stenosis or regurgitation. Mildly thickened mitral valve. Clinically, no overt symptoms from the atrial fibrillation/slow ventricular rate. We will check a Holter monitor for further evaluation. Most likely has underlying conduction system disease. No indication for rate control medications and he is not suitable for rhythm control. With regard to anticoagulation, continue Eliquis. Do she will be however 5 mg b.i.d. for his age, weight and kidney function. Concurrently on aspirin but may be able to stop it in the future and just keep on Eliquis only to cut back on bleeding risk. Discussed using conference interpreter. Discussion Notes During the consultation, I discussed with the patient the bradycardia diagnosis and the approach to management, including setting up a heart monitor for further evaluation. We deliberated the need for monitoring and reevaluation as part of ongoing care. The discussion did not include any new invasive interventions or treatment modifications at this time. Follow-up communication through nursing facilities was highlighted to ensure continued attention and assessment of the patient's condition. Patient was informed and verbally consented to the use of an ambient scribe for clinic note documentation during this visit. Orders: Orders ECG 3 day holter monitor Today I48.91 - Unspecified atrial fibrillation Patient Instructions: - Wear the heart monitor as instructed once set up. - Make sure all medications are taken as prescribed. - Report any dizziness, fainting, or chest pain immediately. - Keep in contact with the nursing staff for additional guidance. - Call if you have any new symptoms or concerns. Coding Level of Care Code New Pt Level 4 (91083) Complex EM visit Add On G2211 Diagnoses Atrial fibrillation with slow ventricular response I48.91
[2025-02-04 09:38] VITALS: BP 118/60; PULSE 60
== END 2025-02-04 10:00 | disposition home or self-care (01) ==
PROVIDERS: PCP Family Medicine Geriatric Medicine; Visit Provider Internal Medicine
DX: I48.91 Unspecified atrial fibrillation (principal)
CPT/HCPCS: 99204; G2211

== ENCOUNTER → 2025-02-04 09:33 | Outpatient (BNVA) | payer MEDICARE, OTHER, SELFPAY | PROVIDERS: PCP Family Medicine Geriatric Medicine; Visit Provider Internal Medicine | DX: I48.91 Unspecified atrial fibrillation (principal) | CPT/HCPCS: 99202 ==

== ENCOUNTER → 2025-02-11 12:39 | Outpatient (REF) | payer MEDICARE, OTHER, SELFPAY ==
--- NOTE | 2025-02-11 12:45 | HM_ITS ---
Conclusion: 1. Baseline rhythm is atrial fibrillation with average heart of 51 beats per minute with lowest heart rate of 24 beats per minute during sleep hours 2. Frequent slow ventricular response noted with 75% of time heart rate below 60 beats per minute with pauses up to 3.86 seconds, not significant for patient's atrial fibrillation 3. Occasional PVCs noted 4. 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
== END ==
LOC: HO.CARD 12:39
PROVIDERS: PCP Family Medicine Geriatric Medicine; Visit Provider Internal Medicine
DX: I48.91 Unspecified atrial fibrillation (principal)
CPT/HCPCS: 93242

== ENCOUNTER → 2025-02-11 12:45 | Outpatient (BNV) | payer MEDICARE, OTHER, SELFPAY | PROVIDERS: PCP Family Medicine Geriatric Medicine; Visit Provider Internal Medicine Cardiovascular Disease | DX: I48.91 Unspecified atrial fibrillation (principal); I49.3 Ventricular premature depolarization | CPT/HCPCS: 93244 ==

== ENCOUNTER 2025-04-04 09:13 | Outpatient (AMB) | payer MEDICARE, OTHER, SELFPAY ==
[2025-04-04 09:39] VITALS: BP 100/52; PULSE 35
--- NOTE | 2025-04-04 09:39 | A.OFFVIS_ITS ---
Vital Signs 04/04/25 09:39 Height 5 ft 7 in BP 100/52 L Blood Pressure Location Lt brachial Position Sitting Pulse 35 L Pulse Source Monitor Intake Visit Reasons: 2 mth s/p 3 day holter HS Fruit Or Nut Farmworker Required: Yes Fruit Or Nut Farmworker Name: voice mccray [id number] Senior Instructional Designer: Senior Instructional Designer Present Allergies No Known Allergies Allergy (Verified 04/04/25 09:44) Medication List - Last Reconciled 04/04/25 by JEET Randall acetaminophen 975 mg PO TID PRN apixaban (Eliquis) 5 mg PO BID aspirin 81 mg PO DAILY atorvastatin 40 mg PO BEDTIME bisacodyl 10 mg [place] DAILY PRN daptomycin 500 mg IV Q24H dextrose 40% (Glucose Gel) 30 grams PO Q15M PRN docusate sodium 100 mg PO BID furosemide 20 mg PO BEDTIME glucagon 1 mg subcut Q15M PRN insulin glargine (Lantus U-100 Insulin) 38 units subcut BEDTIME insulin lispro (Humalog U-100 Insulin) See Protocol units subcut QIDACHS lidocaine 4% 1 patch topical DAILY@0800 PRN lisinopril 20 mg PO DAILY lisinopril 20 mg PO DAILY magnesium hydroxide (Milk of Magnesia) 30 mL PO DAILY PRN metformin 500 mg PO BID multivitamin 1 tab PO DAILY oxybutynin chloride 5 mg PO DAILY oxybutynin chloride ER 5 mg PO BEDTIME oxycodone 5 mg PO Q4H PRN polyethylene glycol 3350 17 grams PO DAILY sodium phosphates 19-7 gram/118 mL (Fleet Enema) 118 mL PA DAILY PRN HPI HPI 2 mth s/p 3 day holter HS: Details: Kavon is an 84-year-old male with past medical history of diabetes, hypertension, atrial fibrillation, bradycardia who recently had a Holter monitor and now presents for follow-up. Today he reports that he feels well overall. He does have some lightheaded at times but states that it is not often. He has not had any presyncope, syncope, falls. [facility] and is nonambulatory. He has assistance to pivot into a wheelchair where he spends his day. No chest discomfort, shortness of breath, heart palpitations. No bleeding issues reported. He takes all meds as directed. TUMOR REGISTRAR from his facility is with him. Certified photovoltaic installer used. 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 Mother No problems noted. Social History Household Members: None Housing: [facility]iary Do you presently have visiting nurse or other home services: No Alcohol intake: former Patient Tobacco Use Status: Never used Tobacco Second Hand Smoke Exposure: No Advance Directives Date on File: 10/17/23 service: No Review of Systems Const All systems reviewed & are unremarkable except as noted in HPI and below ENT Reports dizziness (at times - no falls) Card Denies chest pain, Denies chest pain at rest, Denies chest pain with activity, Denies rapid heart rate, Denies pedal edema, Denies edema, Denies leg edema, Denies lightheadedness, Denies palpitations, Denies dyspnea, Denies dyspnea on exertion and Denies orthopnea Resp Denies cough, Denies dyspnea and Denies dyspnea on exertion GI Denies hematochezia and Denies change in stool character Musc Reports abnormal gait (uses wheelchair), Denies limited range of motion, Denies muscle cramps, Denies muscle weakness, Denies numbness, Denies radiating pain into limb, Denies stiffness and Denies tingling Neuro Reports abnormal gait (uses wheelchair), Reports dizziness (at times - no falls), Denies numbness and Denies tingling Endo Denies palpitations Physical Exam Vital Signs: Last Vital Signs Pulse 35 L 04/04/25 09:39 BP 100/52 L 04/04/25 09:39 Const Other: sitting in wheelchair General: cooperative, healthy appearing, comfortable and no acute distress Orientation/consciousness: patient oriented x3 Neck Neck: Yes normal visual inspection Resp Effort & Inspection: normal respiratory effort Auscultation: clear to auscultation bilaterally, no rales, no rhonchi and no wheezes Cardio Jugular venous distension: no JVD Rate: bradycardic Rhythm: abnormal rhythm Heart sounds: S1 normal heart sound present, S2 normal heart sound present, no gallops, no murmurs and no rubs Neuro General: patient oriented x3 Extrem General: Yes normal to inspection, No no pedal edema and No calf tenderness Psych Appearance: grossly normal Mental Status: mental status grossly normal Speech and movement: Normal speech and movement present Office Procedures EKG Details: Today, read by me, atrial fibrillation with slow ventricular response, can't exclude prior anterior infarct, T wave abnormality, rate 35, Qtc 375ms [id number], Complete Results Reviewed Results Reviewed: Echocardiogram from [facility] 10/31/24 with LVEF of 55-60%. No obvious wall motion abnormalities. Left atrium is normal in size. Moderately thickened aortic valve but no stenosis or regurgitation. Mildly thickened mitral valve Assessment & Plan Assessment & Plan (1) Atrial fibrillation with slow ventricular response: Code(s): I48.91 - Unspecified atrial fibrillation Category: Medical Plan: History of atrial fibrillation with slow ventricular response. He is not on any rate slowing agents. Holter monitor done 02/11/2025 showing atrial fibrillation with average heart rate 51 beats per minute, lowest heart rate 24 beats per minute, 75% of the time heart rate less than 60, longest pause 3.86 with atrial fibrillation. EKG done today showing atrial fibrillation, slow ventricular response, rate 35. He does report some intermittent lightheadedness however states it is not often. He is not ambulatory and resides at jail facility both help to reduce his fall risk. Discussed pacemaker placement with him and he adamantly declines at this time. Certified photovoltaic installer was used to ensure he has good understanding and he again declines. Risk of fall, presyncope, increase lightheadedness, reviewed with him. He states understanding. Avoid all rate slowing agents. Continue Eliquis. Will arrange for cardiology follow-up in 3 months to re-evaluate. (2) HTN (hypertension): Code(s): I10 - Essential (primary) hypertension Category: Medical Plan: Blood pressure goal less than 130/80. Low normal today. No med changes made. (3) Bradycardia: Code(s): R00.1 - Bradycardia, unspecified Category: Medical Plan: As above Plan I discussed with the patient the potential need for a pacemaker due to his bra dycardia, but he declined the procedure at this time. We reviewed his current medication regimen, including Eliquis for atrial fibrillation, and decided to discontinue aspirin to prevent excessive anticoagulation. Patient Instructions: - Monitor for any worsening dizziness or symptoms and report them. - Continue taking Eliquis as prescribed. - Discontinue aspirin as discussed. Patient was informed and verbally consented to the use of an ambient scribe for clinic note documentation during this visit. Visit time spent on chart review, interview, assessment, orders, documentation. Coding Level of Care Code Est Pt Level 4 (28132) Complex EM visit Add On G2211 Diagnoses Atrial fibrillation with slow ventricular response I48.91 HTN (hypertension) I10 Bradycardia R00.1 CPT Codes EKG - CPT: [id number], Complete ([id number]) Time Spent (min) 28
== END 2025-04-04 10:21 | disposition home or self-care (01) ==
LOC: HO.HCS 09:14
PROVIDERS: PCP Family Medicine Geriatric Medicine; Visit Provider Nurse Practitioner Family
DX: I48.91 Unspecified atrial fibrillation (principal); I10 Essential (primary) hypertension; R00.1 Bradycardia, unspecified
CPT/HCPCS: 93010; 99214; G2211

== ENCOUNTER → 2025-04-04 09:13 | Outpatient (BNVA) | payer MEDICARE, OTHER, SELFPAY | PROVIDERS: PCP Family Medicine Geriatric Medicine; Visit Provider Nurse Practitioner Family | DX: I10 Essential (primary) hypertension (principal); I48.91 Unspecified atrial fibrillation; R00.1 Bradycardia, unspecified; R94.31 Abnormal electrocardiogram [ECG] [EKG] | CPT/HCPCS: 93005; 99212 ==

== ENCOUNTER 2025-08-06 14:20 | Outpatient (REF) | payer MEDICARE, MEDICAID, SELFPAY ==
--- NOTE | ~2025-08-06 | US_ITS ---
EXAMINATION: Noninvasive assessment of the bilateral lower extremities with ARTERIAL DUPLEX, ANKLE BRACHIAL INDICES (ABIs), and PULSE VOLUME RECORDINGS (PVRs). CLINICAL INFORMATION: I 73.9 TECHNIQUE: Duplex Doppler techniques with waveform analysis and measurement of velocities in the bilateral common femoral, profunda femoris, superficial femoral, popliteal and tibial arteries were performed. Additionally, ankle pulse volume recordings, ankle pressure measurements and ankle brachial indices were obtained of the lower extremity arterial system bilaterally. The study was performed only at rest. COMPARISON: None FINDINGS: Arrhythmic episodes. DIRECT DUPLEX DOPPLER FINDINGS: RIGHT LEG: Common femoral artery: 76 cm/s, phasicity: Biphasic. Spectral broadening. Profunda femoris artery: 135 cm/s, phasicity: Triphasic. Spectral broadening. Superficial femoral artery (proximal): 112 cm/s, phasicity: Biphasic. Spectral broadening. Superficial femoral artery (mid): 53 cm/s, phasicity: Biphasic. Superficial femoral artery (distal): 92 cm/s, phasicity: Biphasic. Spectral broadening. Popliteal artery: 83 cm/s, phasicity: Biphasic. Spectral broadening. Posterior tibial artery: 16 cm/s, phasicity: Monophasic. Spectral broadening. Peroneal artery: No color Doppler flow. Anterior tibial artery: 74 cm/s, phasicity: Monophasic. Spectral broadening. Dorsalis pedis artery: 38 cm/s, phasicity:Monophasic. Spectral broadening. LEFT LEG: Common femoral artery: 117 cm/s, phasicity: Biphasic. Profunda femoris artery: 141 cm/s, phasicity: Triphasic. Spectral broadening. Superficial femoral artery (proximal): 86 cm/s, phasicity: Biphasic. Superficial femoral artery (mid): 131 cm/s, phasicity: Biphasic. Spectral broadening. Superficial femoral artery (distal): 101 cm/s, phasicity: Biphasic. Popliteal artery: 61 cm/s, phasicity: Monophasic. Spectral broadening. Posterior tibial artery: 11 cm/s, phasicity: Monophasic. Spectral broadening. Peroneal artery: 34 cm/s, phasicity: Monophasic. Spectral broadening. Anterior tibial artery: 12 cm/s, phasicity: Monophasic. Spectral broadening. Dorsalis pedis artery: 11 cm/s, phasicity: Monophasic. Spectral broadening. BRACHIAL PRESSURES: Right: 144 Left: 128 ANKLE PRESSURES: Right: PT 113, DP 100 Left: PT not recorded/inaudible, DP 97 ANKLE-BRACHIAL INDEX: Right: 0.78 Left: 0.67 ANKLE PVR WAVEFORMS: Right: Abnormal Left: Abnormal US/US arterial duplex BI w/ SAMRA IMPRESSION: Right leg: Moderate to severe inflow disease prominent below the knee to the ankle. Left leg: Moderate to severe inflow disease prominent below the knee to the ankle. Arrhythmic episodes. SAMRA Reference: - >1.4 = calcified vessels - 0.9 - 1.4 = normal - no significant arterial disease - 0.7 - 0.89 = mild peripheral arterial disease - 0.51 - 0.69 = moderate peripheral arterial disease - 0.50 = severe peripheral arterial disease - < .30 = critical arterial disease Electronically signed by: Martín Dillard MD 08/07/2025 07:23 AM FIDENCIO HENRY
--- OUTSIDE RECORDS SUMMARY | 2025-08-06 18:36 | XMS_ITS | Patient Health Record ---
Author Organization [facility], [place] Address [address] [place] [address] Support Name Relationship Address Phone [place] Guarantor Unknown [phone] Reason For Referral No Information Plan Of Treatment No Information Insurance Providers Payer Name Payer Address Payer Phone Subscriber Number Group Number Insured Name Patient Relationship to Insured Coverage Start Date Coverage End Date A [employer], [facility] [address] [place] [phone] [id number] [place] Self - patient is the insured [facility] Indemnity Plan [address] [place] [id number] [place] Self - patient is the insured
== END 2025-08-06 14:21 | disposition home or self-care (01) ==
LOC: HO.US 14:20
PROVIDERS: PCP Student in an Organized Health Care Education/Training Program; Visit Provider Surgery Vascular Surgery
DX: I73.9 Peripheral vascular disease, unspecified (principal)
CPT/HCPCS: 93922; 93925

== ENCOUNTER → 2025-08-06 14:24 | Outpatient (BNV) | payer MEDICARE, MEDICAID, SELFPAY | PROVIDERS: PCP Student in an Organized Health Care Education/Training Program; Visit Provider Radiology Diagnostic Radiology | DX: I70.223 Atherosclerosis of native arteries of extremities with rest pain, bilateral legs (principal) | CPT/HCPCS: 93922; 93925 ==

== ENCOUNTER 2025-08-08 08:41 | Outpatient (AMB) | payer MEDICARE, OTHER, SELFPAY ==
[2025-08-08 08:47] VITALS: BP 102/66; PULSE 56
--- NOTE | 2025-08-08 08:47 | A.OFFVIS_ITS ---
Vital Signs 08/08/25 08:47 Height 5 ft 7 in BP 102/66 Blood Pressure Location Lt brachial Position Sitting Pulse 56 Pulse Source Monitor Intake Visit Reasons: 3 mth f/up Helmet Hat Puncher Required: Yes Helmet Hat Puncher Language: Hospitality Manager Name: voice leonard [id number] Strategy Execution Consultant: Strategy Execution Consultant Present Allergies No Known Allergies Allergy (Verified 08/08/25 08:53) Medication List - Last Reconciled 08/08/25 by JEET Randall acetaminophen 975 mg PO TID PRN apixaban (Eliquis) 5 mg PO BID atorvastatin 40 mg PO BEDTIME bisacodyl 10 mg CA DAILY PRN daptomycin 500 mg IV Q24H dextrose 40% (Glucose Gel) 30 grams PO Q15M PRN docusate sodium 100 mg PO BID escitalopram oxalate mg PO furosemide 20 mg PO BEDTIME glucagon 1 mg subcut Q15M PRN insulin glargine (Lantus U-100 Insulin) 38 units subcut BEDTIME insulin lispro (Humalog U-100 Insulin) See Protocol units subcut QIDACHS lidocaine 4% 1 patch topical DAILY@0800 PRN lisinopril 20 mg PO DAILY magnesium hydroxide (Milk of Magnesia) 30 mL PO DAILY PRN metformin 500 mg PO BID multivitamin 1 tab PO DAILY oxybutynin chloride 5 mg PO DAILY oxybutynin chloride ER 5 mg PO BEDTIME oxycodone 5 mg PO Q4H PRN polyethylene glycol 3350 17 grams PO DAILY sodium phosphates 19-7 gram/118 mL (Fleet Enema) 118 mL CA DAILY PRN HPI HPI 3 mth f/up: Details: Kavon is an 84-year-old male with past medical history of diabetes, hypertension, atrial fibrillation, bradycardia who presents for follow up. Today he reports that he feels well overall. He does have some lightheaded at times but is vague in describing details regarding this. He is reported to have dementia which is confirmed by the MEDICAL PATHOLOGY TEACHER present with him today. He has not had any presyncope, syncope, falls. He resides at a [facility] facility and now ambulates only with assistance. He still has assistance to pivot into a wheelchair where he spends his day. No chest discomfort, shortness of breath, heart palpitations. No bleeding issues reported. He takes all meds as directed. MEDICAL PATHOLOGY TEACHER from his facility is with him. Certified supervisor [employer] used. 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 Mother No problems noted. Social History Household Members: None Housing: Snf Do you presently have visiting nurse or other home services: No Alcohol intake: former Patient Tobacco Use Status: Never used Tobacco Second Hand Smoke Exposure: No Advance Directives Date on File: 10/17/23 service: No Review of Systems Const All systems reviewed & are unremarkable except as noted in HPI and below ENT Denies dizziness Card Denies chest pain, Denies chest pain at rest, Denies chest pain with activity, Denies rapid heart rate, Denies pedal edema, Denies edema, Denies leg edema, Denies lightheadedness, Denies palpitations, Denies dyspnea, Denies dyspnea on exertion and Denies orthopnea Resp Denies cough, Denies dyspnea and Denies dyspnea on exertion GI Denies hematochezia and Denies change in stool character Musc Denies abnormal gait, Denies limited range of motion, Denies muscle cramps, Denies muscle weakness, Denies numbness, Denies radiating pain into limb and Denies tingling Neuro Denies abnormal gait, Denies dizziness, Denies numbness and Denies tingling Endo Denies palpitations Physical Exam Const Other: sitting in wheelchair General: cooperative, healthy appearing, comfortable and no acute distress Orientation/consciousness: patient oriented x3 Neck Neck: Yes normal visual inspection Resp Effort & Inspection: normal respiratory effort Auscultation: clear to auscultation bilaterally, no rales, no rhonchi and no wheezes Cardio Jugular venous distension: no JVD Rate: bradycardic Rhythm: abnormal rhythm Heart sounds: S1 normal heart sound present, S2 normal heart sound present, no gallops, no murmurs and no rubs Neuro General: patient oriented x3 Extrem General: Yes normal to inspection, No no pedal edema and No calf tenderness Psych Appearance: grossly normal Mental Status: mental status grossly normal Speech and movement: Normal speech and movement present Office Procedures EKG Details: Today, read by me, AFib with slow ventricular response, can not exclude prior anterior infarct, nonspecific ST and T-wave abnormality, rate 56, QTC 420 milliseconds [id number], Complete Assessment & Plan Assessment & Plan (1) Atrial fibrillation with slow ventricular response: Code(s): I48.91 - Unspecified atrial fibrillation Category: Medical Plan: History of atrial fibrillation with slow ventricular response. He is not on any rate slowing agents. Holter monitor done 02/11/2025 showing atrial fibrillation with average heart rate 51 beats per minute, lowest heart rate 24 beats per minute, 75% of the time heart rate less than 60, longest pause 3.86 with atrial fibrillation. EKG done last visit showed atrial fibrillation, slow ventricular response, rate 35. Discussed pacemaker placement with him at that time and he adamantly declined. EKG today showing afib, rate 56. Vague lightheadedness at times, unclear if this is related. Reviewed Risk of fall, presyncope, syncope, increase lightheadedness if his heart rate does go too slow. No indication for PPM at present. Avoid all rate slowing agents. Continue Eliquis. Cardiology follow up 6 months, sooner if needed. (2) HTN (hypertension): Code(s): I10 - Essential (primary) hypertension Category: Medical Plan: Blood pressure goal less than 130/80. Low normal today. No med changes made. (3) Bradycardia: Code(s): R00.1 - Bradycardia, unspecified Category: Medical Plan: As above Plan I informed the patient that his EKG today showed a heart rate of 56, which is an improvement from his last visit where it was 35. I reviewed with him that while a pacemaker was previously discussed for his slow heart rate, he had declined it. At present, his heart rate is higher and pacemaker not indicated currently. I strongly emphasized the high risk of falling due to his weakness and instability, and the increased danger of serious bleeding, such as a head bleed, because he is on a blood thinner. I advised him to not walk without assistance. I will make no changes to his medications at this time. We will follow up in six months, or sooner if needed. Patient Instructions: - Your heart rate is better today, but it is still a little slow. - You need to be very careful about falling, as you are weak and unsteady on your feet. - Always have someone help you when you get up and walk. - Because you are on a blood thinner, a fall could cause very serious bleeding, especially if you hit your head. - Do not make any changes to your medicines. - Please schedule a follow-up appointment in six months, or call us sooner if you have any problems. Patient was informed and verbally consented to the use of an ambient scribe for clinic note documentation during this visit. Visit time spent on chart review, interview, assessment, orders, documentation. Coding Level of Care Code Est Pt Level 4 (54904) Add On Problem Visit Only Diagnoses Atrial fibrillation with slow ventricular response I48.91 HTN (hypertension) I10 Bradycardia R00.1 CPT Codes EKG - CPT: 46911-[id number], Complete ([id number]) Time Spent (min) 28
--- OUTSIDE RECORDS SUMMARY | 2025-08-08 09:11 | XMS_ITS | Patient Health Record ---
Author Organization [facility], [place] Address [address] [address] [place] [address] Support Name Relationship Address Phone [place] Guarantor Unknown [phone] Reason For Referral No Information Plan Of Treatment No Information Insurance Providers Payer Name Payer Address Payer Phone Subscriber Number Group Number Insured Name Patient Relationship to Insured Coverage Start Date Coverage End Date A [employer], [facility] [address] [facility] [place] [phone] [id number] [place] Self - patient is the insured [facility] [employer] [address] [place] [id number] [place] Self - patient is the insured
== END 2025-08-08 09:23 | disposition home or self-care (01) ==
LOC: HO.HCS 08:41
PROVIDERS: PCP Family Medicine Geriatric Medicine; Visit Provider Nurse Practitioner Family
DX: I48.91 Unspecified atrial fibrillation (principal); I10 Essential (primary) hypertension; R00.1 Bradycardia, unspecified
CPT/HCPCS: 93010; 99214; G2211

== ENCOUNTER → 2025-08-08 08:41 | Outpatient (BNVA) | payer MEDICARE, OTHER, SELFPAY | PROVIDERS: PCP Family Medicine Geriatric Medicine; Visit Provider Nurse Practitioner Family | DX: I10 Essential (primary) hypertension (principal); I48.91 Unspecified atrial fibrillation; R00.1 Bradycardia, unspecified | CPT/HCPCS: 93005; 99212 ==